=== PATIENT | female | born 1935 | race African-American/Black ===

== ENCOUNTER → 2016-10-30 | Outpatient (CLI) | payer MEDICARE ==
[2015-09-07 10:41] VITALS: BP 131/63
[~2016-10-30] MED LIST: AMIO200T2 PO; ASPI81TA9 PO; DILT120C97 PO; LISI10TA2 PO; METF500T4 PO; METO25TA9 PO; PRAV40TA2 PO; THIA100T22 PO
--- NOTE | 2016-10-30 13:37 | CARD ---
APPROVED REPORT EXAM: Two-dimensional and M-mode echocardiogram with Doppler and color Doppler. Other Information Quality : GoodHR: 130bpm Rhythm : Tachycardia INDICATION Chest Pain Atrial flutter 2D DIMENSIONS RVDd2.1 (2.9-3.5cm)Left Atrium(2D)2.8 (1.6-4.0cm) IVSd1.1 (0.7-1.1cm)Aortic Root(2D)2.4 (2.0-3.7cm) LVDd3.6 (3.9-5.9cm)LVOT Diameter2.1 (1.8-2.4cm) PWd1.1 (0.7-1.1cm)LVDs2.7 (2.5-4.0cm) FS (%) 27.0 %SV29.8 ml LVEF(%)53.5 (>50%) Aortic Valve AoV Peak Gorge.168.7cm/sAoV VTI28.5cm AO Peak GR.11.4mmHgLVOT Peak Gorge.96.8cm/s LVOT VTI 19.32cmAO Mean GR.7mmHg AMADA (VMAX)1.71sl3ZEH (VTI)2.37cm2 Mitral Valve MV E Zvlwaxrh584.1cm/sMV DECEL EZLD387mv MV E Mean Gr.5mmHgMV GTX48np MVA (PHT)6.35cm2 TDI E/Lateral E'10.7E/Medial E'7.5 Tricuspid Valve TR P. Ssfoofdj896iq/sRAP [id number] TR Peak Gr.95jyPkJJWD36jcFt Pulmonary Vein S1 Ugkxeays17.3cm/sD2 Nyvekriq128.7cm/s PVa bqxxdify48gyke LEFT VENTRICLE The left ventricle is normal size. There is mild concentric left ventricular hypertrophy. The left ve ntricular systolic function is normal. The Ejection Fraction is 65-70%. There is normal LV segmental wall motion. Unable to assess left ventricular diastolic function due to E/A waveform fusion. RIGHT VENTRICLE The right ventricle is normal size. There is normal right ventricular wall thickness. The right ventr icular systolic function is normal. ATRIA The left atrium size is normal. The right atrium size is normal. The interatrial septum is intact wit h no evidence for an atrial septal defect or patent foramen ovale as noted on 2-D or Doppler imaging. AORTIC VALVE The aortic valve is mildly sclerotic. The aortic valve is trileaflet. Doppler and Color Flow revealed no significant aortic regurgitation. There is no significant aortic valvular stenosis. MITRAL VALVE There is no evidence of mitral valve prolapse. There is no mitral valve stenosis. Doppler and Color F low revealed mild mitral regurgitation. TRICUSPID VALVE Doppler and Color Flow revealed mild to moderate tricuspid regurgitation. The pulmonary artery systol ic pressure is estimated at 46 mmHg. There is moderate pulmonary hypertension. PULMONIC VALVE The pulmonary valve is normal in structure and function. Doppler and Color Flow revealed no pulmonic valvular regurgitation. There is no pulmonic valvular stenosis. GREAT VESSELS The aortic root is normal in size. The ascending aorta is normal in size. The pulmonary artery is nor mal. The IVC is normal in size and collapses >50% with inspiration. PERICARDIAL EFFUSION There is no evidence of significant pericardial effusion. Critical Notification Critical Value: No <Conclusion> The left ventricular systolic function is normal. The Ejection Fraction is 65-70%. There is normal LV segmental wall motion. Mild to moderate tricuspid regurgitation. The pulmonary artery systolic pressure is estimated at 46 mmHg. There is no evidence of significant pericardial effusion.
== END | disposition home or self-care (01) ==
LOC: ECHO 10:02
PROVIDERS: ATTEND Internal Medicine Cardiovascular Disease
DX: I48.92 Unspecified atrial flutter (principal); I07.1 Rheumatic tricuspid insufficiency; I27.2 Other secondary pulmonary hypertension
CPT/HCPCS: 93306

== ENCOUNTER → 2017-08-07 | Outpatient (CLI) | payer MEDICARE ==
[2015-09-07 10:41] VITALS: BP 131/63
[~2017-08-07] MED LIST changes: +ASPI-612 PO; -ASPI81TA9 PO; +DILT120C80 PO; -DILT120C97 PO; +METO-239 PO; -METO25TA9 PO
--- NOTE | 2017-08-07 14:21 | KCIC ---
Right upper extremity Doppler ultrasound History: Right upper extremity swelling. Technique: Grayscale, color Doppler and spectral waveform analysis is used. Findings: No evidence of intraluminal thrombus of the internal jugular vein, subclavian vein, axillary vein and brachial vein. Radial and ulnar veins are patent. Cephalic and basilic veins are patent. There is a hypoechoic fluid collection at the right lateral shoulder, measuring 3.6 cm x 3.5 cm x 1.2 cm. Soft tissue edema seen at the wrist. Conclusion: 1. No evidence of venous thrombosis. 2. Nonspecific fluid collection at the lateral shoulder. This could represent bursitis. Seroma or nonacute hematoma are possible. Abscess is possible if the patient demonstrates clinical signs of infection. Electronically signed by: Yakov Templeton MD (08/07/2017 2:18 PM) [id number]
== END | disposition home or self-care (01) ==
LOC: KCIC US 12:04
PROVIDERS: ATTEND Family Medicine
DX: M79.89 Other specified soft tissue disorders (principal); R60.0 Localized edema
CPT/HCPCS: 93971

== ENCOUNTER → 2018-06-01 | Outpatient (CLI) | payer MEDICARE ==
[2015-09-07 10:41] VITALS: BP 131/63
[~2018-06-01] MED LIST changes: -AMIO200T2 PO; +AMIO200T4 PO; +METF500T16 PO; -METF500T4 PO
--- NOTE | 2018-06-01 10:36 | CARD ---
MR#: [id number] Date of Study: 06/01/2018 Ordering Physician: CAMRON MENDEZ, Referring Physician: CAMRON MENDEZ, Tech: Eliane Damon APPROVED REPORT EXAM: Two-dimensional and M-mode echocardiogram with Doppler and color Doppler. Other Information Quality : AverageHR: 71bpm Rhythm : NSR INDICATION Arrhythmia RISK FACTORS Hypertension Hyperlipidemia Diabetes 2D DIMENSIONS RVDd1.6 (2.9-3.5cm)Left Atrium(2D)2.8 (1.6-4.0cm) IVSd1.2 (0.7-1.1cm)Aortic Root(2D)2.8 (2.0-3.7cm) LVDd3.8 (3.9-5.9cm)LVOT Diameter2.1 (1.8-2.4cm) PWd1.0 (0.7-1.1cm)IVSs2.6 (0.8-1.2cm) Aortic Valve AoV Peak Gorge.179.7cm/sAoV VTI38.7cm AO Peak GR.12.9mmHgLVOT Peak Gorge.96.1cm/s LVOT VTI 24.62cmAO Mean GR.7mmHg AMADA (VMAX)1.54gc8ELZ (VTI)2.11cm2 Mitral Valve MV E Plvscbxy757.6cm/sMV DECEL GAEO934ih MV A Gnduapev065.6cm/sMV MME20dw E/A Ratio0.8MVA (PHT)3.27cm2 TDI E/Lateral E'10.3E/Medial E'12.5 Pulmonary Valve PV Peak Kkpdrnba944.4cm/sPV Peak Grad.5mmHg Tricuspid Valve TR P. Mmwjjpgu839nn/sRAP QOPCLBMQ1evNu TR Peak Gr.41nuPzBJLI69zoPv Pulmonary Vein PVa bgshvyxt488vqvp LEFT VENTRICLE The left ventricle is normal size. There is borderline concentric left ventricular hypertrophy. The l eft ventricular systolic function is normal and the ejection fraction is within normal range. The Eje ction Fraction is 50-55%. There is normal LV segmental wall motion. Transmitral Doppler flow pattern is Grade I-abnormal relaxation pattern. RIGHT VENTRICLE The right ventricle is normal size. There is normal right ventricular wall thickness. The right ventr icular systolic function is normal. ATRIA The left atrium size is normal. The right atrium size is normal. The interatrial septum is intact wit h no evidence for an atrial septal defect or patent foramen ovale as noted on 2-D or Doppler imaging. AORTIC VALVE The aortic valve is mildly thickened but opens well. Doppler and Color Flow revealed trace aortic reg urgitation. There is no significant aortic valvular stenosis. MITRAL VALVE The mitral valve is normal in structure and function. There is no mitral valve stenosis. Doppler and Color-flow revealed trace mitral regurgitation. TRICUSPID VALVE The tricuspid valve is normal in structure and function. Doppler and Color Flow revealed trace tricus pid regurgitation. PULMONIC VALVE The pulmonic valve is not well visualized. Doppler and Color Flow revealed no pulmonic valvular regur gitation. There is no pulmonic valvular stenosis. GREAT VESSELS The aortic root is normal in size. The IVC is normal in size and collapses >50% with inspiration. PERICARDIAL EFFUSION There is no evidence of significant pericardial effusion. Critical Notification Critical Value: No <Conclusion> The left ventricular systolic function is normal and the ejection fraction is within normal range. Th e Ejection Fraction is 50-55%. There is normal LV segmental wall motion. Signed by : Stan Brock, Electronically Approved : 06/01/2018 10:35:03
== END | disposition home or self-care (01) ==
LOC: ECHO 08:51
PROVIDERS: ATTEND Internal Medicine Cardiovascular Disease
DX: I48.92 Unspecified atrial flutter (principal); I10 Essential (primary) hypertension; E11.9 Type 2 diabetes mellitus without complications; E78.5 Hyperlipidemia, unspecified; Z85.3 Personal history of malignant neoplasm of breast; Z90.13 Acquired absence of bilateral breasts and nipples; Z88.2 Allergy status to sulfonamides; Z88.0 Allergy status to penicillin
CPT/HCPCS: 93306

== ENCOUNTER → 2018-11-25 | Outpatient (CLI) | payer MEDICARE ==
[2018-11-01 11:00] VITALS: BP 119/48
[~2018-11-25] MED LIST changes: +CHOL500016 PO; +DILT120C71 PO; -DILT120C80 PO; +DILT120C85 PO; +FLUT9.9S NS; +HYDR12.575 PO; +LORA10TA3 PO; +METO10TA81 PO; +NAPR-695 PO; +OXYC1TAB15 PO; +PANT20TA2 PO
--- NOTE | 2018-11-25 12:39 | RAD ---
FDG tumor localization scan, PET/CT, 11/25/2018: History: Staging of ovarian cancer Following IV injection of 12.7 mCi of 18 F-FDG, imaging was performed from the skull base to the proximal thighs. The noncontrast CT component was performed for attenuation correction and anatomic localization purposes rather than for primary diagnosis. The patient's blood glucose level the time of injection was 118 MG/DL. There are numerous hypermetabolic foci in the abdomen and pelvis. Many of these correspond to discrete peritoneal soft tissue implants. Some of these nodules were visible on the previous CT study of 06/20/2019. A 3.6 cm hypermetabolic nodule located along the posterior margin of the left lobe of the liver just to the left of midline has increased in size since the previous study at which time it measured 3.2 cm. It is hypermetabolic with a maximum tissue via of 14.0. Numerous other hypermetabolic nodules are present in the mesentery and along the peritoneal surfaces bilaterally. There are confluent hypermetabolic densities in the pelvis within both adnexal regions and the cul-de-sac, difficult to separate from the uterus. The maximum SUV in these regions is 13.4. Physiologic activity is present in the neck. No hypermetabolic neck lesion is seen. Abnormal periarticular activity at both shoulders is compatible with arthritis. A tiny 4-5 mm density in the left internal mammary region in the mid chest is mildly hypermetabolic demonstrating a maximum SUV of 2.9. There is a moderate size right pleural effusion, increased since the 10/21/2018 CT study. No definite hypermetabolic pleural mass is seen. No hypermetabolic pulmonary lesion is identified. A small hypermetabolic focus is noted in the upper abdominal wall just to the left of midline adjacent to a rib end. This could be posttraumatic or metastatic. There is increased FDG uptake involving the anterior abdominal wall musculature and adjacent subcutaneous soft tissues at the midline in the lower abdomen and pelvis. This may represent postsurgical change, although residual tumor cannot be excluded, particularly in view of the fact that there was an apparent tumor implant in this region on the previous CT study of 10/21/2018. Abnormal activity along the perineal surfaces most likely represents urine contamination. Incidental CT findings include surgical absence of both breasts. There are surgical clips in the right axilla. A few scattered coronary artery calcifications are present. There is only a small amount of free fluid in the abdomen. Previously seen bowel obstruction has resolved. Moderate multilevel degenerative changes are present in the spine. IMPRESSION: 1. 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 2. Hypermetabolic foci involving the anterior abdominal wall at the midline compatible with postsurgical change and/or tumor implantation. 3. Tiny mild hypermetabolic nodule in the left internal mammary region. 4. Enlarging right pleural effusion.
== END | disposition home or self-care (01) ==
LOC: PETSC 09:55
PROVIDERS: ATTEND Internal Medicine Hematology & Oncology
DX: C56.1 Malignant neoplasm of right ovary (principal); C80.0 Disseminated malignant neoplasm, unspecified; J90 Pleural effusion, not elsewhere classified
CPT/HCPCS: 78815; A9552

== ENCOUNTER 2018-11-29 07:29 | Day surgery (SDC) | payer MEDICARE ==
[~2018-11-29 07:29] MED LIST changes: +BUPIVAC MPF-EPI 0.5%-1:200000 30 ML VIAL. ONE; +HEPARIN PF 500 UNIT/5 ML DISP.SYRIN. IV ONE; +HYDROmorphone 2 MG/ML VIAL IV PRN; +IOHEXOL 300 MG/ML 100ML VIAL. ONE; +IV RINGERS,LACTATED 1000ML 1,000 ML IV SCH; +LIDOCAINE 1% PF 2 ML VIAL. ID PRN; +MORPHINE SULFATE 2 MG/ML VIAL. IV PRN; +ONDANSETRON PF 4 MG/2 ML VIAL. IV PRN; +PROCHLORPERAZINE 10 MG/2 ML VIAL. IV PRN; +fentaNYL PF VIAL 100 MCG/2 ML VIAL IV PRN
[2018-11-29] MEDS ORDERED: SEVOFLURANE 61 TO 120 MINUTES. IH ONE (08:17)
[2018-11-29] MEDS ORDERED: fentaNYL PF VIAL 100 MCG/2 ML VIAL ONE (08:18)
[2018-11-29 08:39] LABS: BASO % 1 % (0-3); EOS # 0.1 x10^3/uL (0.0-0.7); EOS % 1 % (0-3); HEMATOCRIT 28.8 % (36.0-47.0); HEMOGLOBIN 9.4 g/dL (12.0-15.5); LYMPH # 1.9 x10^3/uL (1.0-4.8); LYMPH % 37 % (24-48); MEAN CORPUSCULAR HEMOGLOBIN 29 pg (25-35); MEAN CORPUSCULAR HGB CONC 33 g/dL (31-37); MEAN CORPUSCULAR VOLUME 89 fL (79-100); MONO # 0.6 x10^3/uL (0.0-1.1); MONO % 10 % (0-9); NEUT # 2.7 x10^3uL (1.8-7.7); NEUT % 51 % (31-73); PLATELET COUNT 275 x10^3/uL (140-400); RED BLOOD COUNT 3.23 x10^6/uL (3.50-5.40); RED CELL DISTRIBUTION WIDTH 15.2 % (11.5-14.5); WHITE BLOOD COUNT 5.3 x10^3/uL (4.0-11.0)
[2018-11-29 08:47] LABS: CALCIUM 9.5 mg/dL (8.5-10.1); CREATININE 1.8 mg/dL (0.6-1.0); GFR 32.4; POTASSIUM 4.2 mmol/L (3.5-5.1)
[2018-11-29 08:49] LABS: PROTHROMBIN TIME PATIENT 13.3 SEC (11.7-14.0)
[2018-11-29 08:53] LABS: ALBUMIN 3.6 g/dL (3.4-5.0); ALBUMIN/GLOBULIN RATIO 0.7 (1.0-1.7); TOTAL BILIRUBIN 0.4 mg/dL (0.2-1.0); TOTAL PROTEIN 8.7 g/dL (6.4-8.2)
[2018-11-29] MEDS ORDERED: CLINDAMYCIN 900MG PREMIX 50 ML IV ONE (09:15)
--- NOTE | 2018-11-29 09:24 | PDOC ---
SURGICAL PROGRESS NOTE Subjective No change in dictated H&P. Vital Signs Vital Signs Date Time Temp Pulse Resp B/P (MAP) Pulse Ox O2 Delivery O2 Flow Rate FiO2 11/29/18 08:30 Room Air 11/29/18 08:16 97.3 89 20 150/67 97 97.3 Labs Laboratory Tests Test 11/29/18 08:20 White Blood Count 5.3 x10^3/uL (4.0-11.0) Red Blood Count 3.23 x10^6/uL (3.50-5.40) Hemoglobin 9.4 g/dL (12.0-15.5) Hematocrit 28.8 % (36.0-47.0) Mean Corpuscular Volume 89 fL (79-100) Mean Corpuscular Hemoglobin 29 pg (25-35) Mean Corpuscular Hemoglobin Concent 33 g/dL (31-37) Red Cell Distribution Width 15.2 % (11.5-14.5) Platelet Count 275 x10^3/uL (140-400) Neutrophils (%) (Auto) 51 % (31-73) Lymphocytes (%) (Auto) 37 % (24-48) Monocytes (%) (Auto) 10 % (0-9) Eosinophils (%) (Auto) 1 % (0-3) Basophils (%) (Auto) 1 % (0-3) Neutrophils # (Auto) 2.7 x10^3uL (1.8-7.7) Lymphocytes # (Auto) 1.9 x10^3/uL (1.0-4.8) Monocytes # (Auto) 0.6 x10^3/uL (0.0-1.1) Eosinophils # (Auto) 0.1 x10^3/uL (0.0-0.7) Basophils # (Auto) 0.0 x10^3/uL (0.0-0.2) Prothrombin Time 13.3 SEC (11.7-14.0) Prothromb Time International Ratio 1.0 (0.8-1.1) Sodium Level 142 mmol/L (136-145) Potassium Level 4.2 mmol/L (3.5-5.1) Chloride Level 101 mmol/L (98-107) Carbon Dioxide Level 28 mmol/L (21-32) Anion Gap 13 (6-14) Blood Urea Nitrogen 54 mg/dL (7-20) Creatinine 1.8 mg/dL (0.6-1.0) Estimated GFR (Cockcroft-Gault) 32.4 BUN/Creatinine Ratio 30 (6-20) Glucose Level 110 mg/dL (70-99) Calcium Level 9.5 mg/dL (8.5-10.1) Total Bilirubin 0.4 mg/dL (0.2-1.0) Aspartate Amino Transf (AST/SGOT) 38 U/L (15-37) Alanine Aminotransferase (ALT/SGPT) 14 U/L (14-59) Alkaline Phosphatase 109 U/L (46-116) Total Protein 8.7 g/dL (6.4-8.2) Albumin 3.6 g/dL (3.4-5.0) Albumin/Globulin Ratio 0.7 (1.0-1.7) Laboratory Tests Test 11/29/18 08:20 White Blood Count 5.3 x10^3/uL (4.0-11.0) Red Blood Count 3.23 x10^6/uL (3.50-5.40) Hemoglobin 9.4 g/dL (12.0-15.5) Hematocrit 28.8 % (36.0-47.0) Mean Corpuscular Volume 89 fL (79-100) Mean Corpuscular Hemoglobin 29 pg (25-35) Mean Corpuscular Hemoglobin Concent 33 g/dL (31-37) Red Cell Distribution Width 15.2 % (11.5-14.5) Platelet Count 275 x10^3/uL (140-400) Neutrophils (%) (Auto) 51 % (31-73) Lymphocytes (%) (Auto) 37 % (24-48) Monocytes (%) (Auto) 10 % (0-9) Eosinophils (%) (Auto) 1 % (0-3) Basophils (%) (Auto) 1 % (0-3) Neutrophils # (Auto) 2.7 x10^3uL (1.8-7.7) Lymphocytes # (Auto) 1.9 x10^3/uL (1.0-4.8) Monocytes # (Auto) 0.6 x10^3/uL (0.0-1.1) Eosinophils # (Auto) 0.1 x10^3/uL (0.0-0.7) Basophils # (Auto) 0.0 x10^3/uL (0.0-0.2) Prothrombin Time 13.3 SEC (11.7-14.0) Prothromb Time International Ratio 1.0 (0.8-1.1) Sodium Level 142 mmol/L (136-145) Potassium Level 4.2 mmol/L (3.5-5.1) Chloride Level 101 mmol/L (98-107) Carbon Dioxide Level 28 mmol/L (21-32) Anion Gap 13 (6-14) Blood Urea Nitrogen 54 mg/dL (7-20) Creatinine 1.8 mg/dL (0.6-1.0) Estimated GFR (Cockcroft-Gault) 32.4 BUN/Creatinine Ratio 30 (6-20) Glucose Level 110 mg/dL (70-99) Calcium Level 9.5 mg/dL (8.5-10.1) Total Bilirubin 0.4 mg/dL (0.2-1.0) Aspartate Amino Transf (AST/SGOT) 38 U/L (15-37) Alanine Aminotransferase (ALT/SGPT) 14 U/L (14-59) Alkaline Phosphatase 109 U/L (46-116) Total Protein 8.7 g/dL (6.4-8.2) Albumin 3.6 g/dL (3.4-5.0) Albumin/Globulin Ratio 0.7 (1.0-1.7) LINDSAY JARVIS MD Nov 29, 2018 09:24
[2018-11-29] MEDS ORDERED: ONDANSETRON PF 4 MG/2 ML VIAL. ONE (09:26)
[2018-11-29] MEDS ORDERED: DEXAMETHASONE SOD PHOS 20 MG/5 ML VIAL. ONE (09:26)
--- NOTE | 2018-11-29 09:27 | PDOC ---
SURGICAL PROGRESS NOTE Subjective Op Note Surgeon..........................................Jarvis Pre op diag.....................................Ovarian cancer Post op diag...................................same Anesthesia.....................................general Procedure......................................Port-a-cath on left Blood loss.....................................7cc Drains...........................................none Fluids............................................see anesthesia sheet condtion........................................Satisfactory Vital Signs Vital Signs Date Time Temp Pulse Resp B/P (MAP) Pulse Ox O2 Delivery O2 Flow Rate FiO2 11/29/18 08:30 Room Air 11/29/18 08:16 97.3 89 20 150/67 97 97.3 Labs Laboratory Tests Test 11/29/18 08:20 White Blood Count 5.3 x10^3/uL (4.0-11.0) Red Blood Count 3.23 x10^6/uL (3.50-5.40) Hemoglobin 9.4 g/dL (12.0-15.5) Hematocrit 28.8 % (36.0-47.0) Mean Corpuscular Volume 89 fL (79-100) Mean Corpuscular Hemoglobin 29 pg (25-35) Mean Corpuscular Hemoglobin Concent 33 g/dL (31-37) Red Cell Distribution Width 15.2 % (11.5-14.5) Platelet Count 275 x10^3/uL (140-400) Neutrophils (%) (Auto) 51 % (31-73) Lymphocytes (%) (Auto) 37 % (24-48) Monocytes (%) (Auto) 10 % (0-9) Eosinophils (%) (Auto) 1 % (0-3) Basophils (%) (Auto) 1 % (0-3) Neutrophils # (Auto) 2.7 x10^3uL (1.8-7.7) Lymphocytes # (Auto) 1.9 x10^3/uL (1.0-4.8) Monocytes # (Auto) 0.6 x10^3/uL (0.0-1.1) Eosinophils # (Auto) 0.1 x10^3/uL (0.0-0.7) Basophils # (Auto) 0.0 x10^3/uL (0.0-0.2) Prothrombin Time 13.3 SEC (11.7-14.0) Prothromb Time International Ratio 1.0 (0.8-1.1) Sodium Level 142 mmol/L (136-145) Potassium Level 4.2 mmol/L (3.5-5.1) Chloride Level 101 mmol/L (98-107) Carbon Dioxide Level 28 mmol/L (21-32) Anion Gap 13 (6-14) Blood Urea Nitrogen 54 mg/dL (7-20) Creatinine 1.8 mg/dL (0.6-1.0) Estimated GFR (Cockcroft-Gault) 32.4 BUN/Creatinine Ratio 30 (6-20) Glucose Level 110 mg/dL (70-99) Calcium Level 9.5 mg/dL (8.5-10.1) Total Bilirubin 0.4 mg/dL (0.2-1.0) Aspartate Amino Transf (AST/SGOT) 38 U/L (15-37) Alanine Aminotransferase (ALT/SGPT) 14 U/L (14-59) Alkaline Phosphatase 109 U/L (46-116) Total Protein 8.7 g/dL (6.4-8.2) Albumin 3.6 g/dL (3.4-5.0) Albumin/Globulin Ratio 0.7 (1.0-1.7) Laboratory Tests Test 11/29/18 08:20 White Blood Count 5.3 x10^3/uL (4.0-11.0) Red Blood Count 3.23 x10^6/uL (3.50-5.40) Hemoglobin 9.4 g/dL (12.0-15.5) Hematocrit 28.8 % (36.0-47.0) Mean Corpuscular Volume 89 fL (79-100) Mean Corpuscular Hemoglobin 29 pg (25-35) Mean Corpuscular Hemoglobin Concent 33 g/dL (31-37) Red Cell Distribution Width 15.2 % (11.5-14.5) Platelet Count 275 x10^3/uL (140-400) Neutrophils (%) (Auto) 51 % (31-73) Lymphocytes (%) (Auto) 37 % (24-48) Monocytes (%) (Auto) 10 % (0-9) Eosinophils (%) (Auto) 1 % (0-3) Basophils (%) (Auto) 1 % (0-3) Neutrophils # (Auto) 2.7 x10^3uL (1.8-7.7) Lymphocytes # (Auto) 1.9 x10^3/uL (1.0-4.8) Monocytes # (Auto) 0.6 x10^3/uL (0.0-1.1) Eosinophils # (Auto) 0.1 x10^3/uL (0.0-0.7) Basophils # (Auto) 0.0 x10^3/uL (0.0-0.2) Prothrombin Time 13.3 SEC (11.7-14.0) Prothromb Time International Ratio 1.0 (0.8-1.1) Sodium Level 142 mmol/L (136-145) Potassium Level 4.2 mmol/L (3.5-5.1) Chloride Level 101 mmol/L (98-107) Carbon Dioxide Level 28 mmol/L (21-32) Anion Gap 13 (6-14) Blood Urea Nitrogen 54 mg/dL (7-20) Creatinine 1.8 mg/dL (0.6-1.0) Estimated GFR (Cockcroft-Gault) 32.4 BUN/Creatinine Ratio 30 (6-20) Glucose Level 110 mg/dL (70-99) Calcium Level 9.5 mg/dL (8.5-10.1) Total Bilirubin 0.4 mg/dL (0.2-1.0) Aspartate Amino Transf (AST/SGOT) 38 U/L (15-37) Alanine Aminotransferase (ALT/SGPT) 14 U/L (14-59) Alkaline Phosphatase 109 U/L (46-116) Total Protein 8.7 g/dL (6.4-8.2) Albumin 3.6 g/dL (3.4-5.0) Albumin/Globulin Ratio 0.7 (1.0-1.7) LINDSAY JARVIS MD Nov 29, 2018 09:27
[2018-11-29] MEDS ORDERED: diphenhydrAMINE 50 MG/ML VIAL ONE (09:41)
[2018-11-29] MEDS ORDERED: PHENYLEPHRINE in 0.9% NACL PF 1 MG/10 ML SYRINGE. IV ONE (09:47)
[2018-11-29] MEDS ORDERED: ePHEDrine PF IN SALINE 50 MG/10 ML SYRINGE. IV ONE (10:09)
--- NOTE | 2018-11-29 11:44 | RAD ---
Portable chest, 11/29/2018: HISTORY: Check Port-A-Cath placement A left Port-A-Cath is in place extending into the superior aspect of the right atrium. The heart size and pulmonary vascularity are normal. There is mild tortuosity and calcific plaquing of the thoracic aorta. No pulmonary infiltrate is seen. There is no evidence of pleural fluid or pneumothorax. Surgical clips are projected over the right axilla. Severe degenerative changes are present at both shoulders. IMPRESSION: 1. The left Port-A-Cath extends into the superior aspect of the right atrium. 2. No acute cardiopulmonary abnormality is detected. Electronically signed by: Nitin Muñiz MD (11/29/2018 11:41 AM) [facility]
[2018-11-29] MEDS ORDERED: oxyCODONE/APAP 5/325 1 TAB TABLET PO ONE (11:45)
[2018-11-29 12:03] VITALS: BP 145/63
--- NOTE | 2018-11-30 00:17 | OP ---
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 ANESTHESIA: General. PROCEDURE: Insertion of Port-A-Cath on the left. TECHNIQUE: The patient was properly prepped and draped in routine fashion. We placed the patient in Trendelenburg position and at the junction of the middle and medial third of the clavicle at about a 30 degree angle, we passed a needle under the clavicle and over the first rib and punctured the vein. We aspirated back venous blood and placed a guidewire into the superior vena cava proven by C-arm. We then removed the needle, made a maynor in the skin and then passed the trocar and dilator over the guidewire. We then removed the guidewire and then removed the trocar leaving the sheath in place and then passed the catheter into the superior vena cava. We applied appropriate apparatus and injected dye and did clearly see the catheter in superior vena cava. We placed it down into the heart. We then made a pouch on the anterior chest wall, which was somewhat difficult as the patient had had a mastectomy and had fascia removed from the muscle. We made a small incision in the anterior left chest wall with a 15 blade and then developed a pocket inferior to this. We then used the finger to open this up and made sure that the Port-A-Cath would fit in it and then put the trocar on the end of the catheter, tunneled it from the entrance site in the subclavicular area through the superior portion of the inferior incision. We then pulled the catheter back using the C-arm to make certain the catheter was in the distal superior vena cava and then placed the appropriate apparatus onto the Port-A-Cath and placed a locking mechanism over this to lock it in place. We then placed aspirated venous blood using Macdonald needle into the Port-A-Cath and then flushed the Port-A-Cath with about 5 mL of heparinized saline solution. We then injected dye to make certain it was in its proper location, it was and then, we injected more heparin, about 5 mL of heparinized saline solution 100 units per mL into the area. The Port-A-Cath was sutured using 2-0 silk to the anterior chest wall on both sides of the Port-A-Cath. The resultant defect was inspected. The deeper tissue, subcutaneous and deep dermis were approximated with interrupted 4-0 Vicryl and the skin was closed using 5-0 subcuticular Vicryl and the small subclavicular incision and where the pocket had been made. We then placed Tegaderm dressings over this area and the procedure was terminated. There was no evidence of hemothorax or pneumothorax. The patient had clear breath sounds postoperatively, we will await chest x-ray. ESTIMATED BLOOD LOSS: Maybe 5 mL. FLUIDS GIVEN: Can be obtained from the anesthesia sheet. DRAINS: No drains were used. CONDITION OF THE PATIENT: Satisfactory as she has returned to the recovery room. DALLIN JARVIS MD DR: ALETA/bebo JOB#: [id number] / [id number] [facility]
== END 2018-11-29 13:11 | disposition home or self-care (01) ==
LOC: SURG 07:29
PROVIDERS: ATTEND Specialist
DX: Z45.2 Encounter for adjustment and management of vascular access device (principal); C78.6 Secondary malignant neoplasm of retroperitoneum and peritoneum; Z91.041 Radiographic dye allergy status; Z88.0 Allergy status to penicillin; Z88.2 Allergy status to sulfonamides; Z88.8 Allergy status to other drugs, medicaments and biological substances; I25.10 Atherosclerotic heart disease of native coronary artery without angina pectoris; I47.1 Supraventricular tachycardia; I11.0 Hypertensive heart disease with heart failure; I50.9 Heart failure, unspecified; D64.9 Anemia, unspecified; Z79.82 Long term (current) use of aspirin; Z79.899 Other long term (current) drug therapy
CPT/HCPCS: 36415; 36561; 71045; 77001; 80053; 82962; 85025; 85610; C1788; J0171; J1100; J1200; J2370; J2405; J3010; J3490; J7120; Q9967; 36556

== ENCOUNTER → 2018-12-09 | Outpatient (CLI) | payer MEDICARE ==
[2018-11-29 12:03] VITALS: BP 145/63
[~2018-12-09] MED LIST changes: -BUPIVAC MPF-EPI 0.5%-1:200000 30 ML VIAL. ONE; -HEPARIN PF 500 UNIT/5 ML DISP.SYRIN. IV ONE; -HYDROmorphone 2 MG/ML VIAL IV PRN; -IOHEXOL 300 MG/ML 100ML VIAL. ONE; -IV RINGERS,LACTATED 1000ML 1,000 ML IV SCH; -LIDOCAINE 1% PF 2 ML VIAL. ID PRN; -MORPHINE SULFATE 2 MG/ML VIAL. IV PRN; -ONDANSETRON PF 4 MG/2 ML VIAL. IV PRN; -PROCHLORPERAZINE 10 MG/2 ML VIAL. IV PRN; -fentaNYL PF VIAL 100 MCG/2 ML VIAL IV PRN
--- NOTE | 2018-12-09 15:13 | RAD ---
Left upper extremity venous duplex study 12/09/2018 Clinical History: Upper extremity pain and edema pain Technique: Using a combination of real time ultrasound imaging and color-flow and pulse Doppler imaging techniques, including spectral analysis, graded compression and augmentation, duplex evaluation of the deep venous system of the left upper extremity was performed. Multiple images were obtained. Findings: There is no sonographic evidence of deep venous thrombosis involving the visualized deep venous structures of the left upper extremity. Probable hematoma surrounding the left chest port reservoir noted. This is relatively small measuring 3.7 x 4.2 x 1.4 cm. Sterility of this collection cannot be assessed by ultrasound. Impression: 1.No evidence of deep venous thrombosis involving the left upper extremity 2. Probable hematoma surrounding the left chest port reservoir Electronically signed by: Damon Alcala MD (12/09/2018 3:10 PM) [id number]
== END | disposition home or self-care (01) ==
LOC: US 13:04
PROVIDERS: ATTEND Internal Medicine Hematology & Oncology
DX: I81 Portal vein thrombosis (principal); M79.602 Pain in left arm
CPT/HCPCS: 93971

== ENCOUNTER → 2019-01-20 | Outpatient (CLI) | payer MEDICARE ==
--- NOTE | 2019-01-20 13:00 | RAD ---
FDG tumor localization scan, PET/CT, 01/20/2019: History: Restaging ovarian cancer Following IV injection of 14.9 mCi of 18 F-FDG, imaging was performed from the skull base to the proximal thighs. The noncontrast CT component was performed for attenuation correction and anatomic localization purposes rather than for primary diagnosis. The patient's blood glucose level at the time of injection was 109 MG/DL. Comparison is made to a study from 11/25/2018. Multiple abdominal and pelvic foci of abnormal FDG uptake have regressed since 11/17/2018.. For example, a 3.6 cm hypermetabolic mass seen along the posterior margin of the left lobe of the liver on the previous study has decreased in size and now measures 2.8 cm. Its maximum SUV is 4.1 compared to a value of 14.0 on the previous study. Previously seen hypermetabolic nodules in the mesentery have regressed. Peritoneal tumor implants lung the anterolateral margin of the liver are no longer clearly visible. Many of the other lesions are difficult to separate from unopacified bowel on the current study. Abnormal activity involving the anterior abdominal wall at the midline has largely resolved. Physiologic FDG uptake is evident in the neck. No hypermetabolic neck lesion is seen. A small hypermetabolic left internal mammary lymph node seen on the previous study has decreased in size. No abnormal FDG uptake is currently present at that level. No abnormal pulmonary or mediastinal FDG uptake is evident. The previously seen right pleural effusion has resolved. A left Port-A-Cath is now in place extending into the upper vena cava. IMPRESSION: 1. Improving abdominal and pelvic carcinomatosis. 2. Resolution of the previously seen right pleural effusion. 3. No new hypermetabolic lesions are identified.
== END | disposition home or self-care (01) ==
LOC: PETSC 10:25
PROVIDERS: ATTEND Internal Medicine Hematology & Oncology
DX: C56.1 Malignant neoplasm of right ovary (principal); C80.0 Disseminated malignant neoplasm, unspecified
CPT/HCPCS: 78815; A9552

== ENCOUNTER → 2019-02-23 | Outpatient (CLI) | payer MEDICARE ==
--- NOTE | 2019-02-23 14:14 | RAD ---
Left upper extremity venous ultrasound, 02/23/2019: HISTORY: Left arm swelling Duplex evaluation of the major veins in the left upper extremity was performed including grayscale, color-flow and spectral Doppler analysis The left internal jugular, subclavian, axillary, brachial, radial and ulnar veins are all patent. Patent cephalic and basilic veins are also evident in the upper arm. Incidental note is made of a hypoechoic mass in the upper chest wall in the Port-A-Cath region measuring 3.2 x 2.7 x 2.2 cm. The appearance suggests complex fluid such as a hematoma or seroma. Abscess cannot be excluded. IMPRESSION: 1. No sonographic evidence of deep vein thrombosis in the left upper extremity. 2. Small complex fluid collection in the left upper chest wall. Electronically signed by: Nitin Muñiz MD (02/23/2019 2:11 PM) [facility]
== END | disposition home or self-care (01) ==
LOC: US 06:59
PROVIDERS: ATTEND Internal Medicine Hematology & Oncology
DX: R22.2 Localized swelling, mass and lump, trunk (principal); M79.602 Pain in left arm; Z95.828 Presence of other vascular implants and grafts
CPT/HCPCS: 93971

== ENCOUNTER → 2019-05-19 | Outpatient (CLI) | payer MEDICARE ==
--- NOTE | 2019-05-19 12:50 | RAD ---
CLINICAL HISTORY: Ovarian cancer INDICATION: Restaging. COMPARISON: PET/CT 01/20/2019, 11/25/2018 TECHNIQUE: Location of scan: [facility] Radiopharmaceutical Dose: 12.8 mCi F-18 FDG intravenous Blood glucose at time of study: 118 FDG uptake time = 60 minutes. Images were obtained from the mid head to the mid thighs. A low dose, noncontrast CT study was performed for the purpose of attenuation correction and anatomic localization. FINDINGS: Head and Neck: Physiologic activity is seen within the head and neck. Chest: A right axillary lymph node measures 5 mm short axis with an SUV max of 2.7. With the anterior left chest wall, there is now a 4 x 2.5 cm fluid collection extending to the left shoulder however does not demonstrate significant FDG uptake (SUV max 0.7). Linear opacities in lung bases likely scarring/atelectasis. Abdomen and Pelvis: Interval improvement in the known omental masses, for example the hypermetabolic mass at the posterior margin of the left hepatic lobe is no longer seen. Although implants on the bowel may be obscured by physiologic bowel activity, no discrete nodular peritoneal implant is seen. Skeletal: No significant abnormal metabolic activity is seen within the osseous structures. Reference SUV Values: Mediastinal SUV Max: 2.4 Liver SUV Max: 2.9 IMPRESSION: 1. 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 2. A 5 mm lymph node in the right axillary region has an SUV max of 2.7. This is nonspecific and although may be reactive, metastatic involvement is not excluded and evaluation is limited given small size. Interval follow-up imaging, including CT can be utilized to assess stability. Radiation Dosimetry: The radiopharmaceutical used for this exam delivers approximately 0.7 mSv/mCi (70 mRem/mCi) Source: ICRP Publication 106
== END | disposition home or self-care (01) ==
LOC: PETSC 09:04
PROVIDERS: ATTEND Internal Medicine Hematology & Oncology
DX: C56.1 Malignant neoplasm of right ovary (principal); J98.4 Other disorders of lung; R19.09 Other intra-abdominal and pelvic swelling, mass and lump; Z88.0 Allergy status to penicillin; Z88.2 Allergy status to sulfonamides; Z88.8 Allergy status to other drugs, medicaments and biological substances
CPT/HCPCS: 78815; A9552

== ENCOUNTER → 2019-07-06 | Outpatient (CLI) | payer MEDICARE ==
[~2019-07-06] MED LIST changes: -DILT120C85 PO; +DILT120C99 PO; +POTA20TA4 PO
--- NOTE | 2019-07-06 15:32 | CARD ---
MR#: [id number] Date of Study: 07/06/2019 Ordering Physician: CAMRON MENDEZ, Referring Physician: CAMRON MENDEZ, Tech: Eliane Damon APPROVED REPORT EXAM: Two-dimensional and M-mode echocardiogram with Doppler and color Doppler. Other Information Quality : AverageHR: 58bpm INDICATION Arrhythmia Atrial Fibrillation RISK FACTORS Hypertension Hyperlipidemia Diabetes 2D DIMENSIONS RVDd2.9 (2.9-3.5cm)Left Atrium(2D)2.5 (1.6-4.0cm) IVSd0.8 (0.7-1.1cm)Aortic Root(2D)2.7 (2.0-3.7cm) LVDd4.0 (3.9-5.9cm)LVOT Diameter1.8 (1.8-2.4cm) PWd0.9 (0.7-1.1cm)LVDs2.7 (2.5-4.0cm) FS (%) 33.0 %SV43.2 ml Aortic Valve AoV Peak Gorge.207.4cm/sAoV VTI40.1cm AO Peak GR.17.2mmHgLVOT Peak Gorge.88.7cm/s LVOT VTI 21.69cmAO Mean GR.9mmHg AMADA (VMAX)0.87ac1ZLY (VTI)1.36cm2 Mitral Valve MV E Bkfodjhf29.4cm/sMV DECEL [id number] MV A Smbyzmjv609.1cm/sMV OII73fl E/A Ratio0.9MVA (PHT)3.27cm2 TDI E/Lateral E'8.1E/Medial E'10.4 Pulmonary Valve PV Peak Dinhdpkz480.3cm/sPV Peak Grad.6mmHg Tricuspid Valve TR P. Moygegxy729ha/sRAP CYGXBSWJ2hvGo TR Peak Gr.73hrSfSKXC36qtJt Pulmonary Vein S1 Qzlqayqa21.8cm/sD2 Jizzacuf11.5cm/s PVa pbximibs889ggsv LEFT VENTRICLE The left ventricle is normal size. There is normal left ventricular wall thickness. The left ventricu lar systolic function is normal and the ejection fraction is within normal range. The Ejection Fracti on is 50-55%. There is normal LV segmental wall motion. Transmitral Doppler flow pattern is Grade I-a bnormal relaxation pattern. RIGHT VENTRICLE The right ventricle is borderline dilated. There is normal right ventricular wall thickness. The righ t ventricular systolic function is normal. ATRIA The left atrium size is normal. The right atrium size is normal. The interatrial septum is intact wit h no evidence for an atrial septal defect or patent foramen ovale as noted on 2-D or Doppler imaging. AORTIC VALVE The aortic valve is thickened but opens well. Doppler and Color Flow revealed trace aortic regurgitat ion. There is no significant aortic valvular stenosis. MITRAL VALVE Mitral annular calcification is mild to moderate. There is no evidence of mitral valve prolapse. Ther e is no mitral valve stenosis. Doppler and Color Flow revealed trace mitral valve regurgitation. TRICUSPID VALVE The tricuspid valve is normal in structure and function. Doppler and Color Flow revealed mild tricusp id regurgitation with an estimated PAP of 42 mmHg. There is no tricuspid valve stenosis. PULMONIC VALVE The pulmonic valve is not well visualized. Doppler and Color Flow revealed no pulmonic valvular regur gitation. GREAT VESSELS The aortic root is normal in size. The IVC is normal in size and collapses >50% with inspiration. PERICARDIAL EFFUSION There is no evidence of significant pericardial effusion. Critical Notification Critical Value: No <Conclusion> The left ventricle is normal size. The left ventricular systolic function is normal and the ejection fraction is within normal range. The Ejection Fraction is 50-55%. There is no significant aortic valvular stenosis. Doppler and Color Flow revealed trace aortic regurgitation. Doppler and Color Flow revealed trace mitral valve regurgitation. Doppler and Color Flow revealed mild tricuspid regurgitation with an estimated PAP of 42 mmHg. Signed by : Taz Murcia MD Electronically Approved : 07/06/2019 15:31:26
--- NOTE | 2019-07-11 18:17 | HP ---
ADMIT DATE: HISTORY OF PRESENT ILLNESS: The patient has a few months ago had extensive ovarian cancer for which she had laparotomy and bypass surgery to bypass the obstruction. She did well postoperatively and has been on chemotherapy and this has reduced the tumor. The CEA was back to normal and she was doing well without any symptoms relative to her GI tract. She did have a large mass removed from her abdomen and had the bypass surgery done along with the lysis of adhesions. She is doing well, has offered chemotherapy now and has noted some mass of the left shoulder and left anterior chest wall. These have been enlarging she states over the past 3 to 4 months. There is no evidence of previous diseases that she knows of in this area. 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 She was taking aspirin a day, which she has stopped. PAST MEDICAL HISTORY: Has been noted. ALLERGIES: She also has no allergies to her knowledge. FAMILY HISTORY: Strong for cancer of the breast, but she does not know exactly who all had. REVIEW OF SYSTEMS: Negative. She does have pain in the knees from arthritis and also has swelling of the lower legs, which may be due to the heart disease. She also has a nontender mass in the anterior chest wall where the tail of Desai would be and she has not had the surgery and the mastectomy, this is on the left. At the superior portion of the left shoulder, there was about 3-4 cm mass also. A recent CT scan did show these masses to be present and not sure if these are solid or cystic. The arm is not swollen though the right arm has some edema, but the left one does not. The masses are nontender and not particularly inflamed. PHYSICAL EXAMINATION: GENERAL: Shows an alert female in no acute distress. HEAD: EYES, NOSE AND THROAT: Grossly normal. CHEST: Clear to auscultation bilaterally. Examination of the anterior chest wall was negative except for the left side there is a mass, which was soft in nature about 4-5 cm in size at the sulcus between the chest wall and shoulder, it is fairly movable. There is also a mass of the left shoulder, which almost looks like a ball, it is about 3-4 cm in diameter, it is nontender. HEART: Clear with no murmurs, friction, rubs, or thrills. The heart was unremarkable. ABDOMEN: Negative. EXTREMITIES: Did show some edema at the lower extremity. At the right upper extremity, there is also some lymphedema, the left was negative. PELVIC: Not done. RECTAL: Not done. IMPRESSION: 1. Mass, left shoulder. 2. Mass, left anterior chest wall. 3. Coronary artery disease. 4. Cancer of the ovary. 5. Arthritis. It should be noted that we did discuss removal of these lesions. She wishes to have them removed and wants it to have done under general anesthesia. LINDSAY JARVIS MD DR: ALETA/bebo JOB#: [id number] / [id number]
== END | disposition home or self-care (01) ==
LOC: ECHO 14:01
PROVIDERS: ATTEND Internal Medicine Cardiovascular Disease
DX: I08.1 Rheumatic disorders of both mitral and tricuspid valves (principal); I10 Essential (primary) hypertension; E78.5 Hyperlipidemia, unspecified; E11.9 Type 2 diabetes mellitus without complications; I48.91 Unspecified atrial fibrillation
CPT/HCPCS: 93306

== ENCOUNTER 2019-07-14 09:39 | Day surgery (SDC) | payer MEDICARE ==
--- NOTE | 2019-07-13 15:26 | PREOP HP ---
DATE OF SERVICE: 07/14/2019 HISTORY OF PRESENT ILLNESS: The patient has a few months ago had extensive ovarian cancer for which she had laparotomy and bypass surgery to bypass the obstruction. She did well postoperatively and has been on chemotherapy and this has reduced the tumor. The CEA was back to normal and she was doing well without any symptoms relative to her GI tract. She did have a large mass removed from her abdomen and had the bypass surgery done along with the lysis of adhesions. She is doing well, has offered chemotherapy now and has noted some mass of the left shoulder and left anterior chest wall. These have been enlarging she states over the past 3 to 4 months. There is no evidence of previous diseases that she knows of in this area. 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 She was taking aspirin a day, which she has stopped. PAST MEDICAL HISTORY: Has been noted. ALLERGIES: She also has no allergies to her knowledge. FAMILY HISTORY: Strong for cancer of the breast, but she does not know exactly who all had. REVIEW OF SYSTEMS: Negative. She does have pain in the knees from arthritis and also has swelling of the lower legs, which may be due to the heart disease. She also has a nontender mass in the anterior chest wall where the tail of Desai would be and she has not had the surgery and the mastectomy, this is on the left. At the superior portion of the left shoulder, there was about 3-4 cm mass also. A recent CT scan did show these masses to be present and not sure if these are solid or cystic. The arm is not swollen though the right arm has some edema, but the left one does not. The masses are nontender and not particularly inflamed. PHYSICAL EXAMINATION: GENERAL: Shows an alert female in no acute distress. HEAD: EYES, NOSE AND THROAT: Grossly normal. CHEST: Clear to auscultation bilaterally. Examination of the anterior chest wall was negative except for the left side there is a mass, which was soft in nature about 4-5 cm in size at the sulcus between the chest wall and shoulder, it is fairly movable. There is also a mass of the left shoulder, which almost looks like a ball, it is about 3-4 cm in diameter, it is nontender. HEART: Clear with no murmurs, friction, rubs, or thrills. The heart was unremarkable. ABDOMEN: Negative. EXTREMITIES: Did show some edema at the lower extremity. At the right upper extremity, there is also some lymphedema, the left was negative. PELVIC: Not done. RECTAL: Not done. IMPRESSION: 1. Mass, left shoulder. 2. Mass, left anterior chest wall. 3. Coronary artery disease. 4. Cancer of the ovary. 5. Arthritis. It should be noted that we did discuss removal of these lesions. She wishes to have them removed and wants it to have done under general anesthesia. LINDSAY JARVIS MD DR: ALETA/nts JOB#: [id number] / [id number]
[~2019-07-14] VITALS: Ht 157.5 cm; Wt 62.5 kg
[~2019-07-14 09:39] MED LIST changes: +HYDROmorphone 2 MG/ML VIAL IV PRN; +IV RINGERS,LACTATED 1000ML 1,000 ML IV SCH; +LIDOCAINE 1% PF 2 ML VIAL. ID PRN; +MORPHINE SULFATE 2 MG/ML VIAL. IV PRN; +ONDANSETRON PF 4 MG/2 ML VIAL. IV PRN; -POTA20TA4 PO; +PROCHLORPERAZINE 10 MG/2 ML VIAL. IV PRN; +fentaNYL PF VIAL 100 MCG/2 ML VIAL IV PRN
[2019-07-14] MEDS ORDERED: POTA20TA4 PO (10:23)
[2019-07-14] MEDS ORDERED: LORA10TA3 PO (10:24)
[2019-07-14 10:34] LABS: BASO # 0.1 x10^3/uL (0.0-0.2); BASO % 1 % (0-3); EOS # 0.2 x10^3/uL (0.0-0.7); EOS % 3 % (0-3); HEMATOCRIT 28.5 % (36.0-47.0); HEMOGLOBIN 9.4 g/dL (12.0-15.5); LYMPH # 2.5 x10^3/uL (1.0-4.8); LYMPH % 41 % (24-48); MEAN CORPUSCULAR HEMOGLOBIN 31 pg (25-35); MEAN CORPUSCULAR HGB CONC 33 g/dL (31-37); MEAN CORPUSCULAR VOLUME 95 fL (79-100); MONO # 0.7 x10^3/uL (0.0-1.1); MONO % 12 % (0-9); NEUT # 2.6 x10^3/uL (1.8-7.7); NEUT % 43 % (31-73); PLATELET COUNT 205 x10^3/uL (140-400); RED BLOOD COUNT 3.02 x10^6/uL (3.50-5.40)
[2019-07-14 10:42] LABS: PROTHROMBIN TIME PATIENT 12.9 SEC (11.7-14.0)
[2019-07-14 10:44] LABS: CREATININE 0.9 mg/dL (0.6-1.0); GFR 72.2; POTASSIUM 3.6 mmol/L (3.5-5.1)
[2019-07-14 11:00] LABS: ALBUMIN 3.3 g/dL (3.4-5.0); ALBUMIN/GLOBULIN RATIO 0.8 (1.0-1.7); TOTAL BILIRUBIN 0.3 mg/dL (0.2-1.0); TOTAL PROTEIN 7.2 g/dL (6.4-8.2)
[2019-07-14] MEDS ORDERED: INSULIN LISPRO 100 UNIT/ML 3ML VIAL for OP,RR ONLY. SQ PRN (11:00)
[2019-07-14] MEDS ORDERED: LIDOCAINE 1%/EPI 1:100,000 20 ML VIAL. ONE (11:23)
--- NOTE | 2019-07-14 11:31 | PDOC ---
SURGICAL PROGRESS NOTE Subjective No change in dictated H&P. Vital Signs Vital Signs Date Time Temp Pulse Resp B/P (MAP) Pulse Ox O2 Delivery O2 Flow Rate FiO2 07/14/19 10:34 97.6 90 18 173/73 95 Room Air 97.6 Labs Laboratory Tests Test 07/14/19 10:25 07/14/19 10:47 White Blood Count 6.0 x10^3/uL (4.0-11.0) Red Blood Count 3.02 x10^6/uL (3.50-5.40) Hemoglobin 9.4 g/dL (12.0-15.5) Hematocrit 28.5 % (36.0-47.0) Mean Corpuscular Volume 95 fL (79-100) Mean Corpuscular Hemoglobin 31 pg (25-35) Mean Corpuscular Hemoglobin Concent 33 g/dL (31-37) Red Cell Distribution Width 18.0 % (11.5-14.5) Platelet Count 205 x10^3/uL (140-400) Neutrophils (%) (Auto) 43 % (31-73) Lymphocytes (%) (Auto) 41 % (24-48) Monocytes (%) (Auto) 12 % (0-9) Eosinophils (%) (Auto) 3 % (0-3) Basophils (%) (Auto) 1 % (0-3) Neutrophils # (Auto) 2.6 x10^3/uL (1.8-7.7) Lymphocytes # (Auto) 2.5 x10^3/uL (1.0-4.8) Monocytes # (Auto) 0.7 x10^3/uL (0.0-1.1) Eosinophils # (Auto) 0.2 x10^3/uL (0.0-0.7) Basophils # (Auto) 0.1 x10^3/uL (0.0-0.2) Prothrombin Time 12.9 SEC (11.7-14.0) Prothromb Time International Ratio 1.0 (0.8-1.1) Sodium Level 142 mmol/L (136-145) Potassium Level 3.6 mmol/L (3.5-5.1) Chloride Level 104 mmol/L (98-107) Carbon Dioxide Level 29 mmol/L (21-32) Anion Gap 9 (6-14) Blood Urea Nitrogen 25 mg/dL (7-20) Creatinine 0.9 mg/dL (0.6-1.0) Estimated GFR (Cockcroft-Gault) 72.2 BUN/Creatinine Ratio 28 (6-20) Glucose Level 100 mg/dL (70-99) Calcium Level 9.0 mg/dL (8.5-10.1) Total Bilirubin 0.3 mg/dL (0.2-1.0) Aspartate Amino Transf (AST/SGOT) 17 U/L (15-37) Alanine Aminotransferase (ALT/SGPT) 11 U/L (14-59) Alkaline Phosphatase 117 U/L (46-116) Total Protein 7.2 g/dL (6.4-8.2) Albumin 3.3 g/dL (3.4-5.0) Albumin/Globulin Ratio 0.8 (1.0-1.7) Glucose (Fingerstick) 86 mg/dL (70-99) Laboratory Tests Test 07/14/19 10:25 07/14/19 10:47 White Blood Count 6.0 x10^3/uL (4.0-11.0) Red Blood Count 3.02 x10^6/uL (3.50-5.40) Hemoglobin 9.4 g/dL (12.0-15.5) Hematocrit 28.5 % (36.0-47.0) Mean Corpuscular Volume 95 fL (79-100) Mean Corpuscular Hemoglobin 31 pg (25-35) Mean Corpuscular Hemoglobin Concent 33 g/dL (31-37) Red Cell Distribution Width 18.0 % (11.5-14.5) Platelet Count 205 x10^3/uL (140-400) Neutrophils (%) (Auto) 43 % (31-73) Lymphocytes (%) (Auto) 41 % (24-48) Monocytes (%) (Auto) 12 % (0-9) Eosinophils (%) (Auto) 3 % (0-3) Basophils (%) (Auto) 1 % (0-3) Neutrophils # (Auto) 2.6 x10^3/uL (1.8-7.7) Lymphocytes # (Auto) 2.5 x10^3/uL (1.0-4.8) Monocytes # (Auto) 0.7 x10^3/uL (0.0-1.1) Eosinophils # (Auto) 0.2 x10^3/uL (0.0-0.7) Basophils # (Auto) 0.1 x10^3/uL (0.0-0.2) Prothrombin Time 12.9 SEC (11.7-14.0) Prothromb Time International Ratio 1.0 (0.8-1.1) Sodium Level 142 mmol/L (136-145) Potassium Level 3.6 mmol/L (3.5-5.1) Chloride Level 104 mmol/L (98-107) Carbon Dioxide Level 29 mmol/L (21-32) Anion Gap 9 (6-14) Blood Urea Nitrogen 25 mg/dL (7-20) Creatinine 0.9 mg/dL (0.6-1.0) Estimated GFR (Cockcroft-Gault) 72.2 BUN/Creatinine Ratio 28 (6-20) Glucose Level 100 mg/dL (70-99) Calcium Level 9.0 mg/dL (8.5-10.1) Total Bilirubin 0.3 mg/dL (0.2-1.0) Aspartate Amino Transf (AST/SGOT) 17 U/L (15-37) Alanine Aminotransferase (ALT/SGPT) 11 U/L (14-59) Alkaline Phosphatase 117 U/L (46-116) Total Protein 7.2 g/dL (6.4-8.2) Albumin 3.3 g/dL (3.4-5.0) Albumin/Globulin Ratio 0.8 (1.0-1.7) Glucose (Fingerstick) 86 mg/dL (70-99) LINDSYA JARVIS MD Jul 14, 2019 11:31
--- NOTE | 2019-07-14 11:35 | PDOC ---
SURGICAL PROGRESS NOTE Subjective Op Note: Surgeon..................................................Jj Pre op diag.............................................Mass right shoulder and mass of the right anterior outer chest wall near axilla Post op diag...........................................same Anesthesia.............................................general Procedure..............................................excision mass of right shoulder and anterior upper outer chest wall Drains...................................................none Fluids....................................................see anesthesia sheet Blodd loss..............................................25cc Condition................................................satisfactory Vital Signs Vital Signs Date Time Temp Pulse Resp B/P (MAP) Pulse Ox O2 Delivery O2 Flow Rate FiO2 07/14/19 10:34 97.6 90 18 173/73 95 Room Air 97.6 Labs Laboratory Tests Test 07/14/19 10:25 07/14/19 10:47 White Blood Count 6.0 x10^3/uL (4.0-11.0) Red Blood Count 3.02 x10^6/uL (3.50-5.40) Hemoglobin 9.4 g/dL (12.0-15.5) Hematocrit 28.5 % (36.0-47.0) Mean Corpuscular Volume 95 fL (79-100) Mean Corpuscular Hemoglobin 31 pg (25-35) Mean Corpuscular Hemoglobin Concent 33 g/dL (31-37) Red Cell Distribution Width 18.0 % (11.5-14.5) Platelet Count 205 x10^3/uL (140-400) Neutrophils (%) (Auto) 43 % (31-73) Lymphocytes (%) (Auto) 41 % (24-48) Monocytes (%) (Auto) 12 % (0-9) Eosinophils (%) (Auto) 3 % (0-3) Basophils (%) (Auto) 1 % (0-3) Neutrophils # (Auto) 2.6 x10^3/uL (1.8-7.7) Lymphocytes # (Auto) 2.5 x10^3/uL (1.0-4.8) Monocytes # (Auto) 0.7 x10^3/uL (0.0-1.1) Eosinophils # (Auto) 0.2 x10^3/uL (0.0-0.7) Basophils # (Auto) 0.1 x10^3/uL (0.0-0.2) Prothrombin Time 12.9 SEC (11.7-14.0) Prothromb Time International Ratio 1.0 (0.8-1.1) Sodium Level 142 mmol/L (136-145) Potassium Level 3.6 mmol/L (3.5-5.1) Chloride Level 104 mmol/L (98-107) Carbon Dioxide Level 29 mmol/L (21-32) Anion Gap 9 (6-14) Blood Urea Nitrogen 25 mg/dL (7-20) Creatinine 0.9 mg/dL (0.6-1.0) Estimated GFR (Cockcroft-Gault) 72.2 BUN/Creatinine Ratio 28 (6-20) Glucose Level 100 mg/dL (70-99) Calcium Level 9.0 mg/dL (8.5-10.1) Total Bilirubin 0.3 mg/dL (0.2-1.0) Aspartate Amino Transf (AST/SGOT) 17 U/L (15-37) Alanine Aminotransferase (ALT/SGPT) 11 U/L (14-59) Alkaline Phosphatase 117 U/L (46-116) Total Protein 7.2 g/dL (6.4-8.2) Albumin 3.3 g/dL (3.4-5.0) Albumin/Globulin Ratio 0.8 (1.0-1.7) Glucose (Fingerstick) 86 mg/dL (70-99) Laboratory Tests Test 07/14/19 10:25 07/14/19 10:47 White Blood Count 6.0 x10^3/uL (4.0-11.0) Red Blood Count 3.02 x10^6/uL (3.50-5.40) Hemoglobin 9.4 g/dL (12.0-15.5) Hematocrit 28.5 % (36.0-47.0) Mean Corpuscular Volume 95 fL (79-100) Mean Corpuscular Hemoglobin 31 pg (25-35) Mean Corpuscular Hemoglobin Concent 33 g/dL (31-37) Red Cell Distribution Width 18.0 % (11.5-14.5) Platelet Count 205 x10^3/uL (140-400) Neutrophils (%) (Auto) 43 % (31-73) Lymphocytes (%) (Auto) 41 % (24-48) Monocytes (%) (Auto) 12 % (0-9) Eosinophils (%) (Auto) 3 % (0-3) Basophils (%) (Auto) 1 % (0-3) Neutrophils # (Auto) 2.6 x10^3/uL (1.8-7.7) Lymphocytes # (Auto) 2.5 x10^3/uL (1.0-4.8) Monocytes # (Auto) 0.7 x10^3/uL (0.0-1.1) Eosinophils # (Auto) 0.2 x10^3/uL (0.0-0.7) Basophils # (Auto) 0.1 x10^3/uL (0.0-0.2) Prothrombin Time 12.9 SEC (11.7-14.0) Prothromb Time International Ratio 1.0 (0.8-1.1) Sodium Level 142 mmol/L (136-145) Potassium Level 3.6 mmol/L (3.5-5.1) Chloride Level 104 mmol/L (98-107) Carbon Dioxide Level 29 mmol/L (21-32) Anion Gap 9 (6-14) Blood Urea Nitrogen 25 mg/dL (7-20) Creatinine 0.9 mg/dL (0.6-1.0) Estimated GFR (Cockcroft-Gault) 72.2 BUN/Creatinine Ratio 28 (6-20) Glucose Level 100 mg/dL (70-99) Calcium Level 9.0 mg/dL (8.5-10.1) Total Bilirubin 0.3 mg/dL (0.2-1.0) Aspartate Amino Transf (AST/SGOT) 17 U/L (15-37) Alanine Aminotransferase (ALT/SGPT) 11 U/L (14-59) Alkaline Phosphatase 117 U/L (46-116) Total Protein 7.2 g/dL (6.4-8.2) Albumin 3.3 g/dL (3.4-5.0) Albumin/Globulin Ratio 0.8 (1.0-1.7) Glucose (Fingerstick) 86 mg/dL (70-99) LINDSAY JARVIS MD Jul 14, 2019 11:35
[2019-07-14] MEDS ORDERED: PHENYLEPHRINE in 0.9% NACL PF 1 MG/10 ML SYRINGE. IV ONE (11:53)
[2019-07-14] MEDS ORDERED: DEXAMETHASONE SOD PHOS 4 MG/ML VIAL ONE (11:53)
[2019-07-14] MEDS ORDERED: ONDANSETRON PF 4 MG/2 ML VIAL. ONE (11:53)
[2019-07-14] MEDS ORDERED: PROPOFOL 20 ML IV ONE (11:53)
[2019-07-14] MEDS ORDERED: LIDOCAINE 2% PF 5 ML VIAL. ONE (11:53)
[2019-07-14] MEDS ORDERED: ceFAZolin SODIUM 1 GM VIAL ONE (11:54)
[2019-07-14] MEDS ORDERED: GELATIN SPONGE SIZE 100. ONE ×2 (12:14→13:20)
[2019-07-14] MEDS ORDERED: THROMBIN TOPICAL 5,000 UNIT VIAL. ONE ×2 (12:15→12:25)
[2019-07-14] MEDS ORDERED: SURGICEL HEMOSTAT 4X8 EACH. ONE (12:16)
[2019-07-14] MEDS ORDERED: GELATIN SPONGE SIZE 12-7MM SPONGE. ONE ×2 (12:22→12:25)
[2019-07-14] MEDS ORDERED: fentaNYL PF VIAL 100 MCG/2 ML VIAL ONE (12:36)
[2019-07-14] MEDS ORDERED: BUPIVACAINE MPF 0.5% 30 ML VIAL. ONE ×2 (13:37→13:43)
[2019-07-14] MEDS ORDERED: SEVOFLURANE > 120 MINUTES. IH ONE (13:58)
[2019-07-14] MEDS ORDERED: BUPIVACAINE-EPI 0.25%-1:200000 MPF 30 ML VIAL. INJ ONE (14:00)
--- NOTE | 2019-07-14 14:13 | DISCH ---
DISCHARGE INSTRUCTIONS Condition on Discharge Condition on Discharge: Stable Activity After Discharge Activity Instructions for Disc: Activity as tolerated, Avoid exertion Weight Bearing Status after Di: No restrictions Diet after Discharge Diet after Discharge: Low Sodium 2 gm Additional Diet Restrictions: resume pre op diet Wound Incision Care Wound/Incision Care: Do not change dressing Checks after Discharge Checks after discharge: Check blood sugar, ac/hs Follow-Up Follow up with: Jj in 7-10 days Treatment/Equipment after DC Adaptive Equipment Issued: None LINDSAY JARVIS MD Jul 14, 2019 14:13
[2019-07-14 14:55] VITALS: BP 152/65
[2019-07-14] MEDS ORDERED: HEPARIN PF 500 UNIT/5 ML DISP.SYRIN. ONE (15:02)
[2019-07-14] MEDS ORDERED: HEPARIN PF 500 UNIT/5 ML DISP.SYRIN. IVP ONE (16:15)
--- NOTE | 2019-07-15 01:48 | OP ---
DATE OF SURGERY: 07/14/2019 SURGEON: Dallin Jarvis MD POSTOPERATIVE DIAGNOSIS: Tumor, upper, outer, anterior left chest wall, near the axilla and mass of the shoulder, cephalad portion over the acromioclavicular joint. Both were about 5-6 cm in size and more firm. It should be noted that between the dissection of both and before the surgery, we did change gowns, gloves and all the instruments, so there would be no cross contamination from either site. The chest wall lesion was done first. An incision was made over it, following the skin lines, in a more or less cephalad-caudad direction. This was over the mass. It was in the subcutaneous. We did this with a 15 blade after the patient had been properly prepped and draped in a routine fashion. We then used spreading with clamps and going down with Metzenbaum scissors, down to the mass. We saw it; it appeared to be cystic. We dissected around it and used finger dissection and found that it extended beneath the muscle and it was intramuscular. The muscle fibers were slowly pushed away, cut away from the mass and we slowly removed it. We removed it in total. There was brisk bleeding controlled with cautery and pressure. The lesion was sent to pathology and the pathologist thought it was a simple cyst with frozen section, we will await permanent. We used Gelfoam and thrombin to stop the bleeding. All the bleeding did stop. There was no bleeding at the time of closure and we had washed the wound with saline and then approximated the deeper structures using interrupted 4-0 Vicryl and the skin was closed using 5-0 nylon interrupted sutures. This portion of the procedure was terminated as we applied a Tegaderm dressing. The blood loss for this portion of the procedure was probably about 10-15 mL. Next, we re-draped, used new gowns, gloves and all instruments and re-draped the area for the shoulder lesion, which was at the top of the shoulder. We then made an incision around it, in a fusiform fashion with a 15 blade and carried this down through the skin. The cyst was right on the top of the structures and extended somewhat into the muscle here too. We then used Metzenbaum scissors to slowly cut it away. We did get into it, and the cystic contents came out. We then washed the wound and then proceeded to remove the remaining portions of the cyst. This was sent to the pathologist also. The resultant defect was inspected and there was more bleeding here, than with the other one and we then had to use cautery for a number of brisk bleeders. Having stopped the bleeding, we then approximated the deeper structures in the subcutaneous using the 3-0 interrupted Vicryl and then closed the skin using 4-0 interrupted nylon. Sterile dressing was applied with Tegaderm and the procedure was terminated. ESTIMATED BLOOD LOSS: Here, was about 30-40 mL. FLUIDS GIVEN: Can be obtained from the anesthesia sheet. DRAINS: No drains were used. CONDITION OF THE PATIENT: Satisfactory as she is returned to the recovery room. DALLIN JARVIS MD DR: ALETA/bebo JOB#: [id number] / [id number]
--- NOTE | 2019-07-18 18:06 | PATHOLOGY ---
[facility] Accession Number: [id number] . 01 Material submitted: . PART A: chest - MASS ANTERIOR LEFT CHEST WALL. Modifiers: anterior, left, wall PART B: shoulder - LEFT SHOULDER MASS. Modifiers: left . 01 Clinical history: . Mass shoulder and chest wall. . 02 Diagnosis: A. Segment of fibroadipose and skeletal muscle tissue, anterior left chest wall mass: - Thin fibrous walled cyst showing scattered calcifications and focal hemosiderin laden macrophages and mild chronic inflammation. . B. Segments of skin, subcutaneous tissue and focal skeletal muscle tissue, left shoulder mass: - Fibrous walled cyst of subcutaneous tissue showing scattered calcifications and focal hemosiderin laden macrophages and mild chronic inflammation. . (JPM:health and safety consultant; 07/18/2019) [facility] 07/18/2019 1446 Local . 02 Comment: Sections of the left anterior chest wall mass and left shoulder mass appear similar and reveal fibrous walled cysts with no obvious epithelial lining. The malave of the cysts show fibrosis, scattered calcifications, and focal hemosiderin laden macrophages and mild chronic inflammation. 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 There is no definitive evidence of metastatic adenocarcinoma. There are no malignant epithelial cells associated with the calcifications. Correlate clinically. (JPM:health and safety consultant; 07/18/2019) . 02 Electronically signed: . Justin Connell MD, Pathologist NPI- [id number] . 01 Gross description: . A. Received fresh labeled "Kathryn Shane, mass anterior left chest wall" is a previously opened pink-clarke cystic structure measuring 4.7 x 3.5 x 0.7 cm. The cyst wall measures less than 0.1 cm in thickness, and has a defect measuring 1.1 cm. The cyst contains yellowish fluid. Project Reservoir Engineer sections are submitted in cassettes A1-A2. . B. Received in formalin labeled "Kathryn Shane, left shoulder mass" is a fragmented pink-clarke cystic structure measuring in aggregate 3.0 x 2.7 x 1.0 cm. The cyst wall measures less than 0.1 cm in thickness. Attached to the largest portion of cyst wall is an ellipse of clarke-brown skin measuring 4.8 x 2.0 x 0.5 cm. Project Reservoir Engineer sections are submitted in cassettes B1-B2. ([facility]; 07/14/2019) [facility] 07/18/2019 1441 Local . 02 Pathologist provided ICD-10: L72.0, L98.9 . 02 CPT . 929721, [id number] Specimen Comment: A courtesy copy of this report has been sent to [phone], [phone] Specimen Comment: [id number] Specimen Comment: Report sent to / DR SHEEHAN Performed at: 01 [facility] [address] [facility] [address], [place] [id number] MD Ramiro Moreno MD Phone: [phone] Performed at: 02 [facility] [address] [place], [place] [id number] MD Justin Connell MD Phone: [phone]
== END 2019-07-14 15:45 | disposition home or self-care (01) ==
LOC: SURG 09:39
PROVIDERS: ATTEND Specialist
DX: R22.2 Localized swelling, mass and lump, trunk (principal); L08.89 Other specified local infections of the skin and subcutaneous tissue; R22.32 Localized swelling, mass and lump, left upper limb; I25.10 Atherosclerotic heart disease of native coronary artery without angina pectoris; I11.9 Hypertensive heart disease without heart failure; I43 Cardiomyopathy in diseases classified elsewhere; E78.00 Pure hypercholesterolemia, unspecified; K21.9 Gastro-esophageal reflux disease without esophagitis; E11.9 Type 2 diabetes mellitus without complications; D64.9 Anemia, unspecified; Z87.39 Personal history of other diseases of the musculoskeletal system and connective tissue; Z85.43 Personal history of malignant neoplasm of ovary; Z79.84 Long term (current) use of oral hypoglycemic drugs; Z90.11 Acquired absence of right breast and nipple; Z85.3 Personal history of malignant neoplasm of breast
CPT/HCPCS: 21556; 23076; 36415; 80053; 82962; 85025; 85610; 88304; A7015; J0690; J1100; J2001; J2370; J2405; J2704; J3010; J3490; J7120

== ENCOUNTER → 2019-08-12 | Outpatient (CLI) | payer MEDICARE ==
[2019-07-14 14:55] VITALS: BP 152/65
[~2019-08-12] MED LIST changes: -HYDROmorphone 2 MG/ML VIAL IV PRN; -IV RINGERS,LACTATED 1000ML 1,000 ML IV SCH; -LIDOCAINE 1% PF 2 ML VIAL. ID PRN; -MORPHINE SULFATE 2 MG/ML VIAL. IV PRN; -ONDANSETRON PF 4 MG/2 ML VIAL. IV PRN; +POTA20TA4 PO; -PROCHLORPERAZINE 10 MG/2 ML VIAL. IV PRN; -fentaNYL PF VIAL 100 MCG/2 ML VIAL IV PRN
--- NOTE | 2019-08-12 19:08 | RAD ---
Examination: PET W CT SKULL TO MIDTHIGH History: Restaging after chemotherapy. Ovarian and breast cancer. Comparison/Correlation: 05/19/2019 PET/CT exam, 10/21/2018 CT abdomen and pelvis without contrast FINDINGS: Net dose 13.2 mCi F-18 FDG was administered intravenously for purposes of PET/CT exam. Blood glucose level at the time of radiotracer administration was 113 mg/dL. Imaging was performed from the skull base to the proximal thighs. Hepatic reference uptake is SUV max of 2.6 . Uptake of radiotracer only partially visualized head and neck unremarkable. Bilateral glenohumeral joint remodeling is advanced. Uptake of radiotracer involving the chest is unremarkable. Mild lower lobe atelectasis is present. No suspicious pulmonary nodule or mass. Azygos lobe is present. Tracheal bronchial tree is unremarkable. Right axilla surgical clips are present. No suspicious right axillary uptake. Previously described right axillary lymph node uptake is no longer seen. Distal pancreas body cystic structure is present measuring 2.8 cm x 1.5 cm. Hounsfield units of 17 noted. No abnormal uptake. Calcification along the posterior margin of this cystic structure noted. Cholelithiasis is present. No radiopaque collecting system calculi. Urinary bladder is unremarkable. No enlarged abdominal or pelvic lymph nodes. No ascites or pelvic free fluid. No omental masses or abnormal foci of uptake involving the omental region. Heterogeneous uptake within the liver is unchanged. No suspicious new foci of uptake involving the abdomen or pelvis. IMPRESSION: Resolution of previously described uptake involving a right axillary lymph node. No new suspicious foci of uptake. Pancreatic cystic lesion is unchanged upon correlation with CT abdomen and pelvis with contrast dated 11/17/2018. Interval follow-up MRI of the pancreas without and with contrast may be helpful for further characterization. Interval follow-up to assess stability is recommended as the possibility of a low-grade cystic neoplasm is not excluded. PQRS Compliance Statement: One or more of the following individualized dose reduction techniques were utilized for this examination: 1. Automated exposure control 2. Adjustment of the mA and/or kV according to patient size 3. Use of iterative reconstruction technique Electronically signed by: Ronan Hurst MD (08/12/2019 7:05 PM) [facility]
== END ==
LOC: PETSC 08:25
PROVIDERS: ATTEND Internal Medicine Hematology & Oncology
DX: C56.1 Malignant neoplasm of right ovary (principal); J98.11 Atelectasis; K80.80 Other cholelithiasis without obstruction; I10 Essential (primary) hypertension; K21.9 Gastro-esophageal reflux disease without esophagitis
CPT/HCPCS: 78815; A9552

== ENCOUNTER → 2019-09-30 | Outpatient (CLI) | payer MEDICARE ==
[2019-09-30 10:04] LABS: CREATININE 0.8 mg/dL (0.6-1.0); GFR 82.7
--- NOTE | 2019-09-30 16:32 | RAD ---
CT CHEST ABDOMEN PELVIS WO Indication: Malignant neoplasm of right ovary. Exposure: One or more of the following individualized dose reduction techniques were utilized for this examination: 1. Automated exposure control 2. Adjustment of the mA and/or kV according to patient size 3. Use of iterative reconstruction technique. Comparison: PET/CT scan of 08/12/2019. Technique: No intravenous contrast given. Oral contrast was administered. Findings: Evaluation of solid viscera, bowel and vasculature is compromised by the noncontrast technique. There is also image degradation due to artifact produced by the patient's arms which are at the side. CHEST: Aorta is calcified and tortuous. No gross aortic aneurysm. Coronary artery calcifications. No evidence of pericardial effusion. No evidence of pleural effusion. Small low-density nodule of the left thyroid measures about 6 mm diameter, not significant changed since prior study. Surgical clips in the right axilla. No evidence of pathologic lymph node enlargement. No significant esophageal distention. Lungs appear grossly clear without evidence of consolidating infiltrate or dominant mass. Mild dependent atelectasis. No evidence of pneumothorax. Trachea and mainstem bronchi are patent. Incidentally noted right azygos fissure. Degenerative spondylosis of the spine with right convexity scoliosis. Thoracic vertebral body height is maintained. Severe degenerative changes at both shoulders. No evidence of aggressive destructive bone lesion. Abdomen pelvis: Liver and spleen demonstrate no obvious lesion. Previously seen lesion at the pancreatic body is poorly defined on today's exam due to the limitations discussed above. Measures greater than cystic density but that may not be accurate due to the artifact. Calcifications along the posterior aspect are again identified. However, this appears overall similar in size as best as can be determined. No evidence of adrenal mass. No evidence of hydronephrosis, renal calculus or definite renal mass. Gallbladder is not well seen. There is a small calcification within the gallbladder fossa, could represent a calculus within a contracted gallbladder. Note that this is a similar appearance as the prior PET/CT scan of 08/12/2019. The aorta is calcified and tortuous, without evidence of aneurysm. No evidence of pathologic lymph node enlargement. Urinary bladder appears grossly unremarkable. No evidence of pelvic mass. No significant small bowel distention or obstruction. Colonic diverticulosis. No evidence of acute colitis. The appendix is not clearly seen. No evidence of pneumoperitoneum. No significant ascites. There is a broad anterior abdominal wall defect or dehiscence with multiple protruding loops of bowel. This is greater than what was seen on earlier study of 10/21/2018. Areas of omental densities which were described previously are not as clearly seen and could be more difficult to visualize without intravenous contrast. Severe degenerative spondylosis. Appearance and alignment of the spine is similar to October 21, 2018. Mild superior endplate compression fracture of L1, is of indeterminate age but appears new since October 21, 2018. No evidence of aggressive bone destruction. Left convexity lumbar scoliosis. IMPRESSION: 1. Mild superior endplate compression fracture of L1, age indeterminant but new since October 21, 2018. There is no evidence of underlying lesion to suggest pathologic etiology, and this could be due to trauma or osteoporosis. 2. Small subcentimeter left thyroid nodule is stable. 3. The previously seen mass of the pancreatic body is poorly evaluated on today's examination, it would be better characterized by MRI or multiphase CT of the pancreas. 4. Broad anterior abdominal wall herniation or defect with multiple protruding loops of bowel. No evidence of bowel obstruction. Electronically signed by: Yakov Templeton MD (09/30/2019 4:30 PM) [id number]
== END | disposition home or self-care (01) ==
LOC: CT 10:17
PROVIDERS: ATTEND Internal Medicine Hematology & Oncology
DX: C56.1 Malignant neoplasm of right ovary (principal); I70.0 Atherosclerosis of aorta; M19.012 Primary osteoarthritis, left shoulder; M19.011 Primary osteoarthritis, right shoulder; K57.30 Diverticulosis of large intestine without perforation or abscess without bleeding; M41.86 Other forms of scoliosis, lumbar region; M48.56XA Collapsed vertebra, not elsewhere classified, lumbar region, initial encounter for fracture; E04.1 Nontoxic single thyroid nodule
CPT/HCPCS: 36415; 71250; 74176; 82565

== ENCOUNTER → 2019-11-11 | Outpatient (CLI) | payer MEDICARE ==
--- NOTE | 2019-11-14 08:53 | RAD ---
EXAM: PET W CT SKULL TO MIDTHIGH EXAM DATE: 11/11/2019 INDICATION: Ovarian and breast cancer restaging. RADIOPHARMACEUTICAL: 13.53 mCi of F-18 Fluorodeoxyglucose (FDG) I.V. via the left antecubital fossa. TECHNIQUE: Patient weight: 138 pounds. Following at least four-hour fasting, the patient's blood glucose was 103 mg/dl. Approximately 1 hour after administration of FDG, overlapping emission scanning was performed from the orbital meatal line through the pelvis. A low-dose CT was performed for attenuation correction purposes and anatomic localization. Fused images of PET and CT were reviewed. Any standardized uptake values (SUV) reported are maximum values within a volume region of interest, expressed in gm/ml. COMPARISON: PET CT of 08/12/2019 FINDINGS: PET: In the head and neck, activity at the atlantodental axial articulation is present in the setting of upper cervical spinal degenerative change. In the chest, exuberant activity in the bilateral glenohumeral joints consistent with advanced degenerative change is noted. Otherwise no abnormal uptake is evident. Background activity in the mediastinum shows a max SUV of 2.49. In the abdomen and pelvis, no abnormal uptake is evident. Background activity in the liver shows a maximum SUV of 2.67. CT: In the head and neck, no unexpected findings demonstrated on unenhanced CT. In the chest, surgical changes from bilateral mastectomy, right axillary lymph node dissection, and left chest subclavian approach chest port placement are noted. Patient has an azygos lobe. Lungs show respiratory motion artifact and mild bibasilar dependent atelectasis. No dominant mass, suspicious nodule pleural effusion. In the abdomen and pelvis, solid organs show contracted gallbladder with gallstones and a 2 cm cystic pancreatic tail mass, Hounsfield units of 22 and with dorsal curvilinear calcifications redemonstrated. There are also surgical changes from previous bowel surgery with anastomotic sutures in the right lower quadrant, associated with a moderate ventral abdominal wall hernia containing bowel with no findings of bowel obstruction, perforation or acute inflammation. There is no peritoneal nodularity, ascites or adenopathy. The bones show osteopenia and multilevel spinal degenerative changes but no acute or aggressive appearing osseous lesions. IMPRESSION: No evidence of metabolically active locally recurrent or metastatic disease status post bilateral mastectomy and abdominal surgery compatible with history of breast and of ovarian cancer, respectively. Electronically signed by: Lynda Clark MD (11/14/2019 8:51 AM) [id number]
== END | disposition home or self-care (01) ==
LOC: PETSC 07:42
PROVIDERS: ATTEND Internal Medicine Hematology & Oncology
DX: C56.1 Malignant neoplasm of right ovary (principal); J98.11 Atelectasis; M85.88 Other specified disorders of bone density and structure, other site; K80.11 Calculus of gallbladder with chronic cholecystitis with obstruction; M47.812 Spondylosis without myelopathy or radiculopathy, cervical region; K43.9 Ventral hernia without obstruction or gangrene
CPT/HCPCS: 78815; A9552

== ENCOUNTER → 2020-02-16 | Outpatient (CLI) | payer MEDICARE ==
[2020-02-16 13:27] LABS: BASO % 1 % (0-3); EOS # 0.1 x10^3/uL (0.0-0.7); EOS % 2 % (0-3); HEMOGLOBIN 10.5 g/dL (12.0-15.5); LYMPH # 1.8 x10^3/uL (1.0-4.8); LYMPH % 39 % (24-48); MEAN CORPUSCULAR HEMOGLOBIN 32 pg (25-35); MEAN CORPUSCULAR HGB CONC 34 g/dL (31-37); MEAN CORPUSCULAR VOLUME 96 fL (79-100); MONO # 0.6 x10^3/uL (0.0-1.1); MONO % 12 % (0-9); NEUT # 2.1 x10^3/uL (1.8-7.7); NEUT % 46 % (31-73); PLATELET COUNT 177 x10^3/uL (140-400); RED BLOOD COUNT 3.24 x10^6/uL (3.50-5.40); RED CELL DISTRIBUTION WIDTH 13.5 % (11.5-14.5); WHITE BLOOD COUNT 4.6 x10^3/uL (4.0-11.0)
[2020-02-16 13:37] LABS: ALBUMIN 3.3 g/dL (3.4-5.0); CALCIUM 8.8 mg/dL (8.5-10.1); CREATININE 0.8 mg/dL (0.6-1.0); DIRECT BILIRUBIN 0.1 mg/dL (0.0-0.2); GFR 82.5; TOTAL BILIRUBIN 0.4 mg/dL (0.2-1.0); TOTAL PROTEIN 6.9 g/dL (6.4-8.2)
[2020-02-16 13:51] LABS: FREE T4 1.15 ng/dL (0.76-1.46); THYROID STIM HORMONE (TSH) 2.662 uIU/mL (0.358-3.74)
[2020-02-16 19:09] LABS: CA 125 7.5 U/mL (0.0-38.1)
== END | disposition home or self-care (01) ==
LOC: ONCLAB 12:55
PROVIDERS: ATTEND Internal Medicine Hematology & Oncology
DX: C56.9 Malignant neoplasm of unspecified ovary (principal)
CPT/HCPCS: 36415; 80048; 80076; 82607; 83615; 83921; 84439; 84443; 85025; 86304

== ENCOUNTER → 2020-02-17 | Outpatient (CLI) | payer MEDICARE ==
--- NOTE | 2020-02-17 17:48 | RAD ---
EXAM: PET W CT SKULL TO MIDTHIGH EXAM DATE: 02/17/2020 INDICATION: Restaging ovarian cancer RADIOPHARMACEUTICAL: 13.0 mCi of F-18 Fluorodeoxyglucose (FDG) I.V. via the left antecubital fossa. TECHNIQUE: Patient weight: 141 pounds. Following at least four-hour fasting, the patient's blood glucose was 110 mg/dl. Approximately 1 hour after administration of FDG, overlapping emission scanning was performed from the orbital meatal line through the pelvis. A low-dose CT was performed for attenuation correction purposes and anatomic localization. Fused images of PET and CT were reviewed. Any standardized uptake values (SUV) reported are maximum values within a volume region of interest, expressed in gm/ml. COMPARISON: PET CT of 11/11/2019 FINDINGS: PET: In the head and neck, mild metabolic activity in the upper cervical spine near the craniocervical junction is again evident. No abnormal uptake suspicious for active malignancy. In the chest, no abnormal FDG uptake suspicious for malignancy is identified either. There persists activity in the bilateral glenohumeral joints, similar to prior. Background mediastinal activity is 2.36 Max SUV. In the abdomen and pelvis, no abnormal FDG uptake suspicious for active malignancy is apparent. CT: CT findings show surgical changes from bilateral mastectomy and right axillary alana dissection along with evidence of previous bowel surgery with the wide neck inferior ventral abdominal wall hernia containing multiple bowel loops but no evidence of obstruction or incarceration. Additional findings suggesting persistent contracted gallbladder around multiple small gallstones versus previous cholecystectomy remain evident. The uterus is visualized with the ovaries are not seen and may be absent. Correlate with the patient's medical history. Bones show remodeling in the bilateral glenohumeral joints that could reflect sequelae of chronic bilateral degenerative change. Can't exclude underlying inflammatory component. Mild uptake in the bilateral wrists and in the right elbow are noted as well. Grade 1 anterolisthesis in the upper cervical spine is present most conspicuously at C4-C5. This is better evaluated on dedicated C-spine imaging if clinically warranted. IMPRESSION: Stable findings showing no evidence of metabolically active recurrent disease. Electronically signed by: Lynda Clark MD (02/17/2020 5:45 PM) [id number]
== END | disposition home or self-care (01) ==
LOC: PETSC 09:13
PROVIDERS: ATTEND Internal Medicine Hematology & Oncology
DX: C56.1 Malignant neoplasm of right ovary (principal); K43.9 Ventral hernia without obstruction or gangrene; M19.012 Primary osteoarthritis, left shoulder; M19.011 Primary osteoarthritis, right shoulder
CPT/HCPCS: 78815; A9552

== ENCOUNTER → 2020-03-07 | Outpatient (CLI) | payer MEDICARE ==
[2020-03-07 13:09] LABS: BASO % 1 % (0-3); EOS # 0.1 x10^3/uL (0.0-0.7); EOS % 2 % (0-3); LYMPH # 2.1 x10^3/uL (1.0-4.8); LYMPH % 43 % (24-48); MEAN CORPUSCULAR HEMOGLOBIN 33 pg (25-35); MEAN CORPUSCULAR HGB CONC 34 g/dL (31-37); MEAN CORPUSCULAR VOLUME 96 fL (79-100); MONO # 0.6 x10^3/uL (0.0-1.1); MONO % 12 % (0-9); NEUT # 2.1 x10^3/uL (1.8-7.7); NEUT % 42 % (31-73); PLATELET COUNT 189 x10^3/uL (140-400); RED BLOOD COUNT 3.34 x10^6/uL (3.50-5.40); RED CELL DISTRIBUTION WIDTH 13.8 % (11.5-14.5); WHITE BLOOD COUNT 4.9 x10^3/uL (4.0-11.0)
[2020-03-07 13:29] LABS: CALCIUM 8.9 mg/dL (8.5-10.1); CREATININE 0.8 mg/dL (0.6-1.0); GFR 82.5; POTASSIUM 4.1 mmol/L (3.5-5.1)
[2020-03-07 13:41] LABS: ALBUMIN 3.4 g/dL (3.4-5.0); DIRECT BILIRUBIN 0.1 mg/dL (0.0-0.2); TOTAL BILIRUBIN 0.2 mg/dL (0.2-1.0); TOTAL PROTEIN 7.3 g/dL (6.4-8.2)
[2020-03-09 13:13] LABS: IMMUNOGLOBULIN A 300 mg/dL (64-422); IMMUNOGLOBULIN G 1071 mg/dL (586-1602); IMMUNOGLOBULIN M 52 mg/dL (26-217)
[2020-03-09 18:13] LABS: ALBUM 3.5 g/dL (2.9-4.4); ALPHA 1 0.2 g/dL (0.0-0.4); ALPHA 2 0.8 g/dL (0.4-1.0); GAMMA 1.1 g/dL (0.4-1.8); PROTEIN TOTAL 6.6 g/dL (6.0-8.5); SPEP AG RATIO 1.1 (0.7-1.7)
== END | disposition home or self-care (01) ==
LOC: ONCLAB 12:48
PROVIDERS: ATTEND Physician Assistant
DX: D63.8 Anemia in other chronic diseases classified elsewhere (principal)
CPT/HCPCS: 36415; 80048; 80076; 82668; 82784; 83010; 83615; 84165; 85025; 86334

== ENCOUNTER → 2020-04-04 | Outpatient (CLI) | payer MEDICARE ==
[~2020-04-04] MED LIST changes: -ASPI-612 PO; +ASPI-886 PO
[2020-04-04 10:48] LABS: BASO % 1 % (0-3); EOS # 0.1 x10^3/uL (0.0-0.7); EOS % 2 % (0-3); HEMATOCRIT 32.9 % (36.0-47.0); HEMOGLOBIN 11.1 g/dL (12.0-15.5); LYMPH # 2.2 x10^3/uL (1.0-4.8); LYMPH % 47 % (24-48); MEAN CORPUSCULAR HEMOGLOBIN 32 pg (25-35); MEAN CORPUSCULAR HGB CONC 34 g/dL (31-37); MEAN CORPUSCULAR VOLUME 96 fL (79-100); MONO # 0.4 x10^3/uL (0.0-1.1); MONO % 10 % (0-9); NEUT # 1.9 x10^3/uL (1.8-7.7); NEUT % 41 % (31-73); PLATELET COUNT 185 x10^3/uL (140-400); RED BLOOD COUNT 3.44 x10^6/uL (3.50-5.40); RED CELL DISTRIBUTION WIDTH 13.9 % (11.5-14.5); WHITE BLOOD COUNT 4.6 x10^3/uL (4.0-11.0)
[2020-04-04 10:54] LABS: CREATININE 0.8 mg/dL (0.6-1.0); GFR 82.5; POTASSIUM 4.4 mmol/L (3.5-5.1)
[2020-04-04 11:02] LABS: ALBUMIN 3.3 g/dL (3.4-5.0); ALBUMIN/GLOBULIN RATIO 0.9 (1.0-1.7); TOTAL BILIRUBIN 0.3 mg/dL (0.2-1.0); TOTAL PROTEIN 7.1 g/dL (6.4-8.2)
== END | disposition home or self-care (01) ==
LOC: ONCLAB 10:30
PROVIDERS: ATTEND Internal Medicine Hematology & Oncology
DX: C56.9 Malignant neoplasm of unspecified ovary (principal)
CPT/HCPCS: 36415; 80053; 85025

== ENCOUNTER → 2020-05-08 | Outpatient (CLI) | payer MEDICARE ==
[2020-05-08 11:23] LABS: BASO % 0 % (0-3); EOS # 0.1 x10^3/uL (0.0-0.7); EOS % 1 % (0-3); HEMATOCRIT 33.6 % (36.0-47.0); HEMOGLOBIN 11.1 g/dL (12.0-15.5); LYMPH # 2.4 x10^3/uL (1.0-4.8); LYMPH % 49 % (24-48); MEAN CORPUSCULAR HEMOGLOBIN 32 pg (25-35); MEAN CORPUSCULAR HGB CONC 33 g/dL (31-37); MEAN CORPUSCULAR VOLUME 96 fL (79-100); MONO # 0.5 x10^3/uL (0.0-1.1); MONO % 10 % (0-9); NEUT % 41 % (31-73); PLATELET COUNT 186 x10^3/uL (140-400); RED CELL DISTRIBUTION WIDTH 13.4 % (11.5-14.5)
[2020-05-08 11:33] LABS: CALCIUM 9.2 mg/dL (8.5-10.1); CREATININE 0.9 mg/dL (0.6-1.0)
[2020-05-08 11:39] LABS: ALBUMIN 3.3 g/dL (3.4-5.0); ALBUMIN/GLOBULIN RATIO 0.9 (1.0-1.7); TOTAL BILIRUBIN 0.3 mg/dL (0.2-1.0); TOTAL PROTEIN 7.1 g/dL (6.4-8.2)
== END | disposition home or self-care (01) ==
LOC: ONCLAB 11:04
PROVIDERS: ATTEND Internal Medicine Hematology & Oncology
DX: C56.9 Malignant neoplasm of unspecified ovary (principal)
CPT/HCPCS: 36415; 80053; 85025; 86304

== ENCOUNTER → 2020-05-29 | Outpatient (CLI) | payer MEDICARE ==
--- NOTE | 2020-05-29 17:02 | RAD ---
Examination: CT CHEST ABDOMEN PELVIS WO History: Reason: OVARIAN CA / Spl. Instructions: WO CONTRAST PER OFFICE DUE TO IODINE ALLERGY PO BARIUM / History: Comparison/Correlation: 02/17/2020 PET/CT exam Findings: Axial images of chest, abdomen, and pelvis were obtained without IV contrast. Oral contrast was utilized. Sagittal and coronal reformatted images were provided. Left central venous infusion port catheter tip terminates within the superior cavoatrial junction. Coronary arterial calcifications are present. Mitral annular calcification is visible. No enlarged thoracic lymph nodes. No infiltrate or pleural effusion. Advanced degenerative changes of the glenohumeral joint is partially seen. Incidental note is made of an azygos lobe of the right lung. Right axillary surgical clips are present. Bilateral mastectomy. Liver and spleen are unremarkable. Cholelithiasis noted. No radiopaque collecting system calculi. Kidneys are unremarkable. Cystic structure involving the pancreatic body measuring 2.7 cm x 1.6 cm present. This is similar for correlation to previous exam. Adjacent calcification along its posterior margin again seen. Lower abdominal midline hernia defect is present measuring 10.7 cm transverse by 3.5 cm longitudinal. Diverticulosis is present. No enlarged abdominal or pelvic process. No ascites or free fluid. Uterus is unremarkable. Urinary bladder is normal. Advanced degenerative changes of the lumbar spine noted. L1 superior endplate deformity again is seen. Anterolisthesis of L5/S1 of nearly grade 2 extent is present. No pars interarticularis fractures identified. Impression: No infiltrates. No suspicious pulmonary nodules. No enlarged lymph nodes. No masses within the abdomen or pelvis in the interval. Pancreatic cystic structure is unchanged. Cholelithiasis. PQRS Compliance Statement: One or more of the following individualized dose reduction techniques were utilized for this examination: 1. Automated exposure control 2. Adjustment of the mA and/or kV according to patient size 3. Use of iterative reconstruction technique Electronically signed by: Ronan Hurst MD (05/29/2020 4:59 PM) [id number]
== END | disposition home or self-care (01) ==
LOC: CT 08:55
PROVIDERS: ATTEND Internal Medicine Hematology & Oncology
DX: C56.9 Malignant neoplasm of unspecified ovary (principal); K80.20 Calculus of gallbladder without cholecystitis without obstruction; K57.90 Diverticulosis of intestine, part unspecified, without perforation or abscess without bleeding; M43.17 Spondylolisthesis, lumbosacral region; M47.816 Spondylosis without myelopathy or radiculopathy, lumbar region; M19.019 Primary osteoarthritis, unspecified shoulder; Z90.13 Acquired absence of bilateral breasts and nipples
CPT/HCPCS: 71250; 74176

== ENCOUNTER → 2020-06-06 | Outpatient (CLI) | payer MEDICARE ==
[2020-06-06 10:12] LABS: BASO % 0 % (0-3); EOS # 0.1 x10^3/uL (0.0-0.7); EOS % 2 % (0-3); HEMATOCRIT 32.1 % (36.0-47.0); HEMOGLOBIN 10.9 g/dL (12.0-15.5); LYMPH # 2.3 x10^3/uL (1.0-4.8); LYMPH % 49 % (24-48); MEAN CORPUSCULAR HEMOGLOBIN 32 pg (25-35); MEAN CORPUSCULAR HGB CONC 34 g/dL (31-37); MEAN CORPUSCULAR VOLUME 95 fL (79-100); MONO # 0.5 x10^3/uL (0.0-1.1); MONO % 11 % (0-9); NEUT # 1.8 x10^3/uL (1.8-7.7); NEUT % 37 % (31-73); PLATELET COUNT 178 x10^3/uL (140-400); RED BLOOD COUNT 3.39 x10^6/uL (3.50-5.40); RED CELL DISTRIBUTION WIDTH 13.9 % (11.5-14.5); WHITE BLOOD COUNT 4.7 x10^3/uL (4.0-11.0)
[2020-06-06 10:22] LABS: CREATININE 0.9 mg/dL (0.6-1.0); POTASSIUM 3.8 mmol/L (3.5-5.1)
[2020-06-06 10:28] LABS: ALBUMIN 3.3 g/dL (3.4-5.0); ALBUMIN/GLOBULIN RATIO 0.9 (1.0-1.7); TOTAL BILIRUBIN 0.4 mg/dL (0.2-1.0)
== END ==
LOC: ONCLAB 08:00
PROVIDERS: ATTEND Internal Medicine Hematology & Oncology
DX: C56.9 Malignant neoplasm of unspecified ovary (principal)
CPT/HCPCS: 36415; 80053; 85025; 86304

== ENCOUNTER → 2020-07-18 | Outpatient (CLI) | payer MEDICARE ==
[~2020-07-18] MED LIST changes: -AMIO200T4 PO; +AMIO200T6 PO
[2020-07-18 10:40] LABS: BASO % 1 % (0-3); EOS # 0.1 x10^3/uL (0.0-0.7); EOS % 3 % (0-3); HEMATOCRIT 33.4 % (36.0-47.0); HEMOGLOBIN 11.1 g/dL (12.0-15.5); LYMPH # 2.3 x10^3/uL (1.0-4.8); LYMPH % 45 % (24-48); MEAN CORPUSCULAR HEMOGLOBIN 32 pg (25-35); MEAN CORPUSCULAR HGB CONC 33 g/dL (31-37); MEAN CORPUSCULAR VOLUME 96 fL (79-100); MONO # 0.5 x10^3/uL (0.0-1.1); MONO % 10 % (0-9); NEUT # 2.1 x10^3/uL (1.8-7.7); NEUT % 42 % (31-73); PLATELET COUNT 182 x10^3/uL (140-400); RED BLOOD COUNT 3.48 x10^6/uL (3.50-5.40); RED CELL DISTRIBUTION WIDTH 13.6 % (11.5-14.5); WHITE BLOOD COUNT 5.1 x10^3/uL (4.0-11.0)
[2020-07-18 10:45] LABS: CALCIUM 8.7 mg/dL (8.5-10.1); CREATININE 0.8 mg/dL (0.6-1.0); GFR 82.5; POTASSIUM 3.9 mmol/L (3.5-5.1)
[2020-07-18 10:51] LABS: ALBUMIN 3.3 g/dL (3.4-5.0); ALBUMIN/GLOBULIN RATIO 0.9 (1.0-1.7); TOTAL BILIRUBIN 0.3 mg/dL (0.2-1.0)
== END ==
LOC: ONCLAB 10:24
PROVIDERS: ATTEND Internal Medicine Hematology & Oncology
DX: C56.9 Malignant neoplasm of unspecified ovary (principal)
CPT/HCPCS: 36415; 80053; 85025; 86304

== ENCOUNTER → 2020-07-19 | Outpatient (CLI) | payer MEDICARE ==
--- NOTE | 2020-07-19 09:25 | RAD ---
INDICATION: Reason: Left Hand Swelling and pain / Spl. Instructions: / History: COMPARISON: None. TECHNIQUE: Grayscale, color and doppler ultrasound images were obtained of the left upper extremity venous vasculature. No thrombus identified in the internal jugular, subclavian, axillary, brachial, basilic, cephalic, radial or ulnar veins. IMPRESSION: 1. No thrombus identified in deep venous system of left upper extremity. Electronically signed by: Isma Monroy MD (07/19/2020 9:22 AM) [id number]
== END ==
LOC: US 09:03
PROVIDERS: ATTEND Physician Assistant
DX: C56.9 Malignant neoplasm of unspecified ovary (principal); R22.32 Localized swelling, mass and lump, left upper limb
CPT/HCPCS: 93971

== ENCOUNTER → 2020-08-27 | Outpatient (CLI) | payer MEDICARE ==
--- NOTE | 2020-08-27 15:39 | CARD ---
MR#: [id number] Date of Study: 08/27/2020 Ordering Physician: CAMRON LANGE, Referring Physician: CAMRON LANGE, Tech: Eliane Damon APPROVED REPORT EXAM: Two-dimensional and M-mode echocardiogram with Doppler and color Doppler. Other Information HR: 71bpm INDICATION Arrhythmia Aflutter RISK FACTORS Hypertension Hyperlipidemia Diabetes 2D DIMENSIONS RVDd2.6 (2.9-3.5cm)Left Atrium(2D)2.8 (1.6-4.0cm) IVSd1.0 (0.7-1.1cm)Aortic Root(2D)2.8 (2.0-3.7cm) LVDd4.1 (3.9-5.9cm)LVOT Diameter1.9 (1.8-2.4cm) PWd1.1 (0.7-1.1cm)LVDs2.5 (2.5-4.0cm) FS (%) 38.0 %SV50.8 ml LVEF(%)68.7 (>50%) Aortic Valve AoV Peak Gorge.219.6cm/sAoV VTI45.7cm AO Peak GR.19.3mmHgLVOT Peak Gorge.101.4cm/s LVOT VTI 27.07cmAO Mean GR.10mmHg AMADA (VMAX)1.49ec9FJA (VTI)1.60cm2 Mitral Valve MV E Axmpehqz248.6cm/sMV DECEL KDXP796bo MV A Hozneaws787.8cm/sMV NKF45xs E/A Ratio0.9MVA (PHT)3.24cm2 TDI E/Lateral E'9.5E/Medial E'12.9 Pulmonary Valve PV Peak Bxhvczyr579.9cm/sPV Peak Grad.4mmHg Tricuspid Valve TR P. Ucwemzxb179kz/sRAP ODUNRTMU1kvXf TR Peak Gr.32pdRkRNZO95kyLp Pulmonary Vein S1 Ovfiwjsk24.1cm/sD2 Fkjvmbdi07.0cm/s PVa wkhtuieo912kpbe LEFT VENTRICLE The left ventricle is normal size. There is normal left ventricular wall thickness. The left ventricu lar systolic function is normal. The Ejection Fraction is 55-60%. There is normal LV segmental wall m otion. Transmitral Doppler flow pattern is Grade I-abnormal relaxation pattern. RIGHT VENTRICLE The right ventricle is normal size. There is normal right ventricular wall thickness. The right ventr icular systolic function is normal. ATRIA The left atrium size is normal. The right atrium size is normal. The interatrial septum is intact wit h no evidence for an atrial septal defect or patent foramen ovale as noted on 2-D or Doppler imaging. AORTIC VALVE The aortic valve is thickened but opens well. Doppler and Color Flow revealed trace aortic regurgitat ion. There is no significant aortic valvular stenosis. MITRAL VALVE Mitral annular calcification is mild to moderate. There is no evidence of mitral valve prolapse. Ther e is no mitral valve stenosis. Doppler and Color-flow revealed trace mitral regurgitation. TRICUSPID VALVE The tricuspid valve is normal in structure and function. Doppler and Color Flow revealed trace to mil d tricuspid regurgitation with an estimated PAP of 39 mmHg. There is no tricuspid valve stenosis. PULMONIC VALVE The pulmonic valve is not well visualized. Doppler and Color Flow revealed trace pulmonic valvular re gurgitation. GREAT VESSELS The aortic root is normal in size. The ascending aorta is normal in size. The IVC is normal in size a nd collapses >50% with inspiration. PERICARDIAL EFFUSION There is no evidence of significant pericardial effusion. Critical Notification Critical Value: No <Conclusion> The left ventricular systolic function is normal. The Ejection Fraction is 55-60%. There is normal LV segmental wall motion. Trace mitral regurgitation. Trace to mild tricuspid regurgitation with an estimated PAP of 39 mmHg. There is no evidence of significant pericardial effusion. Signed by : Camron Lange, Electronically Approved : 08/27/2020 15:39:33
== END ==
LOC: ECHO 10:53
PROVIDERS: ATTEND Internal Medicine Cardiovascular Disease
DX: I08.1 Rheumatic disorders of both mitral and tricuspid valves (principal); I48.92 Unspecified atrial flutter
CPT/HCPCS: 93306

== ENCOUNTER → 2020-09-14 | Outpatient (CLI) | payer MEDICARE ==
--- NOTE | 2020-09-15 08:44 | RAD ---
EXAM: PET CT EXAM DATE: 09/14/2020 INDICATION: Restaging cervical and ovarian cancer RADIOPHARMACEUTICAL: 15.4 mCi of F-18 Fluorodeoxyglucose (FDG) I.V. via the left antecubital fossa. TECHNIQUE: Patient weight: 143 pounds. Following at least four-hour fasting, the patient's blood gluc ose was 107 mg/dl. Approximately 1 hour after administration of FDG, overlapping emission scanning w as performed from the orbital meatal line through the pelvis. A low-dose CT was performed for attenu ation correction purposes and anatomic localization. Fused images of PET and CT were reviewed. Any s tandardized uptake values (SUV) reported are maximum values within a volume region of interest, expre ssed in gm/ml. COMPARISON: 05/29/[address] and PET CT of 02/17/2020 FINDINGS: PET: No abnormal FDG uptake in the head and neck, chest, abdomen or pelvis is identified that is suspiciou s for malignancy. Activity in the bilateral glenohumeral joints is redemonstrated, consistent with de generative changes. Background mediastinal activity shows a max SUV of 2.53. Background activity in t he liver shows a max SUV of 3.13. CT: Stable postoperative changes from bilateral mastectomy, right axillary alana dissection and previous bowel surgery. Large ventral abdominal wall hernia is redemonstrated with no acute bowel findings. Un remarkable uterus. No adnexal mass. No pelvic free fluid or fluid collection. Stable mild anterolisthesis in the cervical spine at C4-C5. No acute or aggressive appearing osseous lesions. IMPRESSION: Stable postsurgical changes with no evidence of FDG avid residual or recurrent disease. Electronically signed by: Lynad Clark MD (09/15/2020 8:41 AM) [facility]
== END ==
LOC: PETSC 11:28
PROVIDERS: ATTEND Physician Assistant
DX: C56.1 Malignant neoplasm of right ovary (principal); K43.9 Ventral hernia without obstruction or gangrene; M43.12 Spondylolisthesis, cervical region
CPT/HCPCS: 78815; A9552

== ENCOUNTER → 2020-09-19 | Outpatient (CLI) | payer MEDICARE ==
[2020-09-19 10:34] LABS: CALCIUM 8.8 mg/dL (8.5-10.1); CREATININE 0.9 mg/dL (0.6-1.0); POTASSIUM 3.8 mmol/L (3.5-5.1)
[2020-09-19 10:39] LABS: ALBUMIN 3.2 g/dL (3.4-5.0); ALBUMIN/GLOBULIN RATIO 0.9 (1.0-1.7); TOTAL BILIRUBIN 0.3 mg/dL (0.2-1.0); TOTAL PROTEIN 6.7 g/dL (6.4-8.2)
[2020-09-19 10:50] LABS: BASO % 1 % (0-3); EOS # 0.1 x10^3/uL (0.0-0.7); EOS % 2 % (0-3); HEMATOCRIT 33.3 % (36.0-47.0); HEMOGLOBIN 10.9 g/dL (12.0-15.5); LYMPH # 1.7 x10^3/uL (1.0-4.8); LYMPH % 38 % (24-48); MEAN CORPUSCULAR HEMOGLOBIN 32 pg (25-35); MEAN CORPUSCULAR HGB CONC 33 g/dL (31-37); MEAN CORPUSCULAR VOLUME 97 fL (79-100); MONO # 0.5 x10^3/uL (0.0-1.1); MONO % 12 % (0-9); NEUT # 2.1 x10^3/uL (1.8-7.7); NEUT % 48 % (31-73); PLATELET COUNT 178 x10^3/uL (140-400); RED BLOOD COUNT 3.44 x10^6/uL (3.50-5.40); RED CELL DISTRIBUTION WIDTH 14.2 % (11.5-14.5); WHITE BLOOD COUNT 4.4 x10^3/uL (4.0-11.0)
[2020-09-20 01:09] LABS: CA 125 8.1 U/mL (0.0-38.1)
== END ==
LOC: ONCLAB 10:11
PROVIDERS: ATTEND Physician Assistant
DX: C56.9 Malignant neoplasm of unspecified ovary (principal); D63.8 Anemia in other chronic diseases classified elsewhere; Z85.3 Personal history of malignant neoplasm of breast; Z92.21 Personal history of antineoplastic chemotherapy; Z92.29 Personal history of other drug therapy; R60.9 Edema, unspecified
CPT/HCPCS: 36415; 80053; 82607; 82728; 82746; 83540; 83550; 83921; 85025; 86304

== ENCOUNTER → 2021-01-01 | Outpatient (CLI) | payer MEDICARE ==
[~2021-01-01] MED LIST changes: +IOHEXOL 240 MG/ML 50ML VIAL. PO ONE; +LISI10TA16 PO; -LISI10TA2 PO
--- NOTE | 2021-01-02 10:01 | RAD ---
CT CHEST_ABDOMEN_ AND PELVIS WITHOUT CONTRAST INDICATION: restaging ovarian cancer COMPARISON: CT chest abdomen pelvis 05/29/2020. PET/CT 09/14/2020. TECHNIQUE: Multiple contiguous axial images were obtained throughout the chest, abdomen, and pelvis without the use of IV contrast. Axial images were reformatted into coronal and sagittal planes. One or more of th e following dose reduction techniques were utilized: Automated exposure control (AEC), Adjustment of mA and/or kV according to patient size, Use of iterative reconstruction technique such as ASiR, CT sc an done according to ALARA and image gently/image wisely. FINDINGS: Left subclavian Port-A-Cath. The thyroid is symmetric. There is no axillary, mediastinal, or hilar adenopathy, although evaluatio n of the scot is limited without IV contrast. The thoracic aorta diameter is normal. The cardiac size is normal. Coronary artery atherosclerotic di sease There is no pericardial effusion. The central airways are patent. No pulmonary mass or consolidation. No pleural abnormality. Evaluation of solid abdominal viscera is limited without the use of IV contrast. However, the liver, gallbladder, spleen, pancreas, and adrenal glands are unremarkable. The kidneys are unremarkable. There is no significant mesenteric or retroperitoneal adenopathy identified, though evaluation is roth ited without intravenous contrast. There is no evidence of free intraperitoneal fluid or pneumoperit oneum. Large ventral abdominal wall hernia containing segments of large and small bowel without evide nce of obstruction. Colonic diverticulosis. Bladder is unremarkable. Uterus is present There is no significant pelvic ascites. No significant i liac or inguinal adenopathy is identified. No acute osseous abnormality. Severe bilateral glenohumeral osteoarthritis with osseous remodeling. S -shaped thoracolumbar curvature. Degenerative changes of the spine. Postsurgical changes of bilateral mastectomies. Right axillary lymph node dissection. IMPRESSION: No evidence of recurrent or metastatic disease. No mass or lymphadenopathy. Electronically signed by: Willie Lauren MD (01/02/2021 9:59 AM) [facility]
== END ==
LOC: CT 12:17
PROVIDERS: ATTEND Physician Assistant
DX: C56.9 Malignant neoplasm of unspecified ovary (principal)
CPT/HCPCS: 71250; 74176

== ENCOUNTER → 2021-03-27 | Outpatient (CLI) | payer MEDICARE ==
[~2021-03-27] MED LIST changes: -IOHEXOL 240 MG/ML 50ML VIAL. PO ONE
[2021-03-27 13:27] LABS: BASO % 1 % (0-3); EOS # 0.1 x10^3/uL (0.0-0.7); EOS % 2 % (0-3); HEMATOCRIT 33.2 % (36.0-47.0); LYMPH # 2.1 x10^3/uL (1.0-4.8); LYMPH % 46 % (24-48); MEAN CORPUSCULAR HEMOGLOBIN 32 pg (25-35); MEAN CORPUSCULAR HGB CONC 33 g/dL (31-37); MEAN CORPUSCULAR VOLUME 97 fL (79-100); MONO # 0.5 x10^3/uL (0.0-1.1); MONO % 10 % (0-9); NEUT # 1.9 x10^3/uL (1.8-7.7); NEUT % 42 % (31-73); PLATELET COUNT 181 x10^3/uL (140-400); RED BLOOD COUNT 3.41 x10^6/uL (3.50-5.40); RED CELL DISTRIBUTION WIDTH 13.7 % (11.5-14.5); WHITE BLOOD COUNT 4.6 x10^3/uL (4.0-11.0)
[2021-03-27 13:35] LABS: CALCIUM 8.8 mg/dL (8.5-10.1); CREATININE 0.8 mg/dL (0.6-1.0); GFR 82.3; POTASSIUM 3.7 mmol/L (3.5-5.1)
[2021-03-27 13:41] LABS: ALBUMIN 3.1 g/dL (3.4-5.0); ALBUMIN/GLOBULIN RATIO 0.9 (1.0-1.7); TOTAL BILIRUBIN 0.3 mg/dL (0.2-1.0); TOTAL PROTEIN 6.6 g/dL (6.4-8.2)
== END ==
LOC: ONCLAB 12:49
PROVIDERS: ATTEND Internal Medicine Hematology & Oncology
DX: C56.9 Malignant neoplasm of unspecified ovary (principal); D63.8 Anemia in other chronic diseases classified elsewhere; Z85.3 Personal history of malignant neoplasm of breast
CPT/HCPCS: 36415; 80053; 85025; 86304

== ENCOUNTER 2021-04-14 22:48 | Inpatient (IN) | payer MEDICARE ==
[~2021-04-14] VITALS: Ht 157.5 cm; Wt 68.0 kg
[~2021-04-14 22:48] MED LIST changes: +POTA-121 PO; -POTA20TA4 PO
[2021-04-15 00:33] LABS: BASO % 0 % (0-3); EOS % 1 % (0-3); HEMATOCRIT 36.9 % (36.0-47.0); HEMOGLOBIN 12.3 g/dL (12.0-15.5); LYMPH # 1.3 x10^3/uL (1.0-4.8); LYMPH % 21 % (24-48); MEAN CORPUSCULAR HEMOGLOBIN 32 pg (25-35); MEAN CORPUSCULAR HGB CONC 33 g/dL (31-37); MEAN CORPUSCULAR VOLUME 96 fL (79-100); MONO # 0.5 x10^3/uL (0.0-1.1); MONO % 8 % (0-9); NEUT # 4.4 x10^3/uL (1.8-7.7); NEUT % 71 % (31-73); PLATELET COUNT 205 x10^3/uL (140-400); RED BLOOD COUNT 3.84 x10^6/uL (3.50-5.40); RED CELL DISTRIBUTION WIDTH 13.9 % (11.5-14.5); WHITE BLOOD COUNT 6.3 x10^3/uL (4.0-11.0)
[2021-04-15 00:42] LABS: CALCIUM 9.3 mg/dL (8.5-10.1); CREATININE 0.9 mg/dL (0.6-1.0); GFR 71.8; POTASSIUM 4.2 mmol/L (3.5-5.1)
[2021-04-15 00:57] LABS: ALBUMIN 3.4 g/dL (3.4-5.0); ALBUMIN/GLOBULIN RATIO 0.9 (1.0-1.7); TOTAL BILIRUBIN 0.3 mg/dL (0.2-1.0); TOTAL PROTEIN 7.1 g/dL (6.4-8.2)
--- NOTE | 2021-04-15 01:25 | RAD ---
CT abdomen and pelvis without contrast PQRS statement: CT scans at this facility use dose reduction including either automated exposure cont rol, iterative reconstructions, and /or weight based radiation dosing via mA and kV modification when appropriate to reduce radiation dose to as low as reasonably achievable. HISTORY: Abdominal pain. COMPARISON: PET scan September 14, 2020 and priors Abdomen findings: Lumbar scoliosis and sequela degenerative disc disease and facet arthritis, there i s a chronic L1 vertebral compression fracture deformity. Kidneys, adrenals, spleen, liver, gallbladde r unremarkable. At the tail of pancreas there is a 3 cm cystic lesion with layering calcification whi ch is stable. Extensive of free fluid inferior right hepatic lobe adjacent of the hepatic flexure is new. Aorta and iliac artery and abdominal artery calcified plaque. There is a large ventral abdominal wall hernia containing large and small bowel loops again demonstrated however there is development o f small bowel obstruction with dilated small bowel loops within the hernia sac with lesser dilated lo ops deep to the hernia sac within the abdomen, it is suspected that this is an obstruction due to the hernia sac although transition point can also be deep to the hernia within the abdomen where there i s some distortion of small bowel loops at the right sided abdomen perhaps due to an adhesion. No infl ammatory change of the GI tract evident. Appendectomy. Sigmoid colonic diverticulosis. Pelvis findings: Small volume of free fluid adjacent left cavernous sinus cul-de-sac. Uterus, ovaries , bladder, rectum and bones are unremarkable. IMPRESSION: 1. Large ventral abdominal wall hernia containing large and small bowel loops. Development of small b owel obstruction with prominent distention with air-fluid levels of the small bowel with a diameter o f up to 3.5 cm. The small bowel obstruction could be due to the hernia sac itself although the dilate d bowel loops are also deep to the hernia sac within the abdominal cavity and the transition point ap pears to be at the right abdomen with distortion of small bowel at the transition point which suggest s obstruction due to adhesions within the abdomen, rather than due to the hernia sac itself which has a wide mouth. 2. Small volume of free fluid within the pelvis and right abdomen. 3. 3 cm cystic lesion with dependent calcification at the tail the pancreas is stable. Electronically signed by: Charlie Montano MD (04/15/2021 1:23 AM) [facility]
--- NOTE | 2021-04-15 01:41 | PHYS DOC ---
Past Medical History Past Medical History: Arthritis, Arrhythmia, Cancer, Diabetes-Type II, High Cholesterol, Hypertension Additional Past Medical Histor: BREAST CA L/R Past Surgical History: Other Additional Past Surgical Histo: DOUBLE MASTECTOMY Smoking Status: Never Smoker Alcohol Use: None Drug Use: None General Adult EDM: Chief Complaint: ABDOMINAL PAIN HPI: HPI: Patient is a 85 year old female with past medical history of ovarian cancer presents with the chief complaint of abdominal pain. Patient has known abdominal hernia. and she has had associated abdominal pain on and off for years. Over the last few days pain has become more intense. Today patient has been constant. Patients pain is diffuse but primarily left abd lateral to umbulicus. Patient has had associated nausea but has not vomiting. Patient has not been passing gas but states she did have a BM yesterday. Review of Systems: Review of Systems: Constitutional: Denies fever or chills. [] Eyes: Denies change in visual acuity. [] HENT: Denies nasal congestion or sore throat. [] Respiratory: Denies cough or shortness of breath. [] Cardiovascular: Denies chest pain or edema. [] GI: positive abdominal pain, nausea, Denies vomiting, bloody stools or diarrhea. [] : Denies dysuria. [] Musculoskeletal: Denies back pain or joint pain. [] Integument: Denies rash. [] Neurologic: Denies headache, focal weakness or sensory changes. [] Endocrine: Denies polyuria or polydipsia. [] Lymphatic: Denies swollen glands. [] Psychiatric: Denies depression or anxiety. [] Heart Score: C/O Chest Pain: N/A Risk Factors: Risk Factors: DM, Current or recent (<one month) smoker, HTN, HLP, family history of CAD, obesity. Risk Scores: Score 0 - 3: 2.5% MACE over next 6 weeks - Discharge Home Score 4 - 6: 20.3% MACE over next 6 weeks - Admit for Clinical Observation Score 7 - 10: 72.7% MACE over next 6 weeks - Early Invasive Strategies Allergies: Allergies: Allergies Coded Allergies Type Severity Reaction Last Updated Verified Iodinated Contrast Media Allergy Intermediate Rash 07/14/19 Yes Penicillins Allergy Intermediate BROKE OUT WITH BUMPS 07/14/19 Yes Sulfa (Sulfonamide Antibiotics) Allergy Intermediate BROKE OUT WITH BUMPS 07/14/19 Yes fexofenadine Adverse Reaction Intermediate REALLY BAD HEADACHE 07/14/19 Yes Physical Exam: PE: Constitutional: Well developed, well nourished, no acute distress, non-toxic appearance. [] HENT: Normocephalic, atraumatic, bilateral external ears normal, oropharynx moist, no oral exudates, nose normal. [] Eyes: PERRLA, EOMI, conjunctiva normal, no discharge. [] Neck: Normal range of motion, no tenderness, supple, no stridor. [] Cardiovascular:Heart rate regular rhythm, no murmur [] Lungs & Thorax: Bilateral breath sounds clear to auscultation [] Abdomen: diffuse abdominal tenderness, distended, no rebound or guarding. Skin: Warm, dry, no erythema, no rash. [] Back: No tenderness, no CVA tenderness. [] Extremities: No tenderness, no cyanosis, no clubbing, ROM intact, no edema. [] Neurologic: Alert and oriented X 3, normal motor function, normal sensory function, no focal deficits noted. [] Psychologic: Affect normal, judgement normal, mood normal. [] Current Patient Data: Labs: Laboratory Tests Test 04/15/21 00:15 White Blood Count 6.3 x10^3/uL (4.0-11.0) Red Blood Count 3.84 x10^6/uL (3.50-5.40) Hemoglobin 12.3 g/dL (12.0-15.5) Hematocrit 36.9 % (36.0-47.0) Mean Corpuscular Volume 96 fL (79-100) Mean Corpuscular Hemoglobin 32 pg (25-35) Mean Corpuscular Hemoglobin Concent 33 g/dL (31-37) Red Cell Distribution Width 13.9 % (11.5-14.5) Platelet Count 205 x10^3/uL (140-400) Neutrophils (%) (Auto) 71 % (31-73) Lymphocytes (%) (Auto) 21 % (24-48) L Monocytes (%) (Auto) 8 % (0-9) Eosinophils (%) (Auto) 1 % (0-3) Basophils (%) (Auto) 0 % (0-3) Neutrophils # (Auto) 4.4 x10^3/uL (1.8-7.7) Lymphocytes # (Auto) 1.3 x10^3/uL (1.0-4.8) Monocytes # (Auto) 0.5 x10^3/uL (0.0-1.1) Eosinophils # (Auto) 0.0 x10^3/uL (0.0-0.7) Basophils # (Auto) 0.0 x10^3/uL (0.0-0.2) Sodium Level 142 mmol/L (136-145) Potassium Level 4.2 mmol/L (3.5-5.1) Chloride Level 107 mmol/L (98-107) Carbon Dioxide Level 31 mmol/L (21-32) Anion Gap 4 (6-14) L Blood Urea Nitrogen 22 mg/dL (7-20) H Creatinine 0.9 mg/dL (0.6-1.0) Estimated GFR (Cockcroft-Gault) 71.8 BUN/Creatinine Ratio 24 (6-20) H Glucose Level 125 mg/dL (70-99) H Lactic Acid Level 0.7 mmol/L (0.4-2.0) Calcium Level 9.3 mg/dL (8.5-10.1) Total Bilirubin 0.3 mg/dL (0.2-1.0) Aspartate Amino Transferase (AST) 20 U/L (15-37) Alanine Aminotransferase (ALT) 33 U/L (14-59) Alkaline Phosphatase 148 U/L (46-116) H Total Protein 7.1 g/dL (6.4-8.2) Albumin 3.4 g/dL (3.4-5.0) Albumin/Globulin Ratio 0.9 (1.0-1.7) L Lipase 95 U/L (73-393) Laboratory Tests 04/15/21 00:15 Laboratory Tests 04/15/21 00:15 Vital Signs: Vital Signs Date Time Temp Pulse Resp B/P (MAP) Pulse Ox O2 Delivery O2 Flow Rate FiO2 04/15/21 00:48 80 18 157/67 (97) 94 Room Air 04/14/21 23:08 99.7 99.7 EKG: EKG: [] Radiology/Procedures: Radiology/Procedures: [] Impression: IMPRESSION: 1. Large ventral abdominal wall hernia containing large and small bowel loops. Development of small bowel obstruction with prominent distention with air-fluid levels of the small bowel with a diameter of up to 3.5 cm. The small bowel obstruction could be due to the hernia sac itself although the dilated bowel loops are also deep to the hernia sac within the abdominal cavity and the transition point appears to be at the right abdomen with distortion of small bowel at the transition point which suggests obstruction due to adhesions within the abdomen, rather than due to the hernia sac itself which has a wide mouth. 2. Small volume of free fluid within the pelvis and right abdomen. 3. 3 cm cystic lesion with dependent calcification at the tail the pancreas is stable. Course & Med Decision Making: Course & Med Decision Making Pertinent Labs and Imaging studies reviewed. (See chart for details) []CT consistent with SBO. Pain treated with morphine. Patient received IV fluids. NG tube placed. Discussed patient with General Surgery. Patient admitted to hospitalist. Maritza Disclaimer: Maritza Disclaimer: This electronic medical record was generated, in whole or in part, using a voice recognition dictation system. Departure Departure Impression: Primary Impression: SBO (small bowel obstruction) Referrals: ZACH SHEEHAN MD (PCP) ELLEN MATTHEWS DO Apr 15, 2021 01:41
[2021-04-15] MEDS ORDERED: ONDANSETRON PF 4 MG/2 ML VIAL. IVP PRN (02:15)
[2021-04-15] MEDS ORDERED: MORPHINE SULFATE 2 MG/ML INJ. IVP PRN (02:15)
--- NOTE | 2021-04-15 03:15 | RAD ---
AP abdomen x-ray HISTORY: Nasogastric tube placement. FINDINGS: There is a nasogastric tube tip left upper quadrant general radiographic region of the stom ach. Portion of a portacatheter is noted. There is moderate gaseous distention of the upper stomach. Lung bases unremarkable. Lumbar scoliosis. IMPRESSION: Nasogastric intubation. Electronically signed by: Charlie Montano MD (04/15/2021 3:12 AM) [facility]
--- NOTE | 2021-04-15 09:35 | PDOC1 ---
History and Physical Date of Admission Date of Admission DATE: 04/15/21 TIME: 09:32 Identification/Chief Complaint Chief Complaint ABDOMINAL PAIN, NAUSEA History of Present Illness History of Present Illness 85 year old female with past medical history of ovarian cancer presented to ER with the chief complaint of abdominal pain. has known abdominal hernia. and she has had associated abdominal pain on and off for years. Over the last few days pain has become more intense. pain is diffuse but primarily left abd lateral to umbulicus. associated nausea but has no vomiting. / she did have a BM yesterday /SBO vs ileus--umbilical hernia /check SBFT Past Medical History Past Medical History Past Medical History Past Medical History: Arthritis, Arrhythmia, Cancer, Diabetes-Type II, High Cholesterol, Hypertension Additional Past Medical Histor: BREAST CA L/R Past Surgical History: Other Additional Past Surgical Histo: DOUBLE MASTECTOMY Smoking Status: Never Smoker Alcohol Use: None Drug Use: None exploratory laparotomy ileal right colostomy and excision of intra-abdominal tumor on 10/24/2018. 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 fhx HTN Cardiovascular: HTN, Hyperlipidemia, Other Pulmonary: No pertinent hx CENTRAL NERVOUS SYSTEM: Other GI: No pertinent hx Heme/Onc: Cancer Hepatobiliary: No pertinent hx Psych: No pertinent hx Musculoskeletal: Osteoarthritis Rheumatologic: No pertinent hx Infectious disease: No pertinent hx Renal/: No pertinent hx Endocrine: Diabetes Past Surgical History Past Surgical History: Arthroscopy, Mastectomy, Other Family History Family History: Hypertension Social History Smoke: No ALCOHOL: none Drugs: None Current Medications Current Medications Current Medications Ondansetron HCl (Zofran) 4 mg PRN Q8HRS PRN IVP NAUSEA/VOMITING 1ST CHOICE Last administered on 04/15/21at 04:15; Start 04/15/21 at 02:15; Stop 04/16/21 at 02:14 Morphine Sulfate (Morphine Sulfate) 2 mg PRN Q2HR PRN IVP SEVERE PAIN 7-10; Start 04/15/21 at 02:15; Stop 04/16/21 at 02:14 Active Scripts Active Reported Loratadine 10 Mg Tablet 1 Tab PO DAILY Klor-Con M20 (Potassium Chloride) 20 Meq Tab.er.prt 1 Tab PO DAILY 30 Days Metformin Hcl 500 Mg Tablet 500 Mg PO DAILY Percocet 5-325 Mg Tablet (Oxycodone/Acetaminophen) 1 Each Tablet 1 Tab PO PRN Q4HRS PRN Pravastatin Sodium 40 Mg Tablet 1 Tab PO QHS Lisinopril 10 Mg Tablet 1 Tab PO DAILY Vitamin D3 (Cholecalciferol (Vitamin D3)) 5,000 Unit Tablet 1 Tab PO QODAY Aspirin Ec (Aspirin) 81 Mg Tablet.dr 1 Tab PO DAILY Cartia Xt (Diltiazem Hcl) 120 Mg Cap.er.24h 120 Mg PO DAILY Amiodarone Hcl 200 Mg Tablet 0.5 Tab PO DAILY Protonix (Pantoprazole Sodium) 20 Mg Tablet.dr 40 Mg PO DAILY PRN 14 Days Allergies Allergies: Coded Allergies: Iodinated Contrast Media (Verified Allergy, Intermediate, Rash, 07/14/19) rash Penicillins (Verified Allergy, Intermediate, BROKE OUT WITH BUMPS, 07/14/19) Sulfa (Sulfonamide Antibiotics) (Verified Allergy, Intermediate, BROKE OUT WITH BUMPS, 07/14/19) fexofenadine (Verified Adverse Reaction, Intermediate, REALLY BAD HEADACHE, 07/14/19) ROS General: No: Chills, Night Sweats, Fatigue, Malaise, Appetite, Other PSYCHOLOGICAL ROS: No: Anxiety, Behavioral Disorder, Concentration difficultie, Decreased libido, Depression, Disorientation, Hallucinations, Hostility, Irritablity, Memory difficulties, Mood Swings, Obsessive thoughts, Physical abuse, Sexual abuse, Sleep disturbances, Suicidal ideation, Other Eyes: Yes Decreased vision; No Blurry vision, No Double vision, No Dry eyes, No Excessive tearing, No Eye Pain, No Itchy Eyes, No Loss of vision, No Photophobia, No Scotomata, No Uses contacts, No Uses glasses, No Other HEENT: No: Heacaches, Visual Changes, Hearing change, Nasal congestion, Nasal discharge, Oral lesions, Sinus pain, Sore Throat, Epistaxis, Sneezing, Snoring, Tinnitus, Vertigo, Vocal changes, Other ALLERGY AND IMMUNOLOGY: YES: Hives; No: Insect Bite Sensitivity, Itchy/Watery Eyes, Nasal Congestion, Post Nasal Drip, Seasonal Allergies, Other Hematological and Lymphatic: No: Bleeding Problems, Blood Clots, Blood Transfusions, Brusing, Night Sweats, Pallor, Swollen Lymph Nodes, Other ENDOCRINE: No: Breast Changes, Galactorrhea, Hair Pattern Changes, Hot Flashes, Malaise/lethargy, Mood Swings, Palpitations, Polydipsia/polyuria, Skin Changes, Temperature Intolerance, Unexpected Weight Changes, Other Breast: No New/Changing Breast Lumps, No Nipple changes, No Nipple discharge, No Other Respiratory: No: Cough, Hemoptysis, Orthopnea, Pleuritic Pain, Shortness of breath, SOB with excertion, Sputum Changes, Stridor, Tachypnea, Wheezing, Other Cardiovascular: No Chest Pain, No Palpitations, No Orthopnea, No Paroxysmal Noc. Dyspnea, No Edema, No Lt Headedness, No Other Gastrointestinal: Yes Nausea, Yes Abdominal Pain; No Vomiting, No Diarrhea, No Constipation, No Melena, No Hematochezia, No Other Genitourinary: No Dysuria, No Frequency, No Incontinence, No Hematuria, No Retention, No Discharge, No Urgency, No Pain, No Flank Pain, No Other, No , No , No , No , No , No , No Musculoskeletal: No Gait Disturbance, No Joint Pain, No Joint Stiffness, No Joint Swelling, No Muscle Pain, No Muscular Weakness, No Pain In:, No Swelling In:, No Other Neurological: No Behavorial Changes, No Bowel/Bladder ControlChng, No Confusion, No Dizziness, No Gait Disturbance, No Headaches, No Impaired Coord/balance, No Memory Loss, No Numbness/Tingling, No Seizures, No Speech Problems, No Tremors, No Visual Changes, No Weakness, No Other Skin: No Dry Skin, No Eczema, No Hair Changes, No Lumps, No Mole Changes, No Mottling, No Nail Changes, No Pruritus, No Rash, No Skin Lesion Changes, No Other, No Acne Physical Exam Physical Exam HENT: Normocephalic, atraumatic, bilateral external ears normal, oropharynx moist, no oral exudates, nose normal. [] Eyes: PERRLA, EOMI, conjunctiva normal, no discharge. [] Neck: Normal range of motion, no tenderness, supple, no stridor. [] Cardiovascular:Heart rate regular rhythm, no murmur [] Lungs & Thorax: Bilateral breath sounds clear to auscultation [] Abdomen: diffuse abdominal tenderness, distended, no rebound or guarding. Skin: Warm, dry, no erythema, no rash. [] Back: No tenderness, no CVA tenderness. [] Extremities: No tenderness, no cyanosis, no clubbing, ROM intact, no edema. [] Neurologic: Alert and oriented X 3, normal motor function, normal sensory function, General: Alert, Oriented X3, Cooperative, No acute distress HEENT: Mucous membr. moist/pink Lungs: Normal air movement Heart: RRR, no thrills, no gallops Breasts: Not examined Abdomen: Soft Rectal Exam: not examined PELVIC: Examination not indicated Extremities: No cyanosis Neuro: Normal speech, Cranial nerves 3-12 NL Psych/Mental Status: Mental status NL Vitals Vitals Vital Signs Date Time Temp Pulse Resp B/P (MAP) Pulse Ox O2 Delivery O2 Flow Rate FiO2 04/15/21 07:59 92 18 146/82 (103) 96 Room Air 04/14/21 23:08 99.7 99.7 Labs Labs Laboratory Tests Test 04/15/21 00:15 White Blood Count 6.3 x10^3/uL (4.0-11.0) Red Blood Count 3.84 x10^6/uL (3.50-5.40) Hemoglobin 12.3 g/dL (12.0-15.5) Hematocrit 36.9 % (36.0-47.0) Mean Corpuscular Volume 96 fL (79-100) Mean Corpuscular Hemoglobin 32 pg (25-35) Mean Corpuscular Hemoglobin Concent 33 g/dL (31-37) Red Cell Distribution Width 13.9 % (11.5-14.5) Platelet Count 205 x10^3/uL (140-400) Neutrophils (%) (Auto) 71 % (31-73) Lymphocytes (%) (Auto) 21 % (24-48) Monocytes (%) (Auto) 8 % (0-9) Eosinophils (%) (Auto) 1 % (0-3) Basophils (%) (Auto) 0 % (0-3) Neutrophils # (Auto) 4.4 x10^3/uL (1.8-7.7) Lymphocytes # (Auto) 1.3 x10^3/uL (1.0-4.8) Monocytes # (Auto) 0.5 x10^3/uL (0.0-1.1) Eosinophils # (Auto) 0.0 x10^3/uL (0.0-0.7) Basophils # (Auto) 0.0 x10^3/uL (0.0-0.2) Sodium Level 142 mmol/L (136-145) Potassium Level 4.2 mmol/L (3.5-5.1) Chloride Level 107 mmol/L (98-107) Carbon Dioxide Level 31 mmol/L (21-32) Anion Gap 4 (6-14) Blood Urea Nitrogen 22 mg/dL (7-20) Creatinine 0.9 mg/dL (0.6-1.0) Estimated GFR (Cockcroft-Gault) 71.8 BUN/Creatinine Ratio 24 (6-20) Glucose Level 125 mg/dL (70-99) Lactic Acid Level 0.7 mmol/L (0.4-2.0) Calcium Level 9.3 mg/dL (8.5-10.1) Total Bilirubin 0.3 mg/dL (0.2-1.0) Aspartate Amino Transf (AST/SGOT) 20 U/L (15-37) Alanine Aminotransferase (ALT/SGPT) 33 U/L (14-59) Alkaline Phosphatase 148 U/L (46-116) Total Protein 7.1 g/dL (6.4-8.2) Albumin 3.4 g/dL (3.4-5.0) Albumin/Globulin Ratio 0.9 (1.0-1.7) Lipase 95 U/L (73-393) Laboratory Tests Test 04/15/21 00:15 White Blood Count 6.3 x10^3/uL (4.0-11.0) Red Blood Count 3.84 x10^6/uL (3.50-5.40) Hemoglobin 12.3 g/dL (12.0-15.5) Hematocrit 36.9 % (36.0-47.0) Mean Corpuscular Volume 96 fL (79-100) Mean Corpuscular Hemoglobin 32 pg (25-35) Mean Corpuscular Hemoglobin Concent 33 g/dL (31-37) Red Cell Distribution Width 13.9 % (11.5-14.5) Platelet Count 205 x10^3/uL (140-400) Neutrophils (%) (Auto) 71 % (31-73) Lymphocytes (%) (Auto) 21 % (24-48) Monocytes (%) (Auto) 8 % (0-9) Eosinophils (%) (Auto) 1 % (0-3) Basophils (%) (Auto) 0 % (0-3) Neutrophils # (Auto) 4.4 x10^3/uL (1.8-7.7) Lymphocytes # (Auto) 1.3 x10^3/uL (1.0-4.8) Monocytes # (Auto) 0.5 x10^3/uL (0.0-1.1) Eosinophils # (Auto) 0.0 x10^3/uL (0.0-0.7) Basophils # (Auto) 0.0 x10^3/uL (0.0-0.2) Sodium Level 142 mmol/L (136-145) Potassium Level 4.2 mmol/L (3.5-5.1) Chloride Level 107 mmol/L (98-107) Carbon Dioxide Level 31 mmol/L (21-32) Anion Gap 4 (6-14) Blood Urea Nitrogen 22 mg/dL (7-20) Creatinine 0.9 mg/dL (0.6-1.0) Estimated GFR (Cockcroft-Gault) 71.8 BUN/Creatinine Ratio 24 (6-20) Glucose Level 125 mg/dL (70-99) Lactic Acid Level 0.7 mmol/L (0.4-2.0) Calcium Level 9.3 mg/dL (8.5-10.1) Total Bilirubin 0.3 mg/dL (0.2-1.0) Aspartate Amino Transf (AST/SGOT) 20 U/L (15-37) Alanine Aminotransferase (ALT/SGPT) 33 U/L (14-59) Alkaline Phosphatase 148 U/L (46-116) Total Protein 7.1 g/dL (6.4-8.2) Albumin 3.4 g/dL (3.4-5.0) Albumin/Globulin Ratio 0.9 (1.0-1.7) Lipase 95 U/L (73-393) Images Images think and talk about your own wishes for healthcare in case youre ever not able to tell your loved ones or healthcare team what your wishes are. If you became really sick tomorrow, would your loved ones or healthcare team know what your wishes were? Here are some examples of different sets of goals and health care directives for your conversations: My wish is to use all medical therapies including resuscitation (such as CPR) and artificial life-sustaining treatments (such as machines and medicine) in an intensive care unit, to keep me alive if at all possible. My wish is to live as long as possible, but I dont want attempts to bring me back to life if my heart and breathing stop. I would like full medical care but without using resuscitation or artificial life-sustaining intensive treatments, if these are unlikely to make me live longer or restore me to a certain quality of life. I will accept treatments that try to fix medical problems, but if Im not getting better or going to have a certain quality of life, I would want to switch to focusing only on my comfort and letting my happen naturally. My wish is for healthcare to focus on my comfort and lessen suffering. I would like medical care that focuses only on my quality of life and that allows me to naturally. Consider: What does a good quality of life mean for me? For many people, it is the ability to live independently and tell their own story. I may define it differently. Under what circumstances would I not want to be kept alive by medical treatments, resuscitation, or intensive care? What kind of changes to my health or life might make me change my mind? If I clearly am facing the last chapter of my li fe, how do I want the story to end? Who do I want to speak for me if I cant speak for myself? Do they understand my preferences? Are they willing to assume the role of my Durable Power of Environmental Intern? Can I change my Goals of Care Designation? Yes, your Goals of Care Designation can be changed at any time. It should be reviewed if: your health condition changes your circumstances change (such as new understanding) you are transferred or admitted to another healthcare setting dpoa review, to pt portal 19 min and question review LEFT VENTRICLE The left ventricle is normal size. There is normal left ventricular wall thickne ss. The left ventricular systolic function is normal. The Ejection Fraction is 55-60%. There is normal LV segmental wall motion. Transmitral Doppler flow pattern is Grade I-abnormal relaxation pattern. RIGHT VENTRICLE The right ventricle is normal size. There is normal right ventricular wall thickness. The right ventricular systolic function is normal. ATRIA The left atrium size is normal. The right atrium size is normal. The interatrial septum is intact with no evidence for an atrial septal defect or patent foramen ovale as noted on 2-D or Doppler imaging. AORTIC VALVE The aortic valve is thickened but opens well. Doppler and Color Flow revealed trace aortic regurgitation. There is no significant aortic valvular stenosis. MITRAL VALVE Mitral annular calcification is mild to moderate. There is no evidence of mitral valve prolapse. There is no mitral valve stenosis. Doppler and Color-flow revealed trace mitral regurgitation. TRICUSPID VALVE The tricuspid valve is normal in structure and function. Doppler and Color Flow revealed trace to mild tricuspid regurgitation with an estimated PAP of 39 mmHg. There is no tricuspid valve stenosis. PULMONIC VALVE The pulmonic valve is not well visualized. Doppler and Color Flow revealed trace pulmonic valvular regurgitation. GREAT VESSELS The aortic root is normal in size. The ascending aorta is normal in size. The IVC is normal in size and collapses >50% with inspiration. PERICARDIAL EFFUSION There is no evidence of significant pericardial effusion. Critical Notification Critical Value: No <Conclusion> The left ventricular systolic function is normal. The Ejection Fraction is 55-60%. There is normal LV segmental wall motion. Trace mitral regurgitation. Trace to mild tricuspid regurgitation with an estimated PAP of 39 mmHg. There is no evidence of significant pericardial effusion. Signed by : Camron Lange, Electronically Approved : 08/27/2020 15:39:33 DICTATED and SIGNED BY: CAMRON LANGE MD DATE: 08/27/20 [id number] PATIENT: KAYLEY HWANG ACCOUNT: [id number] : 1935 LOCATION: ER AGE: 85 SEX: F EXAM STATUS: REG ER ORD. PHYSICIAN: ELLEN MATTHEWS DO REASON: abd pain PROCEDURE: CT ABDOMEN PELVIS WO CONTRAST CT abdomen and pelvis without contrast PQRS statement: CT scans at this facility use dose reduction including either automated exposure control, iterative reconstructions, and /or weight based radiation dosing via mA and kV modification when appropriate to reduce radiation dose to as low as reasonably achievable. HISTORY: Abdominal pain. COMPARISON: PET scan September 14, 2020 and priors Abdomen findings: Lumbar scoliosis and sequela degenerative disc disease and facet arthritis, there is a chronic L1 vertebral compression fracture deformity. Kidneys, adrenals, spleen, liver, gallbladder unremarkable. At the tail of pancreas there is a 3 cm cystic lesion with layering calcification which is stable. Extensive of free fluid inferior right hepatic lobe adjacent of the hepatic flexure is new. Aorta and iliac artery and abdominal artery calcified plaque. There is a large ventral abdominal wall hernia containing large and small bowel loops again demonstrated however there is development of small bowel obstruction with dilated small bowel loops within the hernia sac with lesser dilated loops deep to the hernia sac within the abdomen, it is suspected that this is an obstruction due to the hernia sac although transition point can also be deep to the hernia within the abdomen where there is some distortion of small bowel loops at the right sided abdomen perhaps due to an adhesion. No inflammatory change of the GI tract evident. Appendectomy. Sigmoid colonic diverticulosis. Pelvis findings: Small volume of free fluid adjacent left cavernous sinus cul-de-sac. Uterus, ovaries, bladder, rectum and bones are unremarkable. IMPRESSION: 1. Large ventral abdominal wall hernia containing large and small bowel loops. Development of small bowel obstruction with prominent distention with air-fluid levels of the small bowel with a diameter of up to 3.5 cm. The small bowel obst ruction could be due to the hernia sac itself although the dilated bowel loops are also deep to the hernia sac within the abdominal cavity and the transition point appears to be at the right abdomen with distortion of small bowel at the transition point which suggests obstruction due to adhesions within the abdomen, rather than due to the hernia sac itself which has a wide mouth. 2. Small volume of free fluid within the pelvis and right abdomen. 3. 3 cm cystic lesion with dependent calcification at the tail the pancreas is stable. Electronically signed by: Cuong Montano MD (04/15/2021 1:23 AM) [facility] – [place] DICTATED and SIGNED BY: CUONG MONTANO MD DATE: 04/15/21 [id number] VTE Prophylaxis Ordered VTE Prophylaxis Devices: Yes VTE Pharmacological Prophylaxi: Yes Assessment/Plan Assessment/Plan MPRESSION: Large ventral abdominal wall hernia containing large and small bowel lo ops./ACUTE small bowel obstruction/ distention with air-fluid levels of the small bowel with a diameter of up to 3.5 cm. POSSIBLY due to the hernia sac itself VS obstruction due to adhesions within the abdomen, Small volume of free fluid within the pelvis and right abdomen. Breast cancer HX , exploratory laparotomy and ileal right colostomy and excision of intra-abdominal tumor on 10/24/2018. 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 SBO vs ileus--umbilical hernia check SBFT PLAN ADMIT NPO IV morphine. IV fluids. NG tube GEN SURGERY CONSULT ONCOLOGY CONSULT UPDATE [facility] Justifications for Admission Other Justification SANJEEV SORIANO MD Apr 15, 2021 09:35
--- NOTE | 2021-04-15 09:48 | PDOC2 ---
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 Exploratory laparotomy with suture of a small serosal tear bowel. 2. Ileal right colostomy. 3. Enterotomy with decompression. 4. Excision of intraabdominal tumor. Chemo, no further evidence of ongoing disease Known hernia to umbilical area, had been discussed to fix with dr vanegas, family situation has prevented her currently Started having more pain in area and abdominal bloatign over the weekend. Stool Thursday, no flatus currently, bloating improved with NG Past Medical History Cardiovascular: HTN, Hyperlipidemia, Other Pulmonary: No pertinent hx CENTRAL NERVOUS SYSTEM: Other GI: No pertinent hx Heme/Onc: Cancer Hepatobiliary: No pertinent hx Psych: No pertinent hx Musculoskeletal: Osteoarthritis Rheumatologic: No pertinent hx Infectious disease: No pertinent hx Renal/: No pertinent hx Endocrine: Diabetes Past Surgical History Past Surgical History: Arthroscopy, Mastectomy, Colectomy Family History Family History: Other (noncontributory to current illness ) Social History ALCOHOL: none Drugs: None Lives: with Family Domestic Violence: Neg Current Medications Current Medications Current Medications Ondansetron HCl (Zofran) 4 mg PRN Q8HRS PRN IVP NAUSEA/VOMITING 1ST CHOICE Last administered on 04/15/21at 04:15; Start 04/15/21 at 02:15; Stop 04/16/21 at 02:14 Morphine Sulfate (Morphine Sulfate) 2 mg PRN Q2HR PRN IVP SEVERE PAIN 7-10; Start 04/15/21 at 02:15; Stop 04/16/21 at 02:14 Active Scripts Active Reported Loratadine 10 Mg Tablet 1 Tab PO DAILY Klor-Con M20 (Potassium Chloride) 20 Meq Tab.er.prt 1 Tab PO DAILY 30 Days Metformin Hcl 500 Mg Tablet 500 Mg PO DAILY Percocet 5-325 Mg Tablet (Oxycodone/Acetaminophen) 1 Each Tablet 1 Tab PO PRN Q4HRS PRN Pravastatin Sodium 40 Mg Tablet 1 Tab PO QHS Lisinopril 10 Mg Tablet 1 Tab PO DAILY Vitamin D3 (Cholecalciferol (Vitamin D3)) 5,000 Unit Tablet 1 Tab PO QODAY Aspirin Ec (Aspirin) 81 Mg Tablet.dr 1 Tab PO DAILY Cartia Xt (Diltiazem Hcl) 120 Mg Cap.er.24h 120 Mg PO DAILY Amiodarone Hcl 200 Mg Tablet 0.5 Tab PO DAILY Protonix (Pantoprazole Sodium) 20 Mg Tablet.dr 40 Mg PO DAILY PRN 14 Days Allergies Allergies: Coded Allergies: Iodinated Contrast Media (Verified Allergy, Intermediate, Rash, 07/14/19) rash Penicillins (Verified Allergy, Intermediate, BROKE OUT WITH BUMPS, 07/14/19) Sulfa (Sulfonamide Antibiotics) (Verified Allergy, Intermediate, BROKE OUT WITH BUMPS, 07/14/19) fexofenadine (Verified Adverse Reaction, Intermediate, REALLY BAD HEADACHE, 07/14/19) ROS General: No: Chills, Other (fevers ) PSYCHOLOGICAL ROS: No: Anxiety, Depression Eyes: No Blurry vision, No Double vision HEENT: No: Heacaches, Sore Throat Hematological and Lymphatic: No: Bleeding Problems, Blood Clots Respiratory: No: Cough, Shortness of breath Cardiovascular: No Chest Pain, No Palpitations Gastrointestinal: Yes Other (see hpi) Genitourinary: No Dysuria, No Hematuria Musculoskeletal: No Joint Pain, No Muscle Pain Neurological: No Headaches, No Numbness/Tingling Skin: No Pruritus, No Rash Physical Exam General: Alert, Oriented X3, Cooperative HEENT: Atraumatic, Other (NG in place) Lungs: Clear to auscultation, Normal air movement Heart: Regular rate, Normal S1, Normal S2 Abdomen: Soft, Other (reduced tender hernia, midline scar ) Extremities: No clubbing, No cyanosis Skin: No rashes, No breakdown Neuro: Normal gait, Normal speech Psych/Mental Status: Mental status NL, Mood NL MUSCULOSKELETAL: No deformity, No swelling Vitals VITALS Vital Signs Date Time Temp Pulse Resp B/P (MAP) Pulse Ox O2 Delivery O2 Flow Rate FiO2 04/15/21 07:59 92 18 146/82 (103) 96 Room Air 04/14/21 23:08 99.7 99.7 Labs Labs Laboratory Tests Test 04/15/21 00:15 White Blood Count 6.3 x10^3/uL (4.0-11.0) Red Blood Count 3.84 x10^6/uL (3.50-5.40) Hemoglobin 12.3 g/dL (12.0-15.5) Hematocrit 36.9 % (36.0-47.0) Mean Corpuscular Volume 96 fL (79-100) Mean Corpuscular Hemoglobin 32 pg (25-35) Mean Corpuscular Hemoglobin Concent 33 g/dL (31-37) Red Cell Distribution Width 13.9 % (11.5-14.5) Platelet Count 205 x10^3/uL (140-400) Neutrophils (%) (Auto) 71 % (31-73) Lymphocytes (%) (Auto) 21 % (24-48) Monocytes (%) (Auto) 8 % (0-9) Eosinophils (%) (Auto) 1 % (0-3) Basophils (%) (Auto) 0 % (0-3) Neutrophils # (Auto) 4.4 x10^3/uL (1.8-7.7) Lymphocytes # (Auto) 1.3 x10^3/uL (1.0-4.8) Monocytes # (Auto) 0.5 x10^3/uL (0.0-1.1) Eosinophils # (Auto) 0.0 x10^3/uL (0.0-0.7) Basophils # (Auto) 0.0 x10^3/uL (0.0-0.2) Sodium Level 142 mmol/L (136-145) Potassium Level 4.2 mmol/L (3.5-5.1) Chloride Level 107 mmol/L (98-107) Carbon Dioxide Level 31 mmol/L (21-32) Anion Gap 4 (6-14) Blood Urea Nitrogen 22 mg/dL (7-20) Creatinine 0.9 mg/dL (0.6-1.0) Estimated GFR (Cockcroft-Gault) 71.8 BUN/Creatinine Ratio 24 (6-20) Glucose Level 125 mg/dL (70-99) Lactic Acid Level 0.7 mmol/L (0.4-2.0) Calcium Level 9.3 mg/dL (8.5-10.1) Total Bilirubin 0.3 mg/dL (0.2-1.0) Aspartate Amino Transf (AST/SGOT) 20 U/L (15-37) Alanine Aminotransferase (ALT/SGPT) 33 U/L (14-59) Alkaline Phosphatase 148 U/L (46-116) Total Protein 7.1 g/dL (6.4-8.2) Albumin 3.4 g/dL (3.4-5.0) Albumin/Globulin Ratio 0.9 (1.0-1.7) Lipase 95 U/L (73-393) Laboratory Tests Test 04/15/21 00:15 White Blood Count 6.3 x10^3/uL (4.0-11.0) Red Blood Count 3.84 x10^6/uL (3.50-5.40) Hemoglobin 12.3 g/dL (12.0-15.5) Hematocrit 36.9 % (36.0-47.0) Mean Corpuscular Volume 96 fL (79-100) Mean Corpuscular Hemoglobin 32 pg (25-35) Mean Corpuscular Hemoglobin Concent 33 g/dL (31-37) Red Cell Distribution Width 13.9 % (11.5-14.5) Platelet Count 205 x10^3/uL (140-400) Neutrophils (%) (Auto) 71 % (31-73) Lymphocytes (%) (Auto) 21 % (24-48) Monocytes (%) (Auto) 8 % (0-9) Eosinophils (%) (Auto) 1 % (0-3) Basophils (%) (Auto) 0 % (0-3) Neutrophils # (Auto) 4.4 x10^3/uL (1.8-7.7) Lymphocytes # (Auto) 1.3 x10^3/uL (1.0-4.8) Monocytes # (Auto) 0.5 x10^3/uL (0.0-1.1) Eosinophils # (Auto) 0.0 x10^3/uL (0.0-0.7) Basophils # (Auto) 0.0 x10^3/uL (0.0-0.2) Sodium Level 142 mmol/L (136-145) Potassium Level 4.2 mmol/L (3.5-5.1) Chloride Level 107 mmol/L (98-107) Carbon Dioxide Level 31 mmol/L (21-32) Anion Gap 4 (6-14) Blood Urea Nitrogen 22 mg/dL (7-20) Creatinine 0.9 mg/dL (0.6-1.0) Estimated GFR (Cockcroft-Gault) 71.8 BUN/Creatinine Ratio 24 (6-20) Glucose Level 125 mg/dL (70-99) Lactic Acid Level 0.7 mmol/L (0.4-2.0) Calcium Level 9.3 mg/dL (8.5-10.1) Total Bilirubin 0.3 mg/dL (0.2-1.0) Aspartate Amino Transf (AST/SGOT) 20 U/L (15-37) Alanine Aminotransferase (ALT/SGPT) 33 U/L (14-59) Alkaline Phosphatase 148 U/L (46-116) Total Protein 7.1 g/dL (6.4-8.2) Albumin 3.4 g/dL (3.4-5.0) Albumin/Globulin Ratio 0.9 (1.0-1.7) Lipase 95 U/L (73-393) Assessment/Plan Assessment/Plan SBO vs ileus--umbilical hernia will check SBFT SANJEEV ACEVES MD 04/15/21 1128: CONSULT Assessment/Plan Assessment/Plan Patient seen and examined by me currently she is resting comfortably in bed stating she is feeling much better no nausea no abdominal pain. Abdomen is soft she does have a very large ventral hernia which is soft nontender. Agree with [place] assessment plan. That the hernia is been reduced. ASHLYN MCDANIEL APRN Apr 15, 2021 09:48 SANJEEV ACEVES MD Apr 15, 2021 11:28
[2021-04-15] MEDS ORDERED: DOCUSATE SODIUM 100 MG CAPSULE. PO PRN (14:30)
[2021-04-15] MEDS ORDERED: ACETAMINOPHEN 325 MG TABLET. PO PRN (14:30)
[2021-04-15] MEDS ORDERED: SODIUM PHOSPHATES 19/7GM 133 ML ENEMA. PR PRN (14:30)
[2021-04-15] MEDS ORDERED: 0.9 % SODIUM CHLORIDE 10 ML DISP.SYRIN. IV PRN (14:30)
[2021-04-15] MEDS ORDERED: ALBUTEROL SULFATE 2.5 MG/3 ML NEBU. NEB PRN (14:30)
[2021-04-15] MEDS ORDERED: ACETAMINOPHEN 650 MG SUPP.RECT. PR PRN (14:30)
[2021-04-15] MEDS ORDERED: guaiFENesin ORAL 200 MG/10 ML LIQUID. PO PRN (14:30)
[2021-04-15 15:15] VITALS: BP 133/44
[2021-04-15] MEDS ORDERED: PANTOPRAZOLE 40 MG TABLET.DR. PO PRN (15:15)
--- NOTE | 2021-04-15 15:51 | PDOC2 ---
GI CONSULT Date of Service: DATE: 04/15/21 TIME: 15:34 Reason For Consult: SBO vs ileus HPI: HPI: 85 y/o female admitted through ER w/ abdominal pain/distention and no stool/flatus since Thursday. H/o ovarian cancer and SBO w/ massive carcinomatosis periotnei w/ tumor involving al the arteries of the intra-abdominal cavity. S/p explo laparotomy w/ suture of small serosal bowel tear, ileal right colostomy, enterotomy w/ decompression, and excision of intraabdominal tumor. Underwent chemo w/o further evidence of ongoing disease. Also h/o ventral hernia w/ previous discussion for repair w/ Dr. Gardner. On CT today: large ventral abdominal wall hernia containing large and small bowel loops and development of SBO. Surgery following, pt feeling better w/ NGT. Denies reflux, dysphagia, n/v, diarrhea, chronic constipation, hematochezia, melena, or change in appetite/weight. EGD and colonoscopy by Dr. Loyola in 07/2009: Schatzki's ring (dilated 54 Fr), hiatal hernia, erosive gastritis (+H. pylori - given PrevPak), superficial duodenal ulcers and duodenitis (path w/ focal acute and chronic duodenitis), sigmoid diverticulosis, uncomplicated internal hemorrhoids, and adenomatous p olyps in transverse and descending colon. No GB, liver, or pancreas history. Cystic lesion w/ dependent calcification at tail of pancreas (stable) noted on CT. Summary list includes pantoprazole, ASA, and amiodarone. PMH: PMH: breast cancer, HTN, HLD, OA bilateral mastectomy see HPI FH: Family History: Cancer (sisters) Social History: Smoke: No ALCOHOL: none Drugs: None ROS: GEN: Denies fevers, chills, sweats HEENT: Denies blurred vision, sore throat CV: Denies chest pain RESP: Denies shortness of air, cough GI: Per HPI : Denies hematuria, dysuria ENDO: Denies weight changes NEURO: Denies confusion, dizziness MSK: Denies weakness, joint pain/swelling SKIN: Denies jaundice, pruritus Vitals: Vitals: Vital Signs Date Time Temp Pulse Resp B/P (MAP) Pulse Ox O2 Delivery O2 Flow Rate FiO2 04/15/21 14:29 74 18 153/70 (97) 94 Room Air 04/14/21 23:08 99.7 99.7 Labs: Labs: Laboratory Tests Test 04/15/21 00:15 White Blood Count 6.3 x10^3/uL (4.0-11.0) Red Blood Count 3.84 x10^6/uL (3.50-5.40) Hemoglobin 12.3 g/dL (12.0-15.5) Hematocrit 36.9 % (36.0-47.0) Mean Corpuscular Volume 96 fL (79-100) Mean Corpuscular Hemoglobin 32 pg (25-35) Mean Corpuscular Hemoglobin Concent 33 g/dL (31-37) Red Cell Distribution Width 13.9 % (11.5-14.5) Platelet Count 205 x10^3/uL (140-400) Neutrophils (%) (Auto) 71 % (31-73) Lymphocytes (%) (Auto) 21 % (24-48) Monocytes (%) (Auto) 8 % (0-9) Eosinophils (%) (Auto) 1 % (0-3) Basophils (%) (Auto) 0 % (0-3) Neutrophils # (Auto) 4.4 x10^3/uL (1.8-7.7) Lymphocytes # (Auto) 1.3 x10^3/uL (1.0-4.8) Monocytes # (Auto) 0.5 x10^3/uL (0.0-1.1) Eosinophils # (Auto) 0.0 x10^3/uL (0.0-0.7) Basophils # (Auto) 0.0 x10^3/uL (0.0-0.2) Sodium Level 142 mmol/L (136-145) Potassium Level 4.2 mmol/L (3.5-5.1) Chloride Level 107 mmol/L (98-107) Carbon Dioxide Level 31 mmol/L (21-32) Anion Gap 4 (6-14) Blood Urea Nitrogen 22 mg/dL (7-20) Creatinine 0.9 mg/dL (0.6-1.0) Estimated GFR (Cockcroft-Gault) 71.8 BUN/Creatinine Ratio 24 (6-20) Glucose Level 125 mg/dL (70-99) Lactic Acid Level 0.7 mmol/L (0.4-2.0) Calcium Level 9.3 mg/dL (8.5-10.1) Total Bilirubin 0.3 mg/dL (0.2-1.0) Aspartate Amino Transf (AST/SGOT) 20 U/L (15-37) Alanine Aminotransferase (ALT/SGPT) 33 U/L (14-59) Alkaline Phosphatase 148 U/L (46-116) Total Protein 7.1 g/dL (6.4-8.2) Albumin 3.4 g/dL (3.4-5.0) Albumin/Globulin Ratio 0.9 (1.0-1.7) Lipase 95 U/L (73-393) Allergies: Coded Allergies: Iodinated Contrast Media (Verified Allergy, Intermediate, Rash, 07/14/19) rash Penicillins (Verified Allergy, Intermediate, BROKE OUT WITH BUMPS, 07/14/19) Sulfa (Sulfonamide Antibiotics) (Verified Allergy, Intermediate, BROKE OUT WITH BUMPS, 07/14/19) fexofenadine (Verified Adverse Reaction, Intermediate, REALLY BAD HEADACHE, 07/14/19) Medications: Current Medications Medications (Trade) Dose Ordered Sig/Pedro Route PRN Reason Start Time Stop Time Status Last Admin Dose Admin Ondansetron HCl (Zofran) 4 mg PRN Q8HRS PRN IVP NAUSEA/VOMITING 1ST CHOICE 04/15/21 02:15 04/16/21 02:14 04/15/21 04:15 Imaging: Imaging: CT A/P IMPRESSION: 1. Large ventral abdominal wall hernia containing large and small bowel loops. Development of small bowel obstruction with prominent distention with air-fluid levels of the small bowel with a diameter of up to 3.5 cm. The small bowel obstruction could be due to the hernia sac itself although the dilated bowel loops are also deep to the hernia sac within the abdominal cavity and the transition point appears to be at the right abdomen with distortion of small bowel at the transition point which suggests obstruction due to adhesions within the abdomen, rather than due to the hernia sac itself which has a wide mouth. 2. Small volume of free fluid within the pelvis and right abdomen. 3. 3 cm cystic lesion with dependent calcification at the tail the pancreas is stable. KUB IMPRESSION: Nasogastric intubation. PE: GEN: NAD HEENT: Atraumatic, PERRL LUNGS: CTAB HEART: RRR ABD: quiet, NGT bilious, soft, hernia EXTREMITY: No edema SKIN: No rashes, no jaundice NEURO/PSYCH: A & O 3 A/P: A/P: Abd distention/pain Large ventral abdominal wall hernia w/ large and small bowel loops, SBO H/o superficial DUs, duodenitis, gastritis - +H. pylori, provided w/ treatment CRC screen, h/o adenomatous polyps - can document in 2008 Diverticulosis, hemorrhoids Stable pancreatic tail cystic lesion H/o ovarian cancer w/ peritoneal carcinomatosis s/p excision of tumor (see HPI) -- Continue NGT, follow surgical recs. Has PO meds ordered - defer to Dr. Montano. LAMINE JESUS Apr 15, 2021 15:51
[2021-04-15 19:00] VITALS: BP 139/70
[2021-04-15] MEDS: ENOXAPARIN 40 MG/0.4 ML SYRINGE. SQ SCH (20:53)
[2021-04-15] MEDS: ATORVASTATIN CALCIUM 10 MG TABLET. PO SCH (20:53)
[2021-04-15 23:00] VITALS: BP 145/70
[2021-04-16] MEDS: IV NORMAL SALINE 1000ML BAG 1,000 ML IV SCH ×3 (02:02→21:18)
[2021-04-16 03:00] VITALS: BP 149/64
[2021-04-16 07:00] VITALS: BP 156/69
[2021-04-16 07:52] LABS: CALCIUM 8.9 mg/dL (8.5-10.1); CREATININE 0.8 mg/dL (0.6-1.0); GFR 82.3; POTASSIUM 4.1 mmol/L (3.5-5.1)
[2021-04-16] MEDS: LISINOPRIL 10 MG TABLET PO SCH (09:00)
[2021-04-16] MEDS: ASPIRIN ENTERIC COATED 81 MG TABLET.DR. PO SCH (09:00)
[2021-04-16] MEDS: CETIRIZINE HCL 10 MG TABLET. PO SCH (09:00)
--- NOTE | 2021-04-16 09:25 | RAD ---
EXAM: Frontal view of the chest, AP views of the abdomen in upright and supine positions. CLINICAL INDICATION: Reason: SBO / Spl. Instructions: / History: COMPARISON: None. FINDINGS and IMPRESSION: Left chest port tip terminates within the distal SVC. NG tube tip terminates within the body of the s tomach however the proximal sidehole may be within the distal esophagus and can be advanced 2-3 cm. T he heart is not enlarged. Mediastinal and hilar contours are normal. Patchy opacities right greater than left lung base. No pleural effusion or pneumothorax. Advanced hanny ateral shoulder joint arthropathy. Dilation of the small bowel is again seen in the central abdomen measuring up to 4.6 cm consistent wi th small bowel obstruction. This is grossly stable to prior CT. Moderate colonic stool content. No f ree intraperitoneal gas. Electronically signed by: Jessee Gonzalez MD (04/16/2021 9:23 AM) [id number]
--- NOTE | 2021-04-16 09:53 | PDOC ---
ASHLYN MCDANIEL PICK UP 04/16/21 0953: SURGICAL PROGRESS NOTE DATE: 04/16/21 TIME: 09:52 Subjective no bowel function overall feels better Vital Signs Vital Signs Date Time Temp Pulse Resp B/P (MAP) Pulse Ox O2 Delivery O2 Flow Rate FiO2 04/16/21 07:00 98.1 72 17 156/69 (98) 96 Room Air 98.1 I&O Intake and Output 04/16/21 07:00 Intake Total 0 ml Output Total 0 ml Balance 0 ml Intake Oral 0 ml Output Urine Total 0 ml # Voids 3 General: Alert, Oriented X3, Cooperative HEENT: Other (ng in place) Abdomen: Soft, Other (reduced hernia) Labs Laboratory Tests Test 04/15/21 00:15 04/16/21 07:00 White Blood Count 6.3 x10^3/uL (4.0-11.0) Red Blood Count 3.84 x10^6/uL (3.50-5.40) Hemoglobin 12.3 g/dL (12.0-15.5) Hematocrit 36.9 % (36.0-47.0) Mean Corpuscular Volume 96 fL (79-100) Mean Corpuscular Hemoglobin 32 pg (25-35) Mean Corpuscular Hemoglobin Concent 33 g/dL (31-37) Red Cell Distribution Width 13.9 % (11.5-14.5) Platelet Count 205 x10^3/uL (140-400) Neutrophils (%) (Auto) 71 % (31-73) Lymphocytes (%) (Auto) 21 % (24-48) Monocytes (%) (Auto) 8 % (0-9) Eosinophils (%) (Auto) 1 % (0-3) Basophils (%) (Auto) 0 % (0-3) Neutrophils # (Auto) 4.4 x10^3/uL (1.8-7.7) Lymphocytes # (Auto) 1.3 x10^3/uL (1.0-4.8) Monocytes # (Auto) 0.5 x10^3/uL (0.0-1.1) Eosinophils # (Auto) 0.0 x10^3/uL (0.0-0.7) Basophils # (Auto) 0.0 x10^3/uL (0.0-0.2) Sodium Level 142 mmol/L (136-145) 141 mmol/L (136-145) Potassium Level 4.2 mmol/L (3.5-5.1) 4.1 mmol/L (3.5-5.1) Chloride Level 107 mmol/L (98-107) 107 mmol/L (98-107) Carbon Dioxide Level 31 mmol/L (21-32) 29 mmol/L (21-32) Anion Gap 4 (6-14) 5 (6-14) Blood Urea Nitrogen 22 mg/dL (7-20) 16 mg/dL (7-20) Creatinine 0.9 mg/dL (0.6-1.0) 0.8 mg/dL (0.6-1.0) Estimated GFR (Cockcroft-Gault) 71.8 82.3 BUN/Creatinine Ratio 24 (6-20) Glucose Level 125 mg/dL (70-99) 100 mg/dL (70-99) Lactic Acid Level 0.7 mmol/L (0.4-2.0) Calcium Level 9.3 mg/dL (8.5-10.1) 8.9 mg/dL (8.5-10.1) Total Bilirubin 0.3 mg/dL (0.2-1.0) Aspartate Amino Transf (AST/SGOT) 20 U/L (15-37) Alanine Aminotransferase (ALT/SGPT) 33 U/L (14-59) Alkaline Phosphatase 148 U/L (46-116) Total Protein 7.1 g/dL (6.4-8.2) Albumin 3.4 g/dL (3.4-5.0) Albumin/Globulin Ratio 0.9 (1.0-1.7) Lipase 95 U/L (73-393) Laboratory Tests Test 04/16/21 07:00 Sodium Level 141 mmol/L (136-145) Potassium Level 4.1 mmol/L (3.5-5.1) Chloride Level 107 mmol/L (98-107) Carbon Dioxide Level 29 mmol/L (21-32) Anion Gap 5 (6-14) Blood Urea Nitrogen 16 mg/dL (7-20) Creatinine 0.8 mg/dL (0.6-1.0) Estimated GFR (Cockcroft-Gault) 82.3 Glucose Level 100 mg/dL (70-99) Calcium Level 8.9 mg/dL (8.5-10.1) Assessment/Plan awaiting xr if still obstructed would recommend contrast premedication and SBFT in AM Justicifation of Admission Dx: Justifications for Admission: Justification of Admission Dx: Yes Comments: [email or web address] SANJEEV ACEVES MD 04/16/21 1245: SURGICAL PROGRESS NOTE Assessment/Plan Patient resting comfortably in bed states she feels pretty good no nausea abdomen is soft nondistended nontender. Patient states still has not passed flatus or had a bowel movement. Would encourage ambulation agree with Julius assessment and plan ASHLYN MCDANIEL APRN Apr 16, 2021 09:53 SANJEEV ACEVES MD Apr 16, 2021 12:45
[2021-04-16] MEDS ORDERED: FAMOTIDINE 20 MG/2 ML VIAL IVP ONE (10:45)
[2021-04-16] MEDS ORDERED: diphenhydrAMINE 50 MG/ML VIAL IV ONE (10:45)
--- NOTE | 2021-04-16 10:56 | NUR ---
SW following. Discussed with RN, pt from home, room air, NPO. PT/OT ordered. Surgery, GI and Oncology following. RN advised no SW needs at this time. SW will continue to follow.
--- NOTE | 2021-04-16 10:57 | PDOC ---
Date of Service: DATE: 04/16/21 TIME: 10:54 Subjective: Subjective: Feels better. No abd pain. Less distended. No gas/stool. No nausea. She says NGT output is ongoing but slower. Objective: Objective: NGT output not charted. Vital Signs: Vital Signs Date Time Temp Pulse Resp B/P (MAP) Pulse Ox O2 Delivery O2 Flow Rate FiO2 04/16/21 07:00 98.1 72 17 156/69 (98) 96 Room Air 98.1 Imaging: AAS 04/16 FINDINGS and IMPRESSION: Left chest port tip terminates within the distal SVC. NG tube tip terminates within the body of the stomach however the proximal sidehole may be within the distal esophagus and can be advanced 2-3 cm. The heart is not enlarged. Mediastinal and hilar contours are normal. Patchy opacities right greater than left lung base. No pleural effusion or pneumothorax. Advanced bilateral shoulder joint arthropathy. Dilation of the small bowel is again seen in the central abdomen measuring up to 4.6 cm consistent with small bowel obstruction. This is grossly stable to prior CT. Moderate colonic stool content. No free intraperitoneal gas. PE: GEN: NAD LUNGS: CTAB HEART: RRR ABD: soft, non-tender, hernia (reducible) NEURO/PSYCH: A & O 3, pleasant and cooperative A/P: SBO, ventral hernia -- Continue per surgery - SBS planned for tomorrow. Meds ordered PO - defer to primary. Justicifation of Admission Dx: Justifications for Admission: Justification of Admission Dx: Yes LAMINE JESUS Apr 16, 2021 10:57
[2021-04-16 11:00] VITALS: BP 165/69
[2021-04-16] MEDS: methylPREDNISolone SOD SUCC PF 125 MG/2 ML VIAL. IV SCH ×2 (12:08→17:20)
--- NOTE | 2021-04-16 14:08 | PDOC ---
[facility] PROGRESS NOTE Date of Service DOS: DATE: 04/16/21 TIME: 14:06 Chief Complaint Chief Complaint Large ventral abdominal wall hernia containing large and small bowel lo ops./ACUTE small bowel obstruction/ distention with air-fluid levels of the small bowel with a diameter of up to 3.5 cm. POSSIBLY due to the hernia sac itself VS obstruction due to adhesions within the abdomen, Small volume of free fluid within the pelvis and right abdomen. Breast cancer HX , exploratory laparotomy and ileal right colostomy and excision of intra-abdominal tumor on 10/24/2018. 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 SBO vs ileus--umbilical hernia check SBFT History of Present Illness History of Present Illness 85 year old female with past medical history of ovarian cancer presented to ER with the chief complaint of abdominal pain. has known abdominal hernia. and she has had associated abdominal pain on and off for years. Over the last few days pain has become more intense. pain is diffuse but primarily left abd lateral to umbulicus. associated nausea but has no vomiting. / she did have a BM yesterday /SBO vs ileus--umbilical hernia. GI and general surgery consulted. Feels better. No abd pain. Less distended. Not passing flatus or stool. No nausea. NGT with minimal output. Discussed with general surgery and GI for small bowel follow-through will premedicate with steroids H2 ernst and H1 ernst. Vitals/I&O Vitals/I&O: Vital Signs Date Time Temp Pulse Resp B/P (MAP) Pulse Ox O2 Delivery O2 Flow Rate FiO2 04/16/21 09:00 72 156/69 04/16/21 07:00 98.1 17 96 Room Air 98.1 I & O 04/15/21 04/15/21 04/16/21 14:59 22:59 06:59 Intake Total 0 ml Output Total 0 ml Balance 0 ml Physical Exam General: Alert, Oriented X3, Cooperative Heart: Regular rate, Normal S1, Normal S2 Abdomen: Soft, Other (reduced hernia) Extremities: No cyanosis Skin: No rashes, No breakdown Labs Labs: Laboratory Tests Test 04/16/21 07:00 Sodium Level 141 mmol/L (136-145) Potassium Level 4.1 mmol/L (3.5-5.1) Chloride Level 107 mmol/L (98-107) Carbon Dioxide Level 29 mmol/L (21-32) Anion Gap 5 (6-14) Blood Urea Nitrogen 16 mg/dL (7-20) Creatinine 0.8 mg/dL (0.6-1.0) Estimated GFR (Cockcroft-Gault) 82.3 Glucose Level 100 mg/dL (70-99) Calcium Level 8.9 mg/dL (8.5-10.1) Comment Review of Relevant I have reviewed the following items arabella (where applicable) has been applied. Medications: Current Medications Medications (Trade) Dose Ordered Sig/Pedro Route PRN Reason Start Time Stop Time Status Last Admin Dose Admin Atorvastatin Calcium (Lipitor) 10 mg QHS PO 04/15/21 21:00 04/15/21 20:53 Sodium Chloride 1,000 ml @ 65 mls/hr [id number] IV 04/15/21 14:30 04/16/21 02:02 Enoxaparin Sodium (Lovenox 40mg Syringe) 40 mg Q24H SQ 04/15/21 15:00 04/15/21 20:53 Methylprednisolone Sodium Succinate (SOLU-Medrol 125MG VIAL) 60 mg Q6HRS IV 04/16/21 11:00 04/17/21 00:01 04/16/21 12:08 Famotidine (Pepcid Vial) 20 mg 1X ONCE IVP 04/16/21 10:45 04/16/21 10:47 DC 04/16/21 12:08 Diphenhydramine HCl (Benadryl) 50 mg 1X ONCE IV 04/16/21 10:45 04/16/21 10:47 DC 04/16/21 12:09 Justifications for Admission Other Justification ABDOMINAL PAIN TRISTIN NATH MD Apr 16, 2021 14:08
[2021-04-16 15:00] VITALS: BP 161/74
[2021-04-16] MEDS: ENOXAPARIN 40 MG/0.4 ML SYRINGE. SQ SCH (16:25)
[2021-04-16 19:00] VITALS: BP 160/69
[2021-04-16] MEDS: ATORVASTATIN CALCIUM 10 MG TABLET. PO SCH (21:00)
[2021-04-16 23:00] VITALS: BP 161/75
[2021-04-17 03:00] VITALS: BP 152/71
[2021-04-17] MEDS: methylPREDNISolone SOD SUCC PF 125 MG/2 ML VIAL. IV SCH (03:30)
[2021-04-17 07:00] VITALS: BP 158/74
[2021-04-17] MEDS ORDERED: IOHEXOL 300 MG/ML 100ML VIAL. IJ ONE (07:45)
[2021-04-17] MEDS ORDERED: FAMOTIDINE 20 MG/2 ML VIAL IVP ONE (08:00)
[2021-04-17] MEDS ORDERED: diphenhydrAMINE 50 MG/ML VIAL IV ONE (08:00)
[2021-04-17] MEDS ORDERED: CONTRAST GIVEN. MC PRN (08:15)
[2021-04-17] MEDS ORDERED: methylPREDNISolone SOD SUCC PF 40 MG/ML VIAL. IV ONE (08:30)
--- NOTE | 2021-04-17 08:31 | PDOC ---
[employer] [facility] PROGRESS NOTE Date of Service DOS: DATE: 04/17/21 TIME: 08:29 Chief Complaint Chief Complaint Large ventral abdominal wall hernia containing large and small bowel lo ops./ACUTE small bowel obstruction/ distention with air-fluid levels of the small bowel with a diameter of up to 3.5 cm. POSSIBLY due to the hernia sac itself VS obstruction due to adhesions within the abdomen, Small volume of free fluid within the pelvis and right abdomen. Breast cancer HX , exploratory laparotomy and ileal right colostomy and excision of intra-abdominal tumor on 10/24/2018. 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 SBO vs ileus--umbilical hernia check SBFT History of Present Illness History of Present Illness Ms Shane is an 85 year old female with past medical history of ovarian cancer presented to ER with the chief complaint of abdominal pain. has known abdominal hernia. and she has had associated abdominal pain on and off for years. Over the last few days pain has become more intense. pain is diffuse but primarily left abd lateral to umbulicus. associated nausea but has no vomiting. / she did have a BM yesterday /SBO vs ileus--umbilical hernia. GI and general surgery consulted. 04/16: Feels better. No abd pain. Less distended. Not passing flatus or stool. No nausea. NGT with minimal output. Discussed with general surgery and GI for small bowel follow-through will premedicate with steroids H2 ernst and H1 ernst. Is better no BM or flatus but she thinks things are moving. She wants to get up out of bed but feels very weak. For small bowel follow-through today. Was pre medicated. Vitals/I&O Vitals/I&O: Vital Signs Date Time Temp Pulse Resp B/P (MAP) Pulse Ox O2 Delivery O2 Flow Rate FiO2 04/17/21 03:00 98.2 95 18 152/71 (98) 97 Room Air 98.2 I & O 04/16/21 04/16/21 04/17/21 15:00 23:00 07:00 Intake Total 0 ml Balance 0 ml Physical Exam General: Alert, Oriented X3, Cooperative Heart: Regular rate, Normal S1, Normal S2 Abdomen: Soft, Other (reduced hernia) Extremities: No cyanosis Skin: No rashes, No breakdown Comment Review of Relevant I have reviewed the following items arabella (where applicable) has been applied. Medications: Current Medications Medications (Trade) Dose Ordered Sig/Pedro Route PRN Reason Start Time Stop Time Status Last Admin Dose Admin Methylprednisolone Sodium Succinate (SOLU-Medrol 125MG VIAL) 60 mg Q6HRS IV 04/16/21 11:00 04/17/21 00:01 DC 04/17/21 03:30 Famotidine (Pepcid Vial) 20 mg 1X ONCE IVP 04/16/21 10:45 04/16/21 10:47 DC 04/16/21 12:08 Diphenhydramine HCl (Benadryl) 50 mg 1X ONCE IV 04/16/21 10:45 04/16/21 10:47 DC 04/16/21 12:09 Justifications for Admission Other Justification ABDOMINAL PAIN TRISTIN NATH MD Apr 17, 2021 08:31
[2021-04-17] MEDS: LISINOPRIL 10 MG TABLET PO SCH (09:00)
[2021-04-17] MEDS: CETIRIZINE HCL 10 MG TABLET. PO SCH (09:00)
[2021-04-17] MEDS: CHOLECALCIFEROL (VITAMIN D3) 5,000 UNIT CAPSULE PO SCH (09:00)
[2021-04-17] MEDS: ASPIRIN ENTERIC COATED 81 MG TABLET.DR. PO SCH (09:00)
[2021-04-17] MEDS: PANTOPRAZOLE IV PUSH 40 MG VIAL. IVP SCH (09:11)
[2021-04-17] MEDS: IV NORMAL SALINE 1000ML BAG 1,000 ML IV SCH ×2 (09:14→23:16)
--- NOTE | 2021-04-17 10:03 | PDOC ---
ASHLYN MCDANIEL CUSTOMER PROGRAM MANAGER 04/17/21 1003: SURGICAL PROGRESS NOTE DATE: 04/17/21 TIME: 10:02 Subjective no flatus or stool minimal abdominal pain Vital Signs Vital Signs Date Time Temp Pulse Resp B/P (MAP) Pulse Ox O2 Delivery O2 Flow Rate FiO2 04/17/21 09:00 90 158/74 04/17/21 07:00 97.8 18 92 Room Air 97.8 I&O Intake and Output 04/17/21 07:00 Intake Total 0 ml Balance 0 ml Intake Oral 0 ml # Voids 2 # Bowel Movements 1 General: Alert, Oriented X3, Cooperative HEENT: Other (NG in place) Abdomen: Soft, No tenderness Labs Laboratory Tests Test 04/16/21 07:00 Sodium Level 141 mmol/L (136-145) Potassium Level 4.1 mmol/L (3.5-5.1) Chloride Level 107 mmol/L (98-107) Carbon Dioxide Level 29 mmol/L (21-32) Anion Gap 5 (6-14) Blood Urea Nitrogen 16 mg/dL (7-20) Creatinine 0.8 mg/dL (0.6-1.0) Estimated GFR (Cockcroft-Gault) 82.3 Glucose Level 100 mg/dL (70-99) Calcium Level 8.9 mg/dL (8.5-10.1) Assessment/Plan await SBFT results Justicifation of Admission Dx: Justifications for Admission: Justification of Admission Dx: Yes SANJEEV ACEVES MD 04/17/21 1301: SURGICAL PROGRESS NOTE Assessment/Plan Benign exam. Agree with Gallagher assessment plan awaiting for small bowel follow-through results ASHLYN MCDANIEL APRN Apr 17, 2021 10:03 SANJEEV ACEVES MD Apr 17, 2021 13:01
--- NOTE | 2021-04-17 10:14 | PDOC ---
Date of Service: DATE: 04/17/21 TIME: 10:12 Subjective: Subjective: Pt having bed bath. D/w nurse in [facility] - SBS today, NG output slowed, no flatus/stool. Objective: Vital Signs: Vital Signs Date Time Temp Pulse Resp B/P (MAP) Pulse Ox O2 Delivery O2 Flow Rate FiO2 04/17/21 09:00 90 158/74 04/17/21 07:00 97.8 18 92 Room Air 97.8 Imaging: SBS 04/17 pending PE: GEN: taking bath - observed from [facility] A/P: SBO, ventral hernia -- Awaiting SBS, continue per surgery. Justicifation of Admission Dx: Justifications for Admission: Justification of Admission Dx: Yes LAMINE JESUS Apr 17, 2021 10:14
[2021-04-17 11:00] VITALS: BP 121/76
[2021-04-17 15:00] VITALS: BP 128/70
[2021-04-17] MEDS: ENOXAPARIN 40 MG/0.4 ML SYRINGE. SQ SCH (15:58)
--- NOTE | 2021-04-17 17:36 | RAD ---
CLINICAL HISTORY: Reason: sbo / Spl. Instructions: gastrografin please /CONTRAST ORDERED. / History: COMPARISON: 04/16/2021 TECHNIQUE: Small bowel series was performed following the administration of water soluble contrast wi th radiographs obtained at various intervals. FINDINGS: Stock Transfer Clerk: Initial plain film of the abdomen reveals dilated loops of small bowel. Contrast is seen within the stomach with prompt emptying into the small bowel. Multiple dilated loops or small bowel are seen. At the 7 hour image contrast is suspected to be within the cecum/right col on. IMPRESSION: Delayed transit of contrast, extending into the cecum likely at the 7 hour arabella. Recommend additional KUB in the morning to confirm contrast has reached the colon. Electronically signed by: Jessee Gonzalez MD (04/17/2021 5:34 PM) [id number]
[2021-04-17 19:00] VITALS: BP 103/66
[2021-04-17] MEDS: ATORVASTATIN CALCIUM 10 MG TABLET. PO SCH (20:27)
[2021-04-17 23:00] VITALS: BP 122/59
[2021-04-18 03:00] VITALS: BP 137/77
--- NOTE | 2021-04-18 06:54 | NUR ---
received from [facility] at 0600
[2021-04-18 07:00] VITALS: BP 138/71
[2021-04-18] MEDS: PANTOPRAZOLE IV PUSH 40 MG VIAL. IVP SCH (07:30)
--- NOTE | 2021-04-18 08:48 | PDOC ---
ASHLYN MCDANIEL POCKET STITCHER 04/18/21 0848: SURGICAL PROGRESS NOTE DATE: 04/18/21 TIME: 08:46 Subjective having stools ng clamped since yesterday Vital Signs Vital Signs Date Time Temp Pulse Resp B/P (MAP) Pulse Ox O2 Delivery O2 Flow Rate FiO2 04/18/21 07:00 97.6 85 16 138/71 (93) 95 Room Air 97.6 I&O Intake and Output 04/18/21 07:00 Output Total 300 ml Balance -300 ml Output Urine Total 0 ml Stool Total 300 ml General: Alert, Oriented X3, Cooperative HEENT: Other (ng in place) Abdomen: Soft, No tenderness Assessment/Plan having stools now KUB pending, however clinically improved--will dc ng and start clears Justicifation of Admission Dx: Justifications for Admission: Justification of Admission Dx: Yes JOSE VIERA MD 04/18/21 1547: SURGICAL PROGRESS NOTE Assessment/Plan Pt seen and examined. Agree with Jeannine's note Pt self d/c'ed NGT by accident. Denies N/V, having loose stools abd distended with large hernia with lose of domain, NTTP will attempt to leave NGT out given clinical improvement and KUB improvement d/w pt and pt's family. If not improved, may need to consider surgery. ASHLYN MCDANIEL POCKET STITCHER Apr 18, 2021 08:48 JOSE VIERA MD Apr 18, 2021 15:47
[2021-04-18] MEDS: CETIRIZINE HCL 10 MG TABLET. PO SCH (09:00)
[2021-04-18] MEDS: ASPIRIN ENTERIC COATED 81 MG TABLET.DR. PO SCH (09:00)
[2021-04-18] MEDS: LISINOPRIL 10 MG TABLET PO SCH (09:00)
--- NOTE | 2021-04-18 10:47 | RAD ---
EXAM: Supine AP view of the abdomen DATE: 04/18/2021 8:26 AM INDICATION: Reason: sbo, / Spl. Instructions: / History: COMPARISON: 04/15/2021 04/16/2021 04/17/2021 FINDINGS/ IMPRESSION: Diffuse small bowel dilation has mildly decreased. In addition contrast is now seen to the level of t he rectum. NG tube tip is seen within the stomach, consider advancement 3 to 4 cm as the proximal binta ehole is at the gastroesophageal junction. Electronically signed by: Jessee Gonzalez MD (04/18/2021 10:45 AM) [id number]
[2021-04-18 11:00] VITALS: BP 155/72
--- NOTE | 2021-04-18 11:51 | PDOC ---
Date of Service: DATE: 04/18/21 TIME: 11:47 Subjective: Subjective: Tells me has had 3-4 stools. Objective: Objective: Reviewed surgery note - plans to remove NG and try clears. Vital Signs: Vital Signs Date Time Temp Pulse Resp B/P (MAP) Pulse Ox O2 Delivery O2 Flow Rate FiO2 04/18/21 11:00 98.1 81 16 155/72 (99) 95 Room Air 98.1 Imaging: SBS 04/17 IMPRESSION: Delayed transit of contrast, extending into the cecum likely at the 7 hour arabella. Recommend additional KUB in the morning to confirm contrast has reached the colon. KUB 04/18 IMPRESSION: Diffuse small bowel dilation has mildly decreased. In addition contrast is now seen to the level of the rectum. NG tube tip is seen within the stomach, consider advancement 3 to 4 cm as the proximal sidehole is at the gastroesophageal junction. PE: GEN: NAD LUNGS: CTAB HEART: RRR ABD: soft, quiet BS, non-tender, NG clamped, hernia NEURO/PSYCH: A & O 3, pleasant and cooperative A/P: SBO, ventral hernia -- Stooling, tolerating clamped NGT. Imaging/plans as above, continue per surgery. Justicifation of Admission Dx: Justifications for Admission: Justification of Admission Dx: Yes LAMINE JESUS Apr 18, 2021 11:51
--- NOTE | 2021-04-18 12:52 | NUR ---
SW following. Discussed with RN, therapy recommending SNF. SW met with pt and pt's son at bedside - pt agreeable to SNF if she has to have surgery, but if no surgery she wants to go home with [facility]. Pt's preferred SNF is [facility]. SW awaiting further determination of surgery decision. Pt had NG hooked up to suction again. SW will continue to follow.
--- NOTE | 2021-04-18 13:06 | PDOC ---
[employer] PROGRESS NOTE Date of Service DOS: DATE: 04/18/21 TIME: 12:59 Chief Complaint Chief Complaint Large ventral abdominal wall hernia containing large and small bowel lo ops./ACUTE small bowel obstruction/ distention with air-fluid levels of the small bowel with a diameter of up to 3.5 cm. POSSIBLY due to the hernia sac itself VS obstruction due to adhesions within the abdomen, Small volume of free fluid within the pelvis and right abdomen. Breast cancer HX , exploratory laparotomy and ileal right colostomy and excision of intra-abdominal tumor on 10/24/2018. 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 SBO vs ileus--umbilical hernia check SBFT History of Present Illness History of Present Illness Ms Shane is an 85 year old female with past medical history of ovarian cancer presented to ER with the chief complaint of abdominal pain. has known abdominal hernia. and she has had associated abdominal pain on and off for years. Over the last few days pain has become more intense. pain is diffuse but primarily left abd lateral to umbulicus. associated nausea but has no vomiting. / she did have a BM yesterday /SBO vs ileus--umbilical hernia. GI and general surgery consulted. 04/16: Feels better. No abd pain. Less distended. Not passing flatus or stool. No nausea. NGT with minimal output. Discussed with general surgery and GI for small bowel follow-through will premedicate with steroids H2 ernst and H1 ernst. 04/17: Is better no BM or flatus but she thinks things are moving. She wants to get up out of bed but feels very weak. For small bowel follow-through today. Was premedicated. 04/18: Patient is having bowel movements. NG tube in place to clamp. She is complaining of some abdominal distention today, but denies abdominal pain. KUB showed diffuse small bowel dilation has mildly decreased, and in addition contrast is now seen to the level of the rectum. NG tube tip is seen within the stomach, consider advancement 3 to 4 cm as the proximal sidehole is at the gastroesophageal junction. Discussed with RN. Vitals/I&O Vitals/I&O: Vital Signs Date Time Temp Pulse Resp B/P (MAP) Pulse Ox O2 Delivery O2 Flow Rate FiO2 04/18/21 11:00 98.1 81 16 155/72 (99) 95 Room Air 98.1 I & O 04/17/21 04/17/21 04/18/21 14:59 22:59 06:59 Output Total 0 ml 300 ml Balance 0 ml -300 ml Physical Exam General: Alert, Oriented X3, Cooperative Heart: Regular rate, Normal S1, Normal S2 Lungs: Clear Abdomen: Soft, No tenderness, Other (Mildly distended) Extremities: No cyanosis Skin: No rashes, No breakdown Comment Review of Relevant I have reviewed the following items arabella (where applicable) has been applied. Justifications for Admission Other Justification ABDOMINAL PAIN BERT SMITH MD Apr 18, 2021 13:06
[2021-04-18 15:00] VITALS: BP 122/70
[2021-04-18] MEDS: ENOXAPARIN 40 MG/0.4 ML SYRINGE. SQ SCH (15:48)
[2021-04-18 19:15] VITALS: BP 147/75
[2021-04-18] MEDS: IV NORMAL SALINE 1000ML BAG 1,000 ML IV SCH (19:30)
[2021-04-18] MEDS: ATORVASTATIN CALCIUM 10 MG TABLET. PO SCH (20:50)
[2021-04-18 22:55] VITALS: BP 153/75
[2021-04-19 02:37] VITALS: BP 148/72
[2021-04-19 07:00] VITALS: BP 147/68
--- NOTE | 2021-04-19 08:39 | PDOC ---
ASHLYN MCDANIEL APRN 04/19/21 0839: SURGICAL PROGRESS NOTE DATE: 04/19/21 TIME: 08:39 Subjective did well with NG out + flatus no n/v Vital Signs Vital Signs Date Time Temp Pulse Resp B/P (MAP) Pulse Ox O2 Delivery O2 Flow Rate FiO2 04/19/21 08:00 Room Air 04/19/21 07:00 97.6 71 17 147/68 (94) 96 97.6 I&O Intake and Output 04/19/21 07:00 Intake Total 240 ml Balance 240 ml Intake Oral 240 ml # Voids 2 General: Alert, Oriented X3, Cooperative Abdomen: Soft, Other (hernia reducible) Assessment/Plan trial clears Justicifation of Admission Dx: Justifications for Admission: Justification of Admission Dx: Yes JOSE VIERA MD 04/19/21 1506: SURGICAL PROGRESS NOTE Assessment/Plan Pt seen and examined. Agree with Ms. Mcdaniel's note Pt feels much better, tamra clears, passing stools abd soft, reducible hernia ADAT in AM and d/c and work towards elective hernia repair with Dr. Gardner. ASHLYN MCDANIEL APRN Apr 19, 2021 08:39 JOSE VIERA MD Apr 19, 2021 15:06
--- NOTE | 2021-04-19 09:56 | PDOC ---
Date of Service: DATE: 04/19/21 TIME: 09:52 Subjective: Subjective: Tolerating ice chips, has stooled. No n/v, no abd pain. NG fell out. Complains that sons try to call her to check on her, unable to get through. Complains that she has asked for things and had to wait a long time. Wants to wash her face and brush her teeth. Objective: Objective: Asked to return to see by nurse yesterday for increased distention. Pt had many questions - son was present, all questions answered/deferred to surgery. Vital Signs: Vital Signs Date Time Temp Pulse Resp B/P (MAP) Pulse Ox O2 Delivery O2 Flow Rate FiO2 04/19/21 08:00 Room Air 04/19/21 07:00 97.6 71 17 147/68 (94) 96 97.6 PE: GEN: NAD LUNGS: CTAB HEART: RRR ABD: hernia, soft, non-tender, quiet BS NEURO/PSYCH: A & O 3 A/P: SBO, ventral hernia -- Seems obstruction resolving. NG out and stooling. Plans for clears per surgery. Justicifation of Admission Dx: Justifications for Admission: Justification of Admission Dx: Yes LAMINE JESUS Apr 19, 2021 09:56
[2021-04-19] MEDS: IV NORMAL SALINE 1000ML BAG 1,000 ML IV SCH (10:54)
[2021-04-19 11:00] VITALS: BP 176/81
[2021-04-19] MEDS: CHOLECALCIFEROL (VITAMIN D3) 5,000 UNIT CAPSULE PO SCH (12:28)
[2021-04-19] MEDS: LISINOPRIL 10 MG TABLET PO SCH (12:28)
[2021-04-19] MEDS: ASPIRIN ENTERIC COATED 81 MG TABLET.DR. PO SCH (12:29)
[2021-04-19] MEDS: CETIRIZINE HCL 10 MG TABLET. PO SCH (12:29)
[2021-04-19] MEDS: PANTOPRAZOLE IV PUSH 40 MG VIAL. IVP SCH (12:38)
[2021-04-19] MEDS: AMIODARONE HCL 200 MG TABLET. PO SCH (13:00)
--- NOTE | 2021-04-19 13:25 | NUR ---
SW following. Discussed with RN, pt from home, clears trial today. NG removed. Pt plans to go home with [facility] if no surgery and [facility] if does have surgery. SW will continue to follow.
--- NOTE | 2021-04-19 14:19 | PDOC ---
[employer] PROGRESS NOTE Date of Service DOS: DATE: 04/19/21 TIME: 14:18 Chief Complaint Chief Complaint Large ventral abdominal wall hernia containing large and small bowel lo ops./ACUTE small bowel obstruction/ distention with air-fluid levels of the small bowel with a diameter of up to 3.5 cm. POSSIBLY due to the hernia sac itself VS obstruction due to adhesions within the abdomen, Small volume of free fluid within the pelvis and right abdomen. Breast cancer HX , exploratory laparotomy and ileal right colostomy and excision of intra-abdominal tumor on 10/24/2018. 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 SBO vs ileus--umbilical hernia check SBFT History of Present Illness History of Present Illness Ms Shane is an 85 year old female with past medical history of ovarian cancer presented to ER with the chief complaint of abdominal pain. has known abdominal hernia. and she has had associated abdominal pain on and off for years. Over the last few days pain has become more intense. pain is diffuse but primarily left abd lateral to umbulicus. associated nausea but has no vomiting. / she did have a BM yesterday /SBO vs ileus--umbilical hernia. GI and general surgery consulted. 04/16: Feels better. No abd pain. Less distended. Not passing flatus or stool. No nausea. NGT with minimal output. Discussed with general surgery and GI for small bowel follow-through will premedicate with steroids H2 ernst and H1 ernst. 04/17: Is better no BM or flatus but she thinks things are moving. She wants to get up out of bed but feels very weak. For small bowel follow-through today. Was premedicated. 04/18: Patient is having bowel movements. NG tube in place to clamp. She is complaining of some abdominal distention today, but denies abdominal pain. KUB showed diffuse small bowel dilation has mildly decreased, and in addition contrast is now seen to the level of the rectum. NG tube tip is seen within the stomach, consider advancement 3 to 4 cm as the proximal sidehole is at the gastroesophageal junction. Discussed with RN. 04/19: Patient seen with son at bedside. Doing much better, NG tube removed. Tolerating trial of clears. +Flatus. Appreciate general surgery and GI recommendations. Advance diet as tolerated and discharge soon. Vitals/I&O Vitals/I&O: Vital Signs Date Time Temp Pulse Resp B/P (MAP) Pulse Ox O2 Delivery O2 Flow Rate FiO2 04/19/21 13:00 71 147/68 04/19/21 08:00 Room Air 04/19/21 07:00 97.6 17 96 97.6 I & O 04/18/21 04/18/21 04/19/21 14:59 22:59 06:59 Intake Total 240 ml Balance 240 ml Physical Exam General: Alert, Oriented X3, Cooperative Heart: Regular rate, Normal S1, Normal S2 Lungs: Clear Abdomen: Soft, Other (hernia reducible) Extremities: No cyanosis Skin: No rashes, No breakdown Comment Review of Relevant I have reviewed the following items arabella (where applicable) has been applied. Medications: Current Medications Medications (Trade) Dose Ordered Sig/Pedro Route PRN Reason Start Time Stop Time Status Last Admin Dose Admin Amiodarone HCl (Cordarone) 100 mg DAILY PO 04/19/21 13:00 04/19/21 13:00 Justifications for Admission Other Justification ABDOMINAL PAIN BERT SMITH MD Apr 19, 2021 14:19
[2021-04-19 15:00] VITALS: BP 154/65
[2021-04-19] MEDS: ENOXAPARIN 40 MG/0.4 ML SYRINGE. SQ SCH (16:32)
[2021-04-19 17:37] LABS: BILIRUBIN,URINE NEGATIVE (NEG); CLARITY,URINE CLEAR; COLOR,URINE YELLOW; NITRITE,URINE POSITIVE (NEG); PH,URINE 5.5 (<5.0-8.0); PROTEIN,URINE NEGATIVE (NEG-TRACE)
[2021-04-19 17:50] LABS: BACTERIA,URINE MANY /HPF (0-FEW)
[2021-04-19 17:52] LABS: RBC,URINE RARE /HPF (0-2)
[2021-04-19 19:00] VITALS: BP 118/50
[2021-04-19] MEDS: ATORVASTATIN CALCIUM 10 MG TABLET. PO SCH (21:18)
[2021-04-19 23:00] VITALS: BP 128/66
[2021-04-20] MEDS: IV NORMAL SALINE 1000ML BAG 1,000 ML IV SCH (02:18)
[2021-04-20] MEDS ORDERED: HEPARIN PF 500 UNIT/5 ML DISP.SYRIN. IVP ONE (06:00)
[2021-04-20 07:00] VITALS: BP 140/66
[2021-04-20] MEDS: CETIRIZINE HCL 10 MG TABLET. PO SCH (08:42)
[2021-04-20] MEDS: ASPIRIN ENTERIC COATED 81 MG TABLET.DR. PO SCH (08:42)
[2021-04-20] MEDS: AMIODARONE HCL 200 MG TABLET. PO SCH (08:44)
[2021-04-20] MEDS: LISINOPRIL 10 MG TABLET PO SCH (08:45)
[2021-04-20] MEDS: PANTOPRAZOLE IV PUSH 40 MG VIAL. IVP SCH (08:45)
[2021-04-20 11:00] VITALS: BP 141/65
--- NOTE | 2021-04-20 11:31 | PDOC ---
PROGRESS NOTES Date of Service DATE: 04/20/21 TIME: 11:30 Subjective Subjective states she feels well, taking liquids well, having stools Objective Objective Vital Signs Date Time Temp Pulse Resp B/P (MAP) Pulse Ox O2 Delivery O2 Flow Rate FiO2 04/20/21 11:00 97.8 67 20 141/65 (90) 95 Room Air 97.8 Intake and Output 04/20/21 07:00 # Voids 2 # Bowel Movements 2 Physical Exam Abdomen: Soft, No tenderness, Other (large soft hernia) Heart: Regular rate Extremities: No clubbing, No cyanosis General: Alert, Cooperative Psych/Mental Status: Mental status NL Skin: No rashes Plan Plan of Care Advance diet, consider discharge soon Comment Review of Relevant I have reviewed the following items arabella (where applicable) has been applied. Labs Laboratory Tests Test 04/19/21 15:25 04/19/21 16:36 04/20/21 10:29 Urine Collection Type Unknown Urine Color Yellow Urine Clarity Clear Urine pH 5.5 (<5.0-8.0) Urine Specific [place] 1.020 (1.000-1.030) Urine Protein Negative mg/dL (NEG-TRACE) Urine Glucose (UA) Negative mg/dL (NEG) Urine Ketones (Stick) >=80 mg/dL (NEG) Urine Blood Negative (NEG) Urine Nitrite Positive (NEG) Urine Bilirubin Negative (NEG) Urine Urobilinogen Dipstick 1.0 mg/dL (0.2 mg/dL) Urine Leukocyte Esterase Small (NEG) Urine RBC Rare /HPF (0-2) Urine WBC 11-20 /HPF (0-4) Urine Squamous Epithelial Cells Many /LPF Urine Bacteria Many /HPF (0-FEW) Urine Mucus Marked /LPF Glucose (Fingerstick) 71 mg/dL (70-99) 114 mg/dL (70-99) Laboratory Tests Test 04/19/21 15:25 04/19/21 16:36 04/20/21 10:29 Urine Collection Type Unknown Urine Color Yellow Urine Clarity Clear Urine pH 5.5 (<5.0-8.0) Urine Specific [place] 1.020 (1.000-1.030) Urine Protein Negative mg/dL (NEG-TRACE) Urine Glucose (UA) Negative mg/dL (NEG) Urine Ketones (Stick) >=80 mg/dL (NEG) Urine Blood Negative (NEG) Urine Nitrite Positive (NEG) Urine Bilirubin Negative (NEG) Urine Urobilinogen Dipstick 1.0 mg/dL (0.2 mg/dL) Urine Leukocyte Esterase Small (NEG) Urine RBC Rare /HPF (0-2) Urine WBC 11-20 /HPF (0-4) Urine Squamous Epithelial Cells Many /LPF Urine Bacteria Many /HPF (0-FEW) Urine Mucus Marked /LPF Glucose (Fingerstick) 71 mg/dL (70-99) 114 mg/dL (70-99) Medications Current Medications Ondansetron HCl (Zofran) 4 mg PRN Q8HRS PRN IVP NAUSEA/VOMITING 1ST CHOICE Last administered on 04/15/21at 04:15; Start 04/15/21 at 02:15; Stop 04/16/21 at 02:14; Status DC Morphine Sulfate (Morphine Sulfate) 2 mg PRN Q2HR PRN IVP SEVERE PAIN 7-10; Start 04/15/21 at 02:15; Stop 04/16/21 at 02:14; Status DC Aspirin (Ecotrin) 81 mg DAILY PO Last administered on 04/20/21at 08:42; Start 04/16/21 at 09:00 Diltiazem HCl (Cardizem 24hr Cd) 120 mg DAILY PO Last administered on 04/19/21at 12:29; Start 04/16/21 at 09:00 Lisinopril (Prinivil) 10 mg DAILY PO Last administered on 04/20/21at 08:45; Start 04/16/21 at 09:00 Vitamin D (Vitamin D3) 5,000 unit QODAY PO Last administered on 04/19/21at 12:28; Start 04/17/21 at 09:00 Cetirizine HCl (ZyrTEC) 10 mg DAILY PO Last administered on 04/20/21at 08:42; Start 04/16/21 at 09:00 Pantoprazole Sodium (Protonix) 40 mg PRN DAILY PRN PO ACID REFLUX; Start 04/15/21 at 15:15; Stop 04/16/21 at 10:58; Status DC Atorvastatin Calcium (Lipitor) 10 mg QHS PO Last administered on 04/19/21at 21:18; Start 04/15/21 at 21:00 Sodium Chloride (Normal Saline Flush) 3 ml QSHIFT PRN IV AFTER MEDS AND BLOOD DRAWS; Start 04/15/21 at 14:30 Sodium Chloride 1,000 ml @ 65 mls/hr [id number] IV Last administered on 04/19/21at 10:54; Start 04/15/21 at 14:30 Ondansetron HCl (Zofran) 4 mg PRN Q4HRS PRN IV NAUSEA/VOMITING; Start 04/15/21 at 14:30 Acetaminophen (Tylenol) 650 mg PRN Q4HRS PRN PO TEMP OVER 100.4F OR MILD PAIN; Start 04/15/21 at 14:30 Acetaminophen (Tylenol Supp) 650 mg PRN Q4HRS PRN AL TEMP OVER 100.4F OR MILD PAIN; Start 04/15/21 at 14:30 Sodium Monofluorophosphate (Fleet Adult) 133 ml PRN DAILY PRN [place] CONSTIPATION; Start 04/15/21 at 14:30; Stop 04/17/21 at 08:31; Status DC Docusate Sodium (Colace) 100 mg PRN BID PRN PO HARD STOOLS; Start 04/15/21 at 14:30 Albuterol Sulfate (Ventolin Neb Soln) 2.5 mg PRN Q4HRS PRN NEB SHORTNESS OF BREATH; Start 04/15/21 at 14:30 Guaifenesin (Robitussin) 200 mg PRN Q4HRS PRN PO COUGH; Start 04/15/21 at 14:30 Enoxaparin Sodium (Lovenox 40mg Syringe) 40 mg Q24H SQ Last administered on 04/19/21at 16:32; Start 04/15/21 at 15:00 Methylprednisolone Sodium Succinate (SOLU-Medrol 125MG VIAL) 60 mg Q6HRS IV Last administered on 04/17/21at 03:30; Start 04/16/21 at 11:00; Stop 04/17/21 at 00:01; Status DC Famotidine (Pepcid Vial) 20 mg 1X ONCE IVP Last administered on 04/16/21at 12:0 8; Start 04/16/21 at 10:45; Stop 04/16/21 at 10:47; Status DC Diphenhydramine HCl (Benadryl) 50 mg 1X ONCE IV Last administered on 04/16/21at 12:09; Start 04/16/21 at 10:45; Stop 04/16/21 at 10:47; Status DC Pantoprazole Sodium (PROTONIX VIAL for IV PUSH) 40 mg DAILYAC IVP Last administered on 04/20/21at 08:45; Start 04/17/21 at 07:30 Iohexol (Omnipaque 300 Mg/ml) 400 ml 1X ONCE IJ Last administered on 04/17/21at 07:45; Start 04/17/21 at 07:45; Stop 04/17/21 at 07:52; Status DC Famotidine (Pepcid Vial) 20 mg 1X ONCE IVP Last administered on 04/17/21at 09:10; Start 04/17/21 at 08:00; Stop 04/17/21 at 08:01; Status DC Diphenhydramine HCl (Benadryl) 50 mg 1X ONCE IV Last administered on 04/17/21at 09:08; Start 04/17/21 at 08:00; Stop 04/17/21 at 08:01; Status DC Info (CONTRAST GIVEN -- Rx MONITORING) 1 each PRN DAILY PRN MC SEE COMMENTS; Start 04/17/21 at 08:15; Stop 04/19/21 at 08:14; Status DC Methylprednisolone Sodium Succinate (SOLU-Medrol 40MG VIAL) 60 mg 1X ONCE IV Last administered on 04/17/21at 09:05; Start 04/17/21 at 08:30; Stop 04/17/21 at 08:33; Status DC Amiodarone HCl (Cordarone) 100 mg DAILY PO Last administered on 04/20/21at 08:44; Start 04/19/21 at 13:00 Heparin Sodium (Porcine) (Hep Lock Adult) 500 unit 1X ONCE IVP ; Start 04/20/21 at 06:00; Stop 04/20/21 at 06:01; Status DC Active Scripts Active Reported Loratadine 10 Mg Tablet 1 Tab PO DAILY Klor-Con M20 (Potassium Chloride) 20 Meq Tab.er.prt 1 Tab PO DAILY 30 Days Percocet 5-325 Mg Tablet (Oxycodone/Acetaminophen) 1 Each Tablet 1 Tab PO PRN Q4HRS PRN Pravastatin Sodium 40 Mg Tablet 1 Tab PO QHS Lisinopril 10 Mg Tablet 1 Tab PO DAILY Vitamin D3 (Cholecalciferol (Vitamin D3)) 5,000 Unit Tablet 1 Tab PO QODAY Aspirin Ec (Aspirin) 81 Mg Tablet.dr 1 Tab PO DAILY Cartia Xt (Diltiazem Hcl) 120 Mg Cap.er.24h 120 Mg PO DAILY Amiodarone Hcl 200 Mg Tablet 0.5 Tab PO DAILY Protonix (Pantoprazole Sodium) 20 Mg Tablet.dr 40 Mg PO DAILY PRN 14 Days Vitals/I & O Vital Sign - Last 24 Hours 04/19/21 04/19/21 04/19/21 04/19/21 12:28 12:29 13:00 15:00 Temp 97.9 97.9 Pulse 71 71 71 72 Resp 18 B/P (MAP) 147/68 147/68 147/68 154/65 (94) Pulse Ox 95 O2 Delivery Room Air 04/19/21 04/19/21 04/19/21 04/20/21 19:00 20:00 23:00 03:05 Temp 98.3 97.6 98.3 97.6 Pulse 66 56 Resp 18 18 20 B/P (MAP) 118/50 (72) 128/66 (86) Pulse Ox 94 96 O2 Delivery Room Air Room Air Room Air 04/20/21 04/20/21 04/20/21 04/20/21 07:00 08:00 08:42 08:44 Temp 97.8 97.8 Pulse 55 55 55 Resp 18 B/P (MAP) 140/66 (90) 140/66 140/66 Pulse Ox 92 O2 Delivery Room Air Room Air 04/20/21 04/20/21 08:45 11:00 Temp 97.8 97.8 Pulse 55 67 Resp 20 B/P (MAP) 140/66 141/65 (90) Pulse Ox 95 O2 Delivery Room Air Justifications for Admission Other Justification ABDOMINAL PAIN VALERI VALLADARES MD Apr 20, 2021 11:31
[2021-04-20 14:51] VITALS: BP 129/66
[2021-04-20] MEDS: ENOXAPARIN 40 MG/0.4 ML SYRINGE. SQ SCH (15:18)
--- NOTE | 2021-04-20 16:10 | PDOC ---
[facility] PROGRESS NOTE Date of Service DOS: DATE: 04/20/21 TIME: 16:06 Chief Complaint Chief Complaint Large ventral abdominal wall hernia containing large and small bowel lo ops./ACUTE small bowel obstruction/ distention with air-fluid levels of the small bowel with a diameter of up to 3.5 cm. POSSIBLY due to the hernia sac itself VS obstruction due to adhesions within the abdomen, Small volume of free fluid within the pelvis and right abdomen. Breast cancer HX , exploratory laparotomy and ileal right colostomy and excision of intra-abdominal tumor on 10/24/2018. 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 SBO vs ileus--umbilical hernia check SBFT History of Present Illness History of Present Illness Ms Shane is an 85 year old female with past medical history of ovarian cancer presented to ER with the chief complaint of abdominal pain. has known abdominal hernia. and she has had associated abdominal pain on and off for years. Over the last few days pain has become more intense. pain is diffuse but primarily left abd lateral to umbulicus. associated nausea but has no vomiting. / she did have a BM yesterday /SBO vs ileus--umbilical hernia. GI and general surgery consulted. 04/16: Feels better. No abd pain. Less distended. Not passing flatus or stool. No nausea. NGT with minimal output. Discussed with general surgery and GI for small bowel follow-through will premedicate with steroids H2 ernst and H1 ernst. 04/17: Is better no BM or flatus but she thinks things are moving. She wants to get up out of bed but feels very weak. For small bowel follow-through today. Was premedicated. 04/18: Patient is having bowel movements. NG tube in place to clamp. She is complaining of some abdominal distention today, but denies abdominal pain. KUB showed diffuse small bowel dilation has mildly decreased, and in addition contrast is now seen to the level of the rectum. NG tube tip is seen within the stomach, consider advancement 3 to 4 cm as the proximal sidehole is at the gastroesophageal junction. Discussed with RN. 04/19: Patient seen with son at bedside. Doing much better, NG tube removed. Tolerating trial of clears. +Flatus. Appreciate general surgery and GI recommendations. Advance diet as tolerated and discharge soon. 04/20: Patient feels well. Passing gas, tolerating full liquid diet. Will advance to regular diabetic diet this evening and see how this is tolerated. States she takes Lasix at home intermittently for leg swelling, but does not feel she needs this medication at this time. Anticipate discharge tomorrow. Will discontinue maintenance fluids. She has some concern about continued abdominal distention. Encouraged ambulation. Vitals/I&O Vitals/I&O: Vital Signs Date Time Temp Pulse Resp B/P (MAP) Pulse Ox O2 Delivery O2 Flow Rate FiO2 04/20/21 14:51 97.8 70 20 129/66 (87) 95 Room Air 97.8 Physical Exam General: Alert, Cooperative Heart: Regular rate Lungs: Clear Abdomen: Soft, No tenderness, Other (large soft hernia) Extremities: No clubbing, No cyanosis Skin: No rashes Labs Labs: Laboratory Tests Test 04/19/21 16:36 04/20/21 10:29 Glucose (Fingerstick) 71 mg/dL (70-99) 114 mg/dL (70-99) Comment Review of Relevant I have reviewed the following items arabella (where applicable) has been applied. Justifications for Admission Other Justification ABDOMINAL PAIN BERT SMITH MD Apr 20, 2021 16:09
--- NOTE | 2021-04-20 18:03 | NUR ---
Pt requesting regular food, this nurse informed her that she should try the FLD first and then start GI soft in AM. She agreed
[2021-04-20 19:00] VITALS: BP 145/69
[2021-04-20] MEDS: ATORVASTATIN CALCIUM 10 MG TABLET. PO SCH (21:06)
[2021-04-20] MEDS: ONDANSETRON PF 4 MG/2 ML VIAL. IV PRN (22:16)
[2021-04-20 23:00] VITALS: BP 151/64
[2021-04-21 03:00] VITALS: BP 148/71
[2021-04-21 07:00] VITALS: BP 148/66
[2021-04-21] MEDS: PANTOPRAZOLE IV PUSH 40 MG VIAL. IVP SCH (09:00)
[2021-04-21] MEDS: CETIRIZINE HCL 10 MG TABLET. PO SCH (09:01)
[2021-04-21] MEDS: ASPIRIN ENTERIC COATED 81 MG TABLET.DR. PO SCH (09:01)
[2021-04-21] MEDS: CHOLECALCIFEROL (VITAMIN D3) 5,000 UNIT CAPSULE PO SCH (09:01)
[2021-04-21] MEDS: AMIODARONE HCL 200 MG TABLET. PO SCH (09:03)
[2021-04-21] MEDS: LISINOPRIL 10 MG TABLET PO SCH (09:04)
[2021-04-21 11:00] VITALS: BP 169/77
--- NOTE | 2021-04-21 12:16 | NUR ---
Dr. Cagle changed pt diet back to NPO d/t her becoming more distended in ABD. Pt is in agreement and she was told that she could try again to be on a CLD.
--- NOTE | 2021-04-21 13:08 | PDOC ---
[facility] PROGRESS NOTE Date of Service DOS: DATE: 04/21/21 TIME: 13:06 Chief Complaint Chief Complaint Large ventral abdominal wall hernia containing large and small bowel lo ops./ACUTE small bowel obstruction/ distention with air-fluid levels of the small bowel with a diameter of up to 3.5 cm. POSSIBLY due to the hernia sac itself VS obstruction due to adhesions within the abdomen, Small volume of free fluid within the pelvis and right abdomen. Breast cancer HX , exploratory laparotomy and ileal right colostomy and excision of intra-abdominal tumor on 10/24/2018. 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 SBO vs ileus--umbilical hernia check SBFT History of Present Illness History of Present Illness Ms Shane is an 85 year old female with past medical history of ovarian cancer presented to ER with the chief complaint of abdominal pain. has known abdominal hernia. and she has had associated abdominal pain on and off for years. Over the last few days pain has become more intense. pain is diffuse but primarily left abd lateral to umbulicus. associated nausea but has no vomiting. / she did have a BM yesterday /SBO vs ileus--umbilical hernia. GI and general surgery consulted. 04/16: Feels better. No abd pain. Less distended. Not passing flatus or stool. No nausea. NGT with minimal output. Discussed with general surgery and GI for small bowel follow-through will premedicate with steroids H2 ernst and H1 ernst. 04/17: Is better no BM or flatus but she thinks things are moving. She wants to get up out of bed but feels very weak. For small bowel follow-through today. Was premedicated. 04/18: Patient is having bowel movements. NG tube in place to clamp. She is complaining of some abdominal distention today, but denies abdominal pain. KUB showed diffuse small bowel dilation has mildly decreased, and in addition contrast is now seen to the level of the rectum. NG tube tip is seen within the stomach, consider advancement 3 to 4 cm as the proximal sidehole is at the gastroesophageal junction. Discussed with RN. 04/19: Patient seen with son at bedside. Doing much better, NG tube removed. Tolerating trial of clears. +Flatus. Appreciate general surgery and GI recommendations. Advance diet as tolerated and discharge soon. 04/20: Patient feels well. Passing gas, tolerating full liquid diet. Will advance to regular diabetic diet this evening and see how this is tolerated. States she takes Lasix at home intermittently for leg swelling, but does not feel she needs this medication at this time. Anticipate discharge tomorrow. Will discontinue maintenance fluids. She has some concern about continued abdominal distention. Encouraged ambulation. 04/21: Some worsening abdominal distention. Reports nausea and vomiting x 2 overnight. Discussed n.p.o. for now. If vomiting continues may need to replace NG tube for gastric decompression. If NG tube needs to be replaced, will resume IV fluids. Appreciate general surgery recommendations. Discussed with RN. Vitals/I&O Vitals/I&O: Vital Signs Date Time Temp Pulse Resp B/P (MAP) Pulse Ox O2 Delivery O2 Flow Rate FiO2 04/21/21 11:00 98.5 70 18 169/77 (107) 94 Room Air 98.5 I & O 04/20/21 04/20/21 04/21/21 15:00 23:00 07:00 Intake Total 400 ml 283.25 ml 30 ml Output Total 60 ml Balance 400 ml 283.25 ml -30 ml Physical Exam General: Alert, Cooperative Heart: Regular rate Lungs: Clear Abdomen: Soft, Other (Abdomen distended, large soft hernia) Extremities: No clubbing, No cyanosis Skin: No rashes Comment Review of Relevant I have reviewed the following items arabella (where applicable) has been applied. Justifications for Admission Other Justification ABDOMINAL PAIN EBRT SMITH MD Apr 21, 2021 13:08
--- NOTE | 2021-04-21 14:39 | PDOC ---
PROGRESS NOTES Date of Service DATE: 04/21/21 TIME: 14:34 Subjective Subjective has been vomiting last night and today, refused NG tube, having some loose stool Objective Objective Vital Signs Date Time Temp Pulse Resp B/P (MAP) Pulse Ox O2 Delivery O2 Flow Rate FiO2 04/21/21 11:00 98.5 70 18 169/77 (107) 94 Room Air 98.5 Intake and Output 04/21/21 07:00 Intake Total 713.25 ml Output Total 60 ml Balance 653.25 ml Intake Oral 630 ml IV Total 83.25 ml Emesis 60 ml # Voids 1 # Bowel Movements 1 Physical Exam Abdomen: Soft (not tender, mildly distended) Heart: Regular rate Extremities: No clubbing, No cyanosis General: Alert, Oriented X3 Neuro: Normal speech Assessment Assessment SBO, hernias Plan Plan of Care NPO, I recommended an NG tube, the patient is refusing; will recheck films Comment Review of Relevant I have reviewed the following items arabella (where applicable) has been applied. Labs Laboratory Tests Test 04/19/21 15:25 04/19/21 16:36 04/20/21 10:29 Urine Collection Type Unknown Urine Color Yellow Urine Clarity Clear Urine pH 5.5 (<5.0-8.0) Urine Specific [place] 1.020 (1.000-1.030) Urine Protein Negative mg/dL (NEG-TRACE) Urine Glucose (UA) Negative mg/dL (NEG) Urine Ketones (Stick) >=80 mg/dL (NEG) Urine Blood Negative (NEG) Urine Nitrite Positive (NEG) Urine Bilirubin Negative (NEG) Urine Urobilinogen Dipstick 1.0 mg/dL (0.2 mg/dL) Urine Leukocyte Esterase Small (NEG) Urine RBC Rare /HPF (0-2) Urine WBC 11-20 /HPF (0-4) Urine Squamous Epithelial Cells Many /LPF Urine Bacteria Many /HPF (0-FEW) Urine Mucus Marked /LPF Glucose (Fingerstick) 71 mg/dL (70-99) 114 mg/dL (70-99) Microbiology 04/19/21 Urine Culture - Preliminary, Resulted Medications Current Medications Ondansetron HCl (Zofran) 4 mg PRN Q8HRS PRN IVP NAUSEA/VOMITING 1ST CHOICE Last administered on 04/15/21at 04:15; Start 04/15/21 at 02:15; Stop 04/16/21 at 02:14; Status DC Morphine Sulfate (Morphine Sulfate) 2 mg PRN Q2HR PRN IVP SEVERE PAIN 7-10; Start 04/15/21 at 02:15; Stop 04/16/21 at 02:14; Status DC Aspirin (Ecotrin) 81 mg DAILY PO Last administered on 04/21/21at 09:01; Start 04/16/21 at 09:00 Diltiazem HCl (Cardizem 24hr Cd) 120 mg DAILY PO Last administered on 04/21/21at 09:04; Start 04/16/21 at 09:00 Lisinopril (Prinivil) 10 mg DAILY PO Last administered on 04/21/21 09:04; Start 04/16/21 at 09:00 Vitamin D (Vitamin D3) 5,000 unit QODAY PO Last administered on 04/21/21at 09:01; Start 04/17/21 at 09:00 Cetirizine HCl (ZyrTEC) 10 mg DAILY PO Last administered on 04/21/21at 09:01; Start 04/16/21 at 09:00 Pantoprazole Sodium (Protonix) 40 mg PRN DAILY PRN PO ACID REFLUX; Start 04/15/21 at 15:15; Stop 04/16/21 at 10:58; Status DC Atorvastatin Calcium (Lipitor) 10 mg QHS PO Last administered on 04/20/21at 21:06; Start 04/15/21 at 21:00 Sodium Chloride (Normal Saline Flush) 3 ml QSHIFT PRN IV AFTER MEDS AND BLOOD DRAWS; Start 04/15/21 at 14:30 Sodium Chloride 1,000 ml @ 65 mls/hr [id number] IV Last administered on 04/20/21at 02:18; Start 04/15/21 at 14:30; Stop 04/20/21 at 16:12; Status DC Ondansetron HCl (Zofran) 4 mg PRN Q4HRS PRN IV NAUSEA/VOMITING Last administered on 04/20/21at 22:16; Start 04/15/21 at 14:30 Acetaminophen (Tylenol) 650 mg PRN Q4HRS PRN PO TEMP OVER 100.4F OR MILD PAIN; Start 04/15/21 at 14:30 Acetaminophen (Tylenol Supp) 650 mg PRN Q4HRS PRN [place] TEMP OVER 100.4F OR MILD PAIN; Start 04/15/21 at 14:30 Sodium Monofluorophosphate (Fleet Adult) 133 ml PRN DAILY PRN [place] CONSTIPATION; Start 04/15/21 at 14:30; Stop 04/17/21 at 08:31; Status DC Docusate Sodium (Colace) 100 mg PRN BID PRN PO HARD STOOLS; Start 04/15/21 at 14:30 Albuterol Sulfate (Ventolin Neb Soln) 2.5 mg PRN Q4HRS PRN NEB SHORTNESS OF BREATH; Start 04/15/21 at 14:30 Guaifenesin (Robitussin) 200 mg PRN Q4HRS PRN PO COUGH; Start 04/15/21 at 14:30 Enoxaparin Sodium (Lovenox 40mg Syringe) 40 mg Q24H SQ Last administered on 04/20/21at 15:18; Start 04/15/21 at 15:00 Methylprednisolone Sodium Succinate (SOLU-Medrol 125MG VIAL) 60 mg Q6HRS IV Last administered on 04/17/21at 03:30; Start 04/16/21 at 11:00; Stop 04/17/21 at 00:01; Status DC Famotidine (Pepcid Vial) 20 mg 1X ONCE IVP Last administered on 04/16/21at 12:08; Start 04/16/21 at 10:45; Stop 04/16/21 at 10:47; Status DC Diphenhydramine HCl (Benadryl) 50 mg 1X ONCE IV Last administered on 04/16/21at 12:09; Start 04/16/21 at 10:45; Stop 04/16/21 at 10:47; Status DC Pantoprazole Sodium (PROTONIX VIAL for IV PUSH) 40 mg DAILYAC IVP Last administered on 04/21/21at 09:00; Start 04/17/21 at 07:30 Iohexol (Omnipaque 300 Mg/ml) 400 ml 1X ONCE IJ Last administered on 04/17/21at 07:45; Start 04/17/21 at 07:45; Stop 04/17/21 at 07:52; Status DC Famotidine (Pepcid Vial) 20 mg 1X ONCE IVP Last administered on 04/17/21at 09:10; Start 04/17/21 at 08:00; Stop 04/17/21 at 08:01; Status DC Diphenhydramine HCl (Benadryl) 50 mg 1X ONCE IV Last administered on 04/17/21at 09:08; Start 04/17/21 at 08:00; Stop 04/17/21 at 08:01; Status DC Info (CONTRAST GIVEN -- Rx MONITORING) 1 each PRN DAILY PRN MC SEE COMMENTS; Start 04/17/21 at 08:15; Stop 04/19/21 at 08:14; Status DC Methylprednisolone Sodium Succinate (SOLU-Medrol 40MG VIAL) 60 mg 1X ONCE IV Last administered on 04/17/21at 09:05; Start 04/17/21 at 08:30; Stop 04/17/21 at 08:33; Status DC Amiodarone HCl (Cordarone) 100 mg DAILY PO Last administered on 04/21/21at 09:03; Start 04/19/21 at 13:00 Heparin Sodium (Porcine) (Hep Lock Adult) 500 unit 1X ONCE IVP ; Start 04/20/21 at 06:00; Stop 04/20/21 at 06:01; Status DC Active Scripts Active Reported Loratadine 10 Mg Tablet 1 Tab PO DAILY Klor-Con M20 (Potassium Chloride) 20 Meq Tab.er.prt 1 Tab PO DAILY 30 Days Percocet 5-325 Mg Tablet (Oxycodone/Acetaminophen) 1 Each Tablet 1 Tab PO PRN Q4HRS PRN Pravastatin Sodium 40 Mg Tablet 1 Tab PO QHS Lisinopril 10 Mg Tablet 1 Tab PO DAILY Vitamin D3 (Cholecalciferol (Vitamin D3)) 5,000 Unit Tablet 1 Tab PO QODAY Aspirin Ec (Aspirin) 81 Mg Tablet. 1 Tab PO DAILY Cartia Xt (Diltiazem Hcl) 120 Mg Cap.er.24h 120 Mg PO DAILY Amiodarone Hcl 200 Mg Tablet 0.5 Tab PO DAILY Protonix (Pantoprazole Sodium) 20 Mg Tablet.dr 40 Mg PO DAILY PRN 14 Days Vitals/I & O Vital Sign - Last 24 Hours 04/20/21 04/20/21 04/20/21 04/20/21 14:51 19:00 20:10 23:00 Temp 97.8 98.3 98.4 97.8 98.3 98.4 Pulse 70 73 68 Resp 20 18 18 B/P (MAP) 129/66 (87) 145/69 (94) 151/64 (93) Pulse Ox 95 97 95 O2 Delivery Room Air Room Air Room Air Room Air 04/21/21 04/21/21 04/21/21 04/21/21 03:00 07:00 08:00 09:03 Temp 98.3 97.8 98.3 97.8 Pulse 76 75 75 Resp 18 18 B/P (MAP) 148/71 (96) 148/66 (93) 148/68 Pulse Ox 94 91 O2 Delivery Room Air Room Air Room Air 04/21/21 04/21/21 04/21/21 09:04 09:04 11:00 Temp 98.5 98.5 Pulse 75 75 70 Resp 18 B/P (MAP) 148/68 148/68 169/77 (107) Pulse Ox 94 O2 Delivery Room Air Intake and Output 04/20/21 04/20/21 04/21/21 15:00 23:00 07:00 Intake Total 400 ml 283.25 ml 30 ml Output Total 60 ml Balance 400 ml 283.25 ml -30 ml Justifications for Admission Other Justification ABDOMINAL PAIN VALERI VALLADARES MD Apr 21, 2021 14:39
[2021-04-21 15:00] VITALS: BP 121/70
--- NOTE | 2021-04-21 16:15 | NUR ---
Pt emesising x1 moderate amount of yellow colored vomit. Pt is scheduled for a small bowel series.
[2021-04-21] MEDS: ENOXAPARIN 40 MG/0.4 ML SYRINGE. SQ SCH (16:37)
[2021-04-21 19:00] VITALS: BP 125/63
[2021-04-21] MEDS: ATORVASTATIN CALCIUM 10 MG TABLET. PO SCH (20:23)
[2021-04-21 22:53] VITALS: BP 141/60
[2021-04-22 03:00] VITALS: BP 109/52
[2021-04-22 07:00] VITALS: BP 121/50
[2021-04-22] MEDS: PANTOPRAZOLE IV PUSH 40 MG VIAL. IVP SCH (07:30)
--- NOTE | 2021-04-22 08:55 | PDOC ---
ASHLYN MCDANIEL APRN 04/22/21 0855: SURGICAL PROGRESS NOTE DATE: 04/22/21 TIME: 08:53 Subjective feels better today no emesis since yesterday hernia area is sore with touch and when coughing Vital Signs Vital Signs Date Time Temp Pulse Resp B/P (MAP) Pulse Ox O2 Delivery O2 Flow Rate FiO2 04/22/21 07:00 98.3 70 18 121/50 (73) 95 Room Air 98.3 I&O Intake and Output 04/22/21 07:00 Intake Total 240 ml Balance 240 ml Intake Oral 240 ml # Voids 2 # Bowel Movements 1 General: Alert, Oriented X3, Cooperative Abdomen: Soft, Other (ttp, hernia reducible ) Labs Laboratory Tests Test 04/20/21 10:29 Glucose (Fingerstick) 114 mg/dL (70-99) Assessment/Plan await xr this AM Justicifation of Admission Dx: Justifications for Admission: Justification of Admission Dx: Yes JOSE VIERA MD 04/22/211926: SURGICAL PROGRESS NOTE Assessment/Plan Pt seen and examined. Agree with Ms. Mcdaniel's note Pt feels better, no N/V currently abd soft, hernia reducible XR with some small bowel dilation and contrast in colon d/w Dr. Gardner will consider operative intervention. ASHLYN MCDANIEL APRN Apr 22, 2021 08:55 JOSE VIERA MD Apr 22, 2021 19:27
[2021-04-22] MEDS: CETIRIZINE HCL 10 MG TABLET. PO SCH (09:00)
[2021-04-22] MEDS: LISINOPRIL 10 MG TABLET PO SCH (09:00)
[2021-04-22] MEDS: AMIODARONE HCL 200 MG TABLET. PO SCH (09:00)
[2021-04-22] MEDS: ASPIRIN ENTERIC COATED 81 MG TABLET.DR. PO SCH (09:00)
--- NOTE | 2021-04-22 09:13 | RAD ---
EXAM: Abdomen series. HISTORY: Small bowel obstruction. COMPARISON: 04/18/2021 FINDINGS: A frontal view of the chest and upright and supine views of the abdomen are obtained. There are chronic appearing interstitial changes throughout both lungs. There is no consolidation, pleural effusion or pneumothorax. The heart is normal in size. There is a left port catheter with the tip in the superior cavoatrial junction. There is an incidental azygos lobe. There is chronic bilateral sun ulder deformity. There has been slight transit of contrast into the distal colon. There are stable di stended air-filled loops of bowel throughout the abdomen. No transition point is seen. There is no fr ee air. There is degenerative change throughout the thoracolumbar spine. There are right axillary cli ps. IMPRESSION: 1. Slight interval transit of contrast into the distal colon. There has been no change in prominent a ir-filled small bowel throughout the abdomen. No transition point is seen. 2. Chronic appearing interstitial changes involving both lungs. Electronically signed by: Ciarra Hester MD (04/22/2021 9:11 AM) [id number]
--- NOTE | 2021-04-22 10:14 | NUR ---
SW following. Discussed with RN, pt having a small bowel series today. Plan is Home Health VS SNF. SW will continue to follow.
[2021-04-22 10:43] VITALS: BP 121/52
--- NOTE | 2021-04-22 10:47 | PDOC ---
Date of Service: DATE: 04/22/21 TIME: 10:45 Subjective: Subjective: Some distention and "soreness" with coughing, vomited once over the weekend, still stooling. Objective: Vital Signs: Vital Signs Date Time Temp Pulse Resp B/P (MAP) Pulse Ox O2 Delivery O2 Flow Rate FiO2 04/22/21 10:43 98.4 68 18 121/52 (75) 94 Room Air 98.4 Imaging: [facility] 04/22 IMPRESSION: 1. Slight interval transit of contrast into the distal colon. There has been no change in prominent air-filled small bowel throughout the abdomen. No transition point is seen. 2. Chronic appearing interstitial changes involving both lungs. PE: GEN: NAD LUNGS: CTAB HEART: RRR ABD: some distention/hernia - soft, non-tender, BS+ NEURO/PSYCH: A & O 3 A/P: SBO, ventral hernia -- Interval x-ray as above, follow surgical recs. Justicifation of Admission Dx: Justifications for Admission: Justification of Admission Dx: Yes LAMINE JESUS Apr 22, 2021 10:47
--- NOTE | 2021-04-22 13:40 | PDOC ---
[facility] PROGRESS NOTE Date of Service DOS: DATE: 04/22/21 TIME: 13:37 Chief Complaint Chief Complaint Large ventral abdominal wall hernia containing large and small bowel lo ops./ACUTE small bowel obstruction/ distention with air-fluid levels of the small bowel with a diameter of up to 3.5 cm. POSSIBLY due to the hernia sac itself VS obstruction due to adhesions within the abdomen, Small volume of free fluid within the pelvis and right abdomen. Breast cancer HX , exploratory laparotomy and ileal right colostomy and excision of intra-abdominal tumor on 10/24/2018. 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 SBO vs ileus--umbilical hernia check SBFT History of Present Illness History of Present Illness Ms Shane is an 85 year old female with past medical history of ovarian cancer presented to ER with the chief complaint of abdominal pain. has known abdominal hernia. and she has had associated abdominal pain on and off for years. Over the last few days pain has become more intense. pain is diffuse but primarily left abd lateral to umbulicus. associated nausea but has no vomiting. / she did have a BM yesterday /SBO vs ileus--umbilical hernia. GI and general surgery consulted. 04/16: Feels better. No abd pain. Less distended. Not passing flatus or stool. No nausea. NGT with minimal output. Discussed with general surgery and GI for small bowel follow-through will premedicate with steroids H2 ernst and H1 ernst. 04/17: Is better no BM or flatus but she thinks things are moving. She wants to get up out of bed but feels very weak. For small bowel follow-through today. Was premedicated. 04/18: Patient is having bowel movements. NG tube in place to clamp. She is complaining of some abdominal distention today, but denies abdominal pain. KUB showed diffuse small bowel dilation has mildly decreased, and in addition contrast is now seen to the level of the rectum. NG tube tip is seen within the stomach, consider advancement 3 to 4 cm as the proximal sidehole is at the gastroesophageal junction. Discussed with RN. 04/19: Patient seen with son at bedside. Doing much better, NG tube removed. Tolerating trial of clears. +Flatus. Appreciate general surgery and GI recommendations. Advance diet as tolerated and discharge soon. 04/20: Patient feels well. Passing gas, tolerating full liquid diet. Will advance to regular diabetic diet this evening and see how this is tolerated. States she takes Lasix at home intermittently for leg swelling, but does not feel she needs this medication at this time. Anticipate discharge tomorrow. Will discontinue maintenance fluids. She has some concern about continued abdominal distention. Encouraged ambulation. 04/21: Some worsening abdominal distention. Reports nausea and vomiting x 2 overnight. Discussed n.p.o. for now. If vomiting continues may need to replace NG tube for gastric decompression. If NG tube needs to be replaced, will resume IV fluids. Appreciate general surgery recommendations. Discussed with RN. 04/22/21 No acute events overnight. Patient did have vomiting over the weekend but did not claim any nausea vomiting overnight. Does endorse bowel movement and passing flatus. Abdomen soft and nondistended. There is bowel sounds. Patient will likely advance diet will defer this to surgery as they await for imaging. Patient's chart, labs, images were reviewed and discussed with RN Vitals/I&O Vitals/I&O: Vital Signs Date Time Temp Pulse Resp B/P (MAP) Pulse Ox O2 Delivery O2 Flow Rate FiO2 04/22/21 10:43 98.4 68 18 121/52 (75) 94 Room Air 98.4 I & O 04/21/21 04/21/21 04/22/21 14:59 22:59 06:59 Intake Total 240 ml Balance 240 ml Physical Exam General: Alert, Oriented X3, Cooperative Heart: Regular rate Lungs: Clear Abdomen: Soft, Other (ttp, hernia reducible ) Extremities: No clubbing, No cyanosis Skin: No rashes Comment Review of Relevant I have reviewed the following items arabella (where applicable) has been applied. Justifications for Admission Other Justification ABDOMINAL PAIN LUCIANA MANZANARES MD Apr 22, 2021 13:40
[2021-04-22 14:47] VITALS: BP 134/58
[2021-04-22] MEDS: ENOXAPARIN 40 MG/0.4 ML SYRINGE. SQ SCH (15:02)
[2021-04-22 19:15] VITALS: BP 127/57
[2021-04-22] MEDS: ATORVASTATIN CALCIUM 10 MG TABLET. PO SCH (21:46)
[2021-04-22 23:45] VITALS: BP 143/60
[2021-04-23 02:55] VITALS: BP 138/57
[2021-04-23] MEDS: PANTOPRAZOLE IV PUSH 40 MG VIAL. IVP SCH (05:39)
[2021-04-23 07:00] VITALS: BP 141/64
--- NOTE | 2021-04-23 08:29 | PDOC ---
ASHLYN MCDANIEL [employer] 04/23/21 0829: SURGICAL PROGRESS NOTE DATE: 04/23/21 TIME: 08:27 Subjective more bloating again today, stomach does not feel well Vital Signs Vital Signs Date Time Temp Pulse Resp B/P (MAP) Pulse Ox O2 Delivery O2 Flow Rate FiO2 04/23/21 07:00 98.8 70 18 141/64 (89) 95 Room Air 98.8 I&O Intake and Output 04/23/21 07:00 Intake Total 650 ml Output Total 100 ml Balance 550 ml Intake Oral 650 ml Output Urine Total 100 ml # Voids 3 General: Alert, Cooperative Abdomen: Soft, Other (tender over hernia ) Assessment/Plan intermittent, reoccurring symptoms reviewed with Dr Brownlee, tentative plan for OR Justicifation of Admission Dx: Justifications for Admission: Justification of Admission Dx: Yes JOSE BROWNLEE MD 04/23/21 1827: SURGICAL PROGRESS NOTE Assessment/Plan Pt seen and examined. Agree with Ms. Mcdaniel's note Pt with c/o cont N/V and bloating abd soft, reducible hernia some stools with stool softener will tentative plan xlap and hernia repair on 04/25 suspect hostile abd, possible recurrent carcinomatosis, complicated hernia with loss of domain ASHLYN MCDANIEL [employer] Apr 23, 2021 08:29 JOSE BROWNLEE MD Apr 23, 2021 18:27
[2021-04-23] MEDS: LISINOPRIL 10 MG TABLET PO SCH (08:33)
[2021-04-23] MEDS: AMIODARONE HCL 200 MG TABLET. PO SCH (08:33)
[2021-04-23] MEDS: CHOLECALCIFEROL (VITAMIN D3) 5,000 UNIT CAPSULE PO SCH (08:36)
[2021-04-23] MEDS: ASPIRIN ENTERIC COATED 81 MG TABLET.DR. PO SCH (08:36)
[2021-04-23] MEDS: CETIRIZINE HCL 10 MG TABLET. PO SCH (08:37)
[2021-04-23] MEDS: IV NORMAL SALINE 1000ML BAG 1,000 ML IV SCH (10:45)
[2021-04-23 11:00] VITALS: BP 144/59
--- NOTE | 2021-04-23 11:10 | PDOC ---
Date of Service: DATE: 04/23/21 TIME: 11:08 Subjective: Subjective: Feeling better than this morning - had some vomiting, abdominal discomfort. No stool today. Says she might have surgery on and she thought that might happen. Objective: Vital Signs: Vital Signs Date Time Temp Pulse Resp B/P (MAP) Pulse Ox O2 Delivery O2 Flow Rate FiO2 04/23/21 08:33 70 141/64 04/23/21 07:45 Room Air 04/23/21 07:00 98.8 18 95 98.8 PE: GEN: NAD LUNGS: CTAB HEART: RRR ABD: distended/hernia, soft, non-tender NEURO/PSYCH: A & O 3 A/P: SBO, ventral hernia -- Ongoing issues - tells me vomited again today. Follow surgical recs. Note recheck of labs ordered. Justicifation of Admission Dx: Justifications for Admission: Justification of Admission Dx: Yes LAMINE JESUS Apr 23, 2021 11:10
[2021-04-23 11:40] LABS: BASO % 0 % (0-3); EOS # 0.1 x10^3/uL (0.0-0.7); EOS % 1 % (0-3); HEMATOCRIT 36.5 % (36.0-47.0); HEMOGLOBIN 12.2 g/dL (12.0-15.5); LYMPH % 16 % (24-48); MEAN CORPUSCULAR HEMOGLOBIN 32 pg (25-35); MEAN CORPUSCULAR HGB CONC 33 g/dL (31-37); MEAN CORPUSCULAR VOLUME 96 fL (79-100); MONO # 0.5 x10^3/uL (0.0-1.1); MONO % 9 % (0-9); NEUT # 4.7 x10^3/uL (1.8-7.7); NEUT % 74 % (31-73); PLATELET COUNT 232 x10^3/uL (140-400); RED CELL DISTRIBUTION WIDTH 12.9 % (11.5-14.5); WHITE BLOOD COUNT 6.3 x10^3/uL (4.0-11.0)
[2021-04-23 11:49] LABS: PROTHROMBIN TIME PATIENT 14.1 SEC (11.7-14.0)
[2021-04-23 11:50] LABS: CALCIUM 8.4 mg/dL (8.5-10.1); CREATININE 0.8 mg/dL (0.6-1.0); GFR 82.3
[2021-04-23 11:52] LABS: POTASSIUM 2.6 mmol/L (3.5-5.1)
[2021-04-23] MEDS ORDERED: POTASSIUM CHLORIDE 10MEQ 100 ML IV SCH (12:00)
[2021-04-23] MEDS: POTASSIUM CHLORIDE 20MEQ 100 ML IV SCH ×4 (12:09→15:40)
--- NOTE | 2021-04-23 14:11 | PDOC ---
[facility] PROGRESS NOTE Date of Service DOS: DATE: 04/23/21 TIME: 14:10 Chief Complaint Chief Complaint Large ventral abdominal wall hernia containing large and small bowel lo ops./ACUTE small bowel obstruction/ distention with air-fluid levels of the small bowel with a diameter of up to 3.5 cm. POSSIBLY due to the hernia sac itself VS obstruction due to adhesions within the abdomen, Small volume of free fluid within the pelvis and right abdomen. Breast cancer HX , exploratory laparotomy and ileal right colostomy and excision of intra-abdominal tumor on 10/24/2018. 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 SBO vs ileus--umbilical hernia check SBFT History of Present Illness History of Present Illness Ms Shane is an 85 year old female with past medical history of ovarian cancer presented to ER with the chief complaint of abdominal pain. has known abdominal hernia. and she has had associated abdominal pain on and off for years. Over the last few days pain has become more intense. pain is diffuse but primarily left abd lateral to umbulicus. associated nausea but has no vomiting. / she did have a BM yesterday /SBO vs ileus--umbilical hernia. GI and general surgery consulted. 04/16: Feels better. No abd pain. Less distended. Not passing flatus or stool. No nausea. NGT with minimal output. Discussed with general surgery and GI for small bowel follow-through will premedicate with steroids H2 ernst and H1 ernst. 04/17: Is better no BM or flatus but she thinks things are moving. She wants to get up out of bed but feels very weak. For small bowel follow-through today. Was premedicated. 04/18: Patient is having bowel movements. NG tube in place to clamp. She is complaining of some abdominal distention today, but denies abdominal pain. KUB showed diffuse small bowel dilation has mildly decreased, and in addition contrast is now seen to the level of the rectum. NG tube tip is seen within the stomach, consider advancement 3 to 4 cm as the proximal sidehole is at the gastroesophageal junction. Discussed with RN. 04/19: Patient seen with son at bedside. Doing much better, NG tube removed. Tolerating trial of clears. +Flatus. Appreciate general surgery and GI recommendations. Advance diet as tolerated and discharge soon. 04/20: Patient feels well. Passing gas, tolerating full liquid diet. Will advance to regular diabetic diet this evening and see how this is tolerated. States she takes Lasix at home intermittently for leg swelling, but does not feel she needs this medication at this time. Anticipate discharge tomorrow. Will discontinue maintenance fluids. She has some concern about continued abdominal distention. Encouraged ambulation. 04/21: Some worsening abdominal distention. Reports nausea and vomiting x 2 overnight. Discussed n.p.o. for now. If vomiting continues may need to replace NG tube for gastric decompression. If NG tube needs to be replaced, will resume IV fluids. Appreciate general surgery recommendations. Discussed with RN. 04/22/21 No acute events overnight. Patient did have vomiting over the weekend but did not claim any nausea vomiting overnight. Does endorse bowel movement and passing flatus. Abdomen soft and nondistended. There is bowel sounds. Patient will likely advance diet will defer this to surgery as they await for imaging. Patient's chart, labs, images were reviewed and discussed with RN 04/23/2021 No acute events overnight. Patient did have an episode of vomiting this morning and vomited all over self unfortunately. Due to his episode and as a result of her imaging she is planned for hernia repair tomorrow with surgery. Potassium found to be critical low at 2.6. Will replace with IV electrolyte replacement. Vitals/I&O Vitals/I&O: Vital Signs Date Time Temp Pulse Resp B/P (MAP) Pulse Ox O2 Delivery O2 Flow Rate FiO2 04/23/21 11:00 98.4 70 18 144/59 (87) 94 Room Air 98.4 I & O 04/22/21 04/22/21 04/23/21 15:00 23:00 07:00 Intake Total 600 ml 50 ml Output Total 100 ml Balance 500 ml 50 ml Physical Exam General: Alert, Cooperative Heart: Regular rate Lungs: Clear Abdomen: Soft, Other (tender over hernia and distended) Extremities: No clubbing, No cyanosis Skin: No rashes Labs Labs: Laboratory Tests Test 04/23/21 11:30 White Blood Count 6.3 x10^3/uL (4.0-11.0) Red Blood Count 3.80 x10^6/uL (3.50-5.40) Hemoglobin 12.2 g/dL (12.0-15.5) Hematocrit 36.5 % (36.0-47.0) Mean Corpuscular Volume 96 fL (79-100) Mean Corpuscular Hemoglobin 32 pg (25-35) Mean Corpuscular Hemoglobin Concent 33 g/dL (31-37) Red Cell Distribution Width 12.9 % (11.5-14.5) Platelet Count 232 x10^3/uL (140-400) Neutrophils (%) (Auto) 74 % (31-73) Lymphocytes (%) (Auto) 16 % (24-48) Monocytes (%) (Auto) 9 % (0-9) Eosinophils (%) (Auto) 1 % (0-3) Basophils (%) (Auto) 0 % (0-3) Neutrophils # (Auto) 4.7 x10^3/uL (1.8-7.7) Lymphocytes # (Auto) 1.0 x10^3/uL (1.0-4.8) Monocytes # (Auto) 0.5 x10^3/uL (0.0-1.1) Eosinophils # (Auto) 0.1 x10^3/uL (0.0-0.7) Basophils # (Auto) 0.0 x10^3/uL (0.0-0.2) Prothrombin Time 14.1 SEC (11.7-14.0) Prothromb Time International Ratio 1.1 (0.8-1.1) Sodium Level 142 mmol/L (136-145) Potassium Level 2.6 mmol/L (3.5-5.1) Chloride Level 103 mmol/L (98-107) Carbon Dioxide Level 28 mmol/L (21-32) Anion Gap 11 (6-14) Blood Urea Nitrogen 15 mg/dL (7-20) Creatinine 0.8 mg/dL (0.6-1.0) Estimated GFR (Cockcroft-Gault) 82.3 Glucose Level 75 mg/dL (70-99) Calcium Level 8.4 mg/dL (8.5-10.1) Comment Review of Relevant I have reviewed the following items arabella (where applicable) has been applied. Medications: Current Medications Medications (Trade) Dose Ordered Sig/Pedro Route PRN Reason Start Time Stop Time Status Last Admin Dose Admin Sodium Chloride 1,000 ml @ 50 mls/hr Q20H IV 04/23/21 10:30 04/23/21 10:45 Potassium Chloride/Water 100 ml @ 100 mls/hr Q1H IV 04/23/21 13:00 04/23/21 16:59 04/23/21 13:15 Justifications for Admission Other Justification ABDOMINAL PAIN LUCIANA MANZANARES MD Apr 23, 2021 14:11
[2021-04-23] MEDS: ENOXAPARIN 40 MG/0.4 ML SYRINGE. SQ SCH (15:10)
[2021-04-23 15:18] VITALS: BP 124/48
[2021-04-23 19:00] VITALS: BP 117/42
[2021-04-23 19:01] LABS: CALCIUM 8.2 mg/dL (8.5-10.1); CREATININE 0.8 mg/dL (0.6-1.0); GFR 82.3; POTASSIUM 4.2 mmol/L (3.5-5.1)
[2021-04-23] MEDS: ATORVASTATIN CALCIUM 10 MG TABLET. PO SCH (20:10)
[2021-04-23 23:00] VITALS: BP 123/49
[2021-04-24 03:42] VITALS: BP 116/46
[2021-04-24] MEDS: IV NORMAL SALINE 1000ML BAG 1,000 ML IV SCH (06:27)
[2021-04-24 07:00] VITALS: BP 130/50
[2021-04-24] MEDS: CETIRIZINE HCL 10 MG TABLET. PO SCH (09:00)
[2021-04-24] MEDS: PANTOPRAZOLE IV PUSH 40 MG VIAL. IVP SCH (09:08)
[2021-04-24] MEDS: AMIODARONE HCL 200 MG TABLET. PO SCH (09:09)
[2021-04-24] MEDS: LISINOPRIL 10 MG TABLET PO SCH (09:09)
[2021-04-24] MEDS: ASPIRIN ENTERIC COATED 81 MG TABLET.DR. PO SCH (09:09)
--- NOTE | 2021-04-24 10:27 | PDOC ---
Date of Service: DATE: 04/24/21 TIME: 10:25 Subjective: Subjective: Doing okay, says having surgery tomorrow, not much abd pain. Objective: Objective: D/w nurse - not taking anything by mouth, going to OR tomorrow, pt has reported loose stools (not witnessed by staff). Vital Signs: Vital Signs Date Time Temp Pulse Resp B/P (MAP) Pulse Ox O2 Delivery O2 Flow Rate FiO2 04/24/21 09:09 59 130/50 04/24/21 08:07 Room Air 04/24/21 07:00 97.6 16 97 97.6 04/23/21 23:00 95.0 Labs: Laboratory Tests Test 04/23/21 11:30 04/23/21 17:45 White Blood Count 6.3 x10^3/uL Red Blood Count 3.80 x10^6/uL Hemoglobin 12.2 g/dL Hematocrit 36.5 % Mean Corpuscular Volume 96 fL Mean Corpuscular Hemoglobin 32 pg Mean Corpuscular Hemoglobin Concent 33 g/dL Red Cell Distribution Width 12.9 % Platelet Count 232 x10^3/uL Neutrophils (%) (Auto) 74 % Lymphocytes (%) (Auto) 16 % Monocytes (%) (Auto) 9 % Eosinophils (%) (Auto) 1 % Basophils (%) (Auto) 0 % Neutrophils # (Auto) 4.7 x10^3/uL Lymphocytes # (Auto) 1.0 x10^3/uL Monocytes # (Auto) 0.5 x10^3/uL Eosinophils # (Auto) 0.1 x10^3/uL Basophils # (Auto) 0.0 x10^3/uL Prothrombin Time 14.1 SEC Prothromb Time International Ratio 1.1 Sodium Level 142 mmol/L 142 mmol/L Potassium Level 2.6 mmol/L 4.2 mmol/L Chloride Level 103 mmol/L 107 mmol/L Carbon Dioxide Level 28 mmol/L 25 mmol/L Anion Gap 11 10 Blood Urea Nitrogen 15 mg/dL 13 mg/dL Creatinine 0.8 mg/dL 0.8 mg/dL Estimated GFR (Cockcroft-Gault) 82.3 82.3 Glucose Level 75 mg/dL 64 mg/dL Calcium Level 8.4 mg/dL 8.2 mg/dL PE: GEN: NAD LUNGS: CTAB HEART: RRR ABD: soft, some distention w/ hernia, non-tender NEURO/PSYCH: A & O 3, pleasant A/P: SBO, ventral hernia Hypokalemia - resolved -- ?OR - will follow. Justicifation of Admission Dx: Justifications for Admission: Justification of Admission Dx: Yes LAMINE JESUS Apr 24, 2021 10:27
--- NOTE | 2021-04-24 10:43 | PDOC ---
SURGICAL PROGRESS NOTE DATE: 04/24/21 TIME: 10:41 Subjective Pt without new c/o Vital Signs Vital Signs Date Time Temp Pulse Resp B/P (MAP) Pulse Ox O2 Delivery O2 Flow Rate FiO2 04/24/21 09:09 59 130/50 04/24/21 08:07 Room Air 04/24/21 07:00 97.6 16 97 97.6 04/23/21 23:00 95.0 I&O Intake and Output 04/24/21 07:00 Intake Total 750 ml Output Total 200 ml Balance 550 ml Intake Oral 750 ml Emesis 200 ml # Voids 2 General: Alert, Oriented X3, Cooperative, No acute distress Abdomen: Soft, No tenderness, Other (reducible hernia) Labs Laboratory Tests Test 04/23/21 11:30 04/23/21 17:45 White Blood Count 6.3 x10^3/uL (4.0-11.0) Red Blood Count 3.80 x10^6/uL (3.50-5.40) Hemoglobin 12.2 g/dL (12.0-15.5) Hematocrit 36.5 % (36.0-47.0) Mean Corpuscular Volume 96 fL (79-100) Mean Corpuscular Hemoglobin 32 pg (25-35) Mean Corpuscular Hemoglobin Concent 33 g/dL (31-37) Red Cell Distribution Width 12.9 % (11.5-14.5) Platelet Count 232 x10^3/uL (140-400) Neutrophils (%) (Auto) 74 % (31-73) Lymphocytes (%) (Auto) 16 % (24-48) Monocytes (%) (Auto) 9 % (0-9) Eosinophils (%) (Auto) 1 % (0-3) Basophils (%) (Auto) 0 % (0-3) Neutrophils # (Auto) 4.7 x10^3/uL (1.8-7.7) Lymphocytes # (Auto) 1.0 x10^3/uL (1.0-4.8) Monocytes # (Auto) 0.5 x10^3/uL (0.0-1.1) Eosinophils # (Auto) 0.1 x10^3/uL (0.0-0.7) Basophils # (Auto) 0.0 x10^3/uL (0.0-0.2) Prothrombin Time 14.1 SEC (11.7-14.0) Prothromb Time International Ratio 1.1 (0.8-1.1) Sodium Level 142 mmol/L (136-145) 142 mmol/L (136-145) Potassium Level 2.6 mmol/L (3.5-5.1) 4.2 mmol/L (3.5-5.1) Chloride Level 103 mmol/L (98-107) 107 mmol/L (98-107) Carbon Dioxide Level 28 mmol/L (21-32) 25 mmol/L (21-32) Anion Gap 11 (6-14) 10 (6-14) Blood Urea Nitrogen 15 mg/dL (7-20) 13 mg/dL (7-20) Creatinine 0.8 mg/dL (0.6-1.0) 0.8 mg/dL (0.6-1.0) Estimated GFR (Cockcroft-Gault) 82.3 82.3 Glucose Level 75 mg/dL (70-99) 64 mg/dL (70-99) Calcium Level 8.4 mg/dL (8.5-10.1) 8.2 mg/dL (8.5-10.1) Laboratory Tests Test 04/23/21 11:30 04/23/21 17:45 White Blood Count 6.3 x10^3/uL (4.0-11.0) Red Blood Count 3.80 x10^6/uL (3.50-5.40) Hemoglobin 12.2 g/dL (12.0-15.5) Hematocrit 36.5 % (36.0-47.0) Mean Corpuscular Volume 96 fL (79-100) Mean Corpuscular Hemoglobin 32 pg (25-35) Mean Corpuscular Hemoglobin Concent 33 g/dL (31-37) Red Cell Distribution Width 12.9 % (11.5-14.5) Platelet Count 232 x10^3/uL (140-400) Neutrophils (%) (Auto) 74 % (31-73) Lymphocytes (%) (Auto) 16 % (24-48) Monocytes (%) (Auto) 9 % (0-9) Eosinophils (%) (Auto) 1 % (0-3) Basophils (%) (Auto) 0 % (0-3) Neutrophils # (Auto) 4.7 x10^3/uL (1.8-7.7) Lymphocytes # (Auto) 1.0 x10^3/uL (1.0-4.8) Monocytes # (Auto) 0.5 x10^3/uL (0.0-1.1) Eosinophils # (Auto) 0.1 x10^3/uL (0.0-0.7) Basophils # (Auto) 0.0 x10^3/uL (0.0-0.2) Prothrombin Time 14.1 SEC (11.7-14.0) Prothromb Time International Ratio 1.1 (0.8-1.1) Sodium Level 142 mmol/L (136-145) 142 mmol/L (136-145) Potassium Level 2.6 mmol/L (3.5-5.1) 4.2 mmol/L (3.5-5.1) Chloride Level 103 mmol/L (98-107) 107 mmol/L (98-107) Carbon Dioxide Level 28 mmol/L (21-32) 25 mmol/L (21-32) Anion Gap 11 (6-14) 10 (6-14) Blood Urea Nitrogen 15 mg/dL (7-20) 13 mg/dL (7-20) Creatinine 0.8 mg/dL (0.6-1.0) 0.8 mg/dL (0.6-1.0) Estimated GFR (Cockcroft-Gault) 82.3 82.3 Glucose Level 75 mg/dL (70-99) 64 mg/dL (70-99) Calcium Level 8.4 mg/dL (8.5-10.1) 8.2 mg/dL (8.5-10.1) Problem List small bowel obstruction, incisional hernia d/w pt extensively TO OR in AM for xlap, ANDRAE and repair of hernia. This may be an extensive surgery with risk of complication, but non operative management has not been successful. She appears to understand, her questions are answered and she elects to proceed. Justicifation of Admission Dx: Justifications for Admission: Justification of Admission Dx: Yes JOSE VIERA MD Apr 24, 2021 10:43
[2021-04-24 11:00] VITALS: BP 149/65
--- NOTE | 2021-04-24 12:56 | PDOC ---
[facility] PROGRESS NOTE Date of Service DOS: DATE: 04/24/21 TIME: 12:55 Chief Complaint Chief Complaint Large ventral abdominal wall hernia containing large and small bowel lo ops./ACUTE small bowel obstruction/ distention with air-fluid levels of the small bowel with a diameter of up to 3.5 cm. POSSIBLY due to the hernia sac itself VS obstruction due to adhesions within the abdomen, Small volume of free fluid within the pelvis and right abdomen. Breast cancer HX , exploratory laparotomy and ileal right colostomy and excision of intra-abdominal tumor on 10/24/2018. 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 SBO vs ileus--umbilical hernia check SBFT History of Present Illness History of Present Illness Ms Shane is an 85 year old female with past medical history of ovarian cancer presented to ER with the chief complaint of abdominal pain. has known abdominal hernia. and she has had associated abdominal pain on and off for years. Over the last few days pain has become more intense. pain is diffuse but primarily left abd lateral to umbulicus. associated nausea but has no vomiting. / she did have a BM yesterday /SBO vs ileus--umbilical hernia. GI and general surgery consulted. 04/16: Feels better. No abd pain. Less distended. Not passing flatus or stool. No nausea. NGT with minimal output. Discussed with general surgery and GI for small bowel follow-through will premedicate with steroids H2 ernst and H1 ernst. 04/17: Is better no BM or flatus but she thinks things are moving. She wants to get up out of bed but feels very weak. For small bowel follow-through today. Was premedicated. 04/18: Patient is having bowel movements. NG tube in place to clamp. She is complaining of some abdominal distention today, but denies abdominal pain. KUB showed diffuse small bowel dilation has mildly decreased, and in addition contrast is now seen to the level of the rectum. NG tube tip is seen within the stomach, consider advancement 3 to 4 cm as the proximal sidehole is at the gastroesophageal junction. Discussed with RN. 04/19: Patient seen with son at bedside. Doing much better, NG tube removed. Tolerating trial of clears. +Flatus. Appreciate general surgery and GI recommendations. Advance diet as tolerated and discharge soon. 04/20: Patient feels well. Passing gas, tolerating full liquid diet. Will advance to regular diabetic diet this evening and see how this is tolerated. States she takes Lasix at home intermittently for leg swelling, but does not feel she needs this medication at this time. Anticipate discharge tomorrow. Will discontinue maintenance fluids. She has some concern about continued abdominal distention. Encouraged ambulation. 04/21: Some worsening abdominal distention. Reports nausea and vomiting x 2 overnight. Discussed n.p.o. for now. If vomiting continues may need to replace NG tube for gastric decompression. If NG tube needs to be replaced, will resume IV fluids. Appreciate general surgery recommendations. Discussed with RN. 04/22/21 No acute events overnight. Patient did have vomiting over the weekend but did not claim any nausea vomiting overnight. Does endorse bowel movement and passing flatus. Abdomen soft and nondistended. There is bowel sounds. Patient will likely advance diet will defer this to surgery as they await for imaging. Patient's chart, labs, images were reviewed and discussed with RN 04/23/2021 No acute events overnight. Patient did have an episode of vomiting this morning and vomited all over self unfortunately. Due to his episode and as a result of her imaging she is planned for hernia repair tomorrow with surgery. Potassium found to be critical low at 2.6. Will replace with IV electrolyte replacement. 04/24/2021 No acute events overnight. Went for OR today for exploratory laparotomy, lysis of adhesions and repair of hernia. Dr. Brownlee has seen the patient discussed risks and benefits of surgery. Patient's chart, labs, images were reviewed and discussed with RN Vitals/I&O Vitals/I&O: Vital Signs Date Time Temp Pulse Resp B/P (MAP) Pulse Ox O2 Delivery O2 Flow Rate FiO2 04/24/21 11:00 97.6 64 16 149/65 (93) 96 Room Air 97.6 04/23/21 23:00 95.0 I & O 04/23/21 04/23/21 04/24/21 15:00 23:00 07:00 Intake Total 350 ml 400 ml Output Total 200 ml Balance -200 ml 350 ml 400 ml Physical Exam General: Alert, Oriented X3, Cooperative, No acute distress Heart: Regular rate Lungs: Clear Abdomen: Soft, No tenderness, Other (reducible hernia) Extremities: No clubbing, No cyanosis Skin: No rashes Labs Labs: Laboratory Tests Test 04/23/21 17:45 Sodium Level 142 mmol/L (136-145) Potassium Level 4.2 mmol/L (3.5-5.1) Chloride Level 107 mmol/L (98-107) Carbon Dioxide Level 25 mmol/L (21-32) Anion Gap 10 (6-14) Blood Urea Nitrogen 13 mg/dL (7-20) Creatinine 0.8 mg/dL (0.6-1.0) Estimated GFR (Cockcroft-Gault) 82.3 Glucose Level 64 mg/dL (70-99) Calcium Level 8.2 mg/dL (8.5-10.1) Comment Review of Relevant I have reviewed the following items arabella (where applicable) has been applied. Medications: Current Medications Medications (Trade) Dose Ordered Sig/Pedro Route PRN Reason Start Time Stop Time Status Last Admin Dose Admin Potassium Chloride/Water 100 ml @ 100 mls/hr Q1H IV 04/23/21 13:00 04/23/21 16:59 DC 04/23/21 15:40 Justifications for Admission Other Justification ABDOMINAL PAIN LUCIANA MANZANARES MD Apr 24, 2021 12:56
[2021-04-24 15:00] VITALS: BP 117/37
[2021-04-24] MEDS: ENOXAPARIN 40 MG/0.4 ML SYRINGE. SQ SCH (15:13)
[2021-04-24 19:00] VITALS: BP 122/47
[2021-04-24] MEDS: ATORVASTATIN CALCIUM 10 MG TABLET. PO SCH (20:06)
[2021-04-24 23:00] VITALS: BP 130/42
[2021-04-25] MEDS: ONDANSETRON PF 4 MG/2 ML VIAL. IV PRN (00:50)
[2021-04-25 03:00] VITALS: BP 139/56
[2021-04-25] MEDS: IV NORMAL SALINE 1000ML BAG 1,000 ML IV SCH ×3 (05:35→22:30)
[2021-04-25] MEDS ORDERED: HYDROmorphone 2 MG/ML VIAL IVP PRN (06:00)
[2021-04-25] MEDS ORDERED: fentaNYL PF VIAL 100 MCG/2 ML VIAL IVP PRN ×2 (06:00)
[2021-04-25] MEDS ORDERED: MORPHINE SULFATE 2 MG/ML INJ. IVP PRN (06:00)
[2021-04-25] MEDS ORDERED: PROCHLORPERAZINE 10 MG/2 ML VIAL. IVP PRN (06:00)
[2021-04-25] MEDS ORDERED: IV RINGERS,LACTATED 1000ML 1,000 ML IV SCH (06:00)
[2021-04-25 07:00] VITALS: BP 142/55
[2021-04-25] MEDS: PANTOPRAZOLE IV PUSH 40 MG VIAL. IVP SCH (08:09)
[2021-04-25] MEDS: LISINOPRIL 10 MG TABLET PO SCH (09:00)
[2021-04-25] MEDS: AMIODARONE HCL 200 MG TABLET. PO SCH (09:00)
[2021-04-25] MEDS: ASPIRIN ENTERIC COATED 81 MG TABLET.DR. PO SCH (09:00)
[2021-04-25] MEDS: CHOLECALCIFEROL (VITAMIN D3) 5,000 UNIT CAPSULE PO SCH (09:00)
[2021-04-25] MEDS: CETIRIZINE HCL 10 MG TABLET. PO SCH (09:00)
[2021-04-25 09:55] LABS: BASO % 0 % (0-3); EOS # 0.1 x10^3/uL (0.0-0.7); EOS % 1 % (0-3); HEMATOCRIT 34.1 % (36.0-47.0); HEMOGLOBIN 11.5 g/dL (12.0-15.5); LYMPH # 1.5 x10^3/uL (1.0-4.8); LYMPH % 28 % (24-48); MEAN CORPUSCULAR HEMOGLOBIN 32 pg (25-35); MEAN CORPUSCULAR HGB CONC 34 g/dL (31-37); MEAN CORPUSCULAR VOLUME 96 fL (79-100); MONO # 0.6 x10^3/uL (0.0-1.1); MONO % 11 % (0-9); NEUT # 3.4 x10^3/uL (1.8-7.7); NEUT % 60 % (31-73); PLATELET COUNT 219 x10^3/uL (140-400); RED BLOOD COUNT 3.56 x10^6/uL (3.50-5.40); RED CELL DISTRIBUTION WIDTH 13.7 % (11.5-14.5); WHITE BLOOD COUNT 5.6 x10^3/uL (4.0-11.0)
[2021-04-25] MEDS: SCOPOLAMINE 1.5MG PATCH. TD SCH (10:12)
[2021-04-25 10:19] LABS: CALCIUM 8.2 mg/dL (8.5-10.1); CREATININE 0.7 mg/dL (0.6-1.0); MAGNESIUM 1.7 mg/dL (1.8-2.4); PHOSPHORUS 2.5 mg/dL (2.6-4.7); POTASSIUM 3.1 mmol/L (3.5-5.1)
--- NOTE | 2021-04-25 10:29 | PDOC ---
Date of Service: DATE: 04/25/21 TIME: 10:28 Objective: Vital Signs: Vital Signs Date Time Temp Pulse Resp B/P (MAP) Pulse Ox O2 Delivery O2 Flow Rate FiO2 04/25/21 07:00 98.3 66 18 142/55 (84) 95 Room Air 98.3 Labs: Laboratory Tests Test 04/25/21 09:25 White Blood Count 5.6 x10^3/uL Red Blood Count 3.56 x10^6/uL Hemoglobin 11.5 g/dL Hematocrit 34.1 % Mean Corpuscular Volume 96 fL Mean Corpuscular Hemoglobin 32 pg Mean Corpuscular Hemoglobin Concent 34 g/dL Red Cell Distribution Width 13.7 % Platelet Count 219 x10^3/uL Neutrophils (%) (Auto) 60 % Lymphocytes (%) (Auto) 28 % Monocytes (%) (Auto) 11 % Eosinophils (%) (Auto) 1 % Basophils (%) (Auto) 0 % Neutrophils # (Auto) 3.4 x10^3/uL Lymphocytes # (Auto) 1.5 x10^3/uL Monocytes # (Auto) 0.6 x10^3/uL Eosinophils # (Auto) 0.1 x10^3/uL Basophils # (Auto) 0.0 x10^3/uL Sodium Level 143 mmol/L Potassium Level 3.1 mmol/L Chloride Level 107 mmol/L Carbon Dioxide Level 25 mmol/L Anion Gap 11 Blood Urea Nitrogen 5 mg/dL Creatinine 0.7 mg/dL Estimated GFR (Cockcroft-Gault) 96.0 Glucose Level 74 mg/dL Calcium Level 8.2 mg/dL Phosphorus Level 2.5 mg/dL Magnesium Level 1.7 mg/dL PE: GEN: NAD NEURO/PSYCH: sleeping, did not awaken A/P: SBO, incisional hernia -- To OR today, will follow. Justicifation of Admission Dx: Justifications for Admission: Justification of Admission Dx: Yes LAMIEN JESUS Apr 25, 2021 10:29
--- NOTE | 2021-04-25 10:37 | NUR ---
SW following. Discussed with RN, pt having surgery today at 1130. SNF vs home health after surgery. SW will continue to follow.
--- NOTE | 2021-04-25 10:39 | PDOC ---
SURGICAL PROGRESS NOTE DATE: 04/25/21 TIME: 10:36 Subjective 85 yo F with large VIH with loss of domain, small bowel obstruction (hernia related vs scar tissue vs recurrent cancer (no current signs)). Pt without progression with non operative management. TO OR for xlap, VIH repair, lysis of adhesions, possible bowel resection. R/R/B/A d/w pt. Risks, including but not limited to: bleeding, infection, damage to surrounding structures, risk of anesthesia. She is at high risk for perioperative complications, secondary to suspected hostile abd, but given lack of progression, OR indicated. She appears to understand, her questions are answered and she elects to proceed. Vital Signs Vital Signs Date Time Temp Pulse Resp B/P (MAP) Pulse Ox O2 Delivery O2 Flow Rate FiO2 04/25/21 07:00 98.3 66 18 142/55 (84) 95 Room Air 98.3 I&O Intake and Output 04/25/21 07:00 Intake Total 380 ml Output Total 400 ml Balance -20 ml Intake Oral 380 ml Output Urine Total 400 ml # Voids 1 Labs Laboratory Tests Test 04/23/21 11:30 04/23/21 17:45 04/25/21 09:25 White Blood Count 6.3 x10^3/uL (4.0-11.0) 5.6 x10^3/uL (4.0-11.0) Red Blood Count 3.80 x10^6/uL (3.50-5.40) 3.56 x10^6/uL (3.50-5.40) Hemoglobin 12.2 g/dL (12.0-15.5) 11.5 g/dL (12.0-15.5) Hematocrit 36.5 % (36.0-47.0) 34.1 % (36.0-47.0) Mean Corpuscular Volume 96 fL (79-100) 96 fL (79-100) Mean Corpuscular Hemoglobin 32 pg (25-35) 32 pg (25-35) Mean Corpuscular Hemoglobin Concent 33 g/dL (31-37) 34 g/dL (31-37) Red Cell Distribution Width 12.9 % (11.5-14.5) 13.7 % (11.5-14.5) Platelet Count 232 x10^3/uL (140-400) 219 x10^3/uL (140-400) Neutrophils (%) (Auto) 74 % (31-73) 60 % (31-73) Lymphocytes (%) (Auto) 16 % (24-48) 28 % (24-48) Monocytes (%) (Auto) 9 % (0-9) 11 % (0-9) Eosinophils (%) (Auto) 1 % (0-3) 1 % (0-3) Basophils (%) (Auto) 0 % (0-3) 0 % (0-3) Neutrophils # (Auto) 4.7 x10^3/uL (1.8-7.7) 3.4 x10^3/uL (1.8-7.7) Lymphocytes # (Auto) 1.0 x10^3/uL (1.0-4.8) 1.5 x10^3/uL (1.0-4.8) Monocytes # (Auto) 0.5 x10^3/uL (0.0-1.1) 0.6 x10^3/uL (0.0-1.1) Eosinophils # (Auto) 0.1 x10^3/uL (0.0-0.7) 0.1 x10^3/uL (0.0-0.7) Basophils # (Auto) 0.0 x10^3/uL (0.0-0.2) 0.0 x10^3/uL (0.0-0.2) Prothrombin Time 14.1 SEC (11.7-14.0) Prothromb Time International Ratio 1.1 (0.8-1.1) Sodium Level 142 mmol/L (136-145) 142 mmol/L (136-145) 143 mmol/L (136-145) Potassium Level 2.6 mmol/L (3.5-5.1) 4.2 mmol/L (3.5-5.1) 3.1 mmol/L (3.5-5.1) Chloride Level 103 mmol/L (98-107) 107 mmol/L (98-107) 107 mmol/L (98-107) Carbon Dioxide Level 28 mmol/L (21-32) 25 mmol/L (21-32) 25 mmol/L (21-32) Anion Gap 11 (6-14) 10 (6-14) 11 (6-14) Blood Urea Nitrogen 15 mg/dL (7-20) 13 mg/dL (7-20) 5 mg/dL (7-20) Creatinine 0.8 mg/dL (0.6-1.0) 0.8 mg/dL (0.6-1.0) 0.7 mg/dL (0.6-1.0) Estimated GFR (Cockcroft-Gault) 82.3 82.3 96.0 Glucose Level 75 mg/dL (70-99) 64 mg/dL (70-99) 74 mg/dL (70-99) Calcium Level 8.4 mg/dL (8.5-10.1) 8.2 mg/dL (8.5-10.1) 8.2 mg/dL (8.5-10.1) Phosphorus Level 2.5 mg/dL (2.6-4.7) Magnesium Level 1.7 mg/dL (1.8-2.4) Laboratory Tests Test 04/25/21 09:25 White Blood Count 5.6 x10^3/uL (4.0-11.0) Red Blood Count 3.56 x10^6/uL (3.50-5.40) Hemoglobin 11.5 g/dL (12.0-15.5) Hematocrit 34.1 % (36.0-47.0) Mean Corpuscular Volume 96 fL (79-100) Mean Corpuscular Hemoglobin 32 pg (25-35) Mean Corpuscular Hemoglobin Concent 34 g/dL (31-37) Red Cell Distribution Width 13.7 % (11.5-14.5) Platelet Count 219 x10^3/uL (140-400) Neutrophils (%) (Auto) 60 % (31-73) Lymphocytes (%) (Auto) 28 % (24-48) Monocytes (%) (Auto) 11 % (0-9) Eosinophils (%) (Auto) 1 % (0-3) Basophils (%) (Auto) 0 % (0-3) Neutrophils # (Auto) 3.4 x10^3/uL (1.8-7.7) Lymphocytes # (Auto) 1.5 x10^3/uL (1.0-4.8) Monocytes # (Auto) 0.6 x10^3/uL (0.0-1.1) Eosinophils # (Auto) 0.1 x10^3/uL (0.0-0.7) Basophils # (Auto) 0.0 x10^3/uL (0.0-0.2) Sodium Level 143 mmol/L (136-145) Potassium Level 3.1 mmol/L (3.5-5.1) Chloride Level 107 mmol/L (98-107) Carbon Dioxide Level 25 mmol/L (21-32) Anion Gap 11 (6-14) Blood Urea Nitrogen 5 mg/dL (7-20) Creatinine 0.7 mg/dL (0.6-1.0) Estimated GFR (Cockcroft-Gault) 96.0 Glucose Level 74 mg/dL (70-99) Calcium Level 8.2 mg/dL (8.5-10.1) Phosphorus Level 2.5 mg/dL (2.6-4.7) Magnesium Level 1.7 mg/dL (1.8-2.4) Justicifation of Admission Dx: Justifications for Admission: Justification of Admission Dx: Yes JOSE VIERA MD Apr 25, 2021 10:39
[2021-04-25] MEDS ORDERED: cefTRIAXone IV Push 1 GM VIAL. IVP SCH (10:45)
[2021-04-25] MEDS ORDERED: ONDANSETRON PF 4 MG/2 ML VIAL. ONE (10:52)
[2021-04-25] MEDS ORDERED: DEXAMETHASONE SOD PHOS 4 MG/ML VIAL ONE (10:52)
[2021-04-25] MEDS ORDERED: LIDOCAINE 2% PF 5 ML VIAL. ONE (10:52)
[2021-04-25] MEDS ORDERED: PROPOFOL 10 MG/ML (20ML) VIAL. IV ONE (10:52)
[2021-04-25] MEDS ORDERED: fentaNYL PF VIAL 250 MCG/5 ML VIAL ONE (10:52)
[2021-04-25] MEDS ORDERED: ROCURONIUM 50 MG/5 ML VIAL. ONE (10:52)
[2021-04-25] MEDS ORDERED: fentaNYL PF VIAL 100 MCG/2 ML VIAL ONE ×2 (10:53→13:02)
[2021-04-25] MEDS ORDERED: PHENYLEPHRINE in 0.9% NACL PF 1 MG/10 ML SYRINGE. IV ONE (12:23)
[2021-04-25] MEDS ORDERED: NEOSTIGMINE METHYLSULFATE 5 MG/5 ML SYRINGE. ONE (12:31)
[2021-04-25] MEDS ORDERED: GLYCOPYRROLATE 1 MG/5 ML VIAL. ONE (12:31)
[2021-04-25] MEDS ORDERED: SEVOFLURANE 61 TO 120 MINUTES. IH ONE (12:33)
--- NOTE | 2021-04-25 13:14 | PDOC4 ---
OPERATIVE NOTE Date: Date: Apr 25, 2021 Pre-Op Diagnosis: Small bowel obstruction, incisional hernia Post-Op Diagnosis: same Procedure Performed: Exploratory laparotomy, lysis of adhesions, incisional hernia repair Surgeon: Benitez Viera Anesthesia Type: GETA Blood Loss: 100 Specimans Obtained: ascites for cytology, 2 mm mesenteric mass Findings: large incisional hernia, but relatively small fascial defect (10 cm laterally), dilated proximal small bowel, adhesions causing bowel obstruction, with decompressed distally, ileal colic bypass (patent), serous ascites (sent for cytology), no obvious malignancy or masses. Small mesenteric mass sent for biopsy Complications: none Operative Note: After obtaining informed consent, patient was taken to OR, induced under GETA and prepped in the usual fashion. Midline incision opened with cautery. Hernia sac immediately encountered and sharply opened. Ascites sampled. Bowel noted to be viable. Extensive adhesiolysis performed which was majority of procedure. Ultimately, abdominal cavity was explored and noted as above. Obstruction appeared to be resolved. No mucosal injury noted, but small serosal tears repaired with 3 0 vicryl. Small bowel noted to be viable and patent throughout. Colon normal throughout. Liver normal with adri dominique destiny adhesions. Stomach normal. Bowel returned to abdominal cavity proper. Attenuated lateral wall, of such consistency, would not favor component separation. Fascia came together without tension and no elevation of patient's peak pressure. Fascia repaired with 0 looped PDS. Multiple 0 PDS retention sutures placed as well, given history of malignancy and suspected malnutrition. Given manipulation of bowel and serosal repairs, mesh not appropriate. Skin repaired with 3 0 vicryl 4 0 monocryl. Dressing placed. Patient tolerated procedure well and sent to PACU in stable condition. All counts correct. Wound class is 1. JOSE VIERA MD Apr 25, 2021 13:14
[2021-04-25] MEDS ORDERED: MORPHINE SULFATE 30 ML IV PRN (13:15)
[2021-04-25] MEDS: IV RINGERS,LACTATED 1000ML 1,000 ML IV SCH ×2 (13:15→20:39)
[2021-04-25] MEDS ORDERED: 0.9 % SODIUM CHLORIDE 10 ML DISP.SYRIN. IV PRN (13:15)
[2021-04-25] MEDS ORDERED: ONDANSETRON PF 4 MG/2 ML VIAL. IVP PRN (13:15)
[2021-04-25] MEDS ORDERED: NALOXONE 0.4 MG/ML VIAL. IV PRN (13:15)
--- NOTE | 2021-04-25 13:26 | RAD ---
EXAM: Abdomen, single view. HISTORY: Exploratory laparotomy. COMPARISON: 04/22/2021 FINDINGS: Frontal views of the abdomen are obtained. There is a nasogastric tube looped within the st omach. There is a second catheter overlying the gastric cardia and there is partial visualization of a port catheter terminating over the right atrium. There are distended air-filled dose of bowel throu ghout the abdomen. There is no transition point. There is lumbar scoliosis and degenerative change th roughout the lumbar spine. No retained foreign body is seen. IMPRESSION: Distended air-filled bowel throughout the abdomen, likely due to postoperative ileus. Electronically signed by: Ciarra Hester MD (04/25/2021 1:23 PM) [id number]
[2021-04-25] MEDS ORDERED: SUGAMMADEX SODIUM 200 MG/2 ML VIAL. IVP ONE (13:45)
--- NOTE | 2021-04-25 13:46 | PDOC ---
[facility] PROGRESS NOTE Date of Service DOS: DATE: 04/25/21 TIME: 13:44 Chief Complaint Chief Complaint Large ventral abdominal wall hernia containing large and small bowel lo ops./ACUTE small bowel obstruction/ distention with air-fluid levels of the small bowel with a diameter of up to 3.5 cm. POSSIBLY due to the hernia sac itself VS obstruction due to adhesions within the abdomen, Small volume of free fluid within the pelvis and right abdomen. Breast cancer HX , exploratory laparotomy and ileal right colostomy and excision of intra-abdominal tumor on 10/24/2018. 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 SBO vs ileus--umbilical hernia check SBFT History of Present Illness History of Present Illness Ms Shane is an 85 year old female with past medical history of ovarian cancer presented to ER with the chief complaint of abdominal pain. has known abdominal hernia. and she has had associated abdominal pain on and off for years. Over the last few days pain has become more intense. pain is diffuse but primarily left abd lateral to umbulicus. associated nausea but has no vomiting. / she did have a BM yesterday /SBO vs ileus--umbilical hernia. GI and general surgery consulted. 04/16: Feels better. No abd pain. Less distended. Not passing flatus or stool. No nausea. NGT with minimal output. Discussed with general surgery and GI for small bowel follow-through will premedicate with steroids H2 ernst and H1 ernst. 04/17: Is better no BM or flatus but she thinks things are moving. She wants to get up out of bed but feels very weak. For small bowel follow-through today. Was premedicated. 04/18: Patient is having bowel movements. NG tube in place to clamp. She is complaining of some abdominal distention today, but denies abdominal pain. KUB showed diffuse small bowel dilation has mildly decreased, and in addition contrast is now seen to the level of the rectum. NG tube tip is seen within the stomach, consider advancement 3 to 4 cm as the proximal sidehole is at the gastroesophageal junction. Discussed with RN. 04/19: Patient seen with son at bedside. Doing much better, NG tube removed. Tolerating trial of clears. +Flatus. Appreciate general surgery and GI recommendations. Advance diet as tolerated and discharge soon. 04/20: Patient feels well. Passing gas, tolerating full liquid diet. Will advance to regular diabetic diet this evening and see how this is tolerated. States she takes Lasix at home intermittently for leg swelling, but does not feel she needs this medication at this time. Anticipate discharge tomorrow. Will discontinue maintenance fluids. She has some concern about continued abdominal distention. Encouraged ambulation. 04/21: Some worsening abdominal distention. Reports nausea and vomiting x 2 overnight. Discussed n.p.o. for now. If vomiting continues may need to replace NG tube for gastric decompression. If NG tube needs to be replaced, will resume IV fluids. Appreciate general surgery recommendations. Discussed with RN. 04/22/21 No acute events overnight. Patient did have vomiting over the weekend but did not claim any nausea vomiting overnight. Does endorse bowel movement and passing flatus. Abdomen soft and nondistended. There is bowel sounds. Patient will likely advance diet will defer this to surgery as they await for imaging. Patient's chart, labs, images were reviewed and discussed with RN 04/23/2021 No acute events overnight. Patient did have an episode of vomiting this morning and vomited all over self unfortunately. Due to his episode and as a result of her imaging she is planned for hernia repair tomorrow with surgery. Potassium found to be critical low at 2.6. Will replace with IV electrolyte replacement. 04/24/2021 No acute events overnight. Went for OR today for exploratory laparotomy, lysis of adhesions and repair of hernia. Dr. Brownlee has seen the patient discussed risks and benefits of surgery. Patient's chart, labs, images were reviewed and discussed with RN 04/25/2021 No acute events overnight. No points from patient at this time. No concerns with nursing. On-call to the OR for surgery. Patient's chart, labs, images were reviewed and discussed with RN Vitals/I&O Vitals/I&O: Vital Signs Date Time Temp Pulse Resp B/P (MAP) Pulse Ox O2 Delivery O2 Flow Rate FiO2 04/25/21 07:50 Room Air 04/25/21 07:00 98.3 66 18 142/55 (84) 95 98.3 I & O 04/24/21 04/24/21 04/25/21 15:00 23:00 07:00 Intake Total 380 ml Output Total 400 ml Balance 380 ml -400 ml Physical Exam General: Alert, Oriented X3, Cooperative, No acute distress Heart: Regular rate Lungs: Clear Abdomen: Soft, No tenderness, Other (reducible hernia) Extremities: No clubbing, No cyanosis Skin: No rashes Labs Labs: Laboratory Tests Test 04/25/21 09:25 White Blood Count 5.6 x10^3/uL (4.0-11.0) Red Blood Count 3.56 x10^6/uL (3.50-5.40) Hemoglobin 11.5 g/dL (12.0-15.5) Hematocrit 34.1 % (36.0-47.0) Mean Corpuscular Volume 96 fL (79-100) Mean Corpuscular Hemoglobin 32 pg (25-35) Mean Corpuscular Hemoglobin Concent 34 g/dL (31-37) Red Cell Distribution Width 13.7 % (11.5-14.5) Platelet Count 219 x10^3/uL (140-400) Neutrophils (%) (Auto) 60 % (31-73) Lymphocytes (%) (Auto) 28 % (24-48) Monocytes (%) (Auto) 11 % (0-9) Eosinophils (%) (Auto) 1 % (0-3) Basophils (%) (Auto) 0 % (0-3) Neutrophils # (Auto) 3.4 x10^3/uL (1.8-7.7) Lymphocytes # (Auto) 1.5 x10^3/uL (1.0-4.8) Monocytes # (Auto) 0.6 x10^3/uL (0.0-1.1) Eosinophils # (Auto) 0.1 x10^3/uL (0.0-0.7) Basophils # (Auto) 0.0 x10^3/uL (0.0-0.2) Sodium Level 143 mmol/L (136-145) Potassium Level 3.1 mmol/L (3.5-5.1) Chloride Level 107 mmol/L (98-107) Carbon Dioxide Level 25 mmol/L (21-32) Anion Gap 11 (6-14) Blood Urea Nitrogen 5 mg/dL (7-20) Creatinine 0.7 mg/dL (0.6-1.0) Estimated GFR (Cockcroft-Gault) 96.0 Glucose Level 74 mg/dL (70-99) Calcium Level 8.2 mg/dL (8.5-10.1) Phosphorus Level 2.5 mg/dL (2.6-4.7) Magnesium Level 1.7 mg/dL (1.8-2.4) Comment Review of Relevant I have reviewed the following items arabella (where applicable) has been applied. Medications: Current Medications Medications (Trade) Dose Ordered Sig/Pedro Route PRN Reason Start Time Stop Time Status Last Admin Dose Admin Metronidazole 100 ml @ 100 mls/hr 1X PREOP IV 04/25/21 10:45 04/25/21 18:00 04/25/21 12:08 Ringer's Solution 1,000 ml @ 30 mls/hr Q24H IV 04/25/21 06:00 04/25/21 17:59 04/25/21 09:51 Scopolamine (Transderm-Scop) 1 patch Q3DAYS TD 04/25/21 10:00 04/25/21 10:12 Justifications for Admission Other Justification ABDOMINAL PAIN LUCIANA MANZANARES MD Apr 25, 2021 13:46
--- NOTE | 2021-04-25 16:11 | NUR ---
Patient was taken off the floor at 0935 this morning and returned back at 1515. Report obtained from Lucy in the PACU. Incision to midline abdomen CDI with ABD binder in place. Morphine MILIEU COUNSELOR pump infusing properly at this time with extra education given to the patient upon arrival to the floor. NG tube present in right nare set to intermittent suction. Will continue to monitor.
[2021-04-25 19:00] VITALS: BP 90/54
[2021-04-25] MEDS: ATORVASTATIN CALCIUM 10 MG TABLET. PO SCH (21:00)
[2021-04-25] MEDS ORDERED: ENOXAPARIN 40 MG/0.4 ML SYRINGE. SQ SCH (21:00)
[2021-04-25 23:00] VITALS: BP 99/48
[2021-04-26 03:00] VITALS: BP 103/48
[2021-04-26 05:34] LABS: BASO % 0 % (0-3); EOS % 0 % (0-3); HEMATOCRIT 38.6 % (36.0-47.0); HEMOGLOBIN 12.7 g/dL (12.0-15.5); LYMPH # 0.8 x10^3/uL (1.0-4.8); LYMPH % 4 % (24-48); MEAN CORPUSCULAR HEMOGLOBIN 32 pg (25-35); MEAN CORPUSCULAR HGB CONC 33 g/dL (31-37); MEAN CORPUSCULAR VOLUME 97 fL (79-100); MONO # 0.7 x10^3/uL (0.0-1.1); MONO % 4 % (0-9); NEUT # 16.9 x10^3/uL (1.8-7.7); NEUT % 92 % (31-73); PLATELET COUNT 205 x10^3/uL (140-400); RED BLOOD COUNT 3.97 x10^6/uL (3.50-5.40); RED CELL DISTRIBUTION WIDTH 13.8 % (11.5-14.5); WHITE BLOOD COUNT 18.4 x10^3/uL (4.0-11.0)
[2021-04-26 05:45] LABS: CREATININE 1.3 mg/dL (0.6-1.0); POTASSIUM 3.6 mmol/L (3.5-5.1)
[2021-04-26 07:00] VITALS: BP 119/62
[2021-04-26] MEDS: AMIODARONE HCL 200 MG TABLET. PO SCH (07:39)
[2021-04-26] MEDS: ASPIRIN ENTERIC COATED 81 MG TABLET.DR. PO SCH (07:40)
[2021-04-26] MEDS: LISINOPRIL 10 MG TABLET PO SCH (07:40)
[2021-04-26] MEDS: CETIRIZINE HCL 10 MG TABLET. PO SCH (07:40)
[2021-04-26] MEDS: PANTOPRAZOLE IV PUSH 40 MG VIAL. IVP SCH (08:35)
[2021-04-26] MEDS: IV RINGERS,LACTATED 1000ML 1,000 ML IV SCH ×2 (08:36→19:15)
[2021-04-26] MEDS: IV NORMAL SALINE 1000ML BAG 1,000 ML IV SCH (08:36)
[2021-04-26 09:21] LABS: % BANDS 25 % (0-9); % LYMPHS 5 % (24-48); % MONOS 2 % (0-10); % SEGS 68 % (35-66)
[2021-04-26 09:22] LABS: PLT ESTIMATE ADEQUATE (ADEQUATE)
--- NOTE | 2021-04-26 09:42 | PDOC ---
Date of Service: DATE: 04/26/21 TIME: 09:39 Subjective: Subjective: Tells me she passed gas. Doing okay, feels a little tired. Objective: Vital Signs: Vital Signs Date Time Temp Pulse Resp B/P (MAP) Pulse Ox O2 Delivery O2 Flow Rate FiO2 04/26/21 07:39 80 103/48 04/26/21 03:00 97.9 18 88 Room Air 97.9 04/25/21 20:00 2.0 Labs: Laboratory Tests Test 04/26/21 04:00 White Blood Count 18.4 x10^3/uL Red Blood Count 3.97 x10^6/uL Hemoglobin 12.7 g/dL Hematocrit 38.6 % Mean Corpuscular Volume 97 fL Mean Corpuscular Hemoglobin 32 pg Mean Corpuscular Hemoglobin Concent 33 g/dL Red Cell Distribution Width 13.8 % Platelet Count 205 x10^3/uL Neutrophils (%) (Auto) 92 % Lymphocytes (%) (Auto) 4 % Monocytes (%) (Auto) 4 % Eosinophils (%) (Auto) 0 % Basophils (%) (Auto) 0 % Neutrophils # (Auto) 16.9 x10^3/uL Lymphocytes # (Auto) 0.8 x10^3/uL Monocytes # (Auto) 0.7 x10^3/uL Eosinophils # (Auto) 0.0 x10^3/uL Basophils # (Auto) 0.0 x10^3/uL Segmented Neutrophils % 68 % Band Neutrophils % 25 % Lymphocytes % 5 % Monocytes % 2 % Platelet Estimate Adequate Sodium Level 143 mmol/L Potassium Level 3.6 mmol/L Chloride Level 107 mmol/L Carbon Dioxide Level 22 mmol/L Anion Gap 14 Blood Urea Nitrogen 10 mg/dL Creatinine 1.3 mg/dL Estimated GFR (Cockcroft-Gault) 47.0 Glucose Level 117 mg/dL Calcium Level 8.0 mg/dL PE: GEN: NAD - was asleep LUNGS: CTAB HEART: RRR ABD: has abdominal binder, NGT bilious NEURO/PSYCH: A & O 3 A/P: S/p ex lap, ANDRAE, incisional hernia repair 04/25/21 Leukocytosis, MIGUEL (Cr 1.3) -- Continue per surgery. Continue IV PPI. Justicifation of Admission Dx: Justifications for Admission: Justification of Admission Dx: Yes LAMINE JESUS Apr 26, 2021 09:42
--- NOTE | 2021-04-26 09:47 | PDOC ---
SURGICAL PROGRESS NOTE DATE: 04/26/21 TIME: 09:45 Subjective doing ok no bowel function yet Vital Signs Vital Signs Date Time Temp Pulse Resp B/P (MAP) Pulse Ox O2 Delivery O2 Flow Rate FiO2 04/26/21 07:39 80 103/48 04/26/21 03:00 97.9 18 88 Room Air 97.9 04/25/21 20:00 2.0 I&O Intake and Output 04/26/21 07:00 Intake Total 2000 ml Output Total 550 ml Balance 1450 ml Intake Oral 0 ml IV Total 2000 ml Output Urine Total 450 ml Estimated Blood Loss 100 ml # Voids 1 General: Alert, Cooperative HEENT: Other (ng in place) Abdomen: Soft, Other (binder in place) Labs Laboratory Tests Test 04/25/21 09:25 04/26/21 04:00 White Blood Count 5.6 x10^3/uL (4.0-11.0) 18.4 x10^3/uL (4.0-11.0) Red Blood Count 3.56 x10^6/uL (3.50-5.40) 3.97 x10^6/uL (3.50-5.40) Hemoglobin 11.5 g/dL (12.0-15.5) 12.7 g/dL (12.0-15.5) Hematocrit 34.1 % (36.0-47.0) 38.6 % (36.0-47.0) Mean Corpuscular Volume 96 fL (79-100) 97 fL (79-100) Mean Corpuscular Hemoglobin 32 pg (25-35) 32 pg (25-35) Mean Corpuscular Hemoglobin Concent 34 g/dL (31-37) 33 g/dL (31-37) Red Cell Distribution Width 13.7 % (11.5-14.5) 13.8 % (11.5-14.5) Platelet Count 219 x10^3/uL (140-400) 205 x10^3/uL (140-400) Neutrophils (%) (Auto) 60 % (31-73) 92 % (31-73) Lymphocytes (%) (Auto) 28 % (24-48) 4 % (24-48) Monocytes (%) (Auto) 11 % (0-9) 4 % (0-9) Eosinophils (%) (Auto) 1 % (0-3) 0 % (0-3) Basophils (%) (Auto) 0 % (0-3) 0 % (0-3) Neutrophils # (Auto) 3.4 x10^3/uL (1.8-7.7) 16.9 x10^3/uL (1.8-7.7) Lymphocytes # (Auto) 1.5 x10^3/uL (1.0-4.8) 0.8 x10^3/uL (1.0-4.8) Monocytes # (Auto) 0.6 x10^3/uL (0.0-1.1) 0.7 x10^3/uL (0.0-1.1) Eosinophils # (Auto) 0.1 x10^3/uL (0.0-0.7) 0.0 x10^3/uL (0.0-0.7) Basophils # (Auto) 0.0 x10^3/uL (0.0-0.2) 0.0 x10^3/uL (0.0-0.2) Sodium Level 143 mmol/L (136-145) 143 mmol/L (136-145) Potassium Level 3.1 mmol/L (3.5-5.1) 3.6 mmol/L (3.5-5.1) Chloride Level 107 mmol/L (98-107) 107 mmol/L (98-107) Carbon Dioxide Level 25 mmol/L (21-32) 22 mmol/L (21-32) Anion Gap 11 (6-14) 14 (6-14) Blood Urea Nitrogen 5 mg/dL (7-20) 10 mg/dL (7-20) Creatinine 0.7 mg/dL (0.6-1.0) 1.3 mg/dL (0.6-1.0) Estimated GFR (Cockcroft-Gault) 96.0 47.0 Glucose Level 74 mg/dL (70-99) 117 mg/dL (70-99) Calcium Level 8.2 mg/dL (8.5-10.1) 8.0 mg/dL (8.5-10.1) Phosphorus Level 2.5 mg/dL (2.6-4.7) Magnesium Level 1.7 mg/dL (1.8-2.4) Segmented Neutrophils % 68 % (35-66) Band Neutrophils % 25 % (0-9) Lymphocytes % 5 % (24-48) Monocytes % 2 % (0-10) Platelet Estimate Adequate (ADEQUATE) Laboratory Tests Test 04/26/21 04:00 White Blood Count 18.4 x10^3/uL (4.0-11.0) Red Blood Count 3.97 x10^6/uL (3.50-5.40) Hemoglobin 12.7 g/dL (12.0-15.5) Hematocrit 38.6 % (36.0-47.0) Mean Corpuscular Volume 97 fL (79-100) Mean Corpuscular Hemoglobin 32 pg (25-35) Mean Corpuscular Hemoglobin Concent 33 g/dL (31-37) Red Cell Distribution Width 13.8 % (11.5-14.5) Platelet Count 205 x10^3/uL (140-400) Neutrophils (%) (Auto) 92 % (31-73) Lymphocytes (%) (Auto) 4 % (24-48) Monocytes (%) (Auto) 4 % (0-9) Eosinophils (%) (Auto) 0 % (0-3) Basophils (%) (Auto) 0 % (0-3) Neutrophils # (Auto) 16.9 x10^3/uL (1.8-7.7) Lymphocytes # (Auto) 0.8 x10^3/uL (1.0-4.8) Monocytes # (Auto) 0.7 x10^3/uL (0.0-1.1) Eosinophils # (Auto) 0.0 x10^3/uL (0.0-0.7) Basophils # (Auto) 0.0 x10^3/uL (0.0-0.2) Segmented Neutrophils % 68 % (35-66) Band Neutrophils % 25 % (0-9) Lymphocytes % 5 % (24-48) Monocytes % 2 % (0-10) Platelet Estimate Adequate (ADEQUATE) Sodium Level 143 mmol/L (136-145) Potassium Level 3.6 mmol/L (3.5-5.1) Chloride Level 107 mmol/L (98-107) Carbon Dioxide Level 22 mmol/L (21-32) Anion Gap 14 (6-14) Blood Urea Nitrogen 10 mg/dL (7-20) Creatinine 1.3 mg/dL (0.6-1.0) Estimated GFR (Cockcroft-Gault) 47.0 Glucose Level 117 mg/dL (70-99) Calcium Level 8.0 mg/dL (8.5-10.1) Assessment/Plan s/p xlpa await bowel function Justicifation of Admission Dx: Justifications for Admission: Justification of Admission Dx: Yes ASHLYN MCDANIEL [employer]RO[employer] DEVELOPER Apr 26, 2021 09:47
--- NOTE | 2021-04-26 10:07 | NUR ---
SW following. Discussed with RN, pt from home, room air, NPO. NG, TPN, [employer] OPERATOR HELPER. SW requested a COVID test for Thursday in case pt wants to go to SNF next week. PT/OT reordered. SW will continue to follow.
[2021-04-26 11:00] VITALS: BP 117/62
[2021-04-26] MEDS: TPN PER PHARMACY MC PRN (13:03)
--- NOTE | 2021-04-26 13:10 | NUR ---
Pharmacy TPN Dosing Note S: ERIKAYLEY Johnson is a 85 year old F Currently receiving Central Continuous TPN started 04/26/21 B:Pertinent PMH: SBO s/p xlap Height: 5 feet, 2 inches Weight: 68.0 kg Current diet: NPO LABS: Sodium: 143 Potassium: 3.6 Chloride: 107 Calcium: 8.0 Corrected Calcium: 8.48 Magnesium: 1.5 CO2: 22 SCr: 1.3 Glucose: 117 Albumin: 3.4 AST: 20 ALT: 33 TPN FORMULA: TPN TYPE: Central Continuous AMINO ACIDS: 60 gm DEXTROSE: 195 gm LIPIDS: 20 gm SODIUM CHLORIDE: 90 mEq POTASSIUM CHLORIDE: 50 mEq MAGNESIUM: 10 mEq CALCIUM: 10 mEq MULTIPLE VITAMIN: 5 ml TRACE ELEMENTS: 1 ml(s) TPN PLAN: Initiate house formula TPN without Phos Magnesium 2g IVPB x1 today for low mag R: Begin TPN Will monitor electrolytes, glucose, and tolerance to TPN. Kayla Garcia [facility], 04/26/21 [id number]
[2021-04-26] MEDS ORDERED: MAGNESIUM SULFATE 2GM 50 ML IV ONE (14:00)
--- NOTE | 2021-04-26 14:25 | PDOC ---
[employer] PROGRESS NOTE Date of Service DOS: DATE: 04/26/21 TIME: 14:23 Chief Complaint Chief Complaint Large ventral abdominal wall hernia containing large and small bowel loops. Status post exploratory laparotomy with extensive lysis of adhesions 04/25/2021 Breast cancer HX , exploratory laparotomy and ileal right colostomy and excision of intra-abdominal tumor on 10/24/2018. 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 SBO vs ileus--umbilical hernia check SBFT History of Present Illness History of Present Illness Ms Shane is an 85 year old female with past medical history of ovarian cancer presented to ER with the chief complaint of abdominal pain. has known abdominal hernia. and she has had associated abdominal pain on and off for years. Over the last few days pain has become more intense. pain is diffuse but primarily left abd lateral to umbulicus. associated nausea but has no vomiting. / she did have a BM yesterday /SBO vs ileus--umbilical hernia. GI and general surgery consulted. 04/16: Feels better. No abd pain. Less distended. Not passing flatus or stool. No nausea. NGT with minimal output. Discussed with general surgery and GI for small bowel follow-through will premedicate with steroids H2 ernst and H1 ernst. 04/17: Is better no BM or flatus but she thinks things are moving. She wants to get up out of bed but feels very weak. For small bowel follow-through today. Was premedicated. 04/18: Patient is having bowel movements. NG tube in place to clamp. She is complaining of some abdominal distention today, but denies abdominal pain. KUB showed diffuse small bowel dilation has mildly decreased, and in addition contrast is now seen to the level of the rectum. NG tube tip is seen within the stomach, consider advancement 3 to 4 cm as the proximal sidehole is at the gastroesophageal junction. Discussed with RN. 04/19: Patient seen with son at bedside. Doing much better, NG tube removed. Tolerating trial of clears. +Flatus. Appreciate general surgery and GI recommendations. Advance diet as tolerated and discharge soon. 04/20: Patient feels well. Passing gas, tolerating full liquid diet. Will advance to regular diabetic diet this evening and see how this is tolerated. States she takes Lasix at home intermittently for leg swelling, but does not feel she needs this medication at this time. Anticipate discharge tomorrow. Will discontinue maintenance fluids. She has some concern about continued abdominal distention. Encouraged ambulation. 04/21: Some worsening abdominal distention. Reports nausea and vomiting x 2 overnight. Discussed n.p.o. for now. If vomiting continues may need to replace NG tube for gastric decompression. If NG tube needs to be replaced, will resume IV fluids. Appreciate general surgery recommendations. Discussed with RN. 04/22/21 No acute events overnight. Patient did have vomiting over the weekend but did not claim any nausea vomiting overnight. Does endorse bowel movement and passing flatus. Abdomen soft and nondistended. There is bowel sounds. Patient will likely advance diet will defer this to surgery as they await for imaging. Patient's chart, labs, images were reviewed and discussed with RN 04/23/2021 No acute events overnight. Patient did have an episode of vomiting this morning and vomited all over self unfortunately. Due to his episode and as a result of her imaging she is planned for hernia repair tomorrow with surgery. Potassium found to be critical low at 2.6. Will replace with IV electrolyte replacement. 04/24/2021 No acute events overnight. Went for OR today for exploratory laparotomy, lysis of adhesions and repair of hernia. Dr. Brownlee has seen the patient discussed risks and benefits of surgery. Patient's chart, labs, images were reviewed and discussed with RN 04/25/2021 No acute events overnight. No points from patient at this time. No concerns with nursing. On-call to the OR for surgery. Patient's chart, labs, images were reviewed and discussed with RN 04/26/2021 No acute events overnight. Patient is hemodynamically stable and NG tube is intact. Will start TPN today through port for parental nutrition before advancing diet. Will defer diet to surgery. Patient's chart, labs, images were reviewed and discussed with RN Vitals/I&O Vitals/I&O: Vital Signs Date Time Temp Pulse Resp B/P (MAP) Pulse Ox O2 Delivery O2 Flow Rate FiO2 04/26/21 11:00 98.0 98 18 117/62 (80) 91 Nasal Cannula 3.0 98.0 I & O 04/25/21 04/25/21 04/26/21 15:00 23:00 07:00 Intake Total 1500 ml 500 ml 0 ml Output Total 350 ml 200 ml Balance 1150 ml 500 ml -200 ml Physical Exam General: Alert, Cooperative Heart: Regular rate Lungs: Clear Abdomen: Soft, Other (binder in place) Extremities: No clubbing, No cyanosis Skin: No rashes Labs Labs: Laboratory Tests Test 04/26/21 04:00 White Blood Count 18.4 x10^3/uL (4.0-11.0) Red Blood Count 3.97 x10^6/uL (3.50-5.40) Hemoglobin 12.7 g/dL (12.0-15.5) Hematocrit 38.6 % (36.0-47.0) Mean Corpuscular Volume 97 fL (79-100) Mean Corpuscular Hemoglobin 32 pg (25-35) Mean Corpuscular Hemoglobin Concent 33 g/dL (31-37) Red Cell Distribution Width 13.8 % (11.5-14.5) Platelet Count 205 x10^3/uL (140-400) Neutrophils (%) (Auto) 92 % (31-73) Lymphocytes (%) (Auto) 4 % (24-48) Monocytes (%) (Auto) 4 % (0-9) Eosinophils (%) (Auto) 0 % (0-3) Basophils (%) (Auto) 0 % (0-3) Neutrophils # (Auto) 16.9 x10^3/uL (1.8-7.7) Lymphocytes # (Auto) 0.8 x10^3/uL (1.0-4.8) Monocytes # (Auto) 0.7 x10^3/uL (0.0-1.1) Eosinophils # (Auto) 0.0 x10^3/uL (0.0-0.7) Basophils # (Auto) 0.0 x10^3/uL (0.0-0.2) Segmented Neutrophils % 68 % (35-66) Band Neutrophils % 25 % (0-9) Lymphocytes % 5 % (24-48) Monocytes % 2 % (0-10) Platelet Estimate Adequate (ADEQUATE) Sodium Level 143 mmol/L (136-145) Potassium Level 3.6 mmol/L (3.5-5.1) Chloride Level 107 mmol/L (98-107) Carbon Dioxide Level 22 mmol/L (21-32) Anion Gap 14 (6-14) Blood Urea Nitrogen 10 mg/dL (7-20) Creatinine 1.3 mg/dL (0.6-1.0) Estimated GFR (Cockcroft-Gault) 47.0 Glucose Level 117 mg/dL (70-99) Calcium Level 8.0 mg/dL (8.5-10.1) Phosphorus Level 4.8 mg/dL (2.6-4.7) Magnesium Level 1.5 mg/dL (1.8-2.4) Comment Review of Relevant I have reviewed the following items arabella (where applicable) has been applied. Medications: Current Medications Medications (Trade) Dose Ordered Sig/Pedro Route PRN Reason Start Time Stop Time Status Last Admin Dose Admin Info (Tpn Per Pharmacy) 1 each PRN DAILY PRN MC SEE COMMENTS 04/26/21 10:45 04/26/21 13:03 Justifications for Admission Other Justification ABDOMINAL PAIN LUCIANA MANZANARES MD Apr 26, 2021 14:25
[2021-04-26 15:09] VITALS: BP 112/45
[2021-04-26 19:00] VITALS: BP 103/47
[2021-04-26] MEDS: ATORVASTATIN CALCIUM 10 MG TABLET. PO SCH (21:00)
[2021-04-26] MEDS: ENOXAPARIN 30 MG/0.3 ML SYRINGE. SQ SCH (21:44)
[2021-04-26] MEDS ORDERED: [UNRECOGNIZED DRUG - OTHER] IV SCH (22:00)
[2021-04-26] MEDS ORDERED: AMINO ACID IV SCH (22:00)
[2021-04-26] MEDS ORDERED: DEXTROSE 70% IV SCH (22:00)
[2021-04-26] MEDS ORDERED: TOTAL PARENTERAL NUTRITION IV SCH (22:00)
[2021-04-26 23:00] VITALS: BP 112/45
[2021-04-27 02:58] VITALS: BP 110/47
[2021-04-27] MEDS: IV RINGERS,LACTATED 1000ML 1,000 ML IV SCH ×3 (05:15→16:34)
[2021-04-27 07:00] VITALS: BP 123/55
[2021-04-27 07:47] LABS: CALCIUM 8.1 mg/dL (8.5-10.1); CREATININE 1.3 mg/dL (0.6-1.0); MAGNESIUM 2.1 mg/dL (1.8-2.4); PHOSPHORUS 2.4 mg/dL (2.6-4.7)
[2021-04-27] MEDS: CHOLECALCIFEROL (VITAMIN D3) 5,000 UNIT CAPSULE PO SCH (09:00)
[2021-04-27] MEDS: AMIODARONE HCL 200 MG TABLET. PO SCH (09:00)
[2021-04-27] MEDS: CETIRIZINE HCL 10 MG TABLET. PO SCH (09:00)
[2021-04-27] MEDS: ASPIRIN ENTERIC COATED 81 MG TABLET.DR. PO SCH (09:00)
[2021-04-27] MEDS: LISINOPRIL 10 MG TABLET PO SCH (09:00)
[2021-04-27] MEDS: POTASSIUM CHLORIDE 10MEQ 100 ML IV SCH ×4 (09:07→13:05)
[2021-04-27] MEDS: PANTOPRAZOLE IV PUSH 40 MG VIAL. IVP SCH (09:16)
--- NOTE | 2021-04-27 11:12 | PDOC ---
[employer] PROGRESS NOTE Date of Service DOS: DATE: 04/27/21 TIME: 11:11 Chief Complaint Chief Complaint Large ventral abdominal wall hernia containing large and small bowel loops. Status post exploratory laparotomy with extensive lysis of adhesions 04/25/2021 Breast cancer HX , exploratory laparotomy and ileal right colostomy and excision of intra-abdominal tumor on 10/24/2018. 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 SBO vs ileus--umbilical hernia check SBFT History of Present Illness History of Present Illness Ms Shane is an 85 year old female with past medical history of ovarian cancer presented to ER with the chief complaint of abdominal pain. has known abdominal hernia. and she has had associated abdominal pain on and off for years. Over the last few days pain has become more intense. pain is diffuse but primarily left abd lateral to umbulicus. associated nausea but has no vomiting. / she did have a BM yesterday /SBO vs ileus--umbilical hernia. GI and general surgery consulted. 04/16: Feels better. No abd pain. Less distended. Not passing flatus or stool. No nausea. NGT with minimal output. Discussed with general surgery and GI for small bowel follow-through will premedicate with steroids H2 ernst and H1 ernst. 04/17: Is better no BM or flatus but she thinks things are moving. She wants to get up out of bed but feels very weak. For small bowel follow-through today. Was premedicated. 04/18: Patient is having bowel movements. NG tube in place to clamp. She is complaining of some abdominal distention today, but denies abdominal pain. KUB showed diffuse small bowel dilation has mildly decreased, and in addition contrast is now seen to the level of the rectum. NG tube tip is seen within the stomach, consider advancement 3 to 4 cm as the proximal sidehole is at the gastroesophageal junction. Discussed with RN. 04/19: Patient seen with son at bedside. Doing much better, NG tube removed. Tolerating trial of clears. +Flatus. Appreciate general surgery and GI recommendations. Advance diet as tolerated and discharge soon. 04/20: Patient feels well. Passing gas, tolerating full liquid diet. Will advance to regular diabetic diet this evening and see how this is tolerated. States she takes Lasix at home intermittently for leg swelling, but does not feel she needs this medication at this time. Anticipate discharge tomorrow. Will discontinue maintenance fluids. She has some concern about continued abdominal distention. Encouraged ambulation. 04/21: Some worsening abdominal distention. Reports nausea and vomiting x 2 overnight. Discussed n.p.o. for now. If vomiting continues may need to replace NG tube for gastric decompression. If NG tube needs to be replaced, will resume IV fluids. Appreciate general surgery recommendations. Discussed with RN. 04/22/21 No acute events overnight. Patient did have vomiting over the weekend but did not claim any nausea vomiting overnight. Does endorse bowel movement and passing flatus. Abdomen soft and nondistended. There is bowel sounds. Patient will likely advance diet will defer this to surgery as they await for imaging. Patient's chart, labs, images were reviewed and discussed with RN 04/23/2021 No acute events overnight. Patient did have an episode of vomiting this morning and vomited all over self unfortunately. Due to his episode and as a result of her imaging she is planned for hernia repair tomorrow with surgery. Potassium found to be critical low at 2.6. Will replace with IV electrolyte replacement. 04/24/2021 No acute events overnight. Went for OR today for exploratory laparotomy, lysis of adhesions and repair of hernia. Dr. Brownlee has seen the patient discussed risks and benefits of surgery. Patient's chart, labs, images were reviewed and discussed with RN 04/25/2021 No acute events overnight. No points from patient at this time. No concerns with nursing. On-call to the OR for surgery. Patient's chart, labs, images were reviewed and discussed with RN 04/26/2021 No acute events overnight. Patient is hemodynamically stable and NG tube is intact. Will start TPN today through port for parental nutrition before advancing diet. Will defer diet to surgery. Patient's chart, labs, images were reviewed and discussed with RN 04/27/2021 No acute events overnight. Patient's pain is well controlled. Working well with physical therapy. IV electrolytes replaced. Minimal NG tube drainage of 50 cc. Can consider to discontinue if patient is passing flatus and having for motility. Will defer this to surgery. Continue PT OT modalities and IV pain control. Patient is using the SKIP HOIST OPERATOR appropriately. Patient's chart, labs, images were reviewed and discussed with RN Vitals/I&O Vitals/I&O: Vital Signs Date Time Temp Pulse Resp B/P (MAP) Pulse Ox O2 Delivery O2 Flow Rate FiO2 04/27/21 07:00 98.8 90 18 123/55 (77) 91 Nasal Cannula 98.8 04/27/21 02:58 3.0 I & O 04/26/21 04/26/21 04/27/21 15:00 23:00 07:00 Intake Total 0 ml 50 ml Output Total 50 ml 300 ml Balance 0 ml 0 ml -300 ml Physical Exam General: Alert, Cooperative Heart: Regular rate Lungs: Clear Abdomen: Soft, Other (binder in place) Extremities: No clubbing, No cyanosis Skin: No rashes Labs Labs: Laboratory Tests Test 04/27/21 05:15 Sodium Level 144 mmol/L (136-145) Potassium Level 3.0 mmol/L (3.5-5.1) Chloride Level 109 mmol/L (98-107) Carbon Dioxide Level 26 mmol/L (21-32) Anion Gap 9 (6-14) Blood Urea Nitrogen 19 mg/dL (7-20) Creatinine 1.3 mg/dL (0.6-1.0) Estimated GFR (Cockcroft-Gault) 47.0 Glucose Level 163 mg/dL (70-99) Calcium Level 8.1 mg/dL (8.5-10.1) Phosphorus Level 2.4 mg/dL (2.6-4.7) Magnesium Level 2.1 mg/dL (1.8-2.4) Triglycerides Level 96 mg/dL (0-150) Comment Review of Relevant I have reviewed the following items arabella (where applicable) has been applied. Medications: Current Medications Medications (Trade) Dose Ordered Sig/Pedro Route PRN Reason Start Time Stop Time Status Last Admin Dose Admin Enoxaparin Sodium (Lovenox 30mg Syringe) 30 mg Q24H SQ 04/26/21 21:00 04/26/21 21:44 Magnesium Sulfate 50 ml @ 25 mls/hr 1X ONCE IV 04/26/21 14:00 04/26/21 15:59 DC 04/26/21 14:39 Sodium Chloride 90 meq/Potassium Chloride 50 meq/ Magnesium Sulfate 10 meq/Calcium Gluconate 10 meq/ Multivitamins 5 ml/Zinc/Copper/ Manganese/ Selenium 1 ml/ Total Parenteral Nutrition/Amino Acids/Dextrose/ Fat Emulsion Intravenous 1,512 ml @ 63 mls/hr TPN CONT IV 04/26/21 22:00 04/27/21 21:59 04/26/21 21:45 Potassium Chloride/Water 100 ml @ 100 mls/hr Q1H IV 04/27/21 09:00 04/27/21 12:59 04/27/21 10:56 Justifications for Admission Other Justification ABDOMINAL PAIN LUCIANA MANZANARES MD Apr 27, 2021 11:12
[2021-04-27 11:50] VITALS: BP 118/52
[2021-04-27] MEDS: TPN PER PHARMACY MC PRN (13:11)
[2021-04-27] MEDS: IV NORMAL SALINE 1000ML BAG 1,000 ML IV SCH (13:15)
--- NOTE | 2021-04-27 13:53 | NUR ---
Pharmacy TPN Dosing Note S: KAYLEY HWANG is a 85 year old F Currently receiving Central Continuous TPN started 04/26/21 B:Pertinent PMH: SBO s/p xlap Height: 5 feet, 2 inches Weight: 68.0 kg Current diet: NPO LABS: Sodium: 144 Potassium: 3.0 Chloride: 109 Calcium: 8.1 Corrected Calcium: 8.58 Magnesium: 2.1 CO2: 26 SCr: 1.3 Glucose: 163 Albumin: 3.4 AST: 20 ALT: 33 TPN FORMULA: TPN TYPE: Central Continuous AMINO ACIDS: 60 gm DEXTROSE: 195 gm LIPIDS: 20 gm SODIUM CHLORIDE: 90 mEq SODIUM ACETATE: mEq SODIUM PHOSPHATE: mmol POTASSIUM CHLORIDE: 60 mEq POTASSIUM ACETATE: mEq POTASSIUM PHOSPHATE: 8 mmol MAGNESIUM: 10 mEq CALCIUM: 10 mEq INSULIN: units MULTIPLE VITAMIN: 5 ml TRACE ELEMENTS: 1 ml(s) TPN PLAN: Initiate house formula TPN. K /PHOS LEVEL LOW TODAY, 40 MEQ KCL BOLUS/AND PHOSPHATE BOLUS GIVEN, WILL ADD 8 MM KPHOS AND INCREASE KCL BY 10 MEQ . R: Continue TPN SAME RATE Will monitor electrolytes, glucose, and tolerance to TPN. [facility], 04/27/21 [id number]
[2021-04-27] MEDS: POTASSIUM PHOS,M-BASIC-D-BASIC 13.6 MMOL in IV NORMAL SALINE 250ML 250 ML IV SCH ×2 (14:19→16:33)
--- NOTE | 2021-04-27 14:42 | PDOC ---
SURGICAL PROGRESS NOTE DATE: 04/27/21 TIME: 14:41 Subjective Pt with c/o soreness, min flatus, NGT with bilious output Vital Signs Vital Signs Date Time Temp Pulse Resp B/P (MAP) Pulse Ox O2 Delivery O2 Flow Rate FiO2 04/27/21 11:50 98.4 83 20 118/52 (74) 92 Nasal Cannula 3.0 98.4 I&O Intake and Output 04/27/21 07:00 Intake Total 50 ml Output Total 350 ml Balance -300 ml Intake Oral 0 ml IV Total 50 ml Output Urine Total 300 ml Gastric Drainage Total 50 ml General: Alert, Oriented X3, Cooperative, mild distress Abdomen: Soft, Other (dressing in place) Labs Laboratory Tests Test 04/26/21 04:00 04/27/21 05:15 White Blood Count 18.4 x10^3/uL (4.0-11.0) Red Blood Count 3.97 x10^6/uL (3.50-5.40) Hemoglobin 12.7 g/dL (12.0-15.5) Hematocrit 38.6 % (36.0-47.0) Mean Corpuscular Volume 97 fL (79-100) Mean Corpuscular Hemoglobin 32 pg (25-35) Mean Corpuscular Hemoglobin Concent 33 g/dL (31-37) Red Cell Distribution Width 13.8 % (11.5-14.5) Platelet Count 205 x10^3/uL (140-400) Neutrophils (%) (Auto) 92 % (31-73) Lymphocytes (%) (Auto) 4 % (24-48) Monocytes (%) (Auto) 4 % (0-9) Eosinophils (%) (Auto) 0 % (0-3) Basophils (%) (Auto) 0 % (0-3) Neutrophils # (Auto) 16.9 x10^3/uL (1.8-7.7) Lymphocytes # (Auto) 0.8 x10^3/uL (1.0-4.8) Monocytes # (Auto) 0.7 x10^3/uL (0.0-1.1) Eosinophils # (Auto) 0.0 x10^3/uL (0.0-0.7) Basophils # (Auto) 0.0 x10^3/uL (0.0-0.2) Segmented Neutrophils % 68 % (35-66) Band Neutrophils % 25 % (0-9) Lymphocytes % 5 % (24-48) Monocytes % 2 % (0-10) Platelet Estimate Adequate (ADEQUATE) Sodium Level 143 mmol/L (136-145) 144 mmol/L (136-145) Potassium Level 3.6 mmol/L (3.5-5.1) 3.0 mmol/L (3.5-5.1) Chloride Level 107 mmol/L (98-107) 109 mmol/L (98-107) Carbon Dioxide Level 22 mmol/L (21-32) 26 mmol/L (21-32) Anion Gap 14 (6-14) 9 (6-14) Blood Urea Nitrogen 10 mg/dL (7-20) 19 mg/dL (7-20) Creatinine 1.3 mg/dL (0.6-1.0) 1.3 mg/dL (0.6-1.0) Estimated GFR (Cockcroft-Gault) 47.0 47.0 Glucose Level 117 mg/dL (70-99) 163 mg/dL (70-99) Calcium Level 8.0 mg/dL (8.5-10.1) 8.1 mg/dL (8.5-10.1) Phosphorus Level 4.8 mg/dL (2.6-4.7) 2.4 mg/dL (2.6-4.7) Magnesium Level 1.5 mg/dL (1.8-2.4) 2.1 mg/dL (1.8-2.4) Triglycerides Level 96 mg/dL (0-150) Laboratory Tests Test 04/27/21 05:15 Sodium Level 144 mmol/L (136-145) Potassium Level 3.0 mmol/L (3.5-5.1) Chloride Level 109 mmol/L (98-107) Carbon Dioxide Level 26 mmol/L (21-32) Anion Gap 9 (6-14) Blood Urea Nitrogen 19 mg/dL (7-20) Creatinine 1.3 mg/dL (0.6-1.0) Estimated GFR (Cockcroft-Gault) 47.0 Glucose Level 163 mg/dL (70-99) Calcium Level 8.1 mg/dL (8.5-10.1) Phosphorus Level 2.4 mg/dL (2.6-4.7) Magnesium Level 2.1 mg/dL (1.8-2.4) Triglycerides Level 96 mg/dL (0-150) Problem List s/p xlap cont NGT and await improved bowel fxn Justicifation of Admission Dx: Justifications for Admission: Justification of Admission Dx: Yes JOSE VIERA MD Apr 27, 2021 14:42
[2021-04-27 15:13] VITALS: BP 120/48
[2021-04-27 19:00] VITALS: BP 142/52
[2021-04-27] MEDS: ATORVASTATIN CALCIUM 10 MG TABLET. PO SCH (20:12)
[2021-04-27] MEDS: ENOXAPARIN 30 MG/0.3 ML SYRINGE. SQ SCH (21:11)
[2021-04-27] MEDS ORDERED: DEXTROSE 70% IV SCH (22:00)
[2021-04-27] MEDS ORDERED: TOTAL PARENTERAL NUTRITION IV SCH (22:00)
[2021-04-27] MEDS ORDERED: AMINO ACID IV SCH (22:00)
[2021-04-27] MEDS ORDERED: [UNRECOGNIZED DRUG - OTHER] IV SCH (22:00)
[2021-04-27 23:00] VITALS: BP 139/52
[2021-04-28] MEDS: IV RINGERS,LACTATED 1000ML 1,000 ML IV SCH ×3 (01:15→21:15)
[2021-04-28 04:00] VITALS: BP 149/66
[2021-04-28 06:31] LABS: CALCIUM 8.3 mg/dL (8.5-10.1); CREATININE 0.8 mg/dL (0.6-1.0); GFR 82.3; MAGNESIUM 2.2 mg/dL (1.8-2.4); PHOSPHORUS 1.9 mg/dL (2.6-4.7); POTASSIUM 3.8 mmol/L (3.5-5.1)
[2021-04-28 07:00] VITALS: BP 155/77
[2021-04-28] MEDS: LISINOPRIL 10 MG TABLET PO SCH (07:18)
[2021-04-28] MEDS: AMIODARONE HCL 200 MG TABLET. PO SCH (07:18)
[2021-04-28] MEDS: ASPIRIN ENTERIC COATED 81 MG TABLET.DR. PO SCH (07:18)
[2021-04-28] MEDS: CETIRIZINE HCL 10 MG TABLET. PO SCH (07:19)
[2021-04-28] MEDS: PANTOPRAZOLE IV PUSH 40 MG VIAL. IVP SCH (07:52)
[2021-04-28] MEDS: SCOPOLAMINE 1.5MG PATCH. TD SCH (07:53)
[2021-04-28] MEDS ORDERED: SCOPOLAMINE 1.5MG PATCH. TD SCH (09:00)
--- NOTE | 2021-04-28 11:19 | PDOC ---
[facility] [facility] PROGRESS NOTE Date of Service DOS: DATE: 04/28/21 TIME: 11:18 Chief Complaint Chief Complaint Large ventral abdominal wall hernia containing large and small bowel loops. Status post exploratory laparotomy with extensive lysis of adhesions 04/25/2021 Breast cancer HX , exploratory laparotomy and ileal right colostomy and excision of intra-abdominal tumor on 10/24/2018. 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 SBO vs ileus--umbilical hernia check SBFT History of Present Illness History of Present Illness Ms Shane is an 85 year old female with past medical history of ovarian cancer presented to ER with the chief complaint of abdominal pain. has known abdominal hernia. and she has had associated abdominal pain on and off for years. Over the last few days pain has become more intense. pain is diffuse but primarily left abd lateral to umbulicus. associated nausea but has no vomiting. / she did have a BM yesterday /SBO vs ileus--umbilical hernia. GI and general surgery consulted. 04/16: Feels better. No abd pain. Less distended. Not passing flatus or stool. No nausea. NGT with minimal output. Discussed with general surgery and GI for small bowel follow-through will premedicate with steroids H2 ernst and H1 ernst. 04/17: Is better no BM or flatus but she thinks things are moving. She wants to get up out of bed but feels very weak. For small bowel follow-through today. Was premedicated. 04/18: Patient is having bowel movements. NG tube in place to clamp. She is complaining of some abdominal distention today, but denies abdominal pain. KUB showed diffuse small bowel dilation has mildly decreased, and in addition contrast is now seen to the level of the rectum. NG tube tip is seen within the stomach, consider advancement 3 to 4 cm as the proximal sidehole is at the gastroesophageal junction. Discussed with RN. 04/19: Patient seen with son at bedside. Doing much better, NG tube removed. Tolerating trial of clears. +Flatus. Appreciate general surgery and GI recommendations. Advance diet as tolerated and discharge soon. 04/20: Patient feels well. Passing gas, tolerating full liquid diet. Will advance to regular diabetic diet this evening and see how this is tolerated. States she takes Lasix at home intermittently for leg swelling, but does not feel she needs this medication at this time. Anticipate discharge tomorrow. Will discontinue maintenance fluids. She has some concern about continued abdominal distention. Encouraged ambulation. 04/21: Some worsening abdominal distention. Reports nausea and vomiting x 2 overnight. Discussed n.p.o. for now. If vomiting continues may need to replace NG tube for gastric decompression. If NG tube needs to be replaced, will resume IV fluids. Appreciate general surgery recommendations. Discussed with RN. 04/22/21 No acute events overnight. Patient did have vomiting over the weekend but did not claim any nausea vomiting overnight. Does endorse bowel movement and passing flatus. Abdomen soft and nondistended. There is bowel sounds. Patient will likely advance diet will defer this to surgery as they await for imaging. Patient's chart, labs, images were reviewed and discussed with RN 04/23/2021 No acute events overnight. Patient did have an episode of vomiting this morning and vomited all over self unfortunately. Due to his episode and as a result of her imaging she is planned for hernia repair tomorrow with surgery. Potassium found to be critical low at 2.6. Will replace with IV electrolyte replacement. 04/24/2021 No acute events overnight. Went for OR today for exploratory laparotomy, lysis of adhesions and repair of hernia. Dr. Brownlee has seen the patient discussed risks and benefits of surgery. Patient's chart, labs, images were reviewed and discussed with RN 04/25/2021 No acute events overnight. No points from patient at this time. No concerns with nursing. On-call to the OR for surgery. Patient's chart, labs, images were reviewed and discussed with RN 04/26/2021 No acute events overnight. Patient is hemodynamically stable and NG tube is intact. Will start TPN today through port for parental nutrition before advancing diet. Will defer diet to surgery. Patient's chart, labs, images were reviewed and discussed with RN 04/27/2021 No acute events overnight. Patient's pain is well controlled. Working well with physical therapy. IV electrolytes replaced. Minimal NG tube drainage of 50 cc. Can consider to discontinue if patient is passing flatus and having for motility. Will defer this to surgery. Continue PT OT modalities and IV pain control. Patient is using the MINE MANAGER appropriately. Patient's chart, labs, images were reviewed and discussed with RN 04/28/2021 No acute events overnight. Patient's pain is well controlled. No reports of bowel movement or flatus at this time. NG tube output minimal. Continue PT OT modalities. Patient's chart, labs, images were reviewed and discussed with RN Vitals/I&O Vitals/I&O: Vital Signs Date Time Temp Pulse Resp B/P (MAP) Pulse Ox O2 Delivery O2 Flow Rate FiO2 04/28/21 09:21 91 Nasal Cannula 4.0 04/28/21 07:00 98.3 89 27 155/77 (103) 98.3 Physical Exam General: Alert, Oriented X3, Cooperative, mild distress Heart: Regular rate Lungs: Clear Abdomen: Soft, Other (dressing and abdominal binder in place) Extremities: No clubbing, No cyanosis Skin: No rashes Labs Labs: Laboratory Tests Test 04/28/21 05:50 Sodium Level 144 mmol/L (136-145) Potassium Level 3.8 mmol/L (3.5-5.1) Chloride Level 108 mmol/L (98-107) Carbon Dioxide Level 26 mmol/L (21-32) Anion Gap 10 (6-14) Blood Urea Nitrogen 18 mg/dL (7-20) Creatinine 0.8 mg/dL (0.6-1.0) Estimated GFR (Cockcroft-Gault) 82.3 Glucose Level 164 mg/dL (70-99) Calcium Level 8.3 mg/dL (8.5-10.1) Phosphorus Level 1.9 mg/dL (2.6-4.7) Magnesium Level 2.2 mg/dL (1.8-2.4) Comment Review of Relevant I have reviewed the following items arabella (where applicable) has been applied. Medications: Current Medications Medications (Trade) Dose Ordered Sig/Pedro Route PRN Reason Start Time Stop Time Status Last Admin Dose Admin Sodium Chloride 90 meq/Potassium Chloride 60 meq/ Magnesium Sulfate 10 meq/Calcium Gluconate 10 meq/ Multivitamins 5 ml/Zinc/Copper/ Manganese/ Selenium 1 ml/ Potassium Phosphate 8 mmol/ Total Parenteral Nutrition/Amino Acids/Dextrose/ Fat Emulsion Intravenous 1,512 ml @ 63 mls/hr TPN CONT IV 04/27/21 22:00 04/28/21 21:59 04/27/21 21:11 Justifications for Admission Other Justification ABDOMINAL PAIN LUCIANA MANZANARES MD Apr 28, 2021 11:19
[2021-04-28 11:31] VITALS: BP 153/72
[2021-04-28] MEDS: TPN PER PHARMACY MC PRN (11:51)
--- NOTE | 2021-04-28 12:55 | PDOC ---
SURGICAL PROGRESS NOTE DATE: 04/28/21 TIME: 12:54 Subjective Pt feels better, min flatus, clearing phlegm Vital Signs Vital Signs Date Time Temp Pulse Resp B/P (MAP) Pulse Ox O2 Delivery O2 Flow Rate FiO2 04/28/21 11:31 98.8 86 26 153/72 (99) 91 Nasal Cannula 4.5 98.8 General: Alert, Oriented X3, Cooperative, No acute distress Abdomen: Soft, No tenderness (pain at 2), Other (NGT clearing aspirate) Labs Laboratory Tests Test 04/27/21 05:15 04/28/21 05:50 Sodium Level 144 mmol/L (136-145) 144 mmol/L (136-145) Potassium Level 3.0 mmol/L (3.5-5.1) 3.8 mmol/L (3.5-5.1) Chloride Level 109 mmol/L (98-107) 108 mmol/L (98-107) Carbon Dioxide Level 26 mmol/L (21-32) 26 mmol/L (21-32) Anion Gap 9 (6-14) 10 (6-14) Blood Urea Nitrogen 19 mg/dL (7-20) 18 mg/dL (7-20) Creatinine 1.3 mg/dL (0.6-1.0) 0.8 mg/dL (0.6-1.0) Estimated GFR (Cockcroft-Gault) 47.0 82.3 Glucose Level 163 mg/dL (70-99) 164 mg/dL (70-99) Calcium Level 8.1 mg/dL (8.5-10.1) 8.3 mg/dL (8.5-10.1) Phosphorus Level 2.4 mg/dL (2.6-4.7) 1.9 mg/dL (2.6-4.7) Magnesium Level 2.1 mg/dL (1.8-2.4) 2.2 mg/dL (1.8-2.4) Triglycerides Level 96 mg/dL (0-150) Laboratory Tests Test 04/28/21 05:50 Sodium Level 144 mmol/L (136-145) Potassium Level 3.8 mmol/L (3.5-5.1) Chloride Level 108 mmol/L (98-107) Carbon Dioxide Level 26 mmol/L (21-32) Anion Gap 10 (6-14) Blood Urea Nitrogen 18 mg/dL (7-20) Creatinine 0.8 mg/dL (0.6-1.0) Estimated GFR (Cockcroft-Gault) 82.3 Glucose Level 164 mg/dL (70-99) Calcium Level 8.3 mg/dL (8.5-10.1) Phosphorus Level 1.9 mg/dL (2.6-4.7) Magnesium Level 2.2 mg/dL (1.8-2.4) Problem List s/p VIH cont NGT, hopefully clamp in AM Justicifation of Admission Dx: Justifications for Admission: Justification of Admission Dx: Yes JOSE VIERA MD Apr 28, 2021 12:55
[2021-04-28] MEDS: IV NORMAL SALINE 1000ML BAG 1,000 ML IV SCH (13:15)
--- NOTE | 2021-04-28 13:27 | NUR ---
Umanzor catheter discontinued at this time.
[2021-04-28 15:00] VITALS: BP 146/58
--- NOTE | 2021-04-28 16:56 | NUR ---
Pharmacy TPN Dosing Note S: ERIKAYLEY is a 85 year old F Currently receiving Central Continuous TPN started 04/26/21 B:Pertinent PMH: SBO s/p xlap Height: 5 feet, 2 inches Weight: 68.0 kg Current diet: NPO LABS: Sodium: 144 Potassium: 3.8 Chloride: 108 Calcium: 8.3 Corrected Calcium: 8.78 Magnesium: 2.2 CO2: 26 SCr: 0.8 Glucose: 164 Albumin: 3.4 AST: 20 ALT: 33 TPN FORMULA: TPN TYPE: Central Continuous AMINO ACIDS: 60 gm DEXTROSE: 195 gm LIPIDS: 20 gm SODIUM CHLORIDE: 90 mEq SODIUM ACETATE: mEq SODIUM PHOSPHATE: mmol POTASSIUM CHLORIDE: 60 mEq POTASSIUM ACETATE: mEq POTASSIUM PHOSPHATE: 15 mmol MAGNESIUM: 10 mEq CALCIUM: 10 mEq INSULIN: units MULTIPLE VITAMIN: 5 ml TRACE ELEMENTS: 1 ml(s) TPN PLAN: INCREASE KPHOS TO 15 MM. . R: Continue TPN AT 63ML/HR Will monitor electrolytes, glucose, and tolerance to TPN. EMI JACKSON [facility], 04/28/21 [id number]
[2021-04-28 19:00] VITALS: BP 156/77
[2021-04-28] MEDS: ATORVASTATIN CALCIUM 10 MG TABLET. PO SCH (20:19)
[2021-04-28] MEDS ORDERED: TOTAL PARENTERAL NUTRITION IV SCH (22:00)
[2021-04-28] MEDS ORDERED: [UNRECOGNIZED DRUG - OTHER] IV SCH (22:00)
[2021-04-28] MEDS ORDERED: AMINO ACID IV SCH (22:00)
[2021-04-28] MEDS ORDERED: DEXTROSE 70% IV SCH (22:00)
[2021-04-28] MEDS: ENOXAPARIN 40 MG/0.4 ML SYRINGE. SQ SCH (22:53)
[2021-04-28 23:00] VITALS: BP 155/67
[2021-04-29 03:00] VITALS: BP 165/70
[2021-04-29 07:00] VITALS: BP 196/60
[2021-04-29] MEDS: IV RINGERS,LACTATED 1000ML 1,000 ML IV SCH ×2 (07:15→17:15)
[2021-04-29] MEDS: ASPIRIN ENTERIC COATED 81 MG TABLET.DR. PO SCH (09:00)
[2021-04-29] MEDS: LISINOPRIL 10 MG TABLET PO SCH (09:00)
[2021-04-29] MEDS: AMIODARONE HCL 200 MG TABLET. PO SCH (09:00)
[2021-04-29] MEDS: CETIRIZINE HCL 10 MG TABLET. PO SCH (09:00)
[2021-04-29] MEDS: CHOLECALCIFEROL (VITAMIN D3) 5,000 UNIT CAPSULE PO SCH (09:00)
--- NOTE | 2021-04-29 09:39 | PDOC ---
SURGICAL PROGRESS NOTE DATE: 04/29/21 TIME: 09:38 Subjective a little nausea today no flatus Vital Signs Vital Signs Date Time Temp Pulse Resp B/P (MAP) Pulse Ox O2 Delivery O2 Flow Rate FiO2 04/29/21 07:00 97.8 56 24 196/60 (105) 93 Nasal Cannula 5.0 97.8 I&O Intake and Output 04/29/21 07:00 Intake Total 1512 ml Output Total 100 ml Balance 1412 ml Intake Oral 0 ml IV Total 1512 ml Gastric Drainage Total 100 ml # Voids 1 General: Alert, Cooperative HEENT: Other (ng in place) Abdomen: Soft, Other (binder in place) Labs Laboratory Tests Test 04/28/21 05:50 Sodium Level 144 mmol/L (136-145) Potassium Level 3.8 mmol/L (3.5-5.1) Chloride Level 108 mmol/L (98-107) Carbon Dioxide Level 26 mmol/L (21-32) Anion Gap 10 (6-14) Blood Urea Nitrogen 18 mg/dL (7-20) Creatinine 0.8 mg/dL (0.6-1.0) Estimated GFR (Cockcroft-Gault) 82.3 Glucose Level 164 mg/dL (70-99) Calcium Level 8.3 mg/dL (8.5-10.1) Phosphorus Level 1.9 mg/dL (2.6-4.7) Magnesium Level 2.2 mg/dL (1.8-2.4) Problem List will leave ng in place, await bowel function Justicifation of Admission Dx: Justifications for Admission: Justification of Admission Dx: Yes ASHLYN MCDANIEL [employer]IT[employer] Apr 29, 2021 09:39
[2021-04-29] MEDS ORDERED: MORPHINE SULFATE 2 MG/ML INJ. IVP PRN (09:45)
--- NOTE | 2021-04-29 10:38 | PDOC ---
Date of Service: DATE: 04/29/21 TIME: 10:35 Subjective: Subjective: Working w/ therapy - has walker in place to stand up from edge of bed. "Zero" pain, no gas/stool. Objective: Vital Signs: Vital Signs Date Time Temp Pulse Resp B/P (MAP) Pulse Ox O2 Delivery O2 Flow Rate FiO2 04/29/21 07:00 97.8 56 24 196/60 (105) 93 Nasal Cannula 5.0 97.8 Imaging: KUB 04/29 pending PE: GEN: NAD - with therapy as above LUNGS: NC 5L HEART: RR per chart ABD: binder, NG bilious NEURO/PSYCH: A & O 3 A/P: S/p ex lap, ANDRAE, incisional hernia repair 04/25/21 Leukocytosis (checked 04/26) -- Continue support, defer NGT/diet to surgery. Justicifation of Admission Dx: Justifications for Admission: Justification of Admission Dx: Yes LAMINE JESUS Apr 29, 2021 10:38
--- NOTE | 2021-04-29 10:49 | RAD ---
Upright abdomen. HISTORY: NG placement Upright view was taken of the abdomen. There is an NG tube in the stomach in good position. There is persistent diffuse bowel distention. There are bilateral infiltrates in the lungs. There are small bi lateral effusions. Lung disease has worsened compared to the study from April 25. Bowel distention h as changed little. IMPRESSION: 1. Worsening bilateral infiltrates and pleural effusions compared to April 25. 2. NG tube in the stomach. 3. Persistent bowel distention. Electronically signed by: Toño Fulton MD (04/29/2021 10:46 AM) [facility]
[2021-04-29 11:00] VITALS: BP 140/59
[2021-04-29] MEDS: PANTOPRAZOLE IV PUSH 40 MG VIAL. IVP SCH (11:52)
[2021-04-29 12:13] LABS: BASO % 0 % (0-3); EOS # 0.1 x10^3/uL (0.0-0.7); EOS % 1 % (0-3); HEMATOCRIT 34.6 % (36.0-47.0); HEMOGLOBIN 11.7 g/dL (12.0-15.5); LYMPH % 10 % (24-48); MEAN CORPUSCULAR HEMOGLOBIN 33 pg (25-35); MEAN CORPUSCULAR HGB CONC 34 g/dL (31-37); MEAN CORPUSCULAR VOLUME 96 fL (79-100); MONO # 0.6 x10^3/uL (0.0-1.1); MONO % 6 % (0-9); NEUT # 8.6 x10^3/uL (1.8-7.7); NEUT % 84 % (31-73); PLATELET COUNT 209 x10^3/uL (140-400); RED CELL DISTRIBUTION WIDTH 14.3 % (11.5-14.5); WHITE BLOOD COUNT 10.3 x10^3/uL (4.0-11.0)
[2021-04-29 12:18] LABS: CALCIUM 8.3 mg/dL (8.5-10.1); CREATININE 0.7 mg/dL (0.6-1.0); MAGNESIUM 1.9 mg/dL (1.8-2.4); PHOSPHORUS 2.8 mg/dL (2.6-4.7); POTASSIUM 3.8 mmol/L (3.5-5.1)
--- NOTE | 2021-04-29 12:55 | NUR ---
SW following. Discussed with RN, pt from home, 4L, NPO, NG, TPN. Awaiting return of bowel function. COVID-19 swab for possible placement. SW will continue to follow.
--- NOTE | 2021-04-29 13:07 | PDOC ---
[employer] PROGRESS NOTE Date of Service DOS: DATE: 04/29/21 TIME: 13:00 Chief Complaint Chief Complaint Large ventral abdominal wall hernia containing large and small bowel loops. Status post exploratory laparotomy with extensive lysis of adhesions 04/25/2021 Breast cancer HX , exploratory laparotomy and ileal right colostomy and excision of intra-abdominal tumor on 10/24/2018. 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 SBO vs ileus--umbilical hernia check SBFT History of Present Illness History of Present Illness Ms Shane is an 85 year old female with past medical history of ovarian cancer presented to ER with the chief complaint of abdominal pain. has known abdominal hernia. and she has had associated abdominal pain on and off for years. Over the last few days pain has become more intense. pain is diffuse but primarily left abd lateral to umbulicus. associated nausea but has no vomiting. / she did have a BM yesterday /SBO vs ileus--umbilical hernia. GI and general surgery consulted. 04/16: Feels better. No abd pain. Less distended. Not passing flatus or stool. No nausea. NGT with minimal output. Discussed with general surgery and GI for SBFT 04/17: Is better no BM or flatus but she thinks things are moving. She wants to get up out of bed but feels very weak. For small bowel follow-through today. Was premedicated. 04/18: Having BM. NG tube in place to clamp. C/o abdominal distention today, but denies abdominal pain. KUB showed diffuse small bowel dilation has mildly decreased 04/19: Patient seen with son at bedside. Doing much better, NG tube removed. Tolerating trial of clears. +Flatus. Appreciate general surgery and GI recommendations. ADAT 04/20: Patient feels well. Passing gas, tolerating full liquid diet. Will advance to regular diabetic diet this evening and see how this is tolerated. 04/21: Some worsening abdominal distention. Reports nausea and vomiting x 2 overnight. Discussed n.p.o. for now. If vomiting continues may need to replace NG tube 04/22: No acute events overnight. Patient did have vomiting over the weekend but did not claim any nausea vomiting overnight. Does endorse bowel movement and passing flatus. 04/23: No acute events overnight. Patient did have an episode of vomiting this morning and vomited all over self unfortunately. Hernia repair with surgery. Potassium low at 2.6. 04/24: No acute events overnight. Plan for OR today for exploratory laparotomy, lysis of adhesions and repair of hernia in AM 04/25: No acute events overnight. No points from patient at this time. No concerns with nursing. To OR for Ex lap with lysis of adhesions and incisional hernia repair 04/26:No acute events overnight. Patient is hemodynamically stable and NG tube is intact. Will start TPN today through port for parental nutrition before advancing diet. 04/27: No acute events overnight. Patient's pain is well controlled. Working well with physical therapy. IV electrolytes replaced. Minimal NG tube drainage of 50 cc. PERSONNEL MANAGER pain control 04/28: No acute events overnight. Patient's pain is well controlled. No reports of bowel movement or flatus at this time. NG tube output minimal. Continue PT OT modalities. Overnight NG tube formed advanced with good position KUB with stool significant abdominal distention. Not passing flatus or BM. Pain is well controlled with morphine PERSONNEL MANAGER. Working well with PT. Vitals/I&O Vitals/I&O: Vital Signs Date Time Temp Pulse Resp B/P (MAP) Pulse Ox O2 Delivery O2 Flow Rate FiO2 04/29/21 11:00 98.1 80 24 140/59 (86) 95 Nasal Cannula 5.0 98.1 I & O 04/28/21 04/28/21 04/29/21 15:00 23:00 07:00 Intake Total 1512 ml 0 ml Output Total 50 ml 50 ml Balance -50 ml 1462 ml 0 ml Physical Exam General: Alert, Cooperative Heart: Regular rate Lungs: Clear Abdomen: Soft, Other (binder in place) Extremities: No clubbing, No cyanosis Skin: No rashes Labs Labs: Laboratory Tests Test 04/29/21 11:00 White Blood Count 10.3 x10^3/uL (4.0-11.0) Red Blood Count 3.60 x10^6/uL (3.50-5.40) Hemoglobin 11.7 g/dL (12.0-15.5) Hematocrit 34.6 % (36.0-47.0) Mean Corpuscular Volume 96 fL (79-100) Mean Corpuscular Hemoglobin 33 pg (25-35) Mean Corpuscular Hemoglobin Concent 34 g/dL (31-37) Red Cell Distribution Width 14.3 % (11.5-14.5) Platelet Count 209 x10^3/uL (140-400) Neutrophils (%) (Auto) 84 % (31-73) Lymphocytes (%) (Auto) 10 % (24-48) Monocytes (%) (Auto) 6 % (0-9) Eosinophils (%) (Auto) 1 % (0-3) Basophils (%) (Auto) 0 % (0-3) Neutrophils # (Auto) 8.6 x10^3/uL (1.8-7.7) Lymphocytes # (Auto) 1.0 x10^3/uL (1.0-4.8) Monocytes # (Auto) 0.6 x10^3/uL (0.0-1.1) Eosinophils # (Auto) 0.1 x10^3/uL (0.0-0.7) Basophils # (Auto) 0.0 x10^3/uL (0.0-0.2) Sodium Level 141 mmol/L (136-145) Potassium Level 3.8 mmol/L (3.5-5.1) Chloride Level 108 mmol/L (98-107) Carbon Dioxide Level 28 mmol/L (21-32) Anion Gap 5 (6-14) Blood Urea Nitrogen 13 mg/dL (7-20) Creatinine 0.7 mg/dL (0.6-1.0) Estimated GFR (Cockcroft-Gault) 96.0 Glucose Level 149 mg/dL (70-99) Calcium Level 8.3 mg/dL (8.5-10.1) Phosphorus Level 2.8 mg/dL (2.6-4.7) Magnesium Level 1.9 mg/dL (1.8-2.4) Comment Review of Relevant I have reviewed the following items arabella (where applicable) has been applied. Medications: Current Medications Medications (Trade) Dose Ordered Sig/Pedro Route PRN Reason Start Time Stop Time Status Last Admin Dose Admin Sodium Chloride 90 meq/Potassium Chloride 60 meq/ Magnesium Sulfate 10 meq/Calcium Gluconate 10 meq/ Multivitamins 5 ml/Zinc/Copper/ Manganese/ Selenium 1 ml/ Potassium Phosphate 15 mmol/ Total Parenteral Nutrition/Amino Acids/Dextrose/ Fat Emulsion Intravenous 1,512 ml @ 63 mls/hr TPN CONT IV 04/28/21 22:00 04/29/21 21:59 04/28/21 22:54 Enoxaparin Sodium (Lovenox 40mg Syringe) 40 mg Q24H SQ 04/28/21 21:00 04/28/21 22:53 Justifications for Admission Other Justification ABDOMINAL PAIN TRISTIN NATH MD Apr 29, 2021 13:07
[2021-04-29] MEDS: IV NORMAL SALINE 1000ML BAG 1,000 ML IV SCH (13:15)
[2021-04-29] MEDS: TPN PER PHARMACY MC PRN (13:21)
--- NOTE | 2021-04-29 13:24 | NUR ---
Pharmacy TPN Dosing Note S: ERIKAYLEY is a 85 year old F Currently receiving Central Continuous TPN started 04/26/21 B:Pertinent PMH: SBO s/p xlap Height: 5 feet, 2 inches Weight: 68.0 kg Current diet: NPO LABS: Sodium: 141 Potassium: 3.8 Chloride: 108 Calcium: 8.3 Corrected Calcium: 8.78 Magnesium: 1.9 CO2: 28 SCr: 0.7 Glucose: 149 Albumin: 3.4 AST: 20 ALT: 33 TPN FORMULA: TPN TYPE: Central Continuous AMINO ACIDS: 60 gm DEXTROSE: 195 gm LIPIDS: 20 gm SODIUM CHLORIDE: 90 mEq SODIUM ACETATE: mEq SODIUM PHOSPHATE: mmol POTASSIUM CHLORIDE: 60 mEq POTASSIUM ACETATE: mEq POTASSIUM PHOSPHATE: 15 mmol MAGNESIUM: 10 mEq CALCIUM: 10 mEq INSULIN: units MULTIPLE VITAMIN: 5 ml TRACE ELEMENTS: 1 ml(s) TPN PLAN: Electrolytes WNL, continue same. Labs in the am. . R: Continue TPN as written above. Will monitor electrolytes, glucose, and tolerance to TPN. MEÑO MARROQUIN [facility], 04/29/21 [id number]
[2021-04-29 15:00] VITALS: BP 131/59
--- NOTE | 2021-04-29 17:06 | PATHOLOGY ---
[facility] Accession Number: [id number] . 01 Material submitted: . gastrointestinal site - MESENTERIC MASS . 01 Clinical history: . INCISIONAL HERNIA, SMALL BOWEL OBSTRUCTION EXPLORATORY LAPAROTOMY . 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 SEE COMMENT. (JPM:christopher; 04/29/2021) S 04/29/2021 1641 Local . 02 Comment: Sections of the mesenteric mass biopsy reveal a metastatic epithelial neoplasm. Malignant cells are present individually and in irregular solid nests within a reactive appearing stroma. The malignant cells have moderate amounts of eosinophilic cytoplasm, and possess enlarged, moderately to markedly pleomorphic hyperchromatic nuclei containing prominent nucleoli. There is a calcification present within the stroma. A properly controlled panel of immunperoxidase stains is obtained on A1 and yields the following results: . Cytokeratin 7: Tumor cells positive Cytokeratin 20: Tumor cells negative CDX2: Tumor cells negative PAX8: Tumor cells positive WT1: Tumor cells positive p53: Tumor cells positive . The morphologic and immunophenotypic findings are supportive of the diagnosis of metastatic poorly differentiated adenocarcinoma and are consistent with metastatic ovarian serous carcinoma. The case is also examined by Dr. Martinez, who concurs with the diagnosis. The results are reported to Dr. Brownlee in the operating room the morning of 04/29/2021. (JPM:christopher; 04/29/2021) . Special stains performed: Immunoperoxidase stains for CK7, CK20, CDX2, PAX8, WT1, and p53 . 02 Electronically signed: . Justin Connell MD, Pathologist NPI- [id number] . 01 Gross description: . The specimen is received in formalin, labeled "Acosta Kathryn, mesenteric mass". Received is a single segment of pale clarke tissue measuring 0.3 cm in maximum dimensions. The specimen is submitted entirely in cassette A1. ([facility]; 04/25/2021) NRI/NRI 04/25/2021 1748 Local . 02 Pathologist provided ICD-10: C78.6 . 02 CPT . 538201, [id number], [id number] Specimen Comment: A courtesy copy of this report has been sent to [phone] Specimen Comment: [id number], Specimen Comment: Report sent to , DR SHEEHAN / [address] Performed at: 01 [facility] [address], [place] [id number] MD Pasha Kimball MD Phone: [phone] Performed at: 02 [facility] [address], [place] [id number] MD Justin Connell MD Phone: [phone]
[2021-04-29 19:00] VITALS: BP 110/59
[2021-04-29] MEDS: ATORVASTATIN CALCIUM 10 MG TABLET. PO SCH (21:00)
[2021-04-29] MEDS: ENOXAPARIN 40 MG/0.4 ML SYRINGE. SQ SCH (21:19)
[2021-04-29] MEDS ORDERED: TOTAL PARENTERAL NUTRITION IV SCH (22:00)
[2021-04-29] MEDS ORDERED: AMINO ACID IV SCH (22:00)
[2021-04-29] MEDS ORDERED: DEXTROSE 70% IV SCH (22:00)
[2021-04-29] MEDS ORDERED: [UNRECOGNIZED DRUG - OTHER] IV SCH (22:00)
[2021-04-29 23:00] VITALS: BP 157/53
[2021-04-30 03:00] VITALS: BP 158/50
[2021-04-30] MEDS: IV RINGERS,LACTATED 1000ML 1,000 ML IV SCH ×3 (03:15→23:15)
[2021-04-30 06:20] LABS: BASO % 0 % (0-3); EOS # 0.1 x10^3/uL (0.0-0.7); EOS % 2 % (0-3); HEMATOCRIT 36.3 % (36.0-47.0); HEMOGLOBIN 11.9 g/dL (12.0-15.5); LYMPH # 1.3 x10^3/uL (1.0-4.8); LYMPH % 17 % (24-48); MEAN CORPUSCULAR HEMOGLOBIN 32 pg (25-35); MEAN CORPUSCULAR HGB CONC 33 g/dL (31-37); MEAN CORPUSCULAR VOLUME 99 fL (79-100); MONO # 0.7 x10^3/uL (0.0-1.1); MONO % 9 % (0-9); NEUT # 5.5 x10^3/uL (1.8-7.7); NEUT % 73 % (31-73); PLATELET COUNT 170 x10^3/uL (140-400); RED BLOOD COUNT 3.68 x10^6/uL (3.50-5.40); RED CELL DISTRIBUTION WIDTH 14.3 % (11.5-14.5); WHITE BLOOD COUNT 7.6 x10^3/uL (4.0-11.0)
[2021-04-30 06:27] LABS: MAGNESIUM 2.2 mg/dL (1.8-2.4); PHOSPHORUS 3.3 mg/dL (2.6-4.7)
[2021-04-30 06:28] LABS: ALBUMIN 1.6 g/dL (3.4-5.0); ALBUMIN/GLOBULIN RATIO 0.4 (1.0-1.7); CALCIUM 8.5 mg/dL (8.5-10.1); CREATININE 0.7 mg/dL (0.6-1.0); POTASSIUM 4.8 mmol/L (3.5-5.1); TOTAL BILIRUBIN 0.2 mg/dL (0.2-1.0); TOTAL PROTEIN 5.5 g/dL (6.4-8.2)
[2021-04-30 07:25] VITALS: BP 149/63
[2021-04-30] MEDS: LISINOPRIL 10 MG TABLET PO SCH (09:00)
[2021-04-30] MEDS: AMIODARONE HCL 200 MG TABLET. PO SCH (09:00)
[2021-04-30] MEDS: ASPIRIN ENTERIC COATED 81 MG TABLET.DR. PO SCH (09:00)
[2021-04-30] MEDS: CETIRIZINE HCL 10 MG TABLET. PO SCH (09:00)
--- NOTE | 2021-04-30 09:12 | PDOC ---
SURGICAL PROGRESS NOTE DATE: 04/30/21 TIME: 09:08 Subjective minimal flatus started this AM sore, worked with PT yesterday Vital Signs Vital Signs Date Time Temp Pulse Resp B/P (MAP) Pulse Ox O2 Delivery O2 Flow Rate FiO2 04/30/21 07:40 97 Nasal Cannula 5.0 04/30/21 07:25 98.9 68 20 149/63 (91) 98.9 I&O Intake and Output 04/30/21 07:00 Output Total 50 ml Balance -50 ml Gastric Drainage Total 50 ml # Voids 3 General: Alert, Cooperative HEENT: Other (ng in place) Lungs: Other (diminished ) Abdomen: Soft Extremities: Other (dressing dry) Labs Laboratory Tests Test 04/29/21 08:52 04/29/21 11:00 04/30/21 05:40 SARS-CoV-2 RNA (JOHNATHAN) Negative (Negative) White Blood Count 10.3 x10^3/uL (4.0-11.0) 7.6 x10^3/uL (4.0-11.0) Red Blood Count 3.60 x10^6/uL (3.50-5.40) 3.68 x10^6/uL (3.50-5.40) Hemoglobin 11.7 g/dL (12.0-15.5) 11.9 g/dL (12.0-15.5) Hematocrit 34.6 % (36.0-47.0) 36.3 % (36.0-47.0) Mean Corpuscular Volume 96 fL (79-100) 99 fL (79-100) Mean Corpuscular Hemoglobin 33 pg (25-35) 32 pg (25-35) Mean Corpuscular Hemoglobin Concent 34 g/dL (31-37) 33 g/dL (31-37) Red Cell Distribution Width 14.3 % (11.5-14.5) 14.3 % (11.5-14.5) Platelet Count 209 x10^3/uL (140-400) 170 x10^3/uL (140-400) Neutrophils (%) (Auto) 84 % (31-73) 73 % (31-73) Lymphocytes (%) (Auto) 10 % (24-48) 17 % (24-48) Monocytes (%) (Auto) 6 % (0-9) 9 % (0-9) Eosinophils (%) (Auto) 1 % (0-3) 2 % (0-3) Basophils (%) (Auto) 0 % (0-3) 0 % (0-3) Neutrophils # (Auto) 8.6 x10^3/uL (1.8-7.7) 5.5 x10^3/uL (1.8-7.7) Lymphocytes # (Auto) 1.0 x10^3/uL (1.0-4.8) 1.3 x10^3/uL (1.0-4.8) Monocytes # (Auto) 0.6 x10^3/uL (0.0-1.1) 0.7 x10^3/uL (0.0-1.1) Eosinophils # (Auto) 0.1 x10^3/uL (0.0-0.7) 0.1 x10^3/uL (0.0-0.7) Basophils # (Auto) 0.0 x10^3/uL (0.0-0.2) 0.0 x10^3/uL (0.0-0.2) Sodium Level 141 mmol/L (136-145) 140 mmol/L (136-145) Potassium Level 3.8 mmol/L (3.5-5.1) 4.8 mmol/L (3.5-5.1) Chloride Level 108 mmol/L (98-107) 107 mmol/L (98-107) Carbon Dioxide Level 28 mmol/L (21-32) 27 mmol/L (21-32) Anion Gap 5 (6-14) 6 (6-14) Blood Urea Nitrogen 13 mg/dL (7-20) 14 mg/dL (7-20) Creatinine 0.7 mg/dL (0.6-1.0) 0.7 mg/dL (0.6-1.0) Estimated GFR (Cockcroft-Gault) 96.0 96.0 Glucose Level 149 mg/dL (70-99) 136 mg/dL (70-99) Calcium Level 8.3 mg/dL (8.5-10.1) 8.5 mg/dL (8.5-10.1) Phosphorus Level 2.8 mg/dL (2.6-4.7) 3.3 mg/dL (2.6-4.7) Magnesium Level 1.9 mg/dL (1.8-2.4) 2.2 mg/dL (1.8-2.4) BUN/Creatinine Ratio 20 (6-20) Total Bilirubin 0.2 mg/dL (0.2-1.0) Aspartate Amino Transf (AST/SGOT) 5 U/L (15-37) Alanine Aminotransferase (ALT/SGPT) 10 U/L (14-59) Alkaline Phosphatase 92 U/L (46-116) Total Protein 5.5 g/dL (6.4-8.2) Albumin 1.6 g/dL (3.4-5.0) Albumin/Globulin Ratio 0.4 (1.0-1.7) Laboratory Tests Test 04/29/21 11:00 04/30/21 05:40 White Blood Count 10.3 x10^3/uL (4.0-11.0) 7.6 x10^3/uL (4.0-11.0) Red Blood Count 3.60 x10^6/uL (3.50-5.40) 3.68 x10^6/uL (3.50-5.40) Hemoglobin 11.7 g/dL (12.0-15.5) 11.9 g/dL (12.0-15.5) Hematocrit 34.6 % (36.0-47.0) 36.3 % (36.0-47.0) Mean Corpuscular Volume 96 fL (79-100) 99 fL (79-100) Mean Corpuscular Hemoglobin 33 pg (25-35) 32 pg (25-35) Mean Corpuscular Hemoglobin Concent 34 g/dL (31-37) 33 g/dL (31-37) Red Cell Distribution Width 14.3 % (11.5-14.5) 14.3 % (11.5-14.5) Platelet Count 209 x10^3/uL (140-400) 170 x10^3/uL (140-400) Neutrophils (%) (Auto) 84 % (31-73) 73 % (31-73) Lymphocytes (%) (Auto) 10 % (24-48) 17 % (24-48) Monocytes (%) (Auto) 6 % (0-9) 9 % (0-9) Eosinophils (%) (Auto) 1 % (0-3) 2 % (0-3) Basophils (%) (Auto) 0 % (0-3) 0 % (0-3) Neutrophils # (Auto) 8.6 x10^3/uL (1.8-7.7) 5.5 x10^3/uL (1.8-7.7) Lymphocytes # (Auto) 1.0 x10^3/uL (1.0-4.8) 1.3 x10^3/uL (1.0-4.8) Monocytes # (Auto) 0.6 x10^3/uL (0.0-1.1) 0.7 x10^3/uL (0.0-1.1) Eosinophils # (Auto) 0.1 x10^3/uL (0.0-0.7) 0.1 x10^3/uL (0.0-0.7) Basophils # (Auto) 0.0 x10^3/uL (0.0-0.2) 0.0 x10^3/uL (0.0-0.2) Sodium Level 141 mmol/L (136-145) 140 mmol/L (136-145) Potassium Level 3.8 mmol/L (3.5-5.1) 4.8 mmol/L (3.5-5.1) Chloride Level 108 mmol/L (98-107) 107 mmol/L (98-107) Carbon Dioxide Level 28 mmol/L (21-32) 27 mmol/L (21-32) Anion Gap 5 (6-14) 6 (6-14) Blood Urea Nitrogen 13 mg/dL (7-20) 14 mg/dL (7-20) Creatinine 0.7 mg/dL (0.6-1.0) 0.7 mg/dL (0.6-1.0) Estimated GFR (Cockcroft-Gault) 96.0 96.0 Glucose Level 149 mg/dL (70-99) 136 mg/dL (70-99) Calcium Level 8.3 mg/dL (8.5-10.1) 8.5 mg/dL (8.5-10.1) Phosphorus Level 2.8 mg/dL (2.6-4.7) 3.3 mg/dL (2.6-4.7) Magnesium Level 1.9 mg/dL (1.8-2.4) 2.2 mg/dL (1.8-2.4) BUN/Creatinine Ratio 20 (6-20) Total Bilirubin 0.2 mg/dL (0.2-1.0) Aspartate Amino Transf (AST/SGOT) 5 U/L (15-37) Alanine Aminotransferase (ALT/SGPT) 10 U/L (14-59) Alkaline Phosphatase 92 U/L (46-116) Total Protein 5.5 g/dL (6.4-8.2) Albumin 1.6 g/dL (3.4-5.0) Albumin/Globulin Ratio 0.4 (1.0-1.7) Assessment/Plan ileus--kub showing distention, increase activity, will leave ng to LIS today hypoxia, 4-5 liters, xr with worsening findings--will ask pulm to see Justicifation of Admission Dx: Justifications for Admission: Justification of Admission Dx: Yes ASHLYN MCDANIEL [employer] F[employer]ICATOR Apr 30, 2021 09:12
--- NOTE | 2021-04-30 10:05 | PDOC ---
[facility] PROGRESS NOTE Date of Service DOS: DATE: 04/30/21 TIME: 10:05 Chief Complaint Chief Complaint Large ventral abdominal wall hernia containing large and small bowel loops. Status post exploratory laparotomy with extensive lysis of adhesions 04/25/2021 Breast cancer HX , exploratory laparotomy and ileal right colostomy and excision of intra-abdominal tumor on 10/24/2018. 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 SBO vs ileus--umbilical hernia check SBFT History of Present Illness History of Present Illness Ms Shane is an 85 year old female with past medical history of ovarian cancer presented to ER with the chief complaint of abdominal pain. has known abdominal hernia. and she has had associated abdominal pain on and off for years. Over the last few days pain has become more intense. pain is diffuse but primarily left abd lateral to umbulicus. associated nausea but has no vomiting. / she did have a BM yesterday /SBO vs ileus--umbilical hernia. GI and general surgery consulted. 04/16: Feels better. No abd pain. Less distended. Not passing flatus or stool. No nausea. NGT with minimal output. Discussed with general surgery and GI for SBFT 04/17: Is better no BM or flatus but she thinks things are moving. She wants to get up out of bed but feels very weak. For small bowel follow-through today. Was premedicated. 04/18: Having BM. NG tube in place to clamp. C/o abdominal distention today, but denies abdominal pain. KUB showed diffuse small bowel dilation has mildly decreased 04/19: Patient seen with son at bedside. Doing much better, NG tube removed. Tolerating trial of clears. +Flatus. Appreciate general surgery and GI recommendations. ADAT 04/20: Patient feels well. Passing gas, tolerating full liquid diet. Will advance to regular diabetic diet this evening and see how this is tolerated. 04/21: Some worsening abdominal distention. Reports nausea and vomiting x 2 overnight. Discussed n.p.o. for now. If vomiting continues may need to replace NG tube 04/22: No acute events overnight. Patient did have vomiting over the weekend but did not claim any nausea vomiting overnight. Does endorse bowel movement and passing flatus. 04/23: No acute events overnight. Patient did have an episode of vomiting this morning and vomited all over self unfortunately. Hernia repair with surgery. Potassium low at 2.6. 04/24: No acute events overnight. Plan for OR today for exploratory laparotomy, lysis of adhesions and repair of hernia in AM 04/25: No acute events overnight. No points from patient at this time. No concerns with nursing. To OR for Ex lap with lysis of adhesions and incisional hernia repair 04/26:No acute events overnight. Patient is hemodynamically stable and NG tube is intact. Will start TPN today through port for parental nutrition before advancing diet. 04/27: No acute events overnight. Patient's pain is well controlled. Working well with physical therapy. IV electrolytes replaced. Minimal NG tube drainage of 50 cc. LEAD APPLICATION ARCHITECT pain control 04/28: No acute events overnight. Patient's pain is well controlled. No reports of bowel movement or flatus at this time. NG tube output minimal. Continue PT OT modalities. 04/29: Overnight NG tube advanced with good position KUB with stool significant abdominal distention. Not passing flatus or BM. Pain is well controlled with morphine LEAD APPLICATION ARCHITECT. Working well with PT. 04/30: Afebrile. NG tube in good position. Not passing flatus. Ambulating well. Pain well controlled. Vitals/I&O Vitals/I&O: Vital Signs Date Time Temp Pulse Resp B/P (MAP) Pulse Ox O2 Delivery O2 Flow Rate FiO2 04/30/21 07:40 97 Nasal Cannula 5.0 04/30/21 07:25 98.9 68 20 149/63 (91) 98.9 I & O 04/29/21 04/29/21 04/30/21 15:00 23:00 07:00 Output Total 50 ml Balance -50 ml Physical Exam General: Alert, Cooperative Heart: Regular rate Lungs: Clear Abdomen: Soft Extremities: Other (dressing dry) Skin: No rashes Labs Labs: Laboratory Tests Test 04/29/21 11:00 04/30/21 05:40 White Blood Count 10.3 x10^3/uL (4.0-11.0) 7.6 x10^3/uL (4.0-11.0) Red Blood Count 3.60 x10^6/uL (3.50-5.40) 3.68 x10^6/uL (3.50-5.40) Hemoglobin 11.7 g/dL (12.0-15.5) 11.9 g/dL (12.0-15.5) Hematocrit 34.6 % (36.0-47.0) 36.3 % (36.0-47.0) Mean Corpuscular Volume 96 fL (79-100) 99 fL (79-100) Mean Corpuscular Hemoglobin 33 pg (25-35) 32 pg (25-35) Mean Corpuscular Hemoglobin Concent 34 g/dL (31-37) 33 g/dL (31-37) Red Cell Distribution Width 14.3 % (11.5-14.5) 14.3 % (11.5-14.5) Platelet Count 209 x10^3/uL (140-400) 170 x10^3/uL (140-400) Neutrophils (%) (Auto) 84 % (31-73) 73 % (31-73) Lymphocytes (%) (Auto) 10 % (24-48) 17 % (24-48) Monocytes (%) (Auto) 6 % (0-9) 9 % (0-9) Eosinophils (%) (Auto) 1 % (0-3) 2 % (0-3) Basophils (%) (Auto) 0 % (0-3) 0 % (0-3) Neutrophils # (Auto) 8.6 x10^3/uL (1.8-7.7) 5.5 x10^3/uL (1.8-7.7) Lymphocytes # (Auto) 1.0 x10^3/uL (1.0-4.8) 1.3 x10^3/uL (1.0-4.8) Monocytes # (Auto) 0.6 x10^3/uL (0.0-1.1) 0.7 x10^3/uL (0.0-1.1) Eosinophils # (Auto) 0.1 x10^3/uL (0.0-0.7) 0.1 x10^3/uL (0.0-0.7) Basophils # (Auto) 0.0 x10^3/uL (0.0-0.2) 0.0 x10^3/uL (0.0-0.2) Sodium Level 141 mmol/L (136-145) 140 mmol/L (136-145) Potassium Level 3.8 mmol/L (3.5-5.1) 4.8 mmol/L (3.5-5.1) Chloride Level 108 mmol/L (98-107) 107 mmol/L (98-107) Carbon Dioxide Level 28 mmol/L (21-32) 27 mmol/L (21-32) Anion Gap 5 (6-14) 6 (6-14) Blood Urea Nitrogen 13 mg/dL (7-20) 14 mg/dL (7-20) Creatinine 0.7 mg/dL (0.6-1.0) 0.7 mg/dL (0.6-1.0) Estimated GFR (Cockcroft-Gault) 96.0 96.0 Glucose Level 149 mg/dL (70-99) 136 mg/dL (70-99) Calcium Level 8.3 mg/dL (8.5-10.1) 8.5 mg/dL (8.5-10.1) Phosphorus Level 2.8 mg/dL (2.6-4.7) 3.3 mg/dL (2.6-4.7) Magnesium Level 1.9 mg/dL (1.8-2.4) 2.2 mg/dL (1.8-2.4) BUN/Creatinine Ratio 20 (6-20) Total Bilirubin 0.2 mg/dL (0.2-1.0) Aspartate Amino Transf (AST/SGOT) 5 U/L (15-37) Alanine Aminotransferase (ALT/SGPT) 10 U/L (14-59) Alkaline Phosphatase 92 U/L (46-116) Total Protein 5.5 g/dL (6.4-8.2) Albumin 1.6 g/dL (3.4-5.0) Albumin/Globulin Ratio 0.4 (1.0-1.7) Comment Review of Relevant I have reviewed the following items arabella (where applicable) has been applied. Medications: Current Medications Medications (Trade) Dose Ordered Sig/Pedro Route PRN Reason Start Time Stop Time Status Last Admin Dose Admin Sodium Chloride 90 meq/Potassium Chloride 60 meq/ Magnesium Sulfate 10 meq/Calcium Gluconate 10 meq/ Multivitamins 5 ml/Zinc/Copper/ Manganese/ Selenium 1 ml/ Potassium Phosphate 15 mmol/ Total Parenteral Nutrition/Amino Acids/Dextrose/ Fat Emulsion Intravenous 1,512 ml @ 63 mls/hr TPN CONT IV 04/29/21 22:00 04/30/21 21:59 04/29/21 21:20 Justifications for Admission Other Justification ABDOMINAL PAIN TRISTIN NATH MD Apr 30, 2021 10:05
--- NOTE | 2021-04-30 10:21 | PDOC ---
Date of Service: DATE: 04/30/21 TIME: 10:17 Subjective: Subjective: Nose is sore from tube. Tells me no flatus. Says therapy is coming to get her up. Objective: Vital Signs: Vital Signs Date Time Temp Pulse Resp B/P (MAP) Pulse Ox O2 Delivery O2 Flow Rate FiO2 04/30/21 07:40 97 Nasal Cannula 5.0 04/30/21 07:25 98.9 68 20 149/63 (91) 98.9 Labs: Laboratory Tests Test 04/29/21 11:00 04/30/21 05:40 White Blood Count 10.3 x10^3/uL 7.6 x10^3/uL Red Blood Count 3.60 x10^6/uL 3.68 x10^6/uL Hemoglobin 11.7 g/dL 11.9 g/dL Hematocrit 34.6 % 36.3 % Mean Corpuscular Volume 96 fL 99 fL Mean Corpuscular Hemoglobin 33 pg 32 pg Mean Corpuscular Hemoglobin Concent 34 g/dL 33 g/dL Red Cell Distribution Width 14.3 % 14.3 % Platelet Count 209 x10^3/uL 170 x10^3/uL Neutrophils (%) (Auto) 84 % 73 % Lymphocytes (%) (Auto) 10 % 17 % Monocytes (%) (Auto) 6 % 9 % Eosinophils (%) (Auto) 1 % 2 % Basophils (%) (Auto) 0 % 0 % Neutrophils # (Auto) 8.6 x10^3/uL 5.5 x10^3/uL Lymphocytes # (Auto) 1.0 x10^3/uL 1.3 x10^3/uL Monocytes # (Auto) 0.6 x10^3/uL 0.7 x10^3/uL Eosinophils # (Auto) 0.1 x10^3/uL 0.1 x10^3/uL Basophils # (Auto) 0.0 x10^3/uL 0.0 x10^3/uL Sodium Level 141 mmol/L 140 mmol/L Potassium Level 3.8 mmol/L 4.8 mmol/L Chloride Level 108 mmol/L 107 mmol/L Carbon Dioxide Level 28 mmol/L 27 mmol/L Anion Gap 5 6 Blood Urea Nitrogen 13 mg/dL 14 mg/dL Creatinine 0.7 mg/dL 0.7 mg/dL Estimated GFR (Cockcroft-Gault) 96.0 96.0 Glucose Level 149 mg/dL 136 mg/dL Calcium Level 8.3 mg/dL 8.5 mg/dL Phosphorus Level 2.8 mg/dL 3.3 mg/dL Magnesium Level 1.9 mg/dL 2.2 mg/dL BUN/Creatinine Ratio 20 Total Bilirubin 0.2 mg/dL Aspartate Amino Transf (AST/SGOT) 5 U/L Alanine Aminotransferase (ALT/SGPT) 10 U/L Alkaline Phosphatase 92 U/L Total Protein 5.5 g/dL Albumin 1.6 g/dL Albumin/Globulin Ratio 0.4 PE: GEN: NAD LUNGS: NC 5L HEART: RRR ABD: has binder, NG bilious NEURO/PSYCH: A & O 3 A/P: S/p ex lap, ANDRAE, incisional hernia repair 04/25/21 COVID negative -- Continue TPN, IV PPI. Note ID to see. Justicifation of Admission Dx: Justifications for Admission: Justification of Admission Dx: Yes LAMINE JESUS Apr 30, 2021 10:21
[2021-04-30 11:04] VITALS: BP 169/65
--- NOTE | 2021-04-30 12:58 | NUR ---
SW following. Discussed with RN, ANTELMO met with pt, she has decided she does want to go to [facility]. Referral faxed, pt accepted pending discharge orders. Pt still has an NG in place. Awaiting return of bowel function, and removal of NG. [facility] can do the TPN. SW will continue to follow.
[2021-04-30] MEDS: PANTOPRAZOLE IV PUSH 40 MG VIAL. IVP SCH (13:12)
[2021-04-30] MEDS: CEFEPIME HCL IV Push 1 GM VIAL. IVP SCH ×2 (13:12→21:41)
[2021-04-30] MEDS: IV NORMAL SALINE 1000ML BAG 1,000 ML IV SCH (13:15)
[2021-04-30] MEDS: TPN PER PHARMACY MC PRN (14:01)
--- NOTE | 2021-04-30 14:46 | RAD ---
AP chest. HISTORY: Hypoxia AP view was taken of the chest. Left Port-A-Cath is unchanged. NG tube extends into the stomach. Ther e is severe arthritis in both shoulders. There are bilateral pleural effusions which are small. There are hazy infiltrates or edema in the lungs. There has been worsening compared to study from April 01 3. There is persistent nonspecific bowel distention in the abdomen. IMPRESSION: 1. Development of bilateral effusions with bilateral infiltrates or edema, worsening compared to the prior exam. 2. Persistent bowel distention in the abdomen. Electronically signed by: Toño Fulton MD (04/30/2021 2:43 PM) [facility]
[2021-04-30 15:05] VITALS: BP 169/65
[2021-04-30] MEDS ORDERED: FUROSEMIDE 40 MG/4 ML VIAL. IVP ONE (17:15)
--- NOTE | 2021-04-30 17:50 | CONS ---
DATE OF CONSULTATION: 04/30/2021 PULMONARY CONSULTATION ATTENDING PHYSICIAN: Dr. Montano. REASON FOR CONSULTATION: Hypoxia. HISTORY OF PRESENT ILLNESS: The patient is an 85-year-old who was admitted initially to the hospital with abdominal pain. The patient has known abdominal hernia. The patient's intensity of the abdominal pain got worse. The patient also had a CT abdomen and pelvis on 04/15 and was found to have a large ventral abdominal wall hernia containing large and small bowel loops and development of small-bowel obstruction. The patient was seen by Dr. Brownlee and he performed an exploratory laparotomy on 04/25/2021 with lysis of adhesions, incisional hernia repair. There was a small facial defect observed and the patient had ileocolic bypass. Mesenteric mass was sent for biopsy. 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 I have been asked to see her for further evaluation of her hypoxia. Her oxygen requirement has increased to 5 liters from any previous of 2 liters. The last chest x-ray was from 04/22 and it showed slightly prominent interstitial markings. She is currently on TPN. She is not a smoker. She denies any shortness of breath, no chest pain. Denies any cough, fever or chills. She does have abdominal pain. PAST MEDICAL HISTORY: Significant for history of arrhythmias, history of ovarian cancer, type 2 diabetes, dyslipidemia, hypertension, history of breast cancer. PAST SURGICAL HISTORY: Double mastectomy. SOCIAL HISTORY: Nonsmoker. ALLERGIES: IV DYE, PENICILLIN, SULFA AND FEXOFENADINE. MEDICATIONS: Reviewed as listed in the EMR. Including Lovenox for DVT prophylaxis, she is also on amiodarone. REVIEW OF SYSTEMS: A 12-point system obtained. Pertinent positives discussed in my history of present illness, otherwise noncontributory. All systems that were negative were reviewed as well. FAMILY HISTORY: Noncontributory to lungs. PHYSICAL EXAMINATION: VITAL SIGNS: Reviewed. Blood pressure 169/65, pulse ox 96% on 5 liters. T-max of 99. HEENT: Sclerae nonicteric. NECK: Supple. LUNGS: With diminished breath sounds posteriorly. CARDIOVASCULAR: Irregular. ABDOMEN: Soft, distended, minimally tender. EXTREMITIES: With no pitting edema. LABORATORY DATA: Reviewed. White cell count 7.6, hemoglobin 11.9, platelets are 170. BUN is 14, creatinine 0.7, albumin 1.6. IMPRESSION: 1. 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 She likely has increased interstitial edema from receiving fluids via TPN as well as severely low oncotic pressure. We will need a followup chest x-ray to assess for any postop atelectasis as well. She is a nonsmoker. 2. Status post exploratory laparotomy with lysis of adhesions and biopsy of mesenteric mass. 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 3. No significant tobacco history. 4. Severe protein calorie malnutrition. 5. No significant leukocytosis. RECOMMENDATIONS: 1. Continue present oxygen at 5 liters, keep saturation 92 and above. 2. Incentive spirometry. 3. Obtain chest x-ray. May need diuresis. 4. P.r.n. nebulizer treatment. 5. Follow Oncology and General Surgery recommendations. 6. We will make recommendations after review of the chest x-ray. 7. Continue Lovenox for DVT prophylaxis. Discussed with RN. We will follow along with you. JOSE DR: Mauro TID: [id number]
[2021-04-30 19:00] VITALS: BP 143/57
--- NOTE | 2021-04-30 19:57 | CONS ---
DATE OF CONSULTATION: 04/30/2021 REQUESTING PHYSICIAN: Dr. Brownlee. REASON FOR CONSULTATION: Persistent pulmonary infiltrate. HISTORY OF PRESENT ILLNESS: This is an 85-year-old -[place] female who comes in with nausea and abdominal pain. The patient has had a history of ovarian cancer in the past and she was found hernia that was a small-bowel obstruction. The patient was eventually taken to the surgery and exploratory laparotomy with lysis of adhesion and incisional hernia repair done and a small mesenteric mass was taken for biopsy plus his ascites fluid was taken for cytology. It turned out to be that it is a metastatic ovarian cancer into the biopsy. The patient is not on any antibiotics. Chest x-ray showed pulmonary infiltrate. The patient is requiring oxygen. The patient still has NG tube in place. Denies any nausea, vomiting, diarrhea. Denies any chest pain, shortness of breath. Some cough present. No abdominal pain, urinary symptoms or bowel symptoms. PAST MEDICAL HISTORY: As I mentioned, history of ovarian cancer in the past with surgery done, hypertension, hyperlipidemia, cardiomyopathy, gastroesophageal reflux disease. She has had mastectomy for breast cancer, anemia. SOCIAL HISTORY: Negative for smoking, alcohol, illicit drug use. ALLERGIES: SHE IS LISTED ALLERGIC TO PENICILLIN AND SULFA, BOTH CAUSE HIVES. REVIEW OF SYSTEMS: As in HPI. All other systems reviewed and are negative. PHYSICAL EXAMINATION: GENERAL: Alert, oriented female, not in distress. VITAL SIGNS: Stable, afebrile. HEENT: NAD. NECK: Supple, no JVP, no lymphadenopathy. LUNGS: Clear. HEART: S1, S2 regular. ABDOMEN: Soft, nontender, no organomegaly. EXTREMITIES: No edema, cyanosis. SKIN: Unremarkable. The patient does have a port in the left upper chest. NEUROLOGIC: The patient is alert, awake, and appropriate. No focal neurologic deficit. LABORATORY DATA: White count is 7.6, two days ago was 18.4, BUN and creatinine is normal. Urinalysis, 11-20 wbc's. COVID negative. Urine culture done few days ago had shown E. coli. X-rays and CTs reviewed. IMPRESSION: 1. Pulmonary infiltrate, probably congestive heart failure. Aspiration pneumonia is possible with having a small-bowel obstruction. 2. 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 3. Cardiomyopathy. 4. Hypertension. 5. Hyperlipidemia. RECOMMENDATIONS: We will start her on IV cefepime, though we will get BNP to see if probably she has congestive heart failure and may need diuresis. Supportive care and we will continue to follow. Discussion with Dr. Brownlee done. Thank you very much, Dr. Brownlee for giving me opportunity to participate in this patient's care. UGO/ARMANDO DR: Leann TID: [id number]
[2021-04-30] MEDS: ATORVASTATIN CALCIUM 10 MG TABLET. PO SCH (21:00)
[2021-04-30] MEDS: ENOXAPARIN 40 MG/0.4 ML SYRINGE. SQ SCH (21:40)
[2021-04-30] MEDS ORDERED: TOTAL PARENTERAL NUTRITION IV SCH (22:00)
[2021-04-30] MEDS ORDERED: AMINO ACID IV SCH (22:00)
[2021-04-30] MEDS ORDERED: DEXTROSE 70% IV SCH (22:00)
[2021-04-30] MEDS ORDERED: [UNRECOGNIZED DRUG - OTHER] IV SCH (22:00)
[2021-04-30 23:00] VITALS: BP 121/61
[2021-05-01 03:43] VITALS: BP 123/73
[2021-05-01 07:16] VITALS: BP 136/58
[2021-05-01] MEDS: CETIRIZINE HCL 10 MG TABLET. PO SCH (08:34)
[2021-05-01] MEDS: AMIODARONE HCL 200 MG TABLET. PO SCH (08:34)
[2021-05-01] MEDS: CHOLECALCIFEROL (VITAMIN D3) 5,000 UNIT CAPSULE PO SCH (08:34)
[2021-05-01] MEDS: LISINOPRIL 10 MG TABLET PO SCH (08:34)
[2021-05-01] MEDS: ASPIRIN ENTERIC COATED 81 MG TABLET.DR. PO SCH (08:34)
--- NOTE | 2021-05-01 08:42 | PDOC ---
Infectious Disease Note Subjective Subjective pt is feeling better ROS ROS no n/v/d/abd pain Vital Sign Vital Signs Vital Signs Date Time Temp Pulse Resp B/P (MAP) Pulse Ox O2 Delivery O2 Flow Rate FiO2 05/01/21 08:34 64 136/58 05/01/21 07:16 98.5 20 97 Nasal Cannula 5.0 98.5 Physical Exam PHYSICAL EXAM GENERAL: Alert, oriented female, not in distress. VITAL SIGNS: Stable, afebrile. HEENT: NAD. NECK: Supple, no JVP, no lymphadenopathy. LUNGS: Clear. HEART: S1, S2 regular. ABDOMEN: Soft, nontender, no organomegaly. EXTREMITIES: No edema, cyanosis. SKIN: Unremarkable. The patient does have a port in the left upper chest. NEUROLOGIC: The patient is alert, awake, and appropriate. No focal neurologic deficit. Labs Micro Microbiology 04/19/21 Urine Culture - Final, Complete 04/19/21 Antimicrobic Susceptibility - Final, Complete Objective Assessment IMPRESSION: 1. Pulmonary infiltrate, probably congestive heart failure. Aspiration pneumonia is possible with having a small-bowel obstruction. 2. 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 3. Cardiomyopathy. 4. Hypertension. 5. Hyperlipidemia. Plan Plan of Care cont supportive care cont antibiotics JACKI JACKSON MD May 01, 2021 08:42
--- NOTE | 2021-05-01 09:55 | PDOC ---
Date of Service: DATE: 05/01/21 TIME: 09:51 Subjective: Subjective: Feels better today. Reports flatus and stool. No abd pain. Objective: Vital Signs: Vital Signs Date Time Temp Pulse Resp B/P (MAP) Pulse Ox O2 Delivery O2 Flow Rate FiO2 05/01/21 08:34 64 136/58 05/01/21 07:16 98.5 20 97 Nasal Cannula 5.0 98.5 Labs: Clinical history: . 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 SEE COMMENT. Imaging: CXR 04/30 IMPRESSION: 1. Development of bilateral effusions with bilateral infiltrates or edema, worsening compared to the prior exam. 2. Persistent bowel distention in the abdomen. CXR 05/01 pending PE: GEN: NAD LUNGS: diminished, NC 5L HEART: RRR ABD: abd binder, NG bilious NEURO/PSYCH: A & O 3 A/P: S/p ex incisional hernia repair - path noted as above, oncology asked to see Pulm infiltrates COVID negative -- NGT/diet per surgery. Justicifation of Admission Dx: Justifications for Admission: Justification of Admission Dx: Yes LAMINE JESUS May 01, 2021 09:55
[2021-05-01] MEDS: SCOPOLAMINE 1.5MG PATCH. TD SCH (09:57)
[2021-05-01] MEDS: PANTOPRAZOLE IV PUSH 40 MG VIAL. IVP SCH (09:59)
--- NOTE | 2021-05-01 09:59 | NUR ---
ANTELMO following. Discussed with RN, pt can go to [facility] when medically ready. Still has NG. Oncology consulted. [facility] can do TPN. ANTELMO will continue to follow. Addendum: 05/01/21 at 1000 by CONSTANZA RODRIGES Pt will need a repeat COVID PCR closer to discharge.
[2021-05-01] MEDS: CEFEPIME HCL IV Push 1 GM VIAL. IVP SCH ×2 (10:00→22:32)
--- NOTE | 2021-05-01 10:07 | PDOC ---
[employer] PROGRESS NOTE Date of Service DOS: DATE: 05/01/21 TIME: 10:00 Chief Complaint Chief Complaint Large ventral abdominal wall hernia containing large and small bowel loops. Status post exploratory laparotomy with extensive lysis of adhesions 04/25/2021 Breast cancer HX , exploratory laparotomy and ileal right colostomy and excision of intra-abdominal tumor on 10/24/2018. 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 SBO vs ileus--umbilical hernia check SBFT History of Present Illness History of Present Illness Ms Shane is an 85 year old female with past medical history of ovarian cancer presented to ER with the chief complaint of abdominal pain. has known abdominal hernia. and she has had associated abdominal pain on and off for years. Over the last few days pain has become more intense. pain is diffuse but primarily left abd lateral to umbulicus. associated nausea but has no vomiting. / she did have a BM yesterday /SBO vs ileus--umbilical hernia. GI and general surgery consulted. 04/16: Feels better. No abd pain. Less distended. Not passing flatus or stool. No nausea. NGT with minimal output. Discussed with general surgery and GI for SBFT 04/17: Is better no BM or flatus but she thinks things are moving. She wants to get up out of bed but feels very weak. For small bowel follow-through today. Was premedicated. 04/18: Having BM. NG tube in place to clamp. C/o abdominal distention today, but denies abdominal pain. KUB showed diffuse small bowel dilation has mildly decreased 04/19: Patient seen with son at bedside. Doing much better, NG tube removed. Tolerating trial of clears. +Flatus. Appreciate general surgery and GI recommendations. ADAT 04/20: Patient feels well. Passing gas, tolerating full liquid diet. Will advance to regular diabetic diet this evening and see how this is tolerated. 04/21: Some worsening abdominal distention. Reports nausea and vomiting x 2 overnight. Discussed n.p.o. for now. If vomiting continues may need to replace NG tube 04/22: No acute events overnight. Patient did have vomiting over the weekend but did not claim any nausea vomiting overnight. Does endorse bowel movement and passing flatus. 04/23: No acute events overnight. Patient did have an episode of vomiting this morning and vomited all over self unfortunately. Hernia repair with surgery. Potassium low at 2.6. 04/24: No acute events overnight. Plan for OR today for exploratory laparotomy, lysis of adhesions and repair of hernia in AM 04/25: No acute events overnight. No points from patient at this time. No concerns with nursing. To OR for Ex lap with lysis of adhesions and incisional hernia repair 04/26:No acute events overnight. Patient is hemodynamically stable and NG tube is intact. Will start TPN today through port for parental nutrition before advancing diet. 04/27: No acute events overnight. Patient's pain is well controlled. Working well with physical therapy. IV electrolytes replaced. Minimal NG tube drainage of 50 cc. 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 Patient's pain is well controlled. No reports of bowel movement or flatus at this time. NG tube output minimal. Continue PT OT modalities. 04/29: NG tube advanced with good position KUB with stool significant abdominal distention. Not passing flatus or BM. Pain is well controlled with morphine MECHANICAL TEST ENGINEER. Working well with PT. 04/30: Afebrile. NG tube in good position. Not passing flatus. Ambulating well. Pain well controlled. More hypoxic, seen by pulmonology and ID, given lasix, improved. 2 bowel movements overnight. Feeling better after diuresis with lasix per pulmonology. No CP or SOB. Passing flatus currently. Labs pending. Vitals/I&O Vitals/I&O: Vital Signs Date Time Temp Pulse Resp B/P (MAP) Pulse Ox O2 Delivery O2 Flow Rate FiO2 05/01/21 08:34 64 136/58 05/01/21 07:16 98.5 20 97 Nasal Cannula 5.0 98.5 I & O 04/30/21 04/30/21 05/01/21 15:00 23:00 07:00 Intake Total 0 ml 0 ml 300 ml Output Total 125 ml 101 ml Balance 0 ml -125 ml 199 ml Physical Exam Physical Exam: GENERAL: Alert, oriented female, not in distress. VITAL SIGNS: Stable, afebrile. HEENT: NAD. NECK: Supple, no JVP, no lymphadenopathy. LUNGS: Clear. HEART: S1, S2 regular. ABDOMEN: Soft, nontender, no organomegaly. EXTREMITIES: No edema, cyanosis. SKIN: Unremarkable. The patient does have a port in the left upper chest. NEUROLOGIC: The patient is alert, awake, and appropriate. No focal neurologic deficit. General: Alert, Cooperative Heart: Regular rate Lungs: Clear Abdomen: Soft Extremities: Other (dressing dry) Skin: No rashes Comment Review of Relevant I have reviewed the following items arabella (where applicable) has been applied. Medications: Current Medications Medications (Trade) Dose Ordered Sig/Pedro Route PRN Reason Start Time Stop Time Status Last Admin Dose Admin Cefepime HCl (Maxipime) 1 gm Q12HR IVP 04/30/21 12:00 04/30/21 21:41 Sodium Chloride 90 meq/Potassium Chloride 50 meq/ Magnesium Sulfate 8 meq/Calcium Gluconate 10 meq/ Multivitamins 5 ml/Zinc/Copper/ Manganese/ Selenium 1 ml/ Potassium Phosphate 13.6 mmol/Total Parenteral Nutrition/Amino Acids/Dextrose/ Fat Emulsion Intravenous 1,512 ml @ 63 mls/hr TPN CONT IV 04/30/21 22:00 05/01/21 21:59 04/30/21 21:41 Furosemide (Lasix) 40 mg 1X ONCE IVP 04/30/21 17:15 04/30/21 17:16 DC 04/30/21 18:20 Justifications for Admission Other Justification ABDOMINAL PAIN TRISTIN NATH MD May 01, 2021 10:07
--- NOTE | 2021-05-01 10:50 | PDOC ---
PULMONARY PROGRESS NOTES DATE: 05/01/21 TIME: 10:47 Subjective Patient feels much better post diuresis. Remains on nasal cannula Vitals Vital Signs Date Time Temp Pulse Resp B/P (MAP) Pulse Ox O2 Delivery O2 Flow Rate FiO2 05/01/21 08:34 64 136/58 05/01/21 07:16 98.5 20 97 Nasal Cannula 5.0 98.5 General: Alert, No acute distress Lungs: Other (Decreased at the bases posteriorly) Cardiovascular: S1 Abdomen: Soft, Other (Distended) Extremities: No Edema Skin: Warm Labs Laboratory Tests Test 04/29/21 11:00 04/30/21 05:40 White Blood Count 10.3 x10^3/uL (4.0-11.0) 7.6 x10^3/uL (4.0-11.0) Red Blood Count 3.60 x10^6/uL (3.50-5.40) 3.68 x10^6/uL (3.50-5.40) Hemoglobin 11.7 g/dL (12.0-15.5) 11.9 g/dL (12.0-15.5) Hematocrit 34.6 % (36.0-47.0) 36.3 % (36.0-47.0) Mean Corpuscular Volume 96 fL (79-100) 99 fL (79-100) Mean Corpuscular Hemoglobin 33 pg (25-35) 32 pg (25-35) Mean Corpuscular Hemoglobin Concent 34 g/dL (31-37) 33 g/dL (31-37) Red Cell Distribution Width 14.3 % (11.5-14.5) 14.3 % (11.5-14.5) Platelet Count 209 x10^3/uL (140-400) 170 x10^3/uL (140-400) Neutrophils (%) (Auto) 84 % (31-73) 73 % (31-73) Lymphocytes (%) (Auto) 10 % (24-48) 17 % (24-48) Monocytes (%) (Auto) 6 % (0-9) 9 % (0-9) Eosinophils (%) (Auto) 1 % (0-3) 2 % (0-3) Basophils (%) (Auto) 0 % (0-3) 0 % (0-3) Neutrophils # (Auto) 8.6 x10^3/uL (1.8-7.7) 5.5 x10^3/uL (1.8-7.7) Lymphocytes # (Auto) 1.0 x10^3/uL (1.0-4.8) 1.3 x10^3/uL (1.0-4.8) Monocytes # (Auto) 0.6 x10^3/uL (0.0-1.1) 0.7 x10^3/uL (0.0-1.1) Eosinophils # (Auto) 0.1 x10^3/uL (0.0-0.7) 0.1 x10^3/uL (0.0-0.7) Basophils # (Auto) 0.0 x10^3/uL (0.0-0.2) 0.0 x10^3/uL (0.0-0.2) Sodium Level 141 mmol/L (136-145) 140 mmol/L (136-145) Potassium Level 3.8 mmol/L (3.5-5.1) 4.8 mmol/L (3.5-5.1) Chloride Level 108 mmol/L (98-107) 107 mmol/L (98-107) Carbon Dioxide Level 28 mmol/L (21-32) 27 mmol/L (21-32) Anion Gap 5 (6-14) 6 (6-14) Blood Urea Nitrogen 13 mg/dL (7-20) 14 mg/dL (7-20) Creatinine 0.7 mg/dL (0.6-1.0) 0.7 mg/dL (0.6-1.0) Estimated GFR (Cockcroft-Gault) 96.0 96.0 Glucose Level 149 mg/dL (70-99) 136 mg/dL (70-99) Calcium Level 8.3 mg/dL (8.5-10.1) 8.5 mg/dL (8.5-10.1) Phosphorus Level 2.8 mg/dL (2.6-4.7) 3.3 mg/dL (2.6-4.7) Magnesium Level 1.9 mg/dL (1.8-2.4) 2.2 mg/dL (1.8-2.4) BUN/Creatinine Ratio 20 (6-20) Total Bilirubin 0.2 mg/dL (0.2-1.0) Aspartate Amino Transf (AST/SGOT) 5 U/L (15-37) Alanine Aminotransferase (ALT/SGPT) 10 U/L (14-59) Alkaline Phosphatase 92 U/L (46-116) LU-Uhw-M-Type Natriuretic Peptide 639 pg/mL (0-449) Total Protein 5.5 g/dL (6.4-8.2) Albumin 1.6 g/dL (3.4-5.0) Albumin/Globulin Ratio 0.4 (1.0-1.7) Medications Active Scripts Medications Dose Route/Sig Max Daily Dose Days Date Category Loratadine 10 Mg Tablet 1 Tab PO DAILY 07/14/19 Reported Klor-Con M20 (Potassium Chloride) 20 Meq Tab.er.prt 1 Tab PO DAILY 30 07/14/19 Reported Percocet 5-325 Mg Tablet (Oxycodone/Acetaminophen) 1 Each Tablet 1 Tab PO PRN Q4HRS PRN 11/01/18 Reported Pravastatin Sodium 40 Mg Tablet 1 Tab PO QHS 10/22/18 Reported Lisinopril 10 Mg Tablet 1 Tab PO DAILY 10/22/18 Reported Vitamin D3 (Cholecalciferol (Vitamin D3)) 5,000 Unit Tablet 1 Tab PO QODAY 10/22/18 Reported Aspirin Ec (Aspirin) 81 Mg Tablet.dr 1 Tab PO DAILY 10/22/18 Reported Cartia Xt (Diltiazem Hcl) 120 Mg Cap.er.24h 120 Mg PO DAILY 10/22/18 Reported Amiodarone Hcl 200 Mg Tablet 0.5 Tab PO DAILY 10/22/18 Reported Protonix (Pantoprazole Sodium) 20 Mg Tablet.dr 40 Mg PO DAILY PRN 14 10/22/18 Reported Comments Chest x-ray reviewed 05/01/2021 Improving basal effusions Impression . 1. 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 She likely has increased interstitial edema from receiving fluids via TPN as well as severely low oncotic pressure. 2. Status post exploratory laparotomy with lysis of adhesions and biopsy of mesenteric mass. 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 3. No significant tobacco history. 4. Severe protein calorie malnutrition. 5. No significant leukocytosis. Plan . 1. Wean FiO2. Keep saturation 92 and above. 2. Incentive spirometry. 3. Chest x-ray post diuresis 05/01/2021 shows improved basal effusion 4. P.r.n. nebulizer treatment. 5. Follow Oncology and General Surgery recommendations. 6. Discussed with patient's at the bedside 7. Continue Lovenox for DVT prophylaxis. MAIRA BUCHANAN MD May 01, 2021 10:50
[2021-05-01 11:05] VITALS: BP 131/60
--- NOTE | 2021-05-01 11:52 | RAD ---
EXAM: AP View of the chest DATE: 05/01/2021 7:43 AM INDICATION: Reason: CHF/ post diuresis / Spl. Instructions: / History: COMPARISON: 04/30/2021 11/29/2018 FINDINGS: The heart is not enlarged. Left port tip terminates within the distal SVC/right atrium. NG tube tip p rojects over the body of the stomach. Aorta is tortuous. Prominence of the superior mediastinum likely related to low lung volumes and port able technique. Azygous fissure is incidentally seen. Bilateral perihilar and lung base airspace opac ities are grossly stable accounting for differences in technique. Trace pleural effusions. No pneumothorax. Chronic changes of the shoulders bilaterally. Prominent loops of small bowel in the upper abdomen par tially profiled. IMPRESSION: Support lines and tubes as above. Bilateral parenchymal opacities and pleural effusions are grossly stable. Electronically signed by: Jessee Gonzalez MD (05/01/2021 11:50 AM) [id number]
[2021-05-01 12:51] LABS: ALBUMIN 1.8 g/dL (3.4-5.0); ALBUMIN/GLOBULIN RATIO 0.4 (1.0-1.7); CALCIUM 8.6 mg/dL (8.5-10.1); CREATININE 0.7 mg/dL (0.6-1.0); POTASSIUM 4.4 mmol/L (3.5-5.1); TOTAL BILIRUBIN 0.5 mg/dL (0.2-1.0); TOTAL PROTEIN 6.1 g/dL (6.4-8.2)
--- NOTE | 2021-05-01 13:11 | PATHOLOGY ---
Note [facility] Accession Number: [id number] TESTS RESULT FLAG UNITS REF RANGE LAB Clinician Provided Cytology Information No. of containers..01 Other (Miscellaneous) Source: 01 ABDOMINAL FLUID DIAGNOSIS: 02 ABDOMINAL FLUID INCONCLUSIVE. FEW CLUSTERS OF ATYPICAL CELLS PRESENT WITHIN A BACKGROUND OF MESOTHELIAL CELLS AND FEW INFLAMMATORY CELLS - NOT DIAGNOSTIC OF MALIGNANCY. Signed out by: 02 Justin Connell MD, Pathologist NPI- [id number] Performed by: Anel Solorio, Grain Cleaner And Transfer Operator ([facility]) Gross description: 01 5ML, CLR SLGT YELLOW, 1 TP /LCS 04/29/2021 1545 Local FLAG LEGEND: L-Low Normal,H-High Normal,LL-Alert Low,HH-Alert High <-Panic Low,>-Panic High,A-Abnormal,AA-Critical Abnormal Performed at: 01 [facility] [address] [place] [address] Pasha Kimball MD, 02 [facility] [address] [place] [address] Justin Connell MD, Specimen Comment: A courtesy copy of this report has been sent to [phone], [phone] Specimen Comment: [id number], Specimen Comment: Report sent to , DR SHEEHAN / [address] Specimen Comment: A duplicate report has been generated due to demographic updates. Performed at: [address], [place], [place] [id number] MD Pasha Kimball MD Phone: [phone]
[2021-05-01] MEDS: TPN PER PHARMACY MC PRN (13:31)
--- NOTE | 2021-05-01 13:36 | NUR ---
Pharmacy TPN Dosing Note S: FEARS,KAYLEY Johnson is a 85 year old F Currently receiving Central Continuous TPN started 04/26/21 B:Pertinent PMH: SBO s/p xlap Current diet: NPO LABS: Sodium: 140 Potassium: 4.4 Chloride: 102 Calcium: 8.6 Corrected Calcium: 10.36 Magnesium: 2.2 CO2: 36 SCr: 0.7 Glucose: 122 Albumin: 1.8 AST: 29 ALT: 36 TPN FORMULA: TPN TYPE: Central Continuous AMINO ACIDS: 60 gm DEXTROSE: 195 gm LIPIDS: 20 gm SODIUM CHLORIDE: 90 mEq SODIUM ACETATE: - mEq SODIUM PHOSPHATE: - mmol POTASSIUM CHLORIDE: 50 mEq POTASSIUM ACETATE: - mEq POTASSIUM PHOSPHATE: 13.6 mmol MAGNESIUM: 8 mEq CALCIUM: 10 mEq INSULIN: - units MULTIPLE VITAMIN: 5 ml TRACE ELEMENTS: 1 ml(s) TPN PLAN: 05/01 CONT SAME TPN R: Continue TPN Will monitor electrolytes, glucose, and tolerance to TPN. MARTHA GAOAN [facility], 05/01/21 0660
--- NOTE | 2021-05-01 14:06 | PDOC ---
SURGICAL PROGRESS NOTE DATE: 05/01/21 TIME: 14:05 Subjective Pt reports doing well, denies significant pain, passing flatus and stools Vital Signs Vital Signs Date Time Temp Pulse Resp B/P (MAP) Pulse Ox O2 Delivery O2 Flow Rate FiO2 05/01/21 11:05 98.2 18 131/60 (83) 99 Ventilator 5.0 98.2 05/01/21 08:34 64 I&O Intake and Output 05/01/21 07:00 Intake Total 300 ml Output Total 226 ml Balance 74 ml Intake Oral 0 ml Blood Product IV Normal Saline Flush 300 ml Stool Total 1 ml Gastric Drainage Total 125 ml Drainage Total 100 ml # Voids 6 General: Alert, Oriented X3, Cooperative, No acute distress Abdomen: Soft, No tenderness Labs Laboratory Tests Test 04/30/21 05:40 05/01/21 12:10 White Blood Count 7.6 x10^3/uL (4.0-11.0) Red Blood Count 3.68 x10^6/uL (3.50-5.40) Hemoglobin 11.9 g/dL (12.0-15.5) Hematocrit 36.3 % (36.0-47.0) Mean Corpuscular Volume 99 fL (79-100) Mean Corpuscular Hemoglobin 32 pg (25-35) Mean Corpuscular Hemoglobin Concent 33 g/dL (31-37) Red Cell Distribution Width 14.3 % (11.5-14.5) Platelet Count 170 x10^3/uL (140-400) Neutrophils (%) (Auto) 73 % (31-73) Lymphocytes (%) (Auto) 17 % (24-48) Monocytes (%) (Auto) 9 % (0-9) Eosinophils (%) (Auto) 2 % (0-3) Basophils (%) (Auto) 0 % (0-3) Neutrophils # (Auto) 5.5 x10^3/uL (1.8-7.7) Lymphocytes # (Auto) 1.3 x10^3/uL (1.0-4.8) Monocytes # (Auto) 0.7 x10^3/uL (0.0-1.1) Eosinophils # (Auto) 0.1 x10^3/uL (0.0-0.7) Basophils # (Auto) 0.0 x10^3/uL (0.0-0.2) Sodium Level 140 mmol/L (136-145) 140 mmol/L (136-145) Potassium Level 4.8 mmol/L (3.5-5.1) 4.4 mmol/L (3.5-5.1) Chloride Level 107 mmol/L (98-107) 102 mmol/L (98-107) Carbon Dioxide Level 27 mmol/L (21-32) 36 mmol/L (21-32) Anion Gap 6 (6-14) 2 (6-14) Blood Urea Nitrogen 14 mg/dL (7-20) 16 mg/dL (7-20) Creatinine 0.7 mg/dL (0.6-1.0) 0.7 mg/dL (0.6-1.0) Estimated GFR (Cockcroft-Gault) 96.0 96.0 BUN/Creatinine Ratio 20 (6-20) 23 (6-20) Glucose Level 136 mg/dL (70-99) 122 mg/dL (70-99) Calcium Level 8.5 mg/dL (8.5-10.1) 8.6 mg/dL (8.5-10.1) Phosphorus Level 3.3 mg/dL (2.6-4.7) Magnesium Level 2.2 mg/dL (1.8-2.4) Total Bilirubin 0.2 mg/dL (0.2-1.0) 0.5 mg/dL (0.2-1.0) Aspartate Amino Transf (AST/SGOT) 5 U/L (15-37) 29 U/L (15-37) Alanine Aminotransferase (ALT/SGPT) 10 U/L (14-59) 36 U/L (14-59) Alkaline Phosphatase 92 U/L (46-116) 113 U/L (46-116) YT-Cjz-K-Type Natriuretic Peptide 639 pg/mL (0-449) Total Protein 5.5 g/dL (6.4-8.2) 6.1 g/dL (6.4-8.2) Albumin 1.6 g/dL (3.4-5.0) 1.8 g/dL (3.4-5.0) Albumin/Globulin Ratio 0.4 (1.0-1.7) 0.4 (1.0-1.7) Triglycerides Level 134 mg/dL (0-150) Laboratory Tests Test 05/01/21 12:10 Sodium Level 140 mmol/L (136-145) Potassium Level 4.4 mmol/L (3.5-5.1) Chloride Level 102 mmol/L (98-107) Carbon Dioxide Level 36 mmol/L (21-32) Anion Gap 2 (6-14) Blood Urea Nitrogen 16 mg/dL (7-20) Creatinine 0.7 mg/dL (0.6-1.0) Estimated GFR (Cockcroft-Gault) 96.0 BUN/Creatinine Ratio 23 (6-20) Glucose Level 122 mg/dL (70-99) Calcium Level 8.6 mg/dL (8.5-10.1) Total Bilirubin 0.5 mg/dL (0.2-1.0) Aspartate Amino Transf (AST/SGOT) 29 U/L (15-37) Alanine Aminotransferase (ALT/SGPT) 36 U/L (14-59) Alkaline Phosphatase 113 U/L (46-116) Total Protein 6.1 g/dL (6.4-8.2) Albumin 1.8 g/dL (3.4-5.0) Albumin/Globulin Ratio 0.4 (1.0-1.7) Triglycerides Level 134 mg/dL (0-150) Problem List s/p xlap OOB will clamp NGT and try clears check KUB in AM Justicifation of Admission Dx: Justifications for Admission: Justification of Admission Dx: Yes JOSE VIERA MD May 01, 2021 14:06
[2021-05-01 15:06] VITALS: BP 120/74
[2021-05-01 19:47] VITALS: BP 117/53
[2021-05-01] MEDS: ATORVASTATIN CALCIUM 10 MG TABLET. PO SCH (21:00)
[2021-05-01] MEDS ORDERED: [UNRECOGNIZED DRUG - OTHER] IV SCH (22:00)
[2021-05-01] MEDS ORDERED: AMINO ACID IV SCH (22:00)
[2021-05-01] MEDS ORDERED: TOTAL PARENTERAL NUTRITION IV SCH (22:00)
[2021-05-01] MEDS ORDERED: DEXTROSE 70% IV SCH (22:00)
[2021-05-01] MEDS: ENOXAPARIN 40 MG/0.4 ML SYRINGE. SQ SCH (22:42)
[2021-05-01 23:58] VITALS: BP 123/56
[2021-05-02 03:48] VITALS: BP 124/51
--- NOTE | 2021-05-02 07:12 | PDOC ---
Infectious Disease Note Subjective Subjective pt is feeling better, on liquid diet ROS ROS no n/v/d/sob Vital Sign Vital Signs Vital Signs Date Time Temp Pulse Resp B/P (MAP) Pulse Ox O2 Delivery O2 Flow Rate FiO2 05/02/21 03:48 98.1 63 18 124/51 (75) 96 Room Air 98.1 05/01/21 20:00 5.0 Physical Exam PHYSICAL EXAM GENERAL: Alert, oriented female, not in distress. VITAL SIGNS: Stable, afebrile. HEENT: NAD. NECK: Supple, no JVP, no lymphadenopathy. LUNGS: Clear. HEART: S1, S2 regular. ABDOMEN: Soft, nontender, no organomegaly. EXTREMITIES: No edema, cyanosis. SKIN: Unremarkable. The patient does have a port in the left upper chest. NEUROLOGIC: The patient is alert, awake, and appropriate. No focal neurologic deficit. Labs Lab Laboratory Tests Test 05/01/21 12:10 Sodium Level 140 mmol/L (136-145) Potassium Level 4.4 mmol/L (3.5-5.1) Chloride Level 102 mmol/L (98-107) Carbon Dioxide Level 36 mmol/L (21-32) Anion Gap 2 (6-14) Blood Urea Nitrogen 16 mg/dL (7-20) Creatinine 0.7 mg/dL (0.6-1.0) Estimated GFR (Cockcroft-Gault) 96.0 BUN/Creatinine Ratio 23 (6-20) Glucose Level 122 mg/dL (70-99) Calcium Level 8.6 mg/dL (8.5-10.1) Total Bilirubin 0.5 mg/dL (0.2-1.0) Aspartate Amino Transf (AST/SGOT) 29 U/L (15-37) Alanine Aminotransferase (ALT/SGPT) 36 U/L (14-59) Alkaline Phosphatase 113 U/L (46-116) Total Protein 6.1 g/dL (6.4-8.2) Albumin 1.8 g/dL (3.4-5.0) Albumin/Globulin Ratio 0.4 (1.0-1.7) Triglycerides Level 134 mg/dL (0-150) Micro Microbiology 04/19/21 Urine Culture - Final, Complete 04/19/21 Antimicrobic Susceptibility - Final, Complete Objective Assessment IMPRESSION: 1. Pulmonary infiltrate, probably congestive heart failure. Aspiration pneumonia is possible with having a small-bowel obstruction. 2. 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 3. Cardiomyopathy. 4. Hypertension. 5. Hyperlipidemia. Plan Plan of Care cont supportive care cont antibiotics soon to change to po once NG out and on regular diet JACKI JACKSON MD May 02, 2021 07:12
[2021-05-02 07:15] VITALS: BP_SYST 12; BP_SYST 120; BP_DIAS 55
--- NOTE | 2021-05-02 08:21 | PDOC ---
[employer] PROGRESS NOTE Date of Service DOS: DATE: 05/02/21 TIME: 08:20 Chief Complaint Chief Complaint Large ventral abdominal wall hernia containing large and small bowel loops. Status post exploratory laparotomy with extensive lysis of adhesions 04/25/2021 Breast cancer HX , exploratory laparotomy and ileal right colostomy and excision of intra-abdominal tumor on 10/24/2018. 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 SBO vs ileus--umbilical hernia check SBFT Metatstatic cancer - ovarian origin per pathology from ex-lap. Oncology consulted. History of Present Illness History of Present Illness Ms Shane is an 85 year old female with past medical history of ovarian cancer presented to ER with the chief complaint of abdominal pain. has known abdominal hernia. and she has had associated abdominal pain on and off for years. Over the last few days pain has become more intense. pain is diffuse but primarily left abd lateral to umbulicus. associated nausea but has no vomiting. / she did have a BM yesterday /SBO vs ileus--umbilical hernia. GI and general surgery consulted. 04/16: Feels better. No abd pain. Less distended. Not passing flatus or stool. No nausea. NGT with minimal output. Discussed with general surgery and GI for SBFT 04/17: Is better no BM or flatus but she thinks things are moving. She wants to get up out of bed but feels very weak. For small bowel follow-through today. Was premedicated. 04/18: Having BM. NG tube in place to clamp. C/o abdominal distention today, but denies abdominal pain. KUB showed diffuse small bowel dilation has mildly decreased 04/19: Patient seen with son at bedside. Doing much better, NG tube removed. Tolerating trial of clears. +Flatus. Appreciate general surgery and GI recommendations. ADAT 04/20: Patient feels well. Passing gas, tolerating full liquid diet. Will advance to regular diabetic diet this evening and see how this is tolerated. 04/21: Some worsening abdominal distention. Reports nausea and vomiting x 2 ove rnight. Discussed n.p.o. for now. If vomiting continues may need to replace NG tube 04/22: No acute events overnight. Patient did have vomiting over the weekend but did not claim any nausea vomiting overnight. Does endorse bowel movement and passing flatus. 04/23: No acute events overnight. Patient did have an episode of vomiting this morning and vomited all over self unfortunately. Hernia repair with surgery. Potassium low at 2.6. 04/24: No acute events overnight. Plan for OR today for exploratory laparotomy, lysis of adhesions and repair of hernia in AM 04/25: No acute events overnight. No points from patient at this time. No c oncerns with nursing. To OR for Ex lap with lysis of adhesions and incisional hernia repair 04/26:No acute events overnight. Patient is hemodynamically stable and NG tube is intact. Will start TPN today through port for parental nutrition before advancing diet. 04/27: No acute events overnight. Patient's pain is well controlled. Working well with physical therapy. IV electrolytes replaced. Minimal NG tube drainage of 50 cc. ANIMAL THERAPIST pain control 04/28: No acute events overnight. Patient's pain is well controlled. No reports of bowel movement or flatus at this time. NG tube output minimal. Continue PT OT modalities. 04/29: NG tube advanced with good position KUB with stool significant abdominal distention. Not passing flatus or BM. Pain is well controlled with morphine ANIMAL THERAPIST. Working with PT. 04/30: Afebrile. NG tube in good position. Not passing flatus. Ambulating well. Pain well controlled. More hypoxic, seen by pulmonology and ID, given lasix, improved. 05/01: 2 bowel movements overnight. Feeling better after diuresis with lasix per pulmonology. No CP or SOB. Passing flatus currently. Labs stable. Afebrile. NG tube in good position having stools eating Jell-O. Able to ambulate. Discussed pathology concerning for ovarian neoplasm with patient she seems forgetful about these discussions. Vitals/I&O Vitals/I&O: Vital Signs Date Time Temp Pulse Resp B/P (MAP) Pulse Ox O2 Delivery O2 Flow Rate FiO2 05/02/21 03:48 98.1 63 18 124/51 (75) 96 Room Air 98.1 05/01/21 20:00 5.0 I & O 05/01/21 05/01/21 05/02/21 15:00 23:00 07:00 Intake Total 0 ml Output Total 2 ml Balance -2 ml Physical Exam Physical Exam: GENERAL: Alert, oriented female, not in distress. VITAL SIGNS: Stable, afebrile. HEENT: NAD. NECK: Supple, no JVP, no lymphadenopathy. LUNGS: Clear. HEART: S1, S2 regular. ABDOMEN: Soft, nontender, no organomegaly. EXTREMITIES: No edema, cyanosis. SKIN: Unremarkable. The patient does have a port in the left upper chest. NEUROLOGIC: The patient is alert, awake, and appropriate. No focal neurologic deficit. General: Alert, Oriented X3, Cooperative, No acute distress Heart: Regular rate Lungs: Other (Decreased at the bases posteriorly) Abdomen: Soft, No tenderness Extremities: Other (dressing dry) Skin: No rashes Labs Labs: Laboratory Tests Test 05/01/21 12:10 Sodium Level 140 mmol/L (136-145) Potassium Level 4.4 mmol/L (3.5-5.1) Chloride Level 102 mmol/L (98-107) Carbon Dioxide Level 36 mmol/L (21-32) Anion Gap 2 (6-14) Blood Urea Nitrogen 16 mg/dL (7-20) Creatinine 0.7 mg/dL (0.6-1.0) Estimated GFR (Cockcroft-Gault) 96.0 BUN/Creatinine Ratio 23 (6-20) Glucose Level 122 mg/dL (70-99) Calcium Level 8.6 mg/dL (8.5-10.1) Total Bilirubin 0.5 mg/dL (0.2-1.0) Aspartate Amino Transf (AST/SGOT) 29 U/L (15-37) Alanine Aminotransferase (ALT/SGPT) 36 U/L (14-59) Alkaline Phosphatase 113 U/L (46-116) Total Protein 6.1 g/dL (6.4-8.2) Albumin 1.8 g/dL (3.4-5.0) Albumin/Globulin Ratio 0.4 (1.0-1.7) Triglycerides Level 134 mg/dL (0-150) Comment Review of Relevant I have reviewed the following items arabella (where applicable) has been applied. Medications: Current Medications Medications (Trade) Dose Ordered Sig/Pedro Route PRN Reason Start Time Stop Time Status Last Admin Dose Admin Sodium Chloride 90 meq/Potassium Chloride 50 meq/ Potassium Phosphate 13.6 mmol/Magnesium Sulfate 8 meq/ Calcium Gluconate 10 meq/ Multivitamins 5 ml/Zinc/Copper/ Manganese/ Selenium 1 ml/ Total Parenteral Nutrition/Amino Acids/Dextrose/ Fat Emulsion Intravenous 1,512 ml @ 63 mls/hr TPN CONT IV 05/01/21 22:00 05/02/21 21:59 05/01/21 22:10 Justifications for Admission Other Justification ABDOMINAL PAIN TRISTIN NATH MD May 02, 2021 08:21
[2021-05-02] MEDS: PANTOPRAZOLE IV PUSH 40 MG VIAL. IVP SCH (08:40)
[2021-05-02] MEDS: CEFEPIME HCL IV Push 1 GM VIAL. IVP SCH ×2 (08:40→21:23)
[2021-05-02] MEDS: AMIODARONE HCL 200 MG TABLET. PO SCH (09:00)
[2021-05-02] MEDS: ASPIRIN ENTERIC COATED 81 MG TABLET.DR. PO SCH (09:00)
[2021-05-02] MEDS: CETIRIZINE HCL 10 MG TABLET. PO SCH (09:00)
[2021-05-02] MEDS: LISINOPRIL 10 MG TABLET PO SCH (09:00)
--- NOTE | 2021-05-02 09:10 | PDOC ---
PULMONARY PROGRESS NOTES DATE: 05/02/21 TIME: 09:10 Subjective Patient feels much better post diuresis. Remains on nasal cannula Vitals Vital Signs Date Time Temp Pulse Resp B/P (MAP) Pulse Ox O2 Delivery O2 Flow Rate FiO2 05/02/21 07:15 97.9 65 24 12/55 (41) 95 Room Air 97.9 05/01/21 20:00 5.0 General: Alert, No acute distress Lungs: Other (Decreased at the bases posteriorly) Cardiovascular: S1 Abdomen: Soft, Other (Distended) Extremities: No Edema Skin: Warm Labs Laboratory Tests Test 05/01/21 12:10 Sodium Level 140 mmol/L (136-145) Potassium Level 4.4 mmol/L (3.5-5.1) Chloride Level 102 mmol/L (98-107) Carbon Dioxide Level 36 mmol/L (21-32) Anion Gap 2 (6-14) Blood Urea Nitrogen 16 mg/dL (7-20) Creatinine 0.7 mg/dL (0.6-1.0) Estimated GFR (Cockcroft-Gault) 96.0 BUN/Creatinine Ratio 23 (6-20) Glucose Level 122 mg/dL (70-99) Calcium Level 8.6 mg/dL (8.5-10.1) Total Bilirubin 0.5 mg/dL (0.2-1.0) Aspartate Amino Transf (AST/SGOT) 29 U/L (15-37) Alanine Aminotransferase (ALT/SGPT) 36 U/L (14-59) Alkaline Phosphatase 113 U/L (46-116) Total Protein 6.1 g/dL (6.4-8.2) Albumin 1.8 g/dL (3.4-5.0) Albumin/Globulin Ratio 0.4 (1.0-1.7) Triglycerides Level 134 mg/dL (0-150) Laboratory Tests Test 05/01/21 12:10 Sodium Level 140 mmol/L (136-145) Potassium Level 4.4 mmol/L (3.5-5.1) Chloride Level 102 mmol/L (98-107) Carbon Dioxide Level 36 mmol/L (21-32) Anion Gap 2 (6-14) Blood Urea Nitrogen 16 mg/dL (7-20) Creatinine 0.7 mg/dL (0.6-1.0) Estimated GFR (Cockcroft-Gault) 96.0 BUN/Creatinine Ratio 23 (6-20) Glucose Level 122 mg/dL (70-99) Calcium Level 8.6 mg/dL (8.5-10.1) Total Bilirubin 0.5 mg/dL (0.2-1.0) Aspartate Amino Transf (AST/SGOT) 29 U/L (15-37) Alanine Aminotransferase (ALT/SGPT) 36 U/L (14-59) Alkaline Phosphatase 113 U/L (46-116) Total Protein 6.1 g/dL (6.4-8.2) Albumin 1.8 g/dL (3.4-5.0) Albumin/Globulin Ratio 0.4 (1.0-1.7) Triglycerides Level 134 mg/dL (0-150) Medications Active Scripts Medications Dose Route/Sig Max Daily Dose Days Date Category Loratadine 10 Mg Tablet 1 Tab PO DAILY 07/14/19 Reported Klor-Con M20 (Potassium Chloride) 20 Meq Tab.er.prt 1 Tab PO DAILY 30 07/14/19 Reported Percocet 5-325 Mg Tablet (Oxycodone/Acetaminophen) 1 Each Tablet 1 Tab PO PRN Q4HRS PRN 11/01/18 Reported Pravastatin Sodium 40 Mg Tablet 1 Tab PO QHS 10/22/18 Reported Lisinopril 10 Mg Tablet 1 Tab PO DAILY 10/22/18 Reported Vitamin D3 (Cholecalciferol (Vitamin D3)) 5,000 Unit Tablet 1 Tab PO QODAY 10/22/18 Reported Aspirin Ec (Aspirin) 81 Mg Tablet.dr 1 Tab PO DAILY 10/22/18 Reported Cartia Xt (Diltiazem Hcl) 120 Mg Cap.er.24h 120 Mg PO DAILY 10/22/18 Reported Amiodarone Hcl 200 Mg Tablet 0.5 Tab PO DAILY 10/22/18 Reported Protonix (Pantoprazole Sodium) 20 Mg Tablet.dr 40 Mg PO DAILY PRN 14 10/22/18 Reported Comments Chest x-ray reviewed 05/01/2021 Improving basal effusions Impression . 1. 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 She likely has increased interstitial edema from receiving fluids via TPN as well as severely low oncotic pressure. 2. Status post exploratory laparotomy with lysis of adhesions and biopsy of mesenteric mass. 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 3. No significant tobacco history. 4. Severe protein calorie malnutrition. 5. No significant leukocytosis. Plan . 1. Wean FiO2. Keep saturation 92 and above. 2. Incentive spirometry. 3. Chest x-ray post diuresis 05/01/2021 shows improved basal effusion 4. P.r.n. nebulizer treatment. 5. Follow Oncology and General Surgery recommendations. 6. Discussed with patient's at the bedside 7. Continue Lovenox for DVT prophylaxis. MAIRA BUCHANAN MD May 02, 2021 09:10
[2021-05-02 09:24] LABS: CALCIUM 8.4 mg/dL (8.5-10.1); CREATININE 0.7 mg/dL (0.6-1.0); POTASSIUM 4.2 mmol/L (3.5-5.1)
--- NOTE | 2021-05-02 10:35 | RAD ---
2 views of the abdomen 05/02/2021 INDICATION: Small bowel obstruction COMPARISON STUDY: KUB April 29, 2021 FINDINGS: 2 views of the abdomen demonstrate an enteric tube extending into the expected region of th e stomach. Bilateral pulmonary infiltrates and a small left pleural effusion noted. No gross pneumope ritoneum is identified, though exam limited for that purpose. Multiple dilated loops of small bowel t hroughout the abdomen are seen. Some distal cyst bowel gas appears to be present. The appearance favo rs adynamic ileus or a partial small bowel obstruction. No acute soft tissue changes are appreciated. IMPRESSION: 1. Persistent dilated small bowel throughout the abdomen, with some distal bowel gas, possibly repres enting an adynamic ileus or partial small bowel obstruction 2. Enteric tube extends into the stomach complex region of the stomach 3. Bilateral pulmonary infiltrates and small left pleural effusion Electronically signed by: Damon Alcala MD (05/02/2021 10:33 AM) [id number]
--- NOTE | 2021-05-02 10:40 | PDOC ---
Date of Service: DATE: 05/02/21 TIME: 10:37 Objective: Objective: D/w nurse - tolerating clears, stooling, burping. Vital Signs: Vital Signs Date Time Temp Pulse Resp B/P (MAP) Pulse Ox O2 Delivery O2 Flow Rate FiO2 05/02/21 07:15 97.9 65 24 12/55 (41) 95 Room Air 97.9 05/01/21 20:00 5.0 Imaging: CXR 05/01 IMPRESSION: Support lines and tubes as above. Bilateral parenchymal opacities and pleural effusions are grossly stable. Abd X-Ray 05/02 pending PE: GEN: NAD ABD: NG clamped NEURO/PSYCH: sleeping - not awakened A/P: S/p incisional hernia repair - mesenteric mass biopsy showed metastatic ovarian cancer Resp failure - better COVID negative -- Continue per surgery and others. Justicifation of Admission Dx: Justifications for Admission: Justification of Admission Dx: Yes LAMINE JESUS May 02, 2021 10:40
[2021-05-02 11:15] VITALS: BP 142/52
[2021-05-02] MEDS: TPN PER PHARMACY MC PRN (13:21)
--- NOTE | 2021-05-02 13:27 | NUR ---
Pharmacy TPN Dosing Note S: SARAKAYLEY Mariee is a 85 year old F Currently receiving Central Continuous TPN started 04/26/21 B:Pertinent PMH: SBO s/p xlap Height: 5 feet, 2 inches Weight: 68.725391 kg Current diet: NPO LABS: Sodium: 141 Potassium: 4.2 Chloride: 104 Calcium: 8.4 Corrected Calcium: 10.16 Magnesium: 2.0 CO2: 32 SCr: 0.7 Glucose: 122 Albumin: 1.8 AST: 29 ALT: 36 TPN FORMULA: TPN TYPE: Central Continuous AMINO ACIDS: 60 gm DEXTROSE: 195 gm LIPIDS: 20 gm SODIUM CHLORIDE: 90 mEq SODIUM ACETATE: - mEq SODIUM PHOSPHATE: - mmol POTASSIUM CHLORIDE: 50 mEq POTASSIUM ACETATE: - mEq POTASSIUM PHOSPHATE: 13.6 mmol MAGNESIUM: 8 mEq CALCIUM: 10 mEq INSULIN: - units MULTIPLE VITAMIN: 5 ml TRACE ELEMENTS: 1 ml(s) TPN PLAN: 05/02 TOLERATE CLEAR LIQ DIET. NO CHANGE IN TPN. R: Continue TPN AT 63ML/HR Will monitor electrolytes, glucose, and tolerance to TPN. EMI JACKSON [facility], 05/02/21 [id number]
--- NOTE | 2021-05-02 14:12 | PDOC ---
SURGICAL PROGRESS NOTE DATE: 05/02/21 TIME: 14:11 Subjective tolerating diet, although with NG difficult to swallow jello having stools Vital Signs Vital Signs Date Time Temp Pulse Resp B/P (MAP) Pulse Ox O2 Delivery O2 Flow Rate FiO2 05/02/21 11:15 98.4 64 24 142/52 (82) 96 Room Air 98.4 05/02/21 08:00 5.0 I&O Intake and Output 05/02/21 07:00 Intake Total 0 ml Output Total 2 ml Balance -2 ml Intake Oral 0 ml Stool Total 2 ml # Voids 4 # Bowel Movements 1 General: Alert, Oriented X3, Cooperative Abdomen: Soft, Other (ND) Labs Laboratory Tests Test 05/01/21 12:10 05/02/21 08:00 Sodium Level 140 mmol/L (136-145) 141 mmol/L (136-145) Potassium Level 4.4 mmol/L (3.5-5.1) 4.2 mmol/L (3.5-5.1) Chloride Level 102 mmol/L (98-107) 104 mmol/L (98-107) Carbon Dioxide Level 36 mmol/L (21-32) 32 mmol/L (21-32) Anion Gap 2 (6-14) 5 (6-14) Blood Urea Nitrogen 16 mg/dL (7-20) 18 mg/dL (7-20) Creatinine 0.7 mg/dL (0.6-1.0) 0.7 mg/dL (0.6-1.0) Estimated GFR (Cockcroft-Gault) 96.0 96.0 BUN/Creatinine Ratio 23 (6-20) Glucose Level 122 mg/dL (70-99) 138 mg/dL (70-99) Calcium Level 8.6 mg/dL (8.5-10.1) 8.4 mg/dL (8.5-10.1) Total Bilirubin 0.5 mg/dL (0.2-1.0) Aspartate Amino Transf (AST/SGOT) 29 U/L (15-37) Alanine Aminotransferase (ALT/SGPT) 36 U/L (14-59) Alkaline Phosphatase 113 U/L (46-116) Total Protein 6.1 g/dL (6.4-8.2) Albumin 1.8 g/dL (3.4-5.0) Albumin/Globulin Ratio 0.4 (1.0-1.7) Triglycerides Level 134 mg/dL (0-150) Phosphorus Level 3.0 mg/dL (2.6-4.7) Magnesium Level 2.0 mg/dL (1.8-2.4) Laboratory Tests Test 05/02/21 08:00 Sodium Level 141 mmol/L (136-145) Potassium Level 4.2 mmol/L (3.5-5.1) Chloride Level 104 mmol/L (98-107) Carbon Dioxide Level 32 mmol/L (21-32) Anion Gap 5 (6-14) Blood Urea Nitrogen 18 mg/dL (7-20) Creatinine 0.7 mg/dL (0.6-1.0) Estimated GFR (Cockcroft-Gault) 96.0 Glucose Level 138 mg/dL (70-99) Calcium Level 8.4 mg/dL (8.5-10.1) Phosphorus Level 3.0 mg/dL (2.6-4.7) Magnesium Level 2.0 mg/dL (1.8-2.4) Assessment/Plan remove jordan izaguirre for now Justicifation of Admission Dx: Justifications for Admission: Justification of Admission Dx: Yes ASHLYN MCDANIEL DATA ENTRY REPRESENTATIVE May 02, 2021 14:12
[2021-05-02 15:15] VITALS: BP 125/68
--- NOTE | 2021-05-02 15:41 | NUR ---
AM meds held d/t swallowing risk with NG tube. vital signs stable
[2021-05-02 19:15] VITALS: BP 120/57
[2021-05-02] MEDS: ATORVASTATIN CALCIUM 10 MG TABLET. PO SCH (20:02)
[2021-05-02] MEDS: ENOXAPARIN 40 MG/0.4 ML SYRINGE. SQ SCH (21:23)
[2021-05-02] MEDS ORDERED: DEXTROSE 70% IV SCH (22:00)
[2021-05-02] MEDS ORDERED: [UNRECOGNIZED DRUG - OTHER] IV SCH (22:00)
[2021-05-02] MEDS ORDERED: TOTAL PARENTERAL NUTRITION IV SCH (22:00)
[2021-05-02] MEDS ORDERED: AMINO ACID IV SCH (22:00)
[2021-05-02 23:28] VITALS: BP 136/54
[2021-05-03 02:52] VITALS: BP 143/59
[2021-05-03 07:35] VITALS: BP 137/56
--- NOTE | 2021-05-03 07:56 | PDOC ---
PULMONARY PROGRESS NOTES DATE: 05/03/21 TIME: 07:56 Subjective Patient feels much better post diuresis. Remains on nasal cannula Vitals Vital Signs Date Time Temp Pulse Resp B/P (MAP) Pulse Ox O2 Delivery O2 Flow Rate FiO2 05/03/21 02:52 98.3 63 18 143/59 (87) 96 Nasal Cannula 5.0 98.3 General: Alert, No acute distress Lungs: Other (Decreased at the bases posteriorly) Cardiovascular: S1 Abdomen: Soft, Other (Distended) Extremities: No Edema Skin: Warm Labs Laboratory Tests Test 05/01/21 12:10 05/02/21 08:00 Sodium Level 140 mmol/L (136-145) 141 mmol/L (136-145) Potassium Level 4.4 mmol/L (3.5-5.1) 4.2 mmol/L (3.5-5.1) Chloride Level 102 mmol/L (98-107) 104 mmol/L (98-107) Carbon Dioxide Level 36 mmol/L (21-32) 32 mmol/L (21-32) Anion Gap 2 (6-14) 5 (6-14) Blood Urea Nitrogen 16 mg/dL (7-20) 18 mg/dL (7-20) Creatinine 0.7 mg/dL (0.6-1.0) 0.7 mg/dL (0.6-1.0) Estimated GFR (Cockcroft-Gault) 96.0 96.0 BUN/Creatinine Ratio 23 (6-20) Glucose Level 122 mg/dL (70-99) 138 mg/dL (70-99) Calcium Level 8.6 mg/dL (8.5-10.1) 8.4 mg/dL (8.5-10.1) Total Bilirubin 0.5 mg/dL (0.2-1.0) Aspartate Amino Transf (AST/SGOT) 29 U/L (15-37) Alanine Aminotransferase (ALT/SGPT) 36 U/L (14-59) Alkaline Phosphatase 113 U/L (46-116) Total Protein 6.1 g/dL (6.4-8.2) Albumin 1.8 g/dL (3.4-5.0) Albumin/Globulin Ratio 0.4 (1.0-1.7) Triglycerides Level 134 mg/dL (0-150) Phosphorus Level 3.0 mg/dL (2.6-4.7) Magnesium Level 2.0 mg/dL (1.8-2.4) Laboratory Tests Test 05/02/21 08:00 Sodium Level 141 mmol/L (136-145) Potassium Level 4.2 mmol/L (3.5-5.1) Chloride Level 104 mmol/L (98-107) Carbon Dioxide Level 32 mmol/L (21-32) Anion Gap 5 (6-14) Blood Urea Nitrogen 18 mg/dL (7-20) Creatinine 0.7 mg/dL (0.6-1.0) Estimated GFR (Cockcroft-Gault) 96.0 Glucose Level 138 mg/dL (70-99) Calcium Level 8.4 mg/dL (8.5-10.1) Phosphorus Level 3.0 mg/dL (2.6-4.7) Magnesium Level 2.0 mg/dL (1.8-2.4) Medications Active Scripts Medications Dose Route/Sig Max Daily Dose Days Date Category Loratadine 10 Mg Tablet 1 Tab PO DAILY 07/14/19 Reported Klor-Con M20 (Potassium Chloride) 20 Meq Tab.er.prt 1 Tab PO DAILY 30 07/14/19 Reported Percocet 5-325 Mg Tablet (Oxycodone/Acetaminophen) 1 Each Tablet 1 Tab PO PRN Q4HRS PRN 11/01/18 Reported Pravastatin Sodium 40 Mg Tablet 1 Tab PO QHS 10/22/18 Reported Lisinopril 10 Mg Tablet 1 Tab PO DAILY 10/22/18 Reported Vitamin D3 (Cholecalciferol (Vitamin D3)) 5,000 Unit Tablet 1 Tab PO QODAY 10/22/18 Reported Aspirin Ec (Aspirin) 81 Mg Tablet.dr 1 Tab PO DAILY 10/22/18 Reported Cartia Xt (Diltiazem Hcl) 120 Mg Cap.er.24h 120 Mg PO DAILY 10/22/18 Reported Amiodarone Hcl 200 Mg Tablet 0.5 Tab PO DAILY 10/22/18 Reported Protonix (Pantoprazole Sodium) 20 Mg Tablet.dr 40 Mg PO DAILY PRN 14 10/22/18 Reported Comments Chest x-ray reviewed 05/01/2021 Improving basal effusions Impression . 1. 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 She likely has increased interstitial edema from receiving fluids via TPN as well as severely low oncotic pressure. 2. Status post exploratory laparotomy with lysis of adhesions and biopsy of mesenteric mass. 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 3. No significant tobacco history. 4. Severe protein calorie malnutrition. 5. No significant leukocytosis. Plan . 1. Wean FiO2. Keep saturation 92 and above. 2. Incentive spirometry. 3. Chest x-ray post diuresis 05/01/2021 shows improved basal effusion 4. P.r.n. nebulizer treatment. 5. Follow Oncology and General Surgery recommendations. 6. Discussed with patient's at the bedside 7. Continue Lovenox for DVT prophylaxis. CASSIDY WHEELER MD May 03, 2021 07:56
[2021-05-03 08:33] LABS: CALCIUM 8.7 mg/dL (8.5-10.1); CREATININE 0.6 mg/dL (0.6-1.0); GFR 114.7
[2021-05-03] MEDS: ASPIRIN ENTERIC COATED 81 MG TABLET.DR. PO SCH (10:02)
[2021-05-03] MEDS: PANTOPRAZOLE 40 MG TABLET.DR. PO SCH (10:02)
[2021-05-03] MEDS: AMIODARONE HCL 200 MG TABLET. PO SCH (10:03)
[2021-05-03] MEDS: CETIRIZINE HCL 10 MG TABLET. PO SCH (10:04)
[2021-05-03] MEDS: LISINOPRIL 10 MG TABLET PO SCH (10:04)
[2021-05-03] MEDS: CHOLECALCIFEROL (VITAMIN D3) 5,000 UNIT CAPSULE PO SCH (10:04)
[2021-05-03] MEDS: CEFEPIME HCL IV Push 1 GM VIAL. IVP SCH ×2 (10:05→20:43)
[2021-05-03 11:11] VITALS: BP 143/60
--- NOTE | 2021-05-03 11:14 | PDOC ---
Infectious Disease Note Subjective Subjective pt is feeling better, on liquid diet ROS ROS no n/v/d/sob Vital Sign Vital Signs Vital Signs Date Time Temp Pulse Resp B/P (MAP) Pulse Ox O2 Delivery O2 Flow Rate FiO2 05/03/21 11:11 98.6 72 18 143/60 (87) 96 Nasal Cannula 5.0 98.6 Physical Exam PHYSICAL EXAM GENERAL: Alert, oriented female, not in distress. VITAL SIGNS: Stable, afebrile. HEENT: NAD. NECK: Supple, no JVP, no lymphadenopathy. LUNGS: Clear. HEART: S1, S2 regular. ABDOMEN: Soft, nontender, no organomegaly. EXTREMITIES: No edema, cyanosis. SKIN: Unremarkable. The patient does have a port in the left upper chest. NEUROLOGIC: The patient is alert, awake, and appropriate. No focal neurologic deficit. Labs Lab Laboratory Tests Test 05/03/21 07:15 05/03/21 09:38 Sodium Level 139 mmol/L (136-145) Potassium Level 5.0 mmol/L (3.5-5.1) Chloride Level 104 mmol/L (98-107) Carbon Dioxide Level 33 mmol/L (21-32) Anion Gap 2 (6-14) Blood Urea Nitrogen 15 mg/dL (7-20) Creatinine 0.6 mg/dL (0.6-1.0) Estimated GFR (Cockcroft-Gault) 114.7 Glucose Level 123 mg/dL (70-99) Calcium Level 8.7 mg/dL (8.5-10.1) SARS-CoV-2 Antigen (Rapid) Negative (NEGATIVE) Micro Microbiology 04/19/21 Urine Culture - Final, Complete 04/19/21 Antimicrobic Susceptibility - Final, Complete Objective Assessment IMPRESSION: 1. Pulmonary infiltrate, probably congestive heart failure. Aspiration pneumonia is possible with having a small-bowel obstruction. 2. 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 3. Cardiomyopathy. 4. Hypertension. 5. Hyperlipidemia. Plan Plan of Care cont supportive care cont antibiotics JACKI JACKSON MD May 03, 2021 11:14
[2021-05-03] MEDS: TPN PER PHARMACY MC PRN (11:17)
--- NOTE | 2021-05-03 11:17 | NUR ---
Pharmacy TPN Dosing Note S: ERIKAYLEY is a 85 year old F Currently receiving Central Continuous TPN started 04/26/21 B:Pertinent PMH: SBO s/p xlap Height: 5 feet, 2 inches Weight: 68.366961 kg Current diet: Clears LABS: Sodium: 139 Potassium: 5 Chloride: 104 Calcium: 8.7 Corrected Calcium: 10.46 Magnesium: 2.0 CO2: 33 SCr: 0.6 Glucose: 123 Albumin: 1.8 AST: 29 ALT: 36 TPN FORMULA: TPN TYPE: Central Continuous AMINO ACIDS: 60 gm DEXTROSE: 195 gm LIPIDS: 20 gm SODIUM CHLORIDE: 90 mEq SODIUM ACETATE: - mEq SODIUM PHOSPHATE: - mmol POTASSIUM CHLORIDE: 10 mEq POTASSIUM ACETATE: - mEq POTASSIUM PHOSPHATE: 13.6 mmol MAGNESIUM: 8 mEq CALCIUM: 10 mEq INSULIN: - units MULTIPLE VITAMIN: 5 ml TRACE ELEMENTS: 1 ml(s) TPN PLAN: K=5, will reduce KCl in TPN R: Continue TPN as written above. Will monitor electrolytes, glucose, and tolerance to TPN. MEÑO MARROQUIN [facility], 05/03/21 [id number]
--- NOTE | 2021-05-03 11:46 | PDOC ---
SURGICAL PROGRESS NOTE DATE: 05/03/21 TIME: 11:45 Subjective + bm tolerating diet Vital Signs Vital Signs Date Time Temp Pulse Resp B/P (MAP) Pulse Ox O2 Delivery O2 Flow Rate FiO2 05/03/21 11:11 98.6 72 18 143/60 (87) 96 Nasal Cannula 5.0 98.6 I&O Intake and Output 05/03/21 07:00 Intake Total 290 ml Balance 290 ml Intake Oral 290 ml # Voids 2 # Bowel Movements 1 General: Alert, Oriented X3, Cooperative Abdomen: Soft Labs Laboratory Tests Test 05/01/21 12:10 05/02/21 08:00 05/03/21 07:15 05/03/21 09:38 Sodium Level 140 mmol/L (136-145) 141 mmol/L (136-145) 139 mmol/L (136-145) Potassium Level 4.4 mmol/L (3.5-5.1) 4.2 mmol/L (3.5-5.1) 5.0 mmol/L (3.5-5.1) Chloride Level 102 mmol/L (98-107) 104 mmol/L (98-107) 104 mmol/L (98-107) Carbon Dioxide Level 36 mmol/L (21-32) 32 mmol/L (21-32) 33 mmol/L (21-32) Anion Gap 2 (6-14) 5 (6-14) 2 (6-14) Blood Urea Nitrogen 16 mg/dL (7-20) 18 mg/dL (7-20) 15 mg/dL (7-20) Creatinine 0.7 mg/dL (0.6-1.0) 0.7 mg/dL (0.6-1.0) 0.6 mg/dL (0.6-1.0) Estimated GFR (Cockcroft-Gault) 96.0 96.0 114.7 BUN/Creatinine Ratio 23 (6-20) Glucose Level 122 mg/dL (70-99) 138 mg/dL (70-99) 123 mg/dL (70-99) Calcium Level 8.6 mg/dL (8.5-10.1) 8.4 mg/dL (8.5-10.1) 8.7 mg/dL (8.5-10.1) Total Bilirubin 0.5 mg/dL (0.2-1.0) Aspartate Amino Transf (AST/SGOT) 29 U/L (15-37) Alanine Aminotransferase (ALT/SGPT) 36 U/L (14-59) Alkaline Phosphatase 113 U/L (46-116) Total Protein 6.1 g/dL (6.4-8.2) Albumin 1.8 g/dL (3.4-5.0) Albumin/Globulin Ratio 0.4 (1.0-1.7) Triglycerides Level 134 mg/dL (0-150) Phosphorus Level 3.0 mg/dL (2.6-4.7) Magnesium Level 2.0 mg/dL (1.8-2.4) SARS-CoV-2 Antigen (Rapid) Negative (NEGATIVE) Laboratory Tests Test 05/03/21 07:15 05/03/21 09:38 Sodium Level 139 mmol/L (136-145) Potassium Level 5.0 mmol/L (3.5-5.1) Chloride Level 104 mmol/L (98-107) Carbon Dioxide Level 33 mmol/L (21-32) Anion Gap 2 (6-14) Blood Urea Nitrogen 15 mg/dL (7-20) Creatinine 0.6 mg/dL (0.6-1.0) Estimated GFR (Cockcroft-Gault) 114.7 Glucose Level 123 mg/dL (70-99) Calcium Level 8.7 mg/dL (8.5-10.1) SARS-CoV-2 Antigen (Rapid) Negative (NEGATIVE) Assessment/Plan advance diet ambulate more rehab planned Justicifation of Admission Dx: Justifications for Admission: Justification of Admission Dx: Yes ASHLYN MCDANIEL INSTALLATION COORDINATOR May 03, 2021 11:46
--- NOTE | 2021-05-03 13:16 | PDOC ---
[facility] PROGRESS NOTE Date of Service DOS: DATE: 05/03/21 TIME: 13:13 Chief Complaint Chief Complaint Large ventral abdominal wall hernia containing large and small bowel loops. Status post exploratory laparotomy with extensive lysis of adhesions 04/25/2021 Breast cancer HX , exploratory laparotomy and ileal right colostomy and excision of intra-abdominal tumor on 10/24/2018. 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 SBO vs ileus--umbilical hernia check SBFT Metatstatic cancer - ovarian origin per pathology from ex-lap. Oncology consulted. History of Present Illness History of Present Illness Ms Shane is an 85 year old female with past medical history of ovarian cancer presented to ER with the chief complaint of abdominal pain. has known abdominal hernia. and she has had associated abdominal pain on and off for years. Over the last few days pain has become more intense. pain is diffuse but primarily left abd lateral to umbulicus. associated nausea but has no vomiting. / she did have a BM yesterday /SBO vs ileus--umbilical hernia. GI and general surgery consulted. 04/16: Feels better. No abd pain. Less distended. Not passing flatus or stool. No nausea. NGT with minimal output. Discussed with general surgery and GI for SBFT 04/17: Is better no BM or flatus but she thinks things are moving. She wants to get up out of bed but feels very weak. For small bowel follow-through today. Was premedicated. 04/18: Having BM. NG tube in place to clamp. C/o abdominal distention today, but denies abdominal pain. KUB showed diffuse small bowel dilation has mildly decreased 04/19: Patient seen with son at bedside. Doing much better, NG tube removed. Tolerating trial of clears. +Flatus. Appreciate general surgery and GI recommendations. ADAT 04/20: Patient feels well. Passing gas, tolerating full liquid diet. Will advance to regular diabetic diet this evening and see how this is tolerated. 04/21: Some worsening abdominal distention. Reports nausea and vomiting x 2 ove rnight. Discussed n.p.o. for now. If vomiting continues may need to replace NG tube 04/22: No acute events overnight. Patient did have vomiting over the weekend but did not claim any nausea vomiting overnight. Does endorse bowel movement and passing flatus. 04/23: No acute events overnight. Patient did have an episode of vomiting this morning and vomited all over self unfortunately. Hernia repair with surgery. Potassium low at 2.6. 04/24: No acute events overnight. Plan for OR today for exploratory laparotomy, lysis of adhesions and repair of hernia in AM 04/25: No acute events overnight. No points from patient at this time. No c oncerns with nursing. To OR for Ex lap with lysis of adhesions and incisional hernia repair 04/26:No acute events overnight. Patient is hemodynamically stable and NG tube is intact. Will start TPN today through port for parental nutrition before advancing diet. 04/27: No acute events overnight. Patient's pain is well controlled. Working well with physical therapy. IV electrolytes replaced. Minimal NG tube drainage of 50 cc. GOLD PROSPECTOR pain control 04/28: No acute events overnight. Patient's pain is well controlled. No reports of bowel movement or flatus at this time. NG tube output minimal. Continue PT OT modalities. 04/29: NG tube advanced with good position KUB with stool significant abdominal distention. Not passing flatus or BM. Pain is well controlled with morphine GOLD PROSPECTOR. Working with PT. 04/30: Afebrile. NG tube in good position. Not passing flatus. Ambulating well. Pain well controlled. More hypoxic, seen by pulmonology and ID, given lasix, improved. 05/01: 2 bowel movements overnight. Feeling better after diuresis with lasix per pulmonology. No CP or SOB. Passing flatus currently. Labs stable. 05/02: Afebrile. NG tube in good position having stools eating Jell-O. Able to ambulate. Discussed pathology concerning for ovarian neoplasm with patient she seems forgetful about these discussions. Afebrile. NG tube out eating liquid diet well. Still on supplemental TPN. Having bowel movements. She is amenable to rehab for discharge. Vitals/I&O Vitals/I&O: Vital Signs Date Time Temp Pulse Resp B/P (MAP) Pulse Ox O2 Delivery O2 Flow Rate FiO2 05/03/21 11:11 98.6 72 18 143/60 (87) 96 Nasal Cannula 5.0 98.6 I & O 05/02/21 05/02/21 05/03/21 15:00 23:00 07:00 Intake Total 50 ml 240 ml Balance 50 ml 240 ml Physical Exam Physical Exam: GENERAL: Alert, oriented female, not in distress. VITAL SIGNS: Stable, afebrile. HEENT: NAD. NECK: Supple, no JVP, no lymphadenopathy. LUNGS: Clear. HEART: S1, S2 regular. ABDOMEN: Soft, nontender, no organomegaly. EXTREMITIES: No edema, cyanosis. SKIN: Unremarkable. The patient does have a port in the left upper chest. NEUROLOGIC: The patient is alert, awake, and appropriate. No focal neurologic deficit. General: Alert, Oriented X3, Cooperative Heart: Regular rate Lungs: Other (Decreased at the bases posteriorly) Abdomen: Soft Extremities: Other (dressing dry) Skin: No rashes Labs Labs: Laboratory Tests Test 05/03/21 07:15 05/03/21 09:38 Sodium Level 139 mmol/L (136-145) Potassium Level 5.0 mmol/L (3.5-5.1) Chloride Level 104 mmol/L (98-107) Carbon Dioxide Level 33 mmol/L (21-32) Anion Gap 2 (6-14) Blood Urea Nitrogen 15 mg/dL (7-20) Creatinine 0.6 mg/dL (0.6-1.0) Estimated GFR (Cockcroft-Gault) 114.7 Glucose Level 123 mg/dL (70-99) Calcium Level 8.7 mg/dL (8.5-10.1) SARS-CoV-2 Antigen (Rapid) Negative (NEGATIVE) Comment Review of Relevant I have reviewed the following items arabella (where applicable) has been applied. Medications: Current Medications Medications (Trade) Dose Ordered Sig/Pedro Route PRN Reason Start Time Stop Time Status Last Admin Dose Admin Pantoprazole Sodium (Protonix) 40 mg DAILYAC PO 05/03/21 07:30 05/03/21 10:02 Sodium Chloride 90 meq/Potassium Chloride 50 meq/ Potassium Phosphate 13.6 mmol/Magnesium Sulfate 8 meq/ Calcium Gluconate 10 meq/ Multivitamins 5 ml/Zinc/Copper/ Manganese/ Selenium 1 ml/ Total Parenteral Nutrition/Amino Acids/Dextrose/ Fat Emulsion Intravenous 1,512 ml @ 63 mls/hr TPN CONT IV 05/02/21 22:00 9/3/21 21:59 05/02/21 21:25 Justifications for Admission Other Justification ABDOMINAL PAIN TRISTIN NATH MD May 03, 2021 13:16
--- NOTE | 2021-05-03 13:53 | PDOC ---
[facility] PROGRESS NOTE Subjective Stooling. Tolerating diet. NG out. Physical Exam Lungs clear anteriorly. RRR Abdomen soft, not distended. Review of Relevant I have reviewed the following items arabella (where applicable) has been applied. Labs Laboratory Tests Test 05/02/21 08:00 05/03/21 07:15 05/03/21 09:38 Sodium Level 141 mmol/L (136-145) 139 mmol/L (136-145) Potassium Level 4.2 mmol/L (3.5-5.1) 5.0 mmol/L (3.5-5.1) Chloride Level 104 mmol/L (98-107) 104 mmol/L (98-107) Carbon Dioxide Level 32 mmol/L (21-32) 33 mmol/L (21-32) Anion Gap 5 (6-14) 2 (6-14) Blood Urea Nitrogen 18 mg/dL (7-20) 15 mg/dL (7-20) Creatinine 0.7 mg/dL (0.6-1.0) 0.6 mg/dL (0.6-1.0) Estimated GFR (Cockcroft-Gault) 96.0 114.7 Glucose Level 138 mg/dL (70-99) 123 mg/dL (70-99) Calcium Level 8.4 mg/dL (8.5-10.1) 8.7 mg/dL (8.5-10.1) Phosphorus Level 3.0 mg/dL (2.6-4.7) Magnesium Level 2.0 mg/dL (1.8-2.4) SARS-CoV-2 Antigen (Rapid) Negative (NEGATIVE) Laboratory Tests Test 05/03/21 07:15 05/03/21 09:38 Sodium Level 139 mmol/L (136-145) Potassium Level 5.0 mmol/L (3.5-5.1) Chloride Level 104 mmol/L (98-107) Carbon Dioxide Level 33 mmol/L (21-32) Anion Gap 2 (6-14) Blood Urea Nitrogen 15 mg/dL (7-20) Creatinine 0.6 mg/dL (0.6-1.0) Estimated GFR (Cockcroft-Gault) 114.7 Glucose Level 123 mg/dL (70-99) Calcium Level 8.7 mg/dL (8.5-10.1) SARS-CoV-2 Antigen (Rapid) Negative (NEGATIVE) Microbiology 04/19/21 Urine Culture - Final, Complete 04/19/21 Antimicrobic Susceptibility - Final, Complete Vitals/I & O Vital Sign - Last 24 Hours 05/02/21 05/02/21 05/02/21 05/02/21 15:15 19:15 20:00 23:28 Temp 98.7 98.8 98.7 98.7 98.8 98.7 Pulse 78 63 69 Resp 24 20 18 B/P (MAP) 125/68 (87) 120/57 (78) 136/54 (81) Pulse Ox 97 98 97 O2 Delivery Room Air Nasal Cannula Nasal Cannula Nasal Cannula O2 Flow Rate 5.0 5.0 5.0 05/03/21 05/03/21 05/03/21 05/03/21 02:52 07:35 10:03 10:03 Temp 98.3 99.3 98.3 99.3 Pulse 63 60 60 60 Resp 18 18 B/P (MAP) 143/59 (87) 137/56 (83) 137/56 137/56 Pulse Ox 96 95 O2 Delivery Nasal Cannula Nasal Cannula O2 Flow Rate 5.0 5.0 05/03/21 05/03/21 10:04 11:11 Temp 98.6 98.6 Pulse 60 72 Resp 18 B/P (MAP) 137/56 143/60 (87) Pulse Ox 96 O2 Delivery Nasal Cannula O2 Flow Rate 5.0 Intake and Output 05/02/21 05/02/21 05/03/21 15:00 23:00 07:00 Intake Total 50 ml 240 ml Balance 50 ml 240 ml Assessment SBO/ventral hernia, s/p repair. Residual CHARGE WEIGHER cancer. Plan of Care Note Diet, etc. per surgical service. PO PPI if still IV. Justicifation of Admission Dx: Justifications for Admission: Justification of Admission Dx: Yes ALETHEA SCANLON MD May 03, 2021 13:53
[2021-05-03 14:43] VITALS: BP 140/59
[2021-05-03 19:00] VITALS: BP 150/63
[2021-05-03] MEDS: ENOXAPARIN 40 MG/0.4 ML SYRINGE. SQ SCH (20:43)
[2021-05-03] MEDS: ATORVASTATIN CALCIUM 10 MG TABLET. PO SCH (20:43)
[2021-05-03] MEDS ORDERED: DEXTROSE 70% IV SCH (22:00)
[2021-05-03] MEDS ORDERED: AMINO ACID IV SCH (22:00)
[2021-05-03] MEDS ORDERED: TOTAL PARENTERAL NUTRITION IV SCH (22:00)
[2021-05-03] MEDS ORDERED: [UNRECOGNIZED DRUG - OTHER] IV SCH (22:00)
[2021-05-03 23:00] VITALS: BP 136/57
[2021-05-04 03:00] VITALS: BP 132/54
[2021-05-04] MEDS: PANTOPRAZOLE 40 MG TABLET.DR. PO SCH (06:46)
[2021-05-04 07:00] VITALS: BP 146/50
--- NOTE | 2021-05-04 07:39 | PDOC ---
PULMONARY PROGRESS NOTES DATE: 05/04/21 TIME: 07:39 Subjective Patient sitting up in the chair, eating, no respiratory distress Vitals Vital Signs Date Time Temp Pulse Resp B/P (MAP) Pulse Ox O2 Delivery O2 Flow Rate FiO2 05/04/21 03:00 98.0 60 18 132/54 (80) 94 Nasal Cannula 5.0 98.0 ROS: No Nausea, No Chest Pain, No Abdominal Pain, No Increase Cough General: Alert, No acute distress Lungs: Clear, Other Cardiovascular: S1 Abdomen: Soft, Other Neuro Exam: Alert Extremities: No Edema Skin: Warm Labs Laboratory Tests Test 05/02/21 08:00 05/03/21 07:15 05/03/21 09:38 Sodium Level 141 mmol/L (136-145) 139 mmol/L (136-145) Potassium Level 4.2 mmol/L (3.5-5.1) 5.0 mmol/L (3.5-5.1) Chloride Level 104 mmol/L (98-107) 104 mmol/L (98-107) Carbon Dioxide Level 32 mmol/L (21-32) 33 mmol/L (21-32) Anion Gap 5 (6-14) 2 (6-14) Blood Urea Nitrogen 18 mg/dL (7-20) 15 mg/dL (7-20) Creatinine 0.7 mg/dL (0.6-1.0) 0.6 mg/dL (0.6-1.0) Estimated GFR (Cockcroft-Gault) 96.0 114.7 Glucose Level 138 mg/dL (70-99) 123 mg/dL (70-99) Calcium Level 8.4 mg/dL (8.5-10.1) 8.7 mg/dL (8.5-10.1) Phosphorus Level 3.0 mg/dL (2.6-4.7) Magnesium Level 2.0 mg/dL (1.8-2.4) SARS-CoV-2 RNA (JOHNATHAN) Negative (Negative) SARS-CoV-2 Antigen (Rapid) Negative (NEGATIVE) Laboratory Tests Test 05/03/21 09:38 SARS-CoV-2 RNA (JOHNATHAN) Negative (Negative) SARS-CoV-2 Antigen (Rapid) Negative (NEGATIVE) Medications Active Scripts Medications Dose Route/Sig Max Daily Dose Days Date Category Loratadine 10 Mg Tablet 1 Tab PO DAILY 07/14/19 Reported Klor-Con M20 (Potassium Chloride) 20 Meq Tab.er.prt 1 Tab PO DAILY 30 07/14/19 Reported Percocet 5-325 Mg Tablet (Oxycodone/Acetaminophen) 1 Each Tablet 1 Tab PO PRN Q4HRS PRN 11/01/18 Reported Pravastatin Sodium 40 Mg Tablet 1 Tab PO QHS 10/22/18 Reported Lisinopril 10 Mg Tablet 1 Tab PO DAILY 10/22/18 Reported Vitamin D3 (Cholecalciferol (Vitamin D3)) 5,000 Unit Tablet 1 Tab PO QODAY 10/22/18 Reported Aspirin Ec (Aspirin) 81 Mg Tablet.dr 1 Tab PO DAILY 10/22/18 Reported Cartia Xt (Diltiazem Hcl) 120 Mg Cap.er.24h 120 Mg PO DAILY 10/22/18 Reported Amiodarone Hcl 200 Mg Tablet 0.5 Tab PO DAILY 10/22/18 Reported Protonix (Pantoprazole Sodium) 20 Mg Tablet.dr 40 Mg PO DAILY PRN 14 10/22/18 Reported Comments Chest x-ray reviewed 05/01/2021 Improving basal effusions Impression . 1. Acute hypoxic respiratory failure suspect fluid overload 2. Status post exploratory laparotomy with lysis of adhesions and biopsy of mesenteric mass. 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 3. No significant tobacco history. 4. Severe protein calorie malnutrition. 5. No significant leukocytosis. Plan . Updated 05/04 continue incentive spirometry As needed nebulized treatments Diurese as needed Maintain oxygen supplementation Advance diet 05/02 1. Wean FiO2. Keep saturation 92 and above. 2. Incentive spirometry. 3. Chest x-ray post diuresis 05/01/2021 shows improved basal effusion 4. P.r.n. nebulizer treatment. 5. Follow Oncology and General Surgery recommendations. 6. Discussed with patient's at the bedside 7. Continue Lovenox for DVT prophylaxis. CASSIDY WHEELER MD May 04, 2021 07:39
--- NOTE | 2021-05-04 08:28 | PDOC ---
SURGICAL PROGRESS NOTE DATE: 05/04/21 TIME: 08:27 Subjective doing pretty well tolerating diet no nausea + stool Vital Signs Vital Signs Date Time Temp Pulse Resp B/P (MAP) Pulse Ox O2 Delivery O2 Flow Rate FiO2 05/04/21 07:00 98.8 62 18 146/50 (82) 97 Nasal Cannula 5.0 98.8 I&O Intake and Output 05/04/21 07:00 Intake Total 590 ml Output Total 1 ml Balance 589 ml Intake Oral 590 ml Stool Total 1 ml # Voids 3 General: Alert, Oriented X3, Cooperative Abdomen: Soft, Other (incision intact ) Labs Laboratory Tests Test 05/03/21 07:15 05/03/21 09:38 Sodium Level 139 mmol/L (136-145) Potassium Level 5.0 mmol/L (3.5-5.1) Chloride Level 104 mmol/L (98-107) Carbon Dioxide Level 33 mmol/L (21-32) Anion Gap 2 (6-14) Blood Urea Nitrogen 15 mg/dL (7-20) Creatinine 0.6 mg/dL (0.6-1.0) Estimated GFR (Cockcroft-Gault) 114.7 Glucose Level 123 mg/dL (70-99) Calcium Level 8.7 mg/dL (8.5-10.1) SARS-CoV-2 RNA (JOHNATHAN) Negative (Negative) SARS-CoV-2 Antigen (Rapid) Negative (NEGATIVE) Laboratory Tests Test 05/03/21 09:38 SARS-CoV-2 RNA (JOHNATHAN) Negative (Negative) SARS-CoV-2 Antigen (Rapid) Negative (NEGATIVE) Problem List soft diet, rehab plans Justicifation of Admission Dx: Justifications for Admission: Justification of Admission Dx: Yes ASHLYN MCDANIEL MEDICAID NURSE May 04, 2021 08:28
[2021-05-04] MEDS: ASPIRIN ENTERIC COATED 81 MG TABLET.DR. PO SCH (08:34)
[2021-05-04] MEDS: LISINOPRIL 10 MG TABLET PO SCH (08:35)
[2021-05-04] MEDS: CETIRIZINE HCL 10 MG TABLET. PO SCH (08:35)
[2021-05-04] MEDS: AMIODARONE HCL 200 MG TABLET. PO SCH (08:37)
[2021-05-04] MEDS: CEFEPIME HCL IV Push 1 GM VIAL. IVP SCH (08:39)
[2021-05-04 08:44] LABS: CALCIUM 8.6 mg/dL (8.5-10.1); CREATININE 0.7 mg/dL (0.6-1.0); POTASSIUM 4.7 mmol/L (3.5-5.1)
[2021-05-04 11:00] VITALS: BP 106/64
--- NOTE | 2021-05-04 11:47 | PDOC ---
[facility] [facility] PROGRESS NOTE Date of Service DOS: DATE: 05/04/21 TIME: 11:46 Chief Complaint Chief Complaint Large ventral abdominal wall hernia containing large and small bowel loops. Status post exploratory laparotomy with extensive lysis of adhesions 04/25/2021 Breast cancer HX , exploratory laparotomy and ileal right colostomy and excision of intra-abdominal tumor on 10/24/2018. 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 SBO vs ileus--umbilical hernia check SBFT Metatstatic cancer - ovarian origin per pathology from ex-lap. Oncology consulted. History of Present Illness History of Present Illness Ms Shane is an 85 year old female with past medical history of ovarian cancer presented to ER with the chief complaint of abdominal pain. has known abdominal hernia. and she has had associated abdominal pain on and off for years. Over the last few days pain has become more intense. pain is diffuse but primarily left abd lateral to umbulicus. associated nausea but has no vomiting. / she did have a BM yesterday /SBO vs ileus--umbilical hernia. GI and general surgery consulted. 04/16: Feels better. No abd pain. Less distended. Not passing flatus or stool. No nausea. NGT with minimal output. Discussed with general surgery and GI for SBFT 04/17: Is better no BM or flatus but she thinks things are moving. She wants to get up out of bed but feels very weak. For small bowel follow-through today. Was premedicated. 04/18: Having BM. NG tube in place to clamp. C/o abdominal distention today, but denies abdominal pain. KUB showed diffuse small bowel dilation has mildly decreased 04/19: Patient seen with son at bedside. Doing much better, NG tube removed. Tolerating trial of clears. +Flatus. Appreciate general surgery and GI recommendations. ADAT 04/20: Patient feels well. Passing gas, tolerating full liquid diet. Will advance to regular diabetic diet this evening and see how this is tolerated. 04/21: Some worsening abdominal distention. Reports nausea and vomiting x 2 ove rnight. Discussed n.p.o. for now. If vomiting continues may need to replace NG tube 04/22: No acute events overnight. Patient did have vomiting over the weekend but did not claim any nausea vomiting overnight. Does endorse bowel movement and passing flatus. 04/23: No acute events overnight. Patient did have an episode of vomiting this morning and vomited all over self unfortunately. Hernia repair with surgery. Potassium low at 2.6. 04/24: No acute events overnight. Plan for OR today for exploratory laparotomy, lysis of adhesions and repair of hernia in AM 04/25: No acute events overnight. No points from patient at this time. No c oncerns with nursing. To OR for Ex lap with lysis of adhesions and incisional hernia repair 04/26:No acute events overnight. Patient is hemodynamically stable and NG tube is intact. Will start TPN today through port for parental nutrition before advancing diet. 04/27: No acute events overnight. Patient's pain is well controlled. Working well with physical therapy. IV electrolytes replaced. Minimal NG tube drainage of 50 cc. MILL FEEDER pain control 04/28: No acute events overnight. Patient's pain is well controlled. No reports of bowel movement or flatus at this time. NG tube output minimal. Continue PT OT modalities. 04/29: NG tube advanced with good position KUB with stool significant abdominal distention. Not passing flatus or BM. Pain is well controlled with morphine MILL FEEDER. Working with PT. 04/30: Afebrile. NG tube in good position. Not passing flatus. Ambulating well. Pain well controlled. More hypoxic, seen by pulmonology and ID, given lasix, improved. 05/01: 2 bowel movements overnight. Feeling better after diuresis with lasix per pulmonology. No CP or SOB. Passing flatus currently. Labs stable. 05/02: Afebrile. NG tube in good position having stools eating Jell-O. Able to ambulate. Discussed pathology concerning for ovarian neoplasm with patient she seems forgetful about these discussions. 05/03: Afebrile. NG tube out eating liquid diet well. Still on supplemental TPN. Having bowel movements. She is amenable to rehab for discharge. Unfortunately they are unable to get TPN at SNF at this time, delaying discharge. Afebrile, eating ok. Tolerating TPN well. No nausea or vomiting. Still passing flatus. Feeling more weak. Not interested in discussing cancer diagnosis today. She would like to wait to discuss palliative care and hospice. Vitals/I&O Vitals/I&O: Vital Signs Date Time Temp Pulse Resp B/P (MAP) Pulse Ox O2 Delivery O2 Flow Rate FiO2 05/04/21 08:37 62 146/50 05/04/21 07:00 98.8 18 97 Nasal Cannula 5.0 98.8 I & O 05/03/21 05/03/21 05/04/21 15:00 23:00 07:00 Intake Total 390 ml 200 ml Output Total 1 ml Balance 389 ml 200 ml Physical Exam Physical Exam: GENERAL: Alert, oriented female, not in distress. VITAL SIGNS: Stable, afebrile. HEENT: NAD. NECK: Supple, no JVP, no lymphadenopathy. LUNGS: Clear. HEART: S1, S2 regular. ABDOMEN: Soft, nontender, no organomegaly. EXTREMITIES: No edema, cyanosis. SKIN: Unremarkable. The patient does have a port in the left upper chest. NEUROLOGIC: The patient is alert, awake, and appropriate. No focal neurologic deficit. General: Alert, Oriented X3, Cooperative Heart: Regular rate Lungs: Other (Decreased at the bases posteriorly) Abdomen: Soft, Other (incision intact ) Extremities: Other (dressing dry) Skin: No rashes Labs Labs: Laboratory Tests Test 05/04/21 08:10 Sodium Level 138 mmol/L (136-145) Potassium Level 4.7 mmol/L (3.5-5.1) Chloride Level 103 mmol/L (98-107) Carbon Dioxide Level 31 mmol/L (21-32) Anion Gap 4 (6-14) Blood Urea Nitrogen 14 mg/dL (7-20) Creatinine 0.7 mg/dL (0.6-1.0) Estimated GFR (Cockcroft-Gault) 96.0 Glucose Level 140 mg/dL (70-99) Calcium Level 8.6 mg/dL (8.5-10.1) Comment Review of Relevant I have reviewed the following items arabella (where applicable) has been applied. Medications: Current Medications Medications (Trade) Dose Ordered Sig/Pedro Route PRN Reason Start Time Stop Time Status Last Admin Dose Admin Sodium Chloride 90 meq/Potassium Chloride 10 meq/ Potassium Phosphate 13.6 mmol/Magnesium Sulfate 8 meq/ Calcium Gluconate 10 meq/ Multivitamins 5 ml/Zinc/Copper/ Manganese/ Selenium 1 ml/ Total Parenteral Nutrition/Amino Acids/Dextrose/ Fat Emulsion Intravenous 1,512 ml @ 63 mls/hr TPN CONT IV 05/03/21 22:00 05/04/21 21:59 05/03/21 22:24 Justifications for Admission Other Justification ABDOMINAL PAIN TRISTIN NATH MD May 04, 2021 11:47
--- NOTE | 2021-05-04 13:26 | PDOC ---
Infectious Disease Note Subjective Subjective pt is feeling better, eating regular food ROS ROS no n/v/d/ Vital Sign Vital Signs Vital Signs Date Time Temp Pulse Resp B/P (MAP) Pulse Ox O2 Delivery O2 Flow Rate FiO2 05/04/21 11:00 98.8 66 18 106/64 (78) 96 Nasal Cannula 4.0 98.8 Physical Exam PHYSICAL EXAM GENERAL: Alert, oriented female, not in distress. VITAL SIGNS: Stable, afebrile. HEENT: NAD. NECK: Supple, no JVP, no lymphadenopathy. LUNGS: Clear. HEART: S1, S2 regular. ABDOMEN: Soft, nontender, no organomegaly. EXTREMITIES: No edema, cyanosis. SKIN: Unremarkable. The patient does have a port in the left upper chest. NEUROLOGIC: The patient is alert, awake, and appropriate. No focal neurologic deficit. Labs Lab Laboratory Tests Test 05/04/21 08:10 Sodium Level 138 mmol/L (136-145) Potassium Level 4.7 mmol/L (3.5-5.1) Chloride Level 103 mmol/L (98-107) Carbon Dioxide Level 31 mmol/L (21-32) Anion Gap 4 (6-14) Blood Urea Nitrogen 14 mg/dL (7-20) Creatinine 0.7 mg/dL (0.6-1.0) Estimated GFR (Cockcroft-Gault) 96.0 Glucose Level 140 mg/dL (70-99) Calcium Level 8.6 mg/dL (8.5-10.1) Micro Microbiology 04/19/21 Urine Culture - e coli 04/19/21 Antimicrobic Susceptibility - Final, Complete Objective Assessment 1. Pulmonary infiltrate, probably congestive heart failure. Aspiration pneumonia is possible with having a small-bowel obstruction. 2. 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 3. Cardiomyopathy. 4. Hypertension. 5. Hyperlipidemia. Plan Plan of Care cont supportive care cont antibiotics change to po cefdinir JACKI JACKSON MD May 04, 2021 13:26
[2021-05-04] MEDS: TPN PER PHARMACY MC PRN (13:43)
--- NOTE | 2021-05-04 13:44 | NUR ---
Pharmacy TPN Dosing Note S: FEARSKAYLEY Johnson is a 85 year old F Currently receiving Central Continuous TPN started 04/26/21 B:Pertinent PMH: SBO s/p xlap Current diet: Clears LABS: Sodium: 138 Potassium: 4.7 Chloride: 103 Calcium: 8.6 Corrected Calcium: 10.36 Magnesium: 2.0 CO2: 31 SCr: 0.7 Glucose: 140 Albumin: 1.8 AST: 29 ALT: 36 TPN FORMULA: TPN TYPE: Central Continuous AMINO ACIDS: 60 gm DEXTROSE: 195 gm LIPIDS: 20 gm SODIUM CHLORIDE: 90 mEq SODIUM ACETATE: - mEq SODIUM PHOSPHATE: - mmol POTASSIUM CHLORIDE: 10 mEq POTASSIUM ACETATE: - mEq POTASSIUM PHOSPHATE: 13.6 mmol MAGNESIUM: 8 mEq CALCIUM: 10 mEq INSULIN: - units MULTIPLE VITAMIN: 5 ml TRACE ELEMENTS: 1 ml(s) TPN PLAN: 05/04 CONT SAME TPN R: Continue TPN Will monitor electrolytes, glucose, and tolerance to TPN. MARTHA GAONA [facility], 05/04/21 [id number]
[2021-05-04 15:00] VITALS: BP 124/61
[2021-05-04 19:27] VITALS: BP 110/45
[2021-05-04] MEDS: CEFDINIR 300 MG CAPSULE PO SCH (21:20)
[2021-05-04] MEDS: ATORVASTATIN CALCIUM 10 MG TABLET. PO SCH (21:20)
[2021-05-04] MEDS: ENOXAPARIN 40 MG/0.4 ML SYRINGE. SQ SCH (21:21)
[2021-05-04] MEDS: TOTAL PARENTERAL NUTRITION IV SCH (22:00)
[2021-05-04] MEDS: AMINO ACID IV SCH (22:00)
[2021-05-04] MEDS: [UNRECOGNIZED DRUG - OTHER] IV SCH (22:00)
[2021-05-04] MEDS: DEXTROSE 70% IV SCH (22:00)
[2021-05-04 22:36] VITALS: BP 130/40
[2021-05-05 04:00] VITALS: BP_SYST 113; BP_SYST 141; BP_DIAS 52; BP_DIAS 54
[2021-05-05 07:00] VITALS: BP 129/44
[2021-05-05] MEDS: AMINO ACID IV SCH (07:27)
[2021-05-05] MEDS: TOTAL PARENTERAL NUTRITION IV SCH (07:27)
[2021-05-05] MEDS: DEXTROSE 70% IV SCH (07:27)
[2021-05-05] MEDS: [UNRECOGNIZED DRUG - OTHER] IV SCH (07:27)
[2021-05-05] MEDS: PANTOPRAZOLE 40 MG TABLET.DR. PO SCH (07:46)
--- NOTE | 2021-05-05 08:05 | PDOC ---
SURGICAL PROGRESS NOTE DATE: 05/05/21 TIME: 08:03 Subjective tolerating diet no nausea having stools Vital Signs Vital Signs Date Time Temp Pulse Resp B/P (MAP) Pulse Ox O2 Delivery O2 Flow Rate FiO2 05/05/21 04:00 98.5 58 16 141/54 (83) 95 Nasal Cannula 4.0 98.5 I&O Intake and Output 05/05/21 07:00 Intake Total 250 ml Output Total 300 ml Balance -50 ml Intake Oral 250 ml Urine/Stool Mix 300 ml # Bowel Movements 2 General: Alert, Oriented X3, Cooperative Abdomen: Soft, Other (dressing dry, abdominal binder in place ) Labs Laboratory Tests Test 05/03/21 09:38 05/04/21 08:10 SARS-CoV-2 RNA (JOHNATHAN) Negative (Negative) SARS-CoV-2 Antigen (Rapid) Negative (NEGATIVE) Sodium Level 138 mmol/L (136-145) Potassium Level 4.7 mmol/L (3.5-5.1) Chloride Level 103 mmol/L (98-107) Carbon Dioxide Level 31 mmol/L (21-32) Anion Gap 4 (6-14) Blood Urea Nitrogen 14 mg/dL (7-20) Creatinine 0.7 mg/dL (0.6-1.0) Estimated GFR (Cockcroft-Gault) 96.0 Glucose Level 140 mg/dL (70-99) Calcium Level 8.6 mg/dL (8.5-10.1) Laboratory Tests Test 05/04/21 08:10 Sodium Level 138 mmol/L (136-145) Potassium Level 4.7 mmol/L (3.5-5.1) Chloride Level 103 mmol/L (98-107) Carbon Dioxide Level 31 mmol/L (21-32) Anion Gap 4 (6-14) Blood Urea Nitrogen 14 mg/dL (7-20) Creatinine 0.7 mg/dL (0.6-1.0) Estimated GFR (Cockcroft-Gault) 96.0 Glucose Level 140 mg/dL (70-99) Calcium Level 8.6 mg/dL (8.5-10.1) Assessment/Plan s/p repair dc planning Justicifation of Admission Dx: Justifications for Admission: Justification of Admission Dx: Yes ASHLYN MCDANIEL [employer] OPERATOR May 05, 2021 08:05
[2021-05-05] MEDS: ASPIRIN ENTERIC COATED 81 MG TABLET.DR. PO SCH (09:11)
[2021-05-05] MEDS: CHOLECALCIFEROL (VITAMIN D3) 5,000 UNIT CAPSULE PO SCH (09:11)
[2021-05-05] MEDS: CETIRIZINE HCL 10 MG TABLET. PO SCH (09:11)
[2021-05-05] MEDS: LISINOPRIL 10 MG TABLET PO SCH (09:13)
[2021-05-05] MEDS: AMIODARONE HCL 200 MG TABLET. PO SCH (09:13)
[2021-05-05] MEDS: CEFDINIR 300 MG CAPSULE PO SCH ×2 (09:15→20:28)
[2021-05-05 11:00] VITALS: BP 129/59
--- NOTE | 2021-05-05 11:02 | PDOC ---
[facility] PROGRESS NOTE Date of Service DOS: DATE: 05/05/21 TIME: 11:01 Chief Complaint Chief Complaint Large ventral abdominal wall hernia containing large and small bowel loops. Status post exploratory laparotomy with extensive lysis of adhesions 04/25/2021 Breast cancer HX , exploratory laparotomy and ileal right colostomy and excision of intra-abdominal tumor on 10/24/2018. 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 SBO vs ileus--umbilical hernia check SBFT Metatstatic cancer - ovarian origin per pathology from ex-lap. Oncology consulted. History of Present Illness History of Present Illness Ms Shane is an 85 year old female with past medical history of ovarian cancer presented to ER with the chief complaint of abdominal pain. has known abdominal hernia. and she has had associated abdominal pain on and off for years. Over the last few days pain has become more intense. pain is diffuse but primarily left abd lateral to umbulicus. associated nausea but has no vomiting. / she did have a BM yesterday /SBO vs ileus--umbilical hernia. GI and general surgery consulted. 04/16: Feels better. No abd pain. Less distended. Not passing flatus or stool. No nausea. NGT with minimal output. Discussed with general surgery and GI for SBFT 04/17: Is better no BM or flatus but she thinks things are moving. She wants to get up out of bed but feels very weak. For small bowel follow-through today. Was premedicated. 04/18: Having BM. NG tube in place to clamp. C/o abdominal distention today, but denies abdominal pain. KUB showed diffuse small bowel dilation has mildly decreased 04/19: Patient seen with son at bedside. Doing much better, NG tube removed. Tolerating trial of clears. +Flatus. Appreciate general surgery and GI recommendations. ADAT 04/20: Patient feels well. Passing gas, tolerating full liquid diet. Will advance to regular diabetic diet this evening and see how this is tolerated. 04/21: Some worsening abdominal distention. Reports nausea and vomiting x 2 ove rnight. Discussed n.p.o. for now. If vomiting continues may need to replace NG tube 04/22: No acute events overnight. Patient did have vomiting over the weekend but did not claim any nausea vomiting overnight. Does endorse bowel movement and passing flatus. 04/23: No acute events overnight. Patient did have an episode of vomiting this morning and vomited all over self unfortunately. Hernia repair with surgery. Potassium low at 2.6. 04/24: No acute events overnight. Plan for OR today for exploratory laparotomy, lysis of adhesions and repair of hernia in AM 04/25: No acute events overnight. No points from patient at this time. No c oncerns with nursing. To OR for Ex lap with lysis of adhesions and incisional hernia repair 04/26:No acute events overnight. Patient is hemodynamically stable and NG tube is intact. Will start TPN today through port for parental nutrition before advancing diet. 04/27: No acute events overnight. Patient's pain is well controlled. Working well with physical therapy. IV electrolytes replaced. Minimal NG tube drainage of 50 cc. 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 Patient's pain is well controlled. No reports of bowel movement or flatus at this time. NG tube output minimal. Continue PT OT modalities. 04/29: NG tube advanced with good position KUB with stool significant abdominal distention. Not passing flatus or BM. Pain is well controlled with morphine [employer]ALITY SYSTEMS ENGINEER. Working with PT. 04/30: Afebrile. NG tube in good position. Not passing flatus. Ambulating well. Pain well controlled. More hypoxic, seen by pulmonology and ID, given lasix, improved. 05/01: 2 bowel movements overnight. Feeling better after diuresis with lasix per pulmonology. No CP or SOB. Passing flatus currently. Labs stable. 05/02: Afebrile. NG tube in good position having stools eating Jell-O. Able to ambulate. Discussed pathology concerning for ovarian neoplasm with patient she seems forgetful about these discussions. 05/03: Afebrile. NG tube out eating liquid diet well. Still on supplemental TPN. Having bowel movements. She is amenable to rehab for discharge. Unfortunately they are unable to get TPN at SNF at this time, delaying discharge. 05/04: Afebrile, eating ok. Tolerating TPN well. No nausea or vomiting. Still passing flatus. Feeling more weak. Not interested in discussing cancer diagnosis today. She would like to wait to discuss palliative care and hospice. Afebrile. Tolerating well. Flatus and bowels. No nausea or vomiting. Vitals/I&O Vitals/I&O: Vital Signs Date Time Temp Pulse Resp B/P (MAP) Pulse Ox O2 Delivery O2 Flow Rate FiO2 05/05/21 09:14 61 129/44 05/05/21 07:00 Room Air 05/05/21 07:00 98.6 16 97 4.0 98.6 I & O 05/04/21 05/04/21 05/05/21 15:00 23:00 07:00 Intake Total 100 ml 490 ml Output Total 300 ml Balance 100 ml 190 ml Physical Exam Physical Exam: GENERAL: Alert, oriented female, not in distress. VITAL SIGNS: Stable, afebrile. HEENT: NAD. NECK: Supple, no JVP, no lymphadenopathy. LUNGS: Clear. HEART: S1, S2 regular. ABDOMEN: Soft, nontender, no organomegaly. EXTREMITIES: No edema, cyanosis. SKIN: Unremarkable. The patient does have a port in the left upper chest. NEUROLOGIC: The patient is alert, awake, and appropriate. No focal neurologic deficit. General: Alert, Oriented X3, Cooperative Heart: Regular rate Lungs: Clear, Other Abdomen: Soft, Other (dressing dry, abdominal binder in place ) Extremities: Other (dressing dry) Skin: No rashes Comment Review of Relevant I have reviewed the following items arabella (where applicable) has been applied. Medications: Current Medications Medications (Trade) Dose Ordered Sig/Pedro Route PRN Reason Start Time Stop Time Status Last Admin Dose Admin Sodium Chloride 90 meq/Potassium Chloride 10 meq/ Potassium Phosphate 13.6 mmol/Magnesium Sulfate 8 meq/ Calcium Gluconate 10 meq/ Multivitamins 5 ml/Zinc/Copper/ Manganese/ Selenium 1 ml/ Total Parenteral Nutrition/Amino Acids/Dextrose/ Fat Emulsion Intravenous 1,512 ml @ 63 mls/hr TPN CONT IV 05/04/21 22:00 05/05/21 21:59 05/05/21 07:27 Cefdinir (Omnicef) 300 mg BID PO 05/04/21 21:00 05/05/21 09:15 Justifications for Admission Other Justification ABDOMINAL PAIN TRISTIN NATH MD May 05, 2021 11:02
[2021-05-05 11:08] LABS: CALCIUM 8.4 mg/dL (8.5-10.1); CREATININE 0.8 mg/dL (0.6-1.0); GFR 82.3
[2021-05-05] MEDS: TPN PER PHARMACY MC PRN (11:28)
--- NOTE | 2021-05-05 11:30 | NUR ---
Pharmacy TPN Dosing Note S: FEARS,KAYLEY Johnson is a 85 year old F Currently receiving Central Continuous TPN started 04/26/21 B:Pertinent PMH: SBO s/p xlap Current diet: GI SOFT LABS: Sodium: 136 Potassium: 4.0 Chloride: 101 Calcium: 8.4 Corrected Calcium: 10.16 Magnesium: 2.0 CO2: 30 SCr: 0.8 Glucose: 141 Albumin: 1.8 AST: 29 ALT: 36 TPN FORMULA: TPN TYPE: Central Continuous AMINO ACIDS: 60 gm DEXTROSE: 195 gm LIPIDS: 20 gm SODIUM CHLORIDE: 90 mEq SODIUM ACETATE: - mEq SODIUM PHOSPHATE: - mmol POTASSIUM CHLORIDE: 10 mEq POTASSIUM ACETATE: - mEq POTASSIUM PHOSPHATE: 13.6 mmol MAGNESIUM: 8 mEq CALCIUM: 10 mEq INSULIN: - units MULTIPLE VITAMIN: 5 ml TRACE ELEMENTS: 1 ml(s) TPN PLAN: 05/05 SAME TPN R: Continue TPN Will monitor electrolytes, glucose, and tolerance to TPN. MARTHA GAONA [facility], 05/05/21 [id number]
--- NOTE | 2021-05-05 13:04 | PDOC ---
G I PROGRESS NOTE Subjective Sleeping. Did not awaken. Objective Others' notes reviewed. Physical Exam No PE. Review of Relevant I have reviewed the following items arabella (where applicable) has been applied. Labs Laboratory Tests Test 05/04/21 08:10 05/05/21 09:30 Sodium Level 138 mmol/L (136-145) 136 mmol/L (136-145) Potassium Level 4.7 mmol/L (3.5-5.1) 4.0 mmol/L (3.5-5.1) Chloride Level 103 mmol/L (98-107) 101 mmol/L (98-107) Carbon Dioxide Level 31 mmol/L (21-32) 30 mmol/L (21-32) Anion Gap 4 (6-14) 5 (6-14) Blood Urea Nitrogen 14 mg/dL (7-20) 15 mg/dL (7-20) Creatinine 0.7 mg/dL (0.6-1.0) 0.8 mg/dL (0.6-1.0) Estimated GFR (Cockcroft-Gault) 96.0 82.3 Glucose Level 140 mg/dL (70-99) 141 mg/dL (70-99) Calcium Level 8.6 mg/dL (8.5-10.1) 8.4 mg/dL (8.5-10.1) Laboratory Tests Test 05/05/21 09:30 Sodium Level 136 mmol/L (136-145) Potassium Level 4.0 mmol/L (3.5-5.1) Chloride Level 101 mmol/L (98-107) Carbon Dioxide Level 30 mmol/L (21-32) Anion Gap 5 (6-14) Blood Urea Nitrogen 15 mg/dL (7-20) Creatinine 0.8 mg/dL (0.6-1.0) Estimated GFR (Cockcroft-Gault) 82.3 Glucose Level 141 mg/dL (70-99) Calcium Level 8.4 mg/dL (8.5-10.1) Microbiology 04/19/21 Urine Culture - Final, Complete 04/19/21 Antimicrobic Susceptibility - Final, Complete Vitals/I & O Vital Sign - Last 24 Hours 05/04/21 05/04/21 05/04/21 05/04/21 15:00 19:27 19:29 22:36 Temp 99.1 98.7 98.6 99.1 98.7 98.6 Pulse 66 64 60 Resp 18 16 16 B/P (MAP) 124/61 (82) 110/45 (66) 130/40 (70) Pulse Ox 94 96 96 O2 Delivery Nasal Cannula Nasal Cannula Nasal Cannula Nasal Cannula O2 Flow Rate 4.0 4.0 5.0 4.0 05/05/21 05/05/21 05/05/21 05/05/21 04:00 04:00 07:00 07:00 Temp 98.4 98.5 98.6 98.4 98.5 98.6 Pulse 74 58 61 Resp 18 16 16 B/P (MAP) 113/52 (72) 141/54 (83) 129/44 (72) Pulse Ox 95 95 97 O2 Delivery Nasal Cannula Nasal Cannula Room Air O2 Flow Rate 4.0 4.0 05/05/21 05/05/21 05/05/21 05/05/21 09:13 09:13 09:14 11:00 Temp 98.3 98.3 Pulse 61 61 61 62 Resp 18 B/P (MAP) 129/44 129/44 129/44 129/59 (82) Pulse Ox 96 O2 Delivery Nasal Cannula O2 Flow Rate 4.0 Intake and Output 05/04/21 05/04/21 05/05/21 15:00 23:00 07:00 Intake Total 100 ml 490 ml Output Total 300 ml Balance 100 ml 190 ml Assessment SBO, post-release, ventral hernia repair. Ovarian ca with peritoneal carcinomatosis. Plan of Care Note CPM Justicifation of Admission Dx: Justifications for Admission: Justification of Admission Dx: Yes ALETHEA SCANLON MD May 05, 2021 13:04
--- NOTE | 2021-05-05 13:30 | PDOC ---
Infectious Disease Note Subjective Subjective pt is feeling better, eating regular food Afebrile last 24 hrs Vital Sign Vital Signs Vital Signs Date Time Temp Pulse Resp B/P (MAP) Pulse Ox O2 Delivery O2 Flow Rate FiO2 05/05/21 11:00 98.3 62 18 129/59 (82) 96 Nasal Cannula 4.0 98.3 Physical Exam PHYSICAL EXAM GENERAL: Alert, oriented female, not in distress. VITAL SIGNS: Stable, afebrile. HEENT: NAD. NECK: Supple, no JVP, no lymphadenopathy. LUNGS: Clear. HEART: S1, S2 regular. ABDOMEN: Soft, nontender, no organomegaly. EXTREMITIES: No edema, cyanosis. SKIN: Unremarkable. The patient does have a port in the left upper chest. NEUROLOGIC: The patient is alert, awake, and appropriate. No focal neurologic deficit. Labs Lab Laboratory Tests Test 05/05/21 09:30 Sodium Level 136 mmol/L (136-145) Potassium Level 4.0 mmol/L (3.5-5.1) Chloride Level 101 mmol/L (98-107) Carbon Dioxide Level 30 mmol/L (21-32) Anion Gap 5 (6-14) Blood Urea Nitrogen 15 mg/dL (7-20) Creatinine 0.8 mg/dL (0.6-1.0) Estimated GFR (Cockcroft-Gault) 82.3 Glucose Level 141 mg/dL (70-99) Calcium Level 8.4 mg/dL (8.5-10.1) Micro Microbiology 04/19/21 Urine Culture - e coli 04/19/21 Antimicrobic Susceptibility - Final, Complete Objective Assessment 1. Pulmonary infiltrate, probably congestive heart failure. Aspiration pneumonia is possible with having a small-bowel obstruction. 2. 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 3. Cardiomyopathy. 4. Hypertension. 5. Hyperlipidemia. Plan Plan of Care Cont cefdinir cont supportive care JACKI JACKSON MD May 05, 2021 13:30
[2021-05-05 15:00] VITALS: BP 155/61
[2021-05-05 19:30] VITALS: BP 121/51
[2021-05-05] MEDS: ATORVASTATIN CALCIUM 10 MG TABLET. PO SCH (20:28)
[2021-05-05] MEDS: ENOXAPARIN 40 MG/0.4 ML SYRINGE. SQ SCH (20:29)
--- NOTE | 2021-05-05 20:54 | NUR ---
Pt with a sore to her right gum and cheek area possibly from dentures rubbing along area. It is open and very tender. Picture was taken and put into her chart
[2021-05-05] MEDS ORDERED: [UNRECOGNIZED DRUG - OTHER] IV SCH (22:00)
[2021-05-05] MEDS ORDERED: TOTAL PARENTERAL NUTRITION IV SCH (22:00)
[2021-05-05] MEDS ORDERED: AMINO ACID IV SCH (22:00)
[2021-05-05] MEDS ORDERED: DEXTROSE 70% IV SCH (22:00)
[2021-05-05 23:10] VITALS: BP 110/48
[2021-05-06 03:05] VITALS: BP 113/42
[2021-05-06 05:42] LABS: CALCIUM 8.3 mg/dL (8.5-10.1); CREATININE 0.8 mg/dL (0.6-1.0); GFR 82.3; MAGNESIUM 2.1 mg/dL (1.8-2.4); PHOSPHORUS 3.2 mg/dL (2.6-4.7); POTASSIUM 4.4 mmol/L (3.5-5.1)
[2021-05-06 07:30] VITALS: BP 127/48
--- NOTE | 2021-05-06 08:22 | PDOC ---
Infectious Disease Note Subjective Subjective pt is feeling better, eating regular food Afebrile last 24 hrs ROS ROS No nausea vomiting diarrhea abdominal pain Vital Sign Vital Signs Vital Signs Date Time Temp Pulse Resp B/P (MAP) Pulse Ox O2 Delivery O2 Flow Rate FiO2 05/06/21 07:30 98.6 57 18 127/48 (74) 95 Nasal Cannula 3.0 98.6 Physical Exam PHYSICAL EXAM GENERAL: Alert, oriented female, not in distress. VITAL SIGNS: Stable, afebrile. HEENT: NAD. NECK: Supple, no JVP, no lymphadenopathy. LUNGS: Clear. HEART: S1, S2 regular. ABDOMEN: Soft, nontender, no organomegaly. EXTREMITIES: No edema, cyanosis. SKIN: Unremarkable. The patient does have a port in the left upper chest. NEUROLOGIC: The patient is alert, awake, and appropriate. No focal neurologic deficit. Labs Lab Laboratory Tests Test 05/05/21 09:30 05/06/21 04:35 Sodium Level 136 mmol/L (136-145) 139 mmol/L (136-145) Potassium Level 4.0 mmol/L (3.5-5.1) 4.4 mmol/L (3.5-5.1) Chloride Level 101 mmol/L (98-107) 105 mmol/L (98-107) Carbon Dioxide Level 30 mmol/L (21-32) 27 mmol/L (21-32) Anion Gap 5 (6-14) 7 (6-14) Blood Urea Nitrogen 15 mg/dL (7-20) 17 mg/dL (7-20) Creatinine 0.8 mg/dL (0.6-1.0) 0.8 mg/dL (0.6-1.0) Estimated GFR (Cockcroft-Gault) 82.3 82.3 Glucose Level 141 mg/dL (70-99) 122 mg/dL (70-99) Calcium Level 8.4 mg/dL (8.5-10.1) 8.3 mg/dL (8.5-10.1) Phosphorus Level 3.2 mg/dL (2.6-4.7) Magnesium Level 2.1 mg/dL (1.8-2.4) Micro Microbiology 04/19/21 Urine Culture - e coli 04/19/21 Antimicrobic Susceptibility - Final, Complete Objective Assessment 1. Pulmonary infiltrate, probably congestive heart failure. Aspiration pneumonia is possible with having a small-bowel obstruction. 2. 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 3. Cardiomyopathy. 4. Hypertension. 5. Hyperlipidemia. Plan Plan of Care Cont cefdinir cont supportive care PT OT Transfer to intermediate facility JACKI JACKSON MD May 06, 2021 08:22
[2021-05-06] MEDS: PANTOPRAZOLE 40 MG TABLET.DR. PO SCH (08:24)
[2021-05-06] MEDS: ASPIRIN ENTERIC COATED 81 MG TABLET.DR. PO SCH (08:24)
[2021-05-06] MEDS: CEFDINIR 300 MG CAPSULE PO SCH ×2 (08:25→20:56)
[2021-05-06] MEDS: AMIODARONE HCL 200 MG TABLET. PO SCH (08:25)
[2021-05-06] MEDS: LISINOPRIL 10 MG TABLET PO SCH (08:26)
[2021-05-06] MEDS: CETIRIZINE HCL 10 MG TABLET. PO SCH (08:26)
--- NOTE | 2021-05-06 09:25 | PDOC ---
SURGICAL PROGRESS NOTE DATE: 05/06/21 TIME: 09:24 Subjective resting eating, does now have a sore in mouth that makes some foods difficult Vital Signs Vital Signs Date Time Temp Pulse Resp B/P (MAP) Pulse Ox O2 Delivery O2 Flow Rate FiO2 05/06/21 08:26 57 127/48 05/06/21 07:30 98.6 18 95 Nasal Cannula 3.0 98.6 I&O Intake and Output 05/06/21 06:59 Intake Total 550 ml Balance 550 ml Intake Oral 550 ml # Voids 5 General: Alert, Oriented X3, Cooperative Abdomen: Soft Labs Laboratory Tests Test 05/05/21 09:30 05/06/21 04:35 Sodium Level 136 mmol/L (136-145) 139 mmol/L (136-145) Potassium Level 4.0 mmol/L (3.5-5.1) 4.4 mmol/L (3.5-5.1) Chloride Level 101 mmol/L (98-107) 105 mmol/L (98-107) Carbon Dioxide Level 30 mmol/L (21-32) 27 mmol/L (21-32) Anion Gap 5 (6-14) 7 (6-14) Blood Urea Nitrogen 15 mg/dL (7-20) 17 mg/dL (7-20) Creatinine 0.8 mg/dL (0.6-1.0) 0.8 mg/dL (0.6-1.0) Estimated GFR (Cockcroft-Gault) 82.3 82.3 Glucose Level 141 mg/dL (70-99) 122 mg/dL (70-99) Calcium Level 8.4 mg/dL (8.5-10.1) 8.3 mg/dL (8.5-10.1) Phosphorus Level 3.2 mg/dL (2.6-4.7) Magnesium Level 2.1 mg/dL (1.8-2.4) Laboratory Tests Test 05/05/21 09:30 05/06/21 04:35 Sodium Level 136 mmol/L (136-145) 139 mmol/L (136-145) Potassium Level 4.0 mmol/L (3.5-5.1) 4.4 mmol/L (3.5-5.1) Chloride Level 101 mmol/L (98-107) 105 mmol/L (98-107) Carbon Dioxide Level 30 mmol/L (21-32) 27 mmol/L (21-32) Anion Gap 5 (6-14) 7 (6-14) Blood Urea Nitrogen 15 mg/dL (7-20) 17 mg/dL (7-20) Creatinine 0.8 mg/dL (0.6-1.0) 0.8 mg/dL (0.6-1.0) Estimated GFR (Cockcroft-Gault) 82.3 82.3 Glucose Level 141 mg/dL (70-99) 122 mg/dL (70-99) Calcium Level 8.4 mg/dL (8.5-10.1) 8.3 mg/dL (8.5-10.1) Phosphorus Level 3.2 mg/dL (2.6-4.7) Magnesium Level 2.1 mg/dL (1.8-2.4) Problem List rehab plans Justicifation of Admission Dx: Justifications for Admission: Justification of Admission Dx: Yes ASHLYN MCDANIEL APRN May 06, 2021 09:25
[2021-05-06 11:05] VITALS: BP 136/50
--- NOTE | 2021-05-06 13:27 | NUR ---
Pharmacy TPN Dosing Note S: ERIKAYLEY is a 85 year old F Currently receiving Central Continuous TPN started 04/26/21 B:Pertinent PMH: SBO s/p xlap Height: 5 feet, 2 inches Weight: 68.490123 kg Current diet: GI SOFT LABS: Sodium: 136 Potassium: 4.0 Chloride: 101 Calcium: 8.4 Corrected Calcium: 10.16 Magnesium: 2.0 CO2: 30 SCr: 0.8 Glucose: 141 Albumin: 1.8 AST: 29 ALT: 36 TPN FORMULA: TPN TYPE: Central Continuous AMINO ACIDS: 60 gm DEXTROSE: 195 gm LIPIDS: 20 gm SODIUM CHLORIDE: 90 mEq SODIUM ACETATE: - mEq SODIUM PHOSPHATE: - mmol POTASSIUM CHLORIDE: 10 mEq POTASSIUM ACETATE: - mEq POTASSIUM PHOSPHATE: 13.6 mmol MAGNESIUM: 8 mEq CALCIUM: 10 mEq INSULIN: - units MULTIPLE VITAMIN: 5 ml TRACE ELEMENTS: 1 ml(s) TPN PLAN: 05/05 SAME TPN R: Continue TPN AT 63ML/HR Will monitor electrolytes, glucose, and tolerance to TPN. EMI JACKSON [facility], 05/06/21 [id number]
--- NOTE | 2021-05-06 14:17 | PDOC ---
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 History of Present Illness History of Present Illness Ms Shane is an 85 year old female with past medical history of ovarian cancer presented to ER with the chief complaint of abdominal pain. has known abdominal hernia. and she has had associated abdominal pain on and off for years. Over the last few days pain has become more intense. pain is diffuse but primarily left abd lateral to umbulicus. associated nausea but has no vomiting. / she did have a BM yesterday /SBO vs ileus--umbilical hernia. GI and general surgery consulted. 04/16: Feels better. No abd pain. Less distended. Not passing flatus or stool. No nausea. NGT with minimal output. Discussed with general surgery and GI for SBFT 04/17: Is better no BM or flatus but she thinks things are moving. She wants to get up out of bed but feels very weak. For small bowel follow-through today. Was premedicated. 04/18: Having BM. NG tube in place to clamp. C/o abdominal distention today, but denies abdominal pain. KUB showed diffuse small bowel dilation has mildly decr eased 04/19: Patient seen with son at bedside. Doing much better, NG tube removed. Tolerating trial of clears. +Flatus. Appreciate general surgery and GI recommendations. ADAT 04/20: Patient feels well. Passing gas, tolerating full liquid diet. Will ad ludwig to regular diabetic diet this evening and see how this is tolerated. 04/21: Some worsening abdominal distention. Reports nausea and vomiting x 2 overnight. Discussed n.p.o. for now. If vomiting continues may need to replace NG tube 04/22: No acute events overnight. Patient did have vomiting over the weekend but did not claim any nausea vomiting overnight. Does endorse bowel movement and passing flatus. 04/23: No acute events overnight. Patient did have an episode of vomiting this morning and vomited all over self unfortunately. Hernia repair with surgery. Potassium low at 2.6. 04/24: No acute events overnight. Plan for OR today for exploratory laparotomy, lysis of adhesions and repair of hernia in AM 04/25: No acute events overnight. No points from patient at this time. No concerns with nursing. To OR for Ex lap with lysis of adhesions and incisional hernia repair 04/26:No acute events overnight. Patient is hemodynamically stable and NG tube is intact. Will start TPN today through port for parental nutrition before advancing diet. 04/27: No acute events overnight. Patient's pain is well controlled. Working well with physical therapy. IV electrolytes replaced. Minimal NG tube drainage of 50 cc. QUALITY ENGINEERING MANAGER pain control 04/28: No acute events overnight. Patient's pain is well controlled. No reports of bowel movement or flatus at this time. NG tube output minimal. Continue PT OT modalities. 04/29: NG tube advanced with good position KUB with stool significant abdominal distention. Not passing flatus or BM. Pain is well controlled with morphine QUALITY ENGINEERING MANAGER. Working with PT. 04/30: Afebrile. NG tube in good position. Not passing flatus. Ambulating well. Pain well controlled. More hypoxic, seen by pulmonology and ID, given lasix, improved. 05/01: 2 bowel movements overnight. Feeling better after diuresis with lasix per pulmonology. No CP or SOB. Passing flatus currently. Labs stable. 05/02: Afebrile. NG tube in good position having stools eating Jell-O. Able to ambulate. Discussed pathology concerning for ovarian neoplasm with patient she seems forgetful about these discussions. 05/03: Afebrile. NG tube out eating liquid diet well. Still on supplemental TPN. Having bowel movements. She is amenable to rehab for discharge. Unfortunately they are unable to get TPN at SNF at this time, delaying discharge. 05/04: Afebrile, eating ok. Tolerating TPN well. No nausea or vomiting. Still passing flatus. Feeling more weak. Not interested in discussing cancer diagnosis today. She would like to wait to discuss palliative care and hospice. 05/05: Afebrile. Tolerating well. Flatus and bowels. No nausea or vomiting. 05/06: Patient seen and examined. Discussed with RN. Chart reviewed. Patient in NAD. No nausea or vomiting. Still passing flatus. Patient has on abdominal binder and leg compression. Plan to discontinue TPN and switch to clear liquids when approved by the surgical team. Vitals/I&O Vitals/I&O: Vital Signs Date Time Temp Pulse Resp B/P (MAP) Pulse Ox O2 Delivery O2 Flow Rate FiO2 05/06/21 11:05 98.6 61 18 136/50 (78) 94 Nasal Cannula 3.0 98.6 I & O 05/05/21 05/05/21 05/06/21 15:00 23:00 07:00 Intake Total 260 ml 50 ml Balance 260 ml 50 ml Physical Exam Physical Exam: GENERAL: Alert, oriented female, not in distress. VITAL SIGNS: Stable, afebrile. HEENT: NAD. NECK: Supple, no JVP, no lymphadenopathy. LUNGS: Clear. HEART: S1, S2 regular. ABDOMEN: Soft, nontender, no organomegaly. EXTREMITIES: No edema, cyanosis. SKIN: Unremarkable. The patient does have a port in the left upper chest. NEUROLOGIC: The patient is alert, awake, and appropriate. No focal neurologic deficit. General: Alert, Oriented X3, Cooperative Heart: Regular rate Lungs: Clear, Other Abdomen: Soft Extremities: Other (dressing dry) Skin: No rashes Labs Labs: Laboratory Tests Test 05/06/21 04:35 Sodium Level 139 mmol/L (136-145) Potassium Level 4.4 mmol/L (3.5-5.1) Chloride Level 105 mmol/L (98-107) Carbon Dioxide Level 27 mmol/L (21-32) Anion Gap 7 (6-14) Blood Urea Nitrogen 17 mg/dL (7-20) Creatinine 0.8 mg/dL (0.6-1.0) Estimated GFR (Cockcroft-Gault) 82.3 Glucose Level 122 mg/dL (70-99) Calcium Level 8.3 mg/dL (8.5-10.1) Phosphorus Level 3.2 mg/dL (2.6-4.7) Magnesium Level 2.1 mg/dL (1.8-2.4) Review of Systems Review of Systems: Patient denies nausea and vomiting. 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 Plan: 1. Appreciate subspecialty input -Consulted: GI, ID, pulmonology, oncology, surgery 2. Continue antibiotics (cefidinir) 3. Wound care 4. Discontinue TPN and switch to clear liquids when approved by surgery 5. Continue oxygen as needed 6. Trend labs 7. DVT prophylaxis: enoxaparin 8. Discharge disposition pending Comment Review of Relevant I have reviewed the following items arabella (where applicable) has been applied. Medications: Current Medications Medications (Trade) Dose Ordered Sig/Pedro Route PRN Reason Start Time Stop Time Status Last Admin Dose Admin Sodium Chloride 90 meq/Potassium Chloride 10 meq/ Potassium Phosphate 13.6 mmol/Magnesium Sulfate 8 meq/ Calcium Gluconate 10 meq/ Multivitamins 5 ml/Zinc/Copper/ Manganese/ Selenium 1 ml/ Total Parenteral Nutrition/Amino Acids/Dextrose/ Fat Emulsion Intravenous 1,512 ml @ 63 mls/hr TPN CONT IV 05/05/21 22:00 05/06/21 21:59 05/05/21 22:00 Justifications for Admission Other Justification ABDOMINAL PAIN RUDY MCDOWELL III DO May 06, 2021 14:16
[2021-05-06 14:53] VITALS: BP 126/48
--- NOTE | 2021-05-06 16:26 | NUR ---
Magic mouthwash was ordered for pt mouth sore.
[2021-05-06] MEDS: LIDO:MAALOX:BENADRYL 1:1:1 180 ML BOTTLE. PO PRN (17:40)
[2021-05-06 19:00] VITALS: BP 120/49
[2021-05-06] MEDS: ENOXAPARIN 40 MG/0.4 ML SYRINGE. SQ SCH (20:56)
[2021-05-06] MEDS: ATORVASTATIN CALCIUM 10 MG TABLET. PO SCH (20:56)
[2021-05-06] MEDS ORDERED: TOTAL PARENTERAL NUTRITION IV SCH (22:00)
[2021-05-06] MEDS ORDERED: [UNRECOGNIZED DRUG - OTHER] IV SCH (22:00)
[2021-05-06] MEDS ORDERED: DEXTROSE 70% IV SCH (22:00)
[2021-05-06] MEDS ORDERED: AMINO ACID IV SCH (22:00)
[2021-05-06 23:00] VITALS: BP 130/44
[2021-05-07 02:51] VITALS: BP 127/43
[2021-05-07 06:25] LABS: BASO % 1 % (0-3); EOS # 0.1 x10^3/uL (0.0-0.7); EOS % 3 % (0-3); HEMATOCRIT 30.9 % (36.0-47.0); HEMOGLOBIN 10.4 g/dL (12.0-15.5); LYMPH # 1.1 x10^3/uL (1.0-4.8); LYMPH % 27 % (24-48); MEAN CORPUSCULAR HEMOGLOBIN 32 pg (25-35); MEAN CORPUSCULAR HGB CONC 34 g/dL (31-37); MEAN CORPUSCULAR VOLUME 97 fL (79-100); MONO # 0.4 x10^3/uL (0.0-1.1); MONO % 9 % (0-9); NEUT # 2.5 x10^3/uL (1.8-7.7); NEUT % 60 % (31-73); PLATELET COUNT 268 x10^3/uL (140-400); WHITE BLOOD COUNT 4.1 x10^3/uL (4.0-11.0)
[2021-05-07 07:00] VITALS: BP 129/48
[2021-05-07] MEDS: ASPIRIN ENTERIC COATED 81 MG TABLET.DR. PO SCH (08:17)
[2021-05-07] MEDS: CETIRIZINE HCL 10 MG TABLET. PO SCH (08:17)
[2021-05-07] MEDS: CEFDINIR 300 MG CAPSULE PO SCH (08:17)
[2021-05-07] MEDS: PANTOPRAZOLE 40 MG TABLET.DR. PO SCH (08:17)
[2021-05-07] MEDS: LISINOPRIL 10 MG TABLET PO SCH (08:19)
[2021-05-07] MEDS: CHOLECALCIFEROL (VITAMIN D3) 5,000 UNIT CAPSULE PO SCH (08:19)
[2021-05-07] MEDS: AMIODARONE HCL 200 MG TABLET. PO SCH (08:21)
--- NOTE | 2021-05-07 08:21 | PDOC ---
Infectious Disease Note Subjective Subjective pt is feeling better, eating regular food Afebrile last 24 hrs ROS ROS No nausea vomiting diarrhea Vital Sign Vital Signs Vital Signs Date Time Temp Pulse Resp B/P (MAP) Pulse Ox O2 Delivery O2 Flow Rate FiO2 05/07/21 07:00 98.3 60 16 129/48 (75) 97 Nasal Cannula 4.0 98.3 Physical Exam PHYSICAL EXAM GENERAL: Alert, oriented female, not in distress. VITAL SIGNS: Stable, afebrile. HEENT: NAD. NECK: Supple, no JVP, no lymphadenopathy. LUNGS: Clear. HEART: S1, S2 regular. ABDOMEN: Soft, nontender, no organomegaly. EXTREMITIES: No edema, cyanosis. SKIN: Unremarkable. The patient does have a port in the left upper chest. NEUROLOGIC: The patient is alert, awake, and appropriate. No focal neurologic deficit. Labs Lab Laboratory Tests Test 05/07/21 06:00 White Blood Count 4.1 x10^3/uL (4.0-11.0) Red Blood Count 3.20 x10^6/uL (3.50-5.40) Hemoglobin 10.4 g/dL (12.0-15.5) Hematocrit 30.9 % (36.0-47.0) Mean Corpuscular Volume 97 fL (79-100) Mean Corpuscular Hemoglobin 32 pg (25-35) Mean Corpuscular Hemoglobin Concent 34 g/dL (31-37) Red Cell Distribution Width 14.0 % (11.5-14.5) Platelet Count 268 x10^3/uL (140-400) Neutrophils (%) (Auto) 60 % (31-73) Lymphocytes (%) (Auto) 27 % (24-48) Monocytes (%) (Auto) 9 % (0-9) Eosinophils (%) (Auto) 3 % (0-3) Basophils (%) (Auto) 1 % (0-3) Neutrophils # (Auto) 2.5 x10^3/uL (1.8-7.7) Lymphocytes # (Auto) 1.1 x10^3/uL (1.0-4.8) Monocytes # (Auto) 0.4 x10^3/uL (0.0-1.1) Eosinophils # (Auto) 0.1 x10^3/uL (0.0-0.7) Basophils # (Auto) 0.0 x10^3/uL (0.0-0.2) Micro Microbiology 04/19/21 Urine Culture - e coli 04/19/21 Antimicrobic Susceptibility - Final, Complete Objective Assessment 1. Pulmonary infiltrate, probably congestive heart failure. Aspiration pneumonia is possible with having a small-bowel obstruction. 2. 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 3. Cardiomyopathy. 4. Hypertension. 5. Hyperlipidemia. Plan Plan of Care Cont cefdinir cont supportive care PT OT Transfer to assisted facility JACKI JACKSON MD May 07, 2021 08:21
--- NOTE | 2021-05-07 08:31 | PDOC ---
PULMONARY PROGRESS NOTES DATE: 05/07/21 TIME: 08:31 Subjective Patient sitting up in the chair, eating, no respiratory distress Vitals Vital Signs Date Time Temp Pulse Resp B/P (MAP) Pulse Ox O2 Delivery O2 Flow Rate FiO2 05/07/21 08:21 60 129/48 05/07/21 07:00 98.3 16 97 Nasal Cannula 4.0 98.3 ROS: No Nausea, No Chest Pain, No Abdominal Pain, No Increase Cough General: Alert, No acute distress Lungs: Clear, Other Cardiovascular: S1 Abdomen: Soft, Other Neuro Exam: Alert Extremities: No Edema Skin: Warm Labs Laboratory Tests Test 05/05/21 09:30 05/06/21 04:35 05/07/21 06:00 Sodium Level 136 mmol/L (136-145) 139 mmol/L (136-145) Potassium Level 4.0 mmol/L (3.5-5.1) 4.4 mmol/L (3.5-5.1) Chloride Level 101 mmol/L (98-107) 105 mmol/L (98-107) Carbon Dioxide Level 30 mmol/L (21-32) 27 mmol/L (21-32) Anion Gap 5 (6-14) 7 (6-14) Blood Urea Nitrogen 15 mg/dL (7-20) 17 mg/dL (7-20) Creatinine 0.8 mg/dL (0.6-1.0) 0.8 mg/dL (0.6-1.0) Estimated GFR (Cockcroft-Gault) 82.3 82.3 Glucose Level 141 mg/dL (70-99) 122 mg/dL (70-99) Calcium Level 8.4 mg/dL (8.5-10.1) 8.3 mg/dL (8.5-10.1) Phosphorus Level 3.2 mg/dL (2.6-4.7) Magnesium Level 2.1 mg/dL (1.8-2.4) White Blood Count 4.1 x10^3/uL (4.0-11.0) Red Blood Count 3.20 x10^6/uL (3.50-5.40) Hemoglobin 10.4 g/dL (12.0-15.5) Hematocrit 30.9 % (36.0-47.0) Mean Corpuscular Volume 97 fL (79-100) Mean Corpuscular Hemoglobin 32 pg (25-35) Mean Corpuscular Hemoglobin Concent 34 g/dL (31-37) Red Cell Distribution Width 14.0 % (11.5-14.5) Platelet Count 268 x10^3/uL (140-400) Neutrophils (%) (Auto) 60 % (31-73) Lymphocytes (%) (Auto) 27 % (24-48) Monocytes (%) (Auto) 9 % (0-9) Eosinophils (%) (Auto) 3 % (0-3) Basophils (%) (Auto) 1 % (0-3) Neutrophils # (Auto) 2.5 x10^3/uL (1.8-7.7) Lymphocytes # (Auto) 1.1 x10^3/uL (1.0-4.8) Monocytes # (Auto) 0.4 x10^3/uL (0.0-1.1) Eosinophils # (Auto) 0.1 x10^3/uL (0.0-0.7) Basophils # (Auto) 0.0 x10^3/uL (0.0-0.2) Laboratory Tests Test 05/07/21 06:00 White Blood Count 4.1 x10^3/uL (4.0-11.0) Red Blood Count 3.20 x10^6/uL (3.50-5.40) Hemoglobin 10.4 g/dL (12.0-15.5) Hematocrit 30.9 % (36.0-47.0) Mean Corpuscular Volume 97 fL (79-100) Mean Corpuscular Hemoglobin 32 pg (25-35) Mean Corpuscular Hemoglobin Concent 34 g/dL (31-37) Red Cell Distribution Width 14.0 % (11.5-14.5) Platelet Count 268 x10^3/uL (140-400) Neutrophils (%) (Auto) 60 % (31-73) Lymphocytes (%) (Auto) 27 % (24-48) Monocytes (%) (Auto) 9 % (0-9) Eosinophils (%) (Auto) 3 % (0-3) Basophils (%) (Auto) 1 % (0-3) Neutrophils # (Auto) 2.5 x10^3/uL (1.8-7.7) Lymphocytes # (Auto) 1.1 x10^3/uL (1.0-4.8) Monocytes # (Auto) 0.4 x10^3/uL (0.0-1.1) Eosinophils # (Auto) 0.1 x10^3/uL (0.0-0.7) Basophils # (Auto) 0.0 x10^3/uL (0.0-0.2) Medications Active Scripts Medications Dose Route/Sig Max Daily Dose Days Date Category Loratadine 10 Mg Tablet 1 Tab PO DAILY 07/14/19 Reported Klor-Con M20 (Potassium Chloride) 20 Meq Tab.er.prt 1 Tab PO DAILY 30 07/14/19 Reported Percocet 5-325 Mg Tablet (Oxycodone/Acetaminophen) 1 Each Tablet 1 Tab PO PRN Q4HRS PRN 11/01/18 Reported Pravastatin Sodium 40 Mg Tablet 1 Tab PO QHS 10/22/18 Reported Lisinopril 10 Mg Tablet 1 Tab PO DAILY 10/22/18 Reported Vitamin D3 (Cholecalciferol (Vitamin D3)) 5,000 Unit Tablet 1 Tab PO QODAY 10/22/18 Reported Aspirin Ec (Aspirin) 81 Mg Tablet.dr 1 Tab PO DAILY 10/22/18 Reported Cartia Xt (Diltiazem Hcl) 120 Mg Cap.er.24h 120 Mg PO DAILY 10/22/18 Reported Amiodarone Hcl 200 Mg Tablet 0.5 Tab PO DAILY 10/22/18 Reported Protonix (Pantoprazole Sodium) 20 Mg Tablet.dr 40 Mg PO DAILY PRN 14 10/22/18 Reported Comments Chest x-ray reviewed 05/01/2021 Improving basal effusions Impression . 1. Acute hypoxic respiratory failure suspect fluid overload 2. Status post exploratory laparotomy with lysis of adhesions and biopsy of mesenteric mass. 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 3. No significant tobacco history. 4. Severe protein calorie malnutrition. 5. No significant leukocytosis. Plan . Updated 05/04 continue incentive spirometry As needed nebulized treatments Diurese as needed Maintain oxygen supplementation Advance diet 05/02 1. Wean FiO2. Keep saturation 92 and above. 2. Incentive spirometry. 3. Chest x-ray post diuresis 05/01/2021 shows improved basal effusion 4. P.r.n. nebulizer treatment. 5. Follow Oncology and General Surgery recommendations. 6. Discussed with patient's at the bedside 7. Continue Lovenox for DVT prophylaxis. CASSIDY WHEELER MD May 07, 2021 08:31
[2021-05-07] MEDS: LIDO:MAALOX:BENADRYL 1:1:1 180 ML BOTTLE. PO PRN (09:22)
--- NOTE | 2021-05-07 10:21 | PDOC ---
Date of Service: DATE: 05/07/21 TIME: 10:18 Subjective: Subjective: Ate pancakes w/ syrup, eggs, and sausage for breakfast. Stooled last night. No abd pain. Going to rehab, not sure when. Objective: Vital Signs: Vital Signs Date Time Temp Pulse Resp B/P (MAP) Pulse Ox O2 Delivery O2 Flow Rate FiO2 05/07/21 08:21 60 129/48 05/07/21 08:00 Nasal Cannula 3.0 05/07/21 07:00 98.3 16 97 98.3 Labs: Laboratory Tests Test 05/07/21 06:00 White Blood Count 4.1 x10^3/uL Red Blood Count 3.20 x10^6/uL Hemoglobin 10.4 g/dL Hematocrit 30.9 % Mean Corpuscular Volume 97 fL Mean Corpuscular Hemoglobin 32 pg Mean Corpuscular Hemoglobin Concent 34 g/dL Red Cell Distribution Width 14.0 % Platelet Count 268 x10^3/uL Neutrophils (%) (Auto) 60 % Lymphocytes (%) (Auto) 27 % Monocytes (%) (Auto) 9 % Eosinophils (%) (Auto) 3 % Basophils (%) (Auto) 1 % Neutrophils # (Auto) 2.5 x10^3/uL Lymphocytes # (Auto) 1.1 x10^3/uL Monocytes # (Auto) 0.4 x10^3/uL Eosinophils # (Auto) 0.1 x10^3/uL Basophils # (Auto) 0.0 x10^3/uL Imaging: Abd X-Ray 05/02 IMPRESSION: 1. Persistent dilated small bowel throughout the abdomen, with some distal bowel gas, possibly representing an adynamic ileus or partial small bowel obstruction 2. Enteric tube extends into the stomach complex region of the stomach 3. Bilateral pulmonary infiltrates and small left pleural effusion PE: GEN: NAD - up in chair, nurse present LUNGS: 3L NC, diminished HEART: RRR ABD: non-distended NEURO/PSYCH: A & O 3, pleasant and cooperative A/P: S/p incisional hernia repair, ovarian cancer, resp failure COVID negative -- Eating and stooling. DC per primary. Justicifation of Admission Dx: Justifications for Admission: Justification of Admission Dx: Yes LAMINE JESUS May 07, 2021 10:21
--- NOTE | 2021-05-07 10:34 | NUR ---
ANTELMO following. Discussed with RN. Pt can discharge to [facility] today, pending TPN being ordered. Rapid COVID requested from [facility]. RN notified. Awaiting discharge orders. ANTELMO will continue to follow. Addendum: 05/07/21 at 1406 by CONSTANZA RODRIGES Discharge orders faxed to [facility]. Transportation arranged with [facility] transport for 2162. RN notified.
[2021-05-07 11:29] VITALS: BP 135/55
--- NOTE | 2021-05-07 11:45 | PDOC ---
SURGICAL PROGRESS NOTE DATE: 05/07/21 TIME: 11:44 Subjective doing well tolerating diet plans for rehab Vital Signs Vital Signs Date Time Temp Pulse Resp B/P (MAP) Pulse Ox O2 Delivery O2 Flow Rate FiO2 05/07/21 11:29 98.3 77 20 135/55 (81) 97 Nasal Cannula 2.0 98.3 I&O Intake and Output 05/07/21 06:59 Intake Total 1912 ml Balance 1912 ml Intake Oral 400 ml IV Total 1512 ml # Voids 6 General: Alert, Oriented X3 HEENT: Atraumatic Abdomen: Soft Labs Laboratory Tests Test 05/06/21 04:35 05/07/21 06:00 Sodium Level 139 mmol/L (136-145) Potassium Level 4.4 mmol/L (3.5-5.1) Chloride Level 105 mmol/L (98-107) Carbon Dioxide Level 27 mmol/L (21-32) Anion Gap 7 (6-14) Blood Urea Nitrogen 17 mg/dL (7-20) Creatinine 0.8 mg/dL (0.6-1.0) Estimated GFR (Cockcroft-Gault) 82.3 Glucose Level 122 mg/dL (70-99) Calcium Level 8.3 mg/dL (8.5-10.1) Phosphorus Level 3.2 mg/dL (2.6-4.7) Magnesium Level 2.1 mg/dL (1.8-2.4) White Blood Count 4.1 x10^3/uL (4.0-11.0) Red Blood Count 3.20 x10^6/uL (3.50-5.40) Hemoglobin 10.4 g/dL (12.0-15.5) Hematocrit 30.9 % (36.0-47.0) Mean Corpuscular Volume 97 fL (79-100) Mean Corpuscular Hemoglobin 32 pg (25-35) Mean Corpuscular Hemoglobin Concent 34 g/dL (31-37) Red Cell Distribution Width 14.0 % (11.5-14.5) Platelet Count 268 x10^3/uL (140-400) Neutrophils (%) (Auto) 60 % (31-73) Lymphocytes (%) (Auto) 27 % (24-48) Monocytes (%) (Auto) 9 % (0-9) Eosinophils (%) (Auto) 3 % (0-3) Basophils (%) (Auto) 1 % (0-3) Neutrophils # (Auto) 2.5 x10^3/uL (1.8-7.7) Lymphocytes # (Auto) 1.1 x10^3/uL (1.0-4.8) Monocytes # (Auto) 0.4 x10^3/uL (0.0-1.1) Eosinophils # (Auto) 0.1 x10^3/uL (0.0-0.7) Basophils # (Auto) 0.0 x10^3/uL (0.0-0.2) Laboratory Tests Test 05/07/21 06:00 White Blood Count 4.1 x10^3/uL (4.0-11.0) Red Blood Count 3.20 x10^6/uL (3.50-5.40) Hemoglobin 10.4 g/dL (12.0-15.5) Hematocrit 30.9 % (36.0-47.0) Mean Corpuscular Volume 97 fL (79-100) Mean Corpuscular Hemoglobin 32 pg (25-35) Mean Corpuscular Hemoglobin Concent 34 g/dL (31-37) Red Cell Distribution Width 14.0 % (11.5-14.5) Platelet Count 268 x10^3/uL (140-400) Neutrophils (%) (Auto) 60 % (31-73) Lymphocytes (%) (Auto) 27 % (24-48) Monocytes (%) (Auto) 9 % (0-9) Eosinophils (%) (Auto) 3 % (0-3) Basophils (%) (Auto) 1 % (0-3) Neutrophils # (Auto) 2.5 x10^3/uL (1.8-7.7) Lymphocytes # (Auto) 1.1 x10^3/uL (1.0-4.8) Monocytes # (Auto) 0.4 x10^3/uL (0.0-1.1) Eosinophils # (Auto) 0.1 x10^3/uL (0.0-0.7) Basophils # (Auto) 0.0 x10^3/uL (0.0-0.2) Assessment/Plan ok to dc to rehab Justicifation of Admission Dx: Justifications for Admission: Justification of Admission Dx: Yes ASHLYN MCDANIEL PRODUCT ACCOUNTANT May 07, 2021 11:45
[2021-05-07] MEDS ORDERED: CEFD300C PO (13:22)
--- NOTE | 2021-05-07 13:23 | SNU/HH DC ---
DISCHARGE ORDERS DISCHARGE INFORMATION: CONDITION ON DISCHARGE: Stable CODE STATUS: Code Status: Full CORRECTION: SNF STAY <30 DAYS: Yes HOSPICE: HOSPICE: No HOSPICE EVAL & TREAT: No LTAC: ADMIT TO LTAC: No POST DISCHARGE ORDERS: ACTIVITY ORDERS: Activity as tolerated, Avoid exertion WEIGHT BEARING STATUS: No restrictions DIET AFTER DISCHARGE: Regular WOUND/INCISION CARE: Do not change dressing CHECKS AFTER DISCHARGE: CHECKS AFTER DISCHARGE: Check blood sugar, ac/hs FOLLOW-UP: LAB ORDERS FOR FOLLOW-UP: CBC CMP on Mondays and . TREATMENT/EQUIPMENT ORDERS: ADAPTIVE EQUIPMENT NEEDED: None Physical Therapy For: Evalulation/Treatment Occupational Therapy For: Evaluation/Treatment DISCHARGE MEDICATIONS: Home Meds Reported Medications Loratadine (LORATADINE) 10 Mg Tablet, 1 TAB PO DAILY for allergies, #30 TAB 5 Refills 07/14/19 Potassium Chloride (KLOR-CON M20) 20 Meq Tab.er.prt, 1 TAB PO DAILY for replacement k+ for 30 Days, #30 TAB 0 Refills 07/14/19 Oxycodone/Apap 5-325 (PERCOCET 5-325 MG TABLET ) 1 Each Tablet, 1 TAB PO PRN Q4HRS PRN for PAIN, TAB 0 Refills 11/01/18 Pravastatin Sodium (PRAVASTATIN SODIUM) 40 Mg Tablet, 1 TAB PO QHS for Home Med, #90 TAB 1 Refill 10/22/18 Lisinopril (LISINOPRIL) 10 Mg Tablet, 1 TAB PO DAILY for Home Med, #30 TAB 5 Refills 10/22/18 Cholecalciferol (Vitamin D3) (VITAMIN D3) 5,000 Unit Tablet, 1 TAB PO QODAY for Home Med, #30 TAB 10/22/18 Aspirin (ASPIRIN EC) 81 Mg Tablet.dr, 1 TAB PO DAILY for Home Med, #30 TAB 3 Refills 10/22/18 Diltiazem Hcl (CARTIA XT) 120 Mg Cap.er.24h, 120 MG PO DAILY for Home Med, CAP.SR 10/22/18 Amiodarone Hcl (AMIODARONE HCL) 200 Mg Tablet, 0.5 TAB PO DAILY for Home Med, #90 TAB 1 Refill 10/22/18 Pantoprazole Sodium (PROTONIX) 20 Mg Tablet.dr, 40 MG PO DAILY PRN for acid reflex for 14 Days, #28 TAB 10/22/18 RUDY MCDOWELL III DO May 07, 2021 13:23
--- NOTE | 2021-05-07 13:48 | PDOC ---
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 History of Present Illness History of Present Illness Ms Shane is an 85 year old female with past medical history of ovarian cancer presented to ER with the chief complaint of abdominal pain. has known abdominal hernia. and she has had associated abdominal pain on and off for years. Over the last few days pain has become more intense. pain is diffuse but primarily left abd lateral to umbulicus. associated nausea but has no vomiting. / she did have a BM yesterday /SBO vs ileus--umbilical hernia. GI and general surgery consulted. 04/16: Feels better. No abd pain. Less distended. Not passing flatus or stool. No nausea. NGT with minimal output. Discussed with general surgery and GI for SBFT 04/17: Is better no BM or flatus but she thinks things are moving. She wants to get up out of bed but feels very weak. For small bowel follow-through today. Was premedicated. 04/18: Having BM. NG tube in place to clamp. C/o abdominal distention today, but denies abdominal pain. KUB showed diffuse small bowel dilation has mildly decr eased 04/19: Patient seen with son at bedside. Doing much better, NG tube removed. Tolerating trial of clears. +Flatus. Appreciate general surgery and GI recommendations. ADAT 04/20: Patient feels well. Passing gas, tolerating full liquid diet. Will ad ludwig to regular diabetic diet this evening and see how this is tolerated. 04/21: Some worsening abdominal distention. Reports nausea and vomiting x 2 overnight. Discussed n.p.o. for now. If vomiting continues may need to replace NG tube 04/22: No acute events overnight. Patient did have vomiting over the weekend but did not claim any nausea vomiting overnight. Does endorse bowel movement and passing flatus. 04/23: No acute events overnight. Patient did have an episode of vomiting this morning and vomited all over self unfortunately. Hernia repair with surgery. Potassium low at 2.6. 04/24: No acute events overnight. Plan for OR today for exploratory laparotomy, lysis of adhesions and repair of hernia in AM 04/25: No acute events overnight. No points from patient at this time. No concerns with nursing. To OR for Ex lap with lysis of adhesions and incisional hernia repair 04/26:No acute events overnight. Patient is hemodynamically stable and NG tube is intact. Will start TPN today through port for parental nutrition before advancing diet. 04/27: No acute events overnight. Patient's pain is well controlled. Working well with physical therapy. IV electrolytes replaced. Minimal NG tube drainage of 50 cc. AUDIO TECHNICIAN pain control 04/28: No acute events overnight. Patient's pain is well controlled. No reports of bowel movement or flatus at this time. NG tube output minimal. Continue PT OT modalities. 04/29: NG tube advanced with good position KUB with stool significant abdominal distention. Not passing flatus or BM. Pain is well controlled with morphine AUDIO TECHNICIAN. Working with PT. 04/30: Afebrile. NG tube in good position. Not passing flatus. Ambulating well. Pain well controlled. More hypoxic, seen by pulmonology and ID, given lasix, improved. 05/01: 2 bowel movements overnight. Feeling better after diuresis with lasix per pulmonology. No CP or SOB. Passing flatus currently. Labs stable. 05/02: Afebrile. NG tube in good position having stools eating Jell-O. Able to ambulate. Discussed pathology concerning for ovarian neoplasm with patient she seems forgetful about these discussions. 05/03: Afebrile. NG tube out eating liquid diet well. Still on supplemental TPN. Having bowel movements. She is amenable to rehab for discharge. Unfortunately they are unable to get TPN at SNF at this time, delaying discharge. 05/04: Afebrile, eating ok. Tolerating TPN well. No nausea or vomiting. Still passing flatus. Feeling more weak. Not interested in discussing cancer diagnosis today. She would like to wait to discuss palliative care and hospice. 05/05: Afebrile. Tolerating well. Flatus and bowels. No nausea or vomiting. 05/06: Patient seen and examined. Discussed with RN. Chart reviewed. Patient in NAD. No nausea or vomiting. Still passing flatus. Patient has on abdominal binder and leg compression. Plan to discontinue TPN and switch to clear liquids when approved by the surgical team. 05/07: Patient seen and examined. Patient sitting up in chair with NAD. No complaints of nausea, vomiting, or abdominal pain. Patient tolerated real food, plan to discontinue TPN. Patient has abdominal binder and leg compression. Discussed with RN. Chart reviewed. Plan to discharge patient today to [facility]. Vitals/I&O Vitals/I&O: Vital Signs Date Time Temp Pulse Resp B/P (MAP) Pulse Ox O2 Delivery O2 Flow Rate FiO2 05/07/21 11:29 98.3 77 20 135/55 (81) 97 Nasal Cannula 2.0 98.3 I & O 05/06/21 05/06/21 05/07/21 15:00 23:00 07:00 Intake Total 100 ml 1812 ml Balance 100 ml 1812 ml Physical Exam Physical Exam: GENERAL: Alert, oriented female, not in distress. VITAL SIGNS: Stable, afebrile. HEENT: NAD. NECK: Supple, no JVP, no lymphadenopathy. LUNGS: Clear. HEART: S1, S2 regular. ABDOMEN: Soft, nontender, no organomegaly. EXTREMITIES: No edema, cyanosis. SKIN: Unremarkable. The patient does have a port in the left upper chest. NEUROLOGIC: The patient is alert, awake, and appropriate. No focal neurologic deficit. General: Alert, Oriented X3, Cooperative Heart: Regular rate Lungs: Clear, Other Abdomen: Soft Extremities: Other (dressing dry) Skin: No rashes Labs Labs: Laboratory Tests Test 05/07/21 06:00 05/07/21 11:15 White Blood Count 4.1 x10^3/uL (4.0-11.0) Red Blood Count 3.20 x10^6/uL (3.50-5.40) Hemoglobin 10.4 g/dL (12.0-15.5) Hematocrit 30.9 % (36.0-47.0) Mean Corpuscular Volume 97 fL (79-100) Mean Corpuscular Hemoglobin 32 pg (25-35) Mean Corpuscular Hemoglobin Concent 34 g/dL (31-37) Red Cell Distribution Width 14.0 % (11.5-14.5) Platelet Count 268 x10^3/uL (140-400) Neutrophils (%) (Auto) 60 % (31-73) Lymphocytes (%) (Auto) 27 % (24-48) Monocytes (%) (Auto) 9 % (0-9) Eosinophils (%) (Auto) 3 % (0-3) Basophils (%) (Auto) 1 % (0-3) Neutrophils # (Auto) 2.5 x10^3/uL (1.8-7.7) Lymphocytes # (Auto) 1.1 x10^3/uL (1.0-4.8) Monocytes # (Auto) 0.4 x10^3/uL (0.0-1.1) Eosinophils # (Auto) 0.1 x10^3/uL (0.0-0.7) Basophils # (Auto) 0.0 x10^3/uL (0.0-0.2) SARS-CoV-2 Antigen (Rapid) Negative (NEGATIVE) Review of Systems Review of Systems: Patient denies blurry vision or loss of vision. 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 Plan: 1.Wound care as directed 2. Appreciate subspecialty input -Consulted: GI, ID, pulmonology, oncology, surgery 3. Continue antibiotics: cefidinir 4. Discontinue TPN (Patient tolerating real food) 5. Continue O2 as needed 6. DVT prophylaxis: enoxaparin 7. Discharge patient to [facility] I anticipate the patient will be on TPN 90 days or more PEG tube is not an option for this patient due to severe debility and advanced age and malnutrition Comment Review of Relevant I have reviewed the following items arabella (where applicable) has been applied. Medications: Current Medications Medications (Trade) Dose Ordered Sig/Pedro Route PRN Reason Start Time Stop Time Status Last Admin Dose Admin Sodium Chloride 90 meq/Potassium Chloride 10 meq/ Potassium Phosphate 13.6 mmol/Magnesium Sulfate 8 meq/ Calcium Gluconate 10 meq/ Multivitamins 5 ml/Zinc/Copper/ Manganese/ Selenium 1 ml/ Total Parenteral Nutrition/Amino Acids/Dextrose/ Fat Emulsion Intravenous 1,512 ml @ 63 mls/hr TPN CONT IV 05/06/21 22:00 05/07/21 21:59 05/06/21 21:42 Multi-Ingredient Mouthwash/Gargle (Magic Mouthwash) 10 ml PRN QID PRN PO MOUTH PAIN 05/06/21 16:15 05/07/21 09:22 Justifications for Admission Other Justification ABDOMINAL PAIN RUDY MCDOWELL III DO May 07, 2021 13:48
[2021-05-07] MEDS ORDERED: OXYC1TAB15 PO (14:18)
[2021-05-07 14:21] VITALS: BP 126/49
[2021-05-07] MEDS ORDERED: HEPARIN PF 500 UNIT/5 ML DISP.SYRIN. IVP ONE (14:30)
== END 2021-05-07 14:00 | DRG 353 ==
LOC: ER 22:48 → ED HOLD 04-15 04:32 → 5 NORTH 04-15 15:16 → 4 NORTH 04-18 06:03
PROVIDERS: ADMIT Student in an Organized Health Care Education/Training Program; ATTEND Student in an Organized Health Care Education/Training Program
PROC: 0DBV0ZX Excision of Mesentery, Open Approach, Diagnostic (ICD-10-PCS; 2021-04-15)
PROC: 0D9670Z Drainage of Stomach with Drainage Device, Via Natural or Artificial Opening (ICD-10-PCS; 2021-04-19)
PROC: 02HV33Z Insertion of Infusion Device into Superior Vena Cava, Percutaneous Approach (ICD-10-PCS; 2021-04-19)
PROC: 0WQF0ZZ Repair Abdominal Wall, Open Approach (ICD-10-PCS; principal; 2021-04-25 10:45)
PROC: 0WUF0JZ Supplement Abdominal Wall with Synthetic Substitute, Open Approach (ICD-10-PCS; 2021-04-25 10:45)
PROC: 5A1935Z Respiratory Ventilation, Less than 24 Consecutive Hours (ICD-10-PCS; 2021-05-01)
DX: K43.6 Other and unspecified ventral hernia with obstruction, without gangrene (principal); E43 Unspecified severe protein-calorie malnutrition; J96.01 Acute respiratory failure with hypoxia; C56.9 Malignant neoplasm of unspecified ovary; C78.6 Secondary malignant neoplasm of retroperitoneum and peritoneum; I42.9 Cardiomyopathy, unspecified; I47.1 Supraventricular tachycardia; I48.92 Unspecified atrial flutter; K56.50 Intestinal adhesions [bands], unspecified as to partial versus complete obstruction; K56.7 Ileus, unspecified; K91.89 Other postprocedural complications and disorders of digestive system; M48.56XA Collapsed vertebra, not elsewhere classified, lumbar region, initial encounter for fracture; N17.9 Acute kidney failure, unspecified; R18.8 Other ascites; D12.3 Benign neoplasm of transverse colon; D12.4 Benign neoplasm of descending colon; D64.9 Anemia, unspecified; D72.829 Elevated white blood cell count, unspecified; E11.9 Type 2 diabetes mellitus without complications; E78.00 Pure hypercholesterolemia, unspecified; E78.5 Hyperlipidemia, unspecified; E87.6 Hypokalemia; I11.0 Hypertensive heart disease with heart failure; I50.9 Heart failure, unspecified; K22.2 Esophageal obstruction; K26.9 Duodenal ulcer, unspecified as acute or chronic, without hemorrhage or perforation; K29.60 Other gastritis without bleeding; K43.2 Incisional hernia without obstruction or gangrene; K57.30 Diverticulosis of large intestine without perforation or abscess without bleeding; K64.8 Other hemorrhoids; M41.9 Scoliosis, unspecified; M47.9 Spondylosis, unspecified; Z20.822 Contact with and (suspected) exposure to COVID-19; Z53.20 Procedure and treatment not carried out because of patient's decision for unspecified reasons; Z82.49 Family history of ischemic heart disease and other diseases of the circulatory system; Z85.3 Personal history of malignant neoplasm of breast; Z85.43 Personal history of malignant neoplasm of ovary; Z90.13 Acquired absence of bilateral breasts and nipples; Z93.3 Colostomy status; K21.9 Gastro-esophageal reflux disease without esophagitis; Z88.0 Allergy status to penicillin; Z88.2 Allergy status to sulfonamides; Z88.8 Allergy status to other drugs, medicaments and biological substances
CPT/HCPCS: 36415; 71045; 74018; 74021; 74022; 74176; 74250; 80048; 80053; 81001; 82962; 83605; 83690; 83735; 83880; 84100; 84478; 85007; 85025; 85610; 87077; 87086; 87186; 87426; 88112; 88305; 88341; 88342; 94760; 96374; A4314; A4930; A6253; A6402; C9113; J0610; J0692; J0696; J1100; J1200; J1650; J1940; J2270; J2370; J2405; J2704; J2710; J2920; J2930; J3010; J3475; J3480; J3490; J7030; J7050; J7120; Q9967; U0003; U0005; 97110-GP; 97116-GP; 97530-GO; 97530-GP; 97535-GO; 99285-25; G0378

== ENCOUNTER → 2021-07-10 | Outpatient (CLI) | payer MEDICARE ==
[~2021-07-10] MED LIST changes: +AMIO200T53 PO; -AMIO200T6 PO; +CEFD300C PO
[2021-07-10 13:38] LABS: BASO % 1 % (0-3); EOS # 0.2 x10^3/uL (0.0-0.7); EOS % 3 % (0-3); HEMATOCRIT 32.5 % (36.0-47.0); HEMOGLOBIN 10.8 g/dL (12.0-15.5); LYMPH # 2.2 x10^3/uL (1.0-4.8); LYMPH % 37 % (24-48); MEAN CORPUSCULAR HEMOGLOBIN 31 pg (25-35); MEAN CORPUSCULAR HGB CONC 33 g/dL (31-37); MEAN CORPUSCULAR VOLUME 94 fL (79-100); MONO # 0.6 x10^3/uL (0.0-1.1); MONO % 10 % (0-9); NEUT # 2.9 x10^3/uL (1.8-7.7); NEUT % 49 % (31-73); PLATELET COUNT 210 x10^3/uL (140-400); RED BLOOD COUNT 3.46 x10^6/uL (3.50-5.40); RED CELL DISTRIBUTION WIDTH 14.2 % (11.5-14.5); WHITE BLOOD COUNT 5.9 x10^3/uL (4.0-11.0)
[2021-07-10 13:53] LABS: CALCIUM 8.4 mg/dL (8.5-10.1); GFR 63.6; POTASSIUM 3.9 mmol/L (3.5-5.1)
[2021-07-10 13:59] LABS: ALBUMIN 3.2 g/dL (3.4-5.0); ALBUMIN/GLOBULIN RATIO 0.9 (1.0-1.7); TOTAL BILIRUBIN 0.4 mg/dL (0.2-1.0); TOTAL PROTEIN 6.8 g/dL (6.4-8.2)
== END ==
LOC: ONCLAB 12:55
PROVIDERS: ATTEND Internal Medicine Hematology & Oncology
DX: C56.9 Malignant neoplasm of unspecified ovary (principal)
CPT/HCPCS: 36415; 80053; 85025; 86304

== ENCOUNTER → 2021-09-30 | Outpatient (CLI) | payer MEDICARE ==
[2021-09-30 13:32] LABS: BASO % 1 % (0-3); EOS # 0.1 x10^3/uL (0.0-0.7); EOS % 1 % (0-3); HEMATOCRIT 36.3 % (36.0-47.0); HEMOGLOBIN 11.8 g/dL (12.0-15.5); LYMPH % 42 % (24-48); MEAN CORPUSCULAR HEMOGLOBIN 31 pg (25-35); MEAN CORPUSCULAR HGB CONC 33 g/dL (31-37); MEAN CORPUSCULAR VOLUME 95 fL (79-100); MONO # 0.4 x10^3/uL (0.0-1.1); MONO % 9 % (0-9); NEUT # 2.3 x10^3/uL (1.8-7.7); NEUT % 48 % (31-73); PLATELET COUNT 185 x10^3/uL (140-400); RED BLOOD COUNT 3.81 x10^6/uL (3.50-5.40); WHITE BLOOD COUNT 4.8 x10^3/uL (4.0-11.0)
[2021-09-30 13:51] LABS: CALCIUM 8.8 mg/dL (8.5-10.1); CREATININE 0.7 mg/dL (0.6-1.0); POTASSIUM 4.1 mmol/L (3.5-5.1)
[2021-09-30 13:57] LABS: ALBUMIN 3.4 g/dL (3.4-5.0); ALBUMIN/GLOBULIN RATIO 0.9 (1.0-1.7); TOTAL BILIRUBIN 0.5 mg/dL (0.2-1.0); TOTAL PROTEIN 7.4 g/dL (6.4-8.2)
== END ==
LOC: ONCLAB 12:47
PROVIDERS: ATTEND Internal Medicine Hematology & Oncology
DX: C56.9 Malignant neoplasm of unspecified ovary (principal)
CPT/HCPCS: 36415; 80053; 85025; 86304

== ENCOUNTER → 2021-10-10 | Outpatient (CLI) | payer MEDICARE ==
--- NOTE | 2021-10-10 14:12 | RAD ---
CT chest abdomen pelvis without contrast dated 10/10/2021. COMPARISON: 01/01/2021. CLINICAL INDICATION: Follow-up ovarian cancer. TECHNIQUE: Contiguous axial imaging the chest abdomen pelvis performed without the administration of IV or oral contrast. One or more of the following individualized dose reduction techniques were utilized for this examinat ion: 1. Automated exposure control 2. Adjustment of the mA and/or kV according to patient size 3. Use of iterative reconstruction technique FINDINGS: Heart size is mildly enlarged. No pericardial effusion. Coronary artery calcifications. No mediastina l, hilar or axillary lymphadenopathy. Thyroid gland is unremarkable. Evidence of prior bilateral mast ectomy with right axillary lymph node dissection, unchanged. Central airways are patent. Linear bands of increased density in the lower lobes, likely scar or atel ectasis. No consolidation or pleural effusion. No suspicious pulmonary nodule or mass. Solid abdominal viscera not well evaluated in the absence of contrast material. There is a tiny hypod ensity in the lateral segment left lobe liver, stable. Hyperdense material in the gallbladder suggest ba of sludge. No new liver lesion. Spleen is normal in size. Adrenal glands and kidneys are unremark able. No stone or hydronephrosis. There is an indeterminate circumscribed cystic mass at the pancreatic body/tail region that measures 3.7 cm. This was present previously where it measured 3.3 cm. There is some internal calcifications. No inflammatory changes around the gland. Unopacified GI tract is normal in caliber and contour. No apparent bowel wall thickening. There is ev idence of prior ventral hernia repair persistent small defect at the supraumbilical region of the rig ht of midline contains a portion of colon. No bowel obstruction. No inflammatory changes in the mesen aroldo. No retroperitoneal or mesenteric adenopathy. Scattered diverticula within the colon. The append ix is not clearly identified. No inflammatory changes in the right lower quadrant. Images of pelvis a nondistended urinary bladder. Uterus and adnexa are unremarkable. No free fluid. N o pelvic adenopathy. Bone windows show no acute finding. Multilevel spondylosis. There is wedge compression deformity of L 1, unchanged. IMPRESSION: 1. No evidence of tumor recurrence or metastatic disease. 2. Status post bilateral mastectomy. 3. Interval ventral hernia repair. There is a persistent small defect in the anterior abdominal wall just to the right of midline that contains a portion of colon. No evidence of bowel obstruction. 4. There is a indeterminate cystic mass at the pancreatic body/tail region appears to have mildly inc reased in size from prior study. Cystic neoplasm not excluded. Follow-up pancreatic MRI with and with out contrast could better evaluate. 5. Diverticulosis. Electronically signed by: Yakov Ford MD (10/10/2021 2:10 PM) [facility]
== END ==
LOC: CT 12:41
PROVIDERS: ATTEND Physician Assistant
DX: K43.9 Ventral hernia without obstruction or gangrene (principal); K57.30 Diverticulosis of large intestine without perforation or abscess without bleeding; I51.7 Cardiomegaly; I25.10 Atherosclerotic heart disease of native coronary artery without angina pectoris; K86.89 Other specified diseases of pancreas; M43.8X6 Other specified deforming dorsopathies, lumbar region; M47.819 Spondylosis without myelopathy or radiculopathy, site unspecified; Z90.13 Acquired absence of bilateral breasts and nipples
CPT/HCPCS: 71250; 74176

== ENCOUNTER → 2021-11-12 | Outpatient (CLI) | payer MEDICARE ==
--- NOTE | 2021-11-13 08:10 | CARD ---
MR#: [id number] Date of Study: 11/12/2021 Ordering Physician: CAMRON MENDEZ, Referring Physician: CAMRON MENDEZ Tech: Jackie Fontenot [facility] APPROVED REPORT EXAM: Two-dimensional and M-mode echocardiogram with Doppler and color Doppler. Other Information Quality : AverageHR: 67bpm Rhythm : Atrial Flutter INDICATION Atrial Fibrillation RISK FACTORS Hypertension Obesity Hyperlipidemia Diabetes 2D DIMENSIONS RVDd3.6 (2.9-3.5cm)Left Atrium(2D)3.3 (1.6-4.0cm) IVSd0.8 (0.7-1.1cm)Aortic Root(2D)2.6 (2.0-3.7cm) LVDd3.9 (3.9-5.9cm)LVOT Diameter1.6 (1.8-2.4cm) PWd0.9 (0.7-1.1cm)LVDs1.9 (2.5-4.0cm) FS (%) 50.7 %SV53.8 ml LVEF(%)82.6 (>50%) Aortic Valve AoV Peak Gorge.202.2cm/sAoV VTI47.6cm AO Peak GR.16.4mmHgLVOT Peak Gorge.96.9cm/s AO Mean GR.9mmHgAVA (VMAX)0.92cm2 Mitral Valve MV E Nxufemae673.4cm/sMV DECEL [id number] MV A Xpuhqmps719.9cm/sE/A Ratio0.9 Pulmonary Valve PV Peak Qmjfpgdt145.7cm/s Tricuspid Valve TR P. Jsyzoluz473lz/sTR Peak Gr.29mmHg LEFT VENTRICLE The left ventricle is normal size. There is normal left ventricular wall thickness. The left ventricu lar systolic function is normal. Estimated ejection fraction 60%. There is normal LV segmental wall m otion. Transmitral Doppler flow pattern is Grade I-abnormal relaxation pattern. RIGHT VENTRICLE The right ventricle is normal size. There is normal right ventricular wall thickness. The right ventr icular systolic function is normal. ATRIA The left atrium size is normal. The right atrium size is normal. The interatrial septum is intact wit h no evidence for an atrial septal defect or patent foramen ovale as noted on 2-D or Doppler imaging. AORTIC VALVE The aortic valve is normal in structure and function. Doppler and Color Flow revealed no significant aortic regurgitation. There is no significant aortic valvular stenosis. MITRAL VALVE Mitral annular calcification is borderline. There is no evidence of mitral valve prolapse. There is n o mitral valve stenosis. Doppler and Color-flow revealed trace to mild mitral regurgitation. TRICUSPID VALVE The tricuspid valve is normal in structure and function. Doppler and Color Flow revealed mild tricusp id regurgitation. Estimated PAP 32-35 mmHg. There is no tricuspid valve stenosis. GREAT VESSELS The aortic root is normal in size. The ascending aorta is normal in size. The IVC is normal in size a nd collapses >50% with inspiration. PERICARDIAL EFFUSION There is no evidence of significant pericardial effusion. Critical Notification Critical Value: No <Conclusion> The left ventricular systolic function is normal. Estimated ejection fraction 60%. There is normal LV segmental wall motion. Trace to mild mitral regurgitation. Mmild tricuspid regurgitation. Estimated PAP 32-35 mmHg. There is no evidence of significant pericardial effusion. Signed by : Camron Mendez, Electronically Approved : 11/13/2021 08:10:15
== END ==
LOC: ECHO 12:47
PROVIDERS: ATTEND Internal Medicine Cardiovascular Disease
DX: I08.1 Rheumatic disorders of both mitral and tricuspid valves (principal); I48.92 Unspecified atrial flutter
CPT/HCPCS: 93306; C8929

== ENCOUNTER → 2022-01-08 | Outpatient (CLI) | payer MEDICARE ==
[2022-01-08 14:02] LABS: BASO % 0 % (0-3); EOS # 0.1 x10^3/uL (0.0-0.7); EOS % 3 % (0-3); HEMATOCRIT 35.4 % (36.0-47.0); HEMOGLOBIN 11.7 g/dL (12.0-15.5); LYMPH # 2.1 x10^3/uL (1.0-4.8); LYMPH % 44 % (24-48); MEAN CORPUSCULAR HEMOGLOBIN 32 pg (25-35); MEAN CORPUSCULAR HGB CONC 33 g/dL (31-37); MEAN CORPUSCULAR VOLUME 97 fL (79-100); MONO # 0.4 x10^3/uL (0.0-1.1); MONO % 9 % (0-9); NEUT % 44 % (31-73); PLATELET COUNT 179 x10^3/uL (140-400); RED BLOOD COUNT 3.67 x10^6/uL (3.50-5.40); RED CELL DISTRIBUTION WIDTH 13.8 % (11.5-14.5); WHITE BLOOD COUNT 4.7 x10^3/uL (4.0-11.0)
[2022-01-08 14:11] LABS: CALCIUM 8.9 mg/dL (8.5-10.1); CREATININE 0.9 mg/dL (0.6-1.0); GFR 71.7; POTASSIUM 4.1 mmol/L (3.5-5.1)
[2022-01-08 14:17] LABS: ALBUMIN 3.2 g/dL (3.4-5.0); ALBUMIN/GLOBULIN RATIO 0.8 (1.0-1.7); TOTAL BILIRUBIN 0.4 mg/dL (0.2-1.0); TOTAL PROTEIN 7.1 g/dL (6.4-8.2)
== END ==
LOC: ONCLAB 12:55
PROVIDERS: ATTEND Internal Medicine Hematology & Oncology
DX: C56.9 Malignant neoplasm of unspecified ovary (principal)
CPT/HCPCS: 36415; 80053; 85025; 86304